=== PATIENT | female | born 1950 | race Caucasian/White ===

== ENCOUNTER → 2016-06-21 | Outpatient (CLI) | payer MEDICARE, MEDICAID ==
[2016-06-21 09:20] LABS: ANION GAP 11 (5-19); BLOOD UREA NITROGEN 12 mg/dL (7-20); CALCIUM 9.9 mg/dL (8.4-10.2); CARBON DIOXIDE 34 mmol/L (22-30); CHLORIDE 100 mmol/L (98-107); CHOLESTEROL 233.04 mg/dL (0-200); CREATININE RESULT 0.77 mg/dL (0.52-1.25); Direct HDL 78 mg/dL (>40); GLUCOSE 128 mg/dL (75-110); POTASSIUM 4.3 mmol/L (3.6-5.0); SODIUM 144.5 mmol/L (137-145); TRIGLYCERIDES 130 mg/dL (<150)
[2016-06-21 09:31] LABS: DIRECT LDL 125 mg/dL (<100)
== END ==
LOC: LAB 08:47
PROVIDERS: ATTEND Internal Medicine Cardiovascular Disease
DX: I48.91 Unspecified atrial fibrillation (principal); R73.09 Other abnormal glucose; I10 Essential (primary) hypertension; E74.9 Disorder of carbohydrate metabolism, unspecified
CPT/HCPCS: 36415; 80048; 80061; 83036

== ENCOUNTER 2016-07-18 13:09 | Inpatient (IN) | payer MEDICARE, MEDICAID ==
[2016-07-18 14:04] LABS: ABSOLUTE BASOPHILS # (AUTO) 0.1 10^3/uL (0.0-0.2); ABSOLUTE EOSINOPHILS # (AUTO) 0.1 10^3/uL (0.0-0.6); ABSOLUTE LYMPHOCYTES (AUTO) 0.7 10^3/uL (0.5-4.7); ABSOLUTE MONOCYTES (AUTO) 0.6 10^3/uL (0.1-1.4); ABSOLUTE NEUT (AUTO) 3.9 10^3/uL (1.7-8.2); BASOPHILS % (AUTO) 1.2 % (0-2); EOSINOPHILS % (AUTO) 1.2 % (0-6); HEMATOCRIT 35.7 % (36.0-47.0); HGB HCT DIFFERENCE 0.3; LYMPHOCYTES % (AUTO) 13.8 % (13-45); MEAN CORPUSCULAR HEMOGLOBIN 30.2 pg (27.0-33.4); MEAN CORPUSCULAR HGB CONC 33.5 g/dL (32.0-36.0); MEAN CORPUSCULAR VOLUME 90 fl (80-97); MONOCYTES % (AUTO) 11.6 % (3-13); RED BLOOD COUNT 3.96 10^6/uL (3.72-5.28); RED CELL DISTRIBUTION WIDTH 14.1 % (11.5-14.0); SEGMENTED NEUTROPHILS % (AUTO) 72.2 % (42-78); WHITE BLOOD COUNT 5.4 10^3/uL (4.0-10.5)
[2016-07-18] MEDS ORDERED: IPRATROPIUM/ALBUTEROL 0.5-2.5 MG/3 ML AMPUL NEB ONE (14:19)
[2016-07-18] MEDS ORDERED: ACETAMINOPHEN 325 MG TABLET PO ONE (14:20)
[2016-07-18 14:24] LABS: ALANINE AMINOTRANSFERASE 37 U/L (9-52); ALKALINE PHOSPHATASE 59 U/L (38-126); ANION GAP 11 (5-19); ASPARTATE AMINO TRANSFERASE 31 U/L (14-36); BILIRUBIN,TOTAL 0.5 mg/dL (0.2-1.3); BLOOD UREA NITROGEN 13 mg/dL (7-20); CALCIUM 9.3 mg/dL (8.4-10.2); CARBON DIOXIDE 30 mmol/L (22-30); CHLORIDE 101 mmol/L (98-107); CREATINE KINASE 63 U/L (30-135); GLUCOSE 111 mg/dL (75-110); POTASSIUM 3.9 mmol/L (3.6-5.0); SODIUM 141.6 mmol/L (137-145); TOTAL PROTEIN 7.8 g/dL (6.3-8.2)
--- NOTE | 2016-07-18 14:27 | ER Document Report ---
ED Respiratory Problem - General Mode of Arrival: Medic Information source: Patient TRAVEL OUTSIDE OF THE [place] IN LAST 30 DAYS: No - HPI Patient complains to provider of: Cough, Short of breath Onset: Other - past 2 days Context: Hx COPD, Smoker - former. denies: Hx CHF Sputum color: Clear Sputum consistency: Frothy At home treatment: Oxygen - 2L Associated symptoms: Other - see above <ALISHA JIMENEZ - Last Filed: 07/18/16 17:48> <SU OSWALD - Last Filed: 07/18/16 21:06> <PERNELL LE - Last Filed: 07/19/16 00:16> - General Chief Complaint: Shortness Of Breath Stated Complaint: DIFFICULTY BREATHING Notes: 66 year old female with history of hypertension, atrial fibrillation, diabetes, and COPD (oxygen dependent at 2L) presents to the ED complaining of a productive cough that has been present for the past 2 days. Patient states that she is coughing up white frothy sputum. Patient is also short of breath with exertion, and states that her oxygen saturation drops to "82%" when walking. Patient called EMS today when she was having difficulty breathing even with her oxygen on. She received a breathing treatment via EMS and states that it helped a little. Patient is also complaining of a headache, nosebleed, and fever. Patient had a fever of 102F last night and took Motrin and Nyquil to reduce it to 99F. This morning the patient woke up with another fever and states she took more Motrin and Nyquil at 0630. Patient's primary care provider is Dr. Herron, but states that she sees her senior shipping clerk, Dr. Nicolas, more often. (ALISHA JIMENEZ ) This 66-year-old female patient with a long history of COPD on 2 L oxygen at home comes emergency room today complaining of a clear frothy sputum productive cough, and shortness of breath. She states at rest she does well, but with the least bit of exertion her oxygen saturations drop into the low 80s and she gets quite dyspneic. Her previous admission here she was diagnosed with congestive heart failure, however her BNP was 179, and a chest x-ray read as pulmonary vascular congestion was a poor chest x-ray on a rather large person. Today her BNP is 1890. Chest x-ray was read as cardiomegaly, COPD, no acute process. She was given 20 mg of Lasix and had good urine output but no improvement in her symptoms. Getting up to use the bedside commode caused her oxygen saturations drop well below 90 while she is on nasal cannula oxygen. When she sits back down to rest it quickly goes back up to 94-96%. The patient is on Xarelto for her chronic A. fib which she has had for the past 2 years. She reports that she has some pain in her chest when she breathes, she thinks it may be due to all the coughing. She also has pain in her mid thoracic back which again is related to breathing. (SU OSWALD) - Related Data Allergies/Adverse Reactions: Sulfa (Sulfonamide Antibiotics) Allergy (Verified 04/01/16 10:40) Past Medical History - General Information source: Patient - Social History Smoking Status: Former Smoker Family History: Reviewed & Not Pertinent - Past Medical History Cardiac Medical History: Reports: Hx Atrial Fibrillation, Hx Hypertension Denies: Hx Congestive Heart Failure, Hx Hypercholesterolemia Pulmonary Medical History: Reports: Hx COPD Endocrine Medical History: Reports: Hx Diabetes Mellitus Type 2 Past Surgical History: Reports: Hx Appendectomy, Hx Cholecystectomy, Hx Hysterectomy, Hx Tubal Ligation - Immunizations Hx Diphtheria, Pertussis, Tetanus Vaccination: No <ALISHA JIMENEZ - Last Filed: 07/18/16 17:48> Review of Systems - Review of Systems Constitutional: See HPI, Fever EENT: See HPI, Nose discharge - bloody nose Cardiovascular: No symptoms reported Respiratory: See HPI, Cough, Short of breath, Sputum - white frothy sputum Gastrointestinal: No symptoms reported Genitourinary: No symptoms reported Female Genitourinary: No symptoms reported Musculoskeletal: No symptoms reported Skin: No symptoms reported Hematologic/Lymphatic: No symptoms reported Neurological/Psychological: See HPI, Headaches -: Yes All other systems reviewed and negative <ALISHA JIMENEZ - Last Filed: 07/18/16 17:48> Physical Exam - General General appearance: Alert In distress: None - HEENT Head: Normocephalic, Atraumatic Eyes: Normal Extraocular movements intact: Yes Pupils: PERRL - Respiratory Respiratory status: No respiratory distress Breath sounds: Rales - mild, Wheezing - bilateral - Cardiovascular Rhythm: Regular Heart sounds: Normal auscultation - Abdominal Inspection: Normal - Back Back: Normal - Extremities General upper extremity: Normal inspection, Normal ROM General lower extremity: Normal inspection, Normal ROM - Neurological Neuro grossly intact: Yes - Psychological Associated symptoms: Normal affect, Normal mood - Skin Skin Temperature: Warm Skin Moisture: Dry Skin Color: Normal <ALISHA JIMENEZ - Last Filed: 07/18/16 17:48> Course - Laboratory Result Diagrams: 07/18/16 13:50 07/18/16 13:50 <BARBARAALISHA - Last Filed: 07/18/16 17:48> - Laboratory Result Diagrams: 07/18/16 13:50 07/18/16 13:50 - Diagnostic Test Radiology reviewed: Image reviewed, Reports reviewed - Chest x-ray is read as cardiomegaly with COPD and no infiltrates. - EKG Interpretation by [facility] EKG shows normal: abnormal: ST-T Waves - Borderline anterior T abnormalities Rate: Normal - 81 Rhythm: A.Fib Voltage: Decreased voltage, Throughout - Transfer of Care Care transferred to following provider: Dr. Le <SU OSWALD - Last Filed: 07/18/16 21:06> - Laboratory Result Diagrams: 07/18/16 13:50 07/18/16 13:50 <PERNELL LE - Last Filed: 07/19/16 00:16> - Re-evaluation Re-evalutation: 07/18/16 16:35 The patient's BNP is 1890, almost 2 years ago she had a BNP of 171 Chest x-ray in the past has been read as prominent vascular congestion, but these were portal x-rays and she is a large person. Given her recent worsening of dyspnea on exertion despite being on oxygen, and the elevated BNP, will give her some Lasix at this time to diurese and see if that improves her exercise tolerance. (SU OSWALD) 07/18/16 23:58 I received the patient in signout from Dr. Feldman. Patient was ablated on pulse oximeter and did immediately desaturated down to 86% after ambulate just 20-25 feet. She was visibly symptomatic with this. The CT chest that was obtained without contrast did show a right perihilar infiltrate consistent with a possible pneumonia which should also help explain patient's symptoms. She is overall in no acute distress at this time. The VQ scan is pending. I have discussed this case with the hospitalist Dr. Minaya who will admit (PERNELL LE) - Vital Signs Vital signs: Temp Pulse Resp BP Pulse Ox 100.2 F 17 137/80 H 98 07/18/16 14:01 07/18/16 23:11 07/18/16 23:11 07/18/16 23:11 (ALISHA JIMENEZ) (SU OSWALD) (PERNELL LE) - Laboratory Laboratory results interpreted by me: 07/18/16 07/18/16 07/18/16 13:50 13:50 13:50 Hct 35.7 L RDW 14.1 H Glucose 111 H NT-Pro-B Natriuret Pep 1890 H (ALISHA JIMENEZ) (SU OSWALD) (PERNELL LE) - Transfer of Care Notes: 07/18/16 21:10 The patient is pending CTA chest to try to clarify what may actually be going on in her lungs causing her exertional hypoxemia. (SU OSWALD) Discharge <ALISHA JIMENEZ - Last Filed: 07/18/16 17:48> <SU OSWALD - Last Filed: 07/18/16 21:06> - Discharge Admitting Provider: Hospitalist - [facility] Admitted: Telemetry <PERNELL LE - Last Filed: 07/19/16 00:16> - Discharge Clinical Impression: Hypoxemia requiring supplemental oxygen, Exercise hypoxemia, Dyspnea on exertion Pneumonia involving right lung Qualifiers: Pneumonia type: due to unspecified organism Lung location: middle lobe of lung Qualified Code(s): J18.1 - Lobar pneumonia, unspecified organism Condition: Fair Disposition: ADMITTED INPATIENT Scribe Documentation - Scribe Written by Scribe:: Brooke Rodriguez, 07/18/2016 1433 acting as scribe for :: Garo <ALISHA JIMENEZ - Last Filed: 07/18/16 17:48>
[2016-07-18 14:35] LABS: TROPONIN I < 0.012 ng/mL
[2016-07-18 14:52] LABS: APPEARANCE,URINE CLEAR; BILIRUBIN,URINE NEGATIVE (NEGATIVE); GLUCOSE, URINE NEGATIVE (NEGATIVE); KETONES,URINE NEGATIVE (NEGATIVE); LEUKOCYTE ESTERASE,URINE NEGATIVE (NEGATIVE); NITRITE,URINE NEGATIVE (NEGATIVE); PROTEIN,URINE NEGATIVE (NEGATIVE); URINE SPECIFIC GRAVITY 1.013; UROBILINOGEN,URINE NEGATIVE mg/dL (<2.0)
[2016-07-18] MEDS ORDERED: ONDANSETRON HCL INJ/PF 4 MG/2 ML SDV IV ONE ×2 (15:45→21:11)
[2016-07-18] MEDS ORDERED: KETOROLAC TROMETHAMINE INJ/PF 30 MG/1 ML SDV IV ONE (15:45)
[2016-07-18] MEDS ORDERED: FUROSEMIDE INJ/PF 20 MG/2 ML SDV IV ONE (16:35)
[2016-07-18] MEDS ORDERED: MORPHINE SULFATE 10 MG/ML INJ IV ONE (21:11)
--- NOTE | 2016-07-18 21:42 | EKG REPORT ---
SEVERITY:- ABNORMAL ECG - ATRIAL FIBRILLATION, V-RATE 60-98 LOW VOLTAGE THROUGHOUT BORDERLINE T ABNORMALITIES, ANTERIOR LEADS : Confirmed by: Nelly Snyder 18-Jul-2016 21:40:51
[2016-07-18] MEDS ORDERED: LEVOFLOXACIN 750 MG/D5W RTU 150 ML IV SCH (23:45)
[2016-07-18] MEDS ORDERED: FLUTICASONE NASAL SPRAY 50 MCG/SPRY 120 SPRAY/16 GM NASL SCH (23:45)
[2016-07-18] MEDS ORDERED: CEFTRIAXONE 1 GM/D5W RTU 50 ML IV ONE (23:46)
[2016-07-18] MEDS ORDERED: LEVOFLOXACIN 750 MG/D5W RTU 150 ML IV ONE (23:50)
[2016-07-18] MEDS ORDERED: FUROSEMIDE 20 MG TABLET PO PRN (23:58)
[2016-07-18] MEDS ORDERED: GUAIFENESIN SYRP 200 MG/10 ML UDC PO PRN (23:59)
[2016-07-19] MEDS ORDERED: METOPROLOL TARTRATE 50 MG TABLET PO ONE (01:15)
[2016-07-19] MEDS ORDERED: IPRATROPIUM/ALBUTEROL 0.5-2.5 MG/3 ML AMPUL NEB SCH (02:00)
[2016-07-19] MEDS: IPRATROPIUM BROMIDE 0.02% NEB 0.5 MG/2.5 ML AMPUL NEB SCH ×3 (03:05→14:12)
[2016-07-19] MEDS: LEVALBUTEROL HCL NEB 1.25 MG/3 ML AMPUL NEB SCH ×3 (03:06→14:12)
[2016-07-19] MEDS: PREDNISONE 10 MG TABLET PO SCH (04:47)
[2016-07-19] MEDS ORDERED: CEFTRIAXONE 1 GM/D5W RTU 1 GM/50 ML RTUPB IV ONE (05:00)
--- NOTE | 2016-07-19 05:05 | PDOC H&P ---
History of Present Illness Admission Date/PCP: 07/18/16 23:59 JOSE MARIA GALLEGOS MD Patient complains of: Fever and shortness of breath History of Present Illness: VESTA JIMENEZ is a 66 year old female with a past medical history of COPD, atrial fibrillation, hypertension and morbid obesity who is in her usual state of health until approximately 5 days ago noting a nonproductive cough over the last 48 hours developing a fever of 102 and shortness of breath with both frothy sputum and yellow sputum prompting her to seek evaluation emergency room where she's found to have right Hilar infiltrate. She started on empiric antibiotics and referred to the hospitalist for admission. She denies chest pain nausea vomiting or recent influenza vaccine. Past Medical History Cardiac Medical History: Reports: Atrial Fibrillation, Hypertension Denies: Congestive Heart Failure, Hyperlipidema Pulmonary Medical History: Reports: Chronic Obstructive Pulmonary Disease (COPD) Endocrine Medical History: Reports: Diabetes Mellitus Type 2 Past Surgical History Past Surgical History: Reports: Appendectomy, Cholecystectomy, Hysterectomy, Tubal Ligation Social History Information Source: Patient Smoking Status: Former Smoker Frequency of Alcohol Use: None Hx Recreational Drug Use: No Drugs: None Hx Prescription Drug Abuse: No - Advance Directive Resuscitation Status: Full Code Family History Family History: COPD Parental Family History Reviewed: Yes Children Family History Reviewed: Yes Sibling(s) Family History Reviewed.: Yes Medication/Allergy Home Medications: Albuterol Sulfate [Ventolin Hfa] 1 - 2 puff IH Q4HP PRN #1 [email or web address] 09/04/14 Diazepam [Valium 5 mg Tablet] 5 mg PO BID PRN 07/19/16 Fluticasone/Salmeterol [Advair 250-50 Diskus 28 dose] 2 puff IH DAILY 07/19/16 Metformin HCl [Metformin HCl ER] 1,000 mg PO DAILY 07/19/16 Metoprolol Succinate [Metoprolol Succinate] 200 mg PO DAILY 07/19/16 Promethazine HCl 25 mg PO ASDIR PRN 07/19/16 Rivaroxaban [Xarelto] 20 mg PO QHS 07/19/16 Allergies/Adverse Reactions: levofloxacin [From Levaquin] Allergy (Intermediate, Verified 07/19/16 04:41) Unknown reaction Sulfa (Sulfonamide Antibiotics) Allergy (Verified 04/01/16 10:40) Review of Systems Constitutional: PRESENT: chills, fatigue, fever(s), weakness. ABSENT: headache( s), weight gain, weight loss Eyes: ABSENT: visual disturbances Ears: ABSENT: hearing changes Cardiovascular: ABSENT: chest pain, dyspnea on exertion, edema, orthropnea, palpitations Respiratory: PRESENT: cough, dyspnea, sputum. ABSENT: hemoptysis Gastrointestinal: ABSENT: abdominal pain, constipation, diarrhea, hematemesis, hematochezia, nausea, vomiting Genitourinary: ABSENT: dysuria, hematuria Musculoskeletal: ABSENT: joint swelling Integumentary: ABSENT: rash, wounds Neurological: ABSENT: abnormal gait, abnormal speech, confusion, dizziness, focal weakness, syncope Psychiatric: ABSENT: anxiety, depression, homidical ideation, suicidal ideation Endocrine: ABSENT: cold intolerance, heat intolerance, polydipsia, polyuria Hematologic/Lymphatic: ABSENT: easy bleeding, easy bruising Physical Exam Vital Signs: Temp Pulse Resp BP Pulse Ox 100.2 F 77 18 118/59 L 87 L 07/18/16 14:01 07/19/16 03:05 07/19/16 04:31 07/19/16 04:31 07/19/16 04:31 General appearance: PRESENT: no acute distress, cooperative, mild distress, morbidly obese. ABSENT: disheveled Head exam: PRESENT: atraumatic, normocephalic Eye exam: PRESENT: conjunctiva pink, EOMI, PERRLA. ABSENT: scleral icterus Ear exam: PRESENT: normal external ear exam Mouth exam: PRESENT: moist, tongue midline Neck exam: ABSENT: carotid bruit, JVD, lymphadenopathy, thyromegaly Respiratory exam: PRESENT: accessory muscle use, crackles, prolonged expiratory phas, rales, symmetrical, tachypnea. ABSENT: wheezes Cardiovascular exam: PRESENT: irregular rhythm. ABSENT: diastolic murmur, rubs , systolic murmur Pulses: PRESENT: normal dorsalis pedis pul Vascular exam: PRESENT: normal capillary refill GI/Abdominal exam: PRESENT: normal bowel sounds, soft. ABSENT: distended, guarding, mass, organolmegaly, rebound, tenderness Rectal exam: PRESENT: deferred Extremities exam: PRESENT: full ROM. ABSENT: calf tenderness, clubbing, pedal edema Neurological exam: PRESENT: alert, awake, oriented to person, oriented to place , oriented to time, oriented to situation, CN II-XII grossly intact. ABSENT: motor sensory deficit Psychiatric exam: PRESENT: appropriate affect, normal mood. ABSENT: homicidal ideation, suicidal ideation Skin exam: PRESENT: dry, intact, warm. ABSENT: cyanosis, rash Results Impressions: Chest X-Ray 07/18/16 13:13 IMPRESSION: Cardiomegaly. Obstructive lung disease. Chest CT 07/18/16 18:44 IMPRESSION: Mild bronchial wall thickening centrally. Small area of right parahilar patchy airspace disease. Lung Scan-VQ NM 07/18/16 22:31 IMPRESSION: Intermediate probability for pulmonary emboli. Correlation with CT angiogram chest recommended. Assessment & Plan - Diagnosis (1) Pneumonia involving right lung Qualifiers: Pneumonia type: due to unspecified organism Lung location: middle lobe of lung Qualified Code(s): J18.1 - Lobar pneumonia, unspecified organism Is this a current diagnosis for this admission?: YesPlan: Empiric antibiotics, Xopenex with Atrovent symptomatic management incentive spirometry consideration of BiPAP following blood and sputum culture and a.m. labs (2) A-fib Is this a current diagnosis for this admission?: YesPlan: Anticipate worsening given COPD exacerbation patient is unclear of her regular Lopressor dose she will receive 25 times one now with close monitoring of her heart rate. She is already fully anticoagulated on Eliquis (3) CHF (congestive heart failure) Is this a current diagnosis for this admission?: YesPlan: Somewhat suggested by her complain of frothy sputum and elevated BNP I will avoid volume overload control heart rate and consider additional diuresis (4) Morbid obesity with BMI of 45.0-49.9, adult Is this a current diagnosis for this admission?: YesPlan: Morbid obesity will evaluate for metabolic cause with evaluation of thyroid function and dietitian consultation - Time Time Spent: 30 to 50 Minutes
[2016-07-19] MEDS: HEPARIN SOD (PORCINE) 5,000 UNIT/ML 1 ML SYRINGE SUBCUT SCH ×3 (06:05→21:35)
[2016-07-19] MEDS: ACETAMINOPHEN 325 MG TABLET PO PRN (06:38)
[2016-07-19 06:41] LABS: ABSOLUTE LYMPHOCYTES (AUTO) 0.5 10^3/uL (0.5-4.7); ABSOLUTE MONOCYTES (AUTO) 0.6 10^3/uL (0.1-1.4); ABSOLUTE NEUT (AUTO) 4.6 10^3/uL (1.7-8.2); BASOPHILS % (AUTO) 0.4 % (0-2); HEMATOCRIT 36.5 % (36.0-47.0); HEMOGLOBIN 12.2 g/dL (12.0-15.5); HGB HCT DIFFERENCE 0.1; MEAN CORPUSCULAR HEMOGLOBIN 29.9 pg (27.0-33.4); MEAN CORPUSCULAR HGB CONC 33.5 g/dL (32.0-36.0); MEAN CORPUSCULAR VOLUME 89 fl (80-97); MONOCYTES % (AUTO) 11.1 % (3-13); RED BLOOD COUNT 4.09 10^6/uL (3.72-5.28); RED CELL DISTRIBUTION WIDTH 13.9 % (11.5-14.0); SEGMENTED NEUTROPHILS % (AUTO) 79.5 % (42-78); WHITE BLOOD COUNT 5.8 10^3/uL (4.0-10.5)
[2016-07-19 06:54] LABS: ANION GAP 13 (5-19); BLOOD UREA NITROGEN 15 mg/dL (7-20); CALCIUM 9.2 mg/dL (8.4-10.2); CARBON DIOXIDE 28 mmol/L (22-30); CHLORIDE 99 mmol/L (98-107); CREATININE RESULT 0.74 mg/dL (0.52-1.25); GLUCOSE 117 mg/dL (75-110); POTASSIUM 4.3 mmol/L (3.6-5.0); SODIUM 139.5 mmol/L (137-145)
[2016-07-19] MEDS ORDERED: TIOTROPIUM BROMIDE DPI 5 CAP/KIT (18 MCG/CAP) IH SCH (08:00)
[2016-07-19] MEDS: TIOTROPIUM BROMIDE DPI 5 CAP/KIT (18 MCG/CAP) IH SCH (09:21)
[2016-07-19] MEDS: DOCUSATE SODIUM 100 MG CAPSULE PO SCH ×2 (09:22→17:43)
[2016-07-19] MEDS: ASPIRIN 81 MG TABLET, ENT COATED PO SCH (09:23)
[2016-07-19] MEDS: FAMOTIDINE 20 MG TABLET PO SCH ×2 (09:26→15:36)
[2016-07-19] MEDS ORDERED: (PENDING PHARMACY ID) (Lisinopril [Zestril] 20 MG) PO SCH (10:00)
[2016-07-19] MEDS ORDERED: LISINOPRIL 10 MG TABLET PO SCH (10:00)
--- NOTE | 2016-07-19 11:17 | EKG REPORT ---
SEVERITY:- ABNORMAL ECG - ATRIAL FIBRILLATION, V-RATE 61-93 LOW VOLTAGE THROUGHOUT BORDERLINE T ABNORMALITIES, DIFFUSE LEADS : Confirmed by: Nelly Snyder 19-Jul-2016 11:17:30
[2016-07-19] MEDS ORDERED: GUAIFENESIN 600 MG TABLET.SA PO ONE (11:30)
[2016-07-19] MEDS: IBUPROFEN 800 MG TABLET PO PRN ×2 (13:28→21:32)
--- NOTE | 2016-07-19 14:52 | PDOC PROGRESS REPORT ---
Subjective Progress Note for:: 07/19/16 Subjective:: The patient was seen earlier today on rounds. The patient denies dyspnea at rest however she still has dyspnea with exertion. The patient denies any nausea , vomiting, diarrhea, dizziness, chest pain, heart palpitations, fevers, or chills. The patient has remained afebrile. Blood pressures have been in a good range. When prompted the patient voices no other concerns at this time. Review of systems: The rest of the review of systems is negative. Physical Exam Vital Signs: Temp Pulse Resp BP Pulse Ox 97.7 F 79 18 125/75 98 07/19/16 12:00 07/19/16 12:00 07/19/16 12:00 07/19/16 12:00 07/19/16 12:00 Intake & Output 07/17/16 07/18/16 07/19/16 23:59 23:59 23:59 Intake Total 50 Balance 50 Weight 127.1 kg General appearance: PRESENT: no acute distress, cooperative, well-developed, well-nourished Head exam: PRESENT: atraumatic, normocephalic Eye exam: PRESENT: conjunctiva pink, EOMI, PERRLA. ABSENT: scleral icterus Ear exam: PRESENT: normal external ear exam Mouth exam: PRESENT: moist, tongue midline Neck exam: ABSENT: carotid bruit, JVD, lymphadenopathy, thyromegaly Respiratory exam: PRESENT: decreased breath sounds, symmetrical, unlabored, wheezes. ABSENT: rales, rhonchi, tachypnea Cardiovascular exam: PRESENT: RRR. ABSENT: diastolic murmur, rubs, systolic murmur Pulses: PRESENT: normal dorsalis pedis pul Vascular exam: PRESENT: normal capillary refill GI/Abdominal exam: PRESENT: normal bowel sounds, soft. ABSENT: distended, guarding, mass, organolmegaly, rebound, tenderness Rectal exam: PRESENT: deferred Extremities exam: PRESENT: full ROM. ABSENT: calf tenderness, clubbing, pedal edema Neurological exam: PRESENT: alert, awake, oriented to person, oriented to place , oriented to time, oriented to situation, CN II-XII grossly intact. ABSENT: motor sensory deficit Psychiatric exam: PRESENT: appropriate affect, normal mood. ABSENT: homicidal ideation, suicidal ideation Skin exam: PRESENT: dry, intact, warm. ABSENT: cyanosis, rash Results Laboratory Results: 07/19/16 06:20 07/19/16 06:20 07/19/16 07/19/16 06:20 06:20 WBC 5.8 RBC 4.09 Hgb 12.2 Hct 36.5 MCV 89 MCH 29.9 MCHC 33.5 RDW 13.9 Plt Count 222 Seg Neutrophils % 79.5 H Lymphocytes % 9.0 L Monocytes % 11.1 Eosinophils % 0.0 Basophils % 0.4 Absolute Neutrophils 4.6 Absolute Lymphocytes 0.5 Absolute Monocytes 0.6 Absolute Eosinophils 0.0 Absolute Basophils 0.0 Sodium 139.5 Potassium 4.3 Chloride 99 Carbon Dioxide 28 Anion Gap 13 BUN 15 Creatinine 0.74 Est GFR ( Amer) > 60 Est GFR (Non-Af Amer) > 60 Glucose 117 H Calcium 9.2 Impressions: Chest X-Ray 07/18/16 13:13 IMPRESSION: Cardiomegaly. Obstructive lung disease. Chest CT 07/18/16 18:44 IMPRESSION: Mild bronchial wall thickening centrally. Small area of right parahilar patchy airspace disease. Lung Scan-VQ NM 07/18/16 22:31 IMPRESSION: Intermediate probability for pulmonary emboli. Correlation with CT angiogram chest recommended. Assessment & Plan - Diagnosis (1) Pneumonia involving right lung Qualifiers: Pneumonia type: due to unspecified organism Lung location: middle lobe of lung Qualified Code(s): J18.1 - Lobar pneumonia, unspecified organism Is this a current diagnosis for this admission?: YesPlan: Will continue current antib biotic coverage (2) A-fib Qualifiers: Atrial fibrillation type: chronic Qualified Code(s): I48.2 - Chronic atrial fibrillation Is this a current diagnosis for this admission?: YesPlan: Rate controlled will continue current medications. (3) CHF (congestive heart failure) Qualifiers: Congestive heart failure type: diastolic Congestive heart failure chronicity: chronic Qualified Code(s): I50.32 - Chronic diastolic ( congestive) heart failure Is this a current diagnosis for this admission?: YesPlan: The patient appears optivolemic will continue current medications. (4) COPD exacerbation Is this a current diagnosis for this admission?: YesPlan: Will continue home medications. (5) Tobacco abuse, episodic Is this a current diagnosis for this admission?: Yes (6) Morbid obesity with BMI of 45.0-49.9, adult Is this a current diagnosis for this admission?: Yes (7) Hypertension Qualifiers: Hypertension type: essential hypertension Qualified Code(s): I10 - Essential (primary) hypertension Is this a current diagnosis for this admission?: YesPlan: Will continue home medications. - Time Time Spent with patient: 35 or more minutes Medications reviewed and adjusted accordingly: Yes Within: within 48 hours
[2016-07-19] MEDS ORDERED: (PENDING PHARMACY ID) (Metoprolol Succinate [Toprol Xl 200 Mg Tablet] 200 MG) PO SCH (15:00)
[2016-07-19] MEDS: METOPROLOL SUCCINATE 50 MG TAB.SR.24H PO SCH (17:43)
[2016-07-19] MEDS: METFORMIN HCL 500 MG TABLET PO SCH (17:44)
[2016-07-19] MEDS: FLUTICASONE NASAL SPRAY 50 MCG/SPRY 120 SPRAY/16 GM NASL SCH (21:32)
[2016-07-19] MEDS: GUAIFENESIN 600 MG TABLET.SA PO SCH (21:32)
[2016-07-19] MEDS: DIAZEPAM 5 MG TABLET PO PRN (21:32)
[2016-07-19] MEDS: RIVAROXABAN 10 MG TABLET PO SCH (21:33)
[2016-07-19] MEDS: FLUTICASONE/SALMETEROL DISKUS 250-50 MCG/DOSE IH SCH (21:33)
[2016-07-19] MEDS: SIMVASTATIN 40 MG TABLET PO SCH (21:33)
[2016-07-20 04:58] LABS: ABSOLUTE LYMPHOCYTES (AUTO) 0.6 10^3/uL (0.5-4.7); ABSOLUTE MONOCYTES (AUTO) 0.5 10^3/uL (0.1-1.4); ABSOLUTE NEUT (AUTO) 3.8 10^3/uL (1.7-8.2); BASOPHILS % (AUTO) 0.7 % (0-2); EOSINOPHILS % (AUTO) 0.4 % (0-6); HEMATOCRIT 39.9 % (36.0-47.0); HEMOGLOBIN 13.1 g/dL (12.0-15.5); HGB HCT DIFFERENCE -0.6; LYMPHOCYTES % (AUTO) 12.4 % (13-45); MEAN CORPUSCULAR HEMOGLOBIN 29.9 pg (27.0-33.4); MEAN CORPUSCULAR HGB CONC 32.8 g/dL (32.0-36.0); MEAN CORPUSCULAR VOLUME 91 fl (80-97); MONOCYTES % (AUTO) 10.7 % (3-13); RED BLOOD COUNT 4.39 10^6/uL (3.72-5.28); RED CELL DISTRIBUTION WIDTH 14.4 % (11.5-14.0); SEGMENTED NEUTROPHILS % (AUTO) 75.8 % (42-78)
[2016-07-20 05:17] LABS: ANION GAP 13 (5-19); BLOOD UREA NITROGEN 22 mg/dL (7-20); CALCIUM 9.3 mg/dL (8.4-10.2); CARBON DIOXIDE 31 mmol/L (22-30); CHLORIDE 98 mmol/L (98-107); CREATININE RESULT 0.88 mg/dL (0.52-1.25); GLUCOSE 93 mg/dL (75-110); POTASSIUM 4.2 mmol/L (3.6-5.0); SODIUM 141.5 mmol/L (137-145)
[2016-07-20] MEDS: ACETAMINOPHEN 325 MG TABLET PO PRN ×3 (05:26→14:13)
[2016-07-20] MEDS: HEPARIN SOD (PORCINE) 5,000 UNIT/ML 1 ML SYRINGE SUBCUT SCH ×3 (05:28→21:38)
[2016-07-20] MEDS: DIAZEPAM 5 MG TABLET PO PRN ×2 (08:26→21:40)
[2016-07-20] MEDS: FAMOTIDINE 20 MG TABLET PO SCH ×2 (08:26→16:53)
[2016-07-20] MEDS: METFORMIN HCL 500 MG TABLET PO SCH ×2 (08:26→16:53)
[2016-07-20] MEDS: GUAIFENESIN 600 MG TABLET.SA PO SCH ×2 (09:12→21:38)
[2016-07-20] MEDS: PREDNISONE 10 MG TABLET PO SCH (09:13)
[2016-07-20] MEDS: FLUTICASONE NASAL SPRAY 50 MCG/SPRY 120 SPRAY/16 GM NASL SCH ×2 (09:13→21:38)
[2016-07-20] MEDS: FLUTICASONE/SALMETEROL DISKUS 250-50 MCG/DOSE IH SCH ×2 (09:13→21:38)
[2016-07-20] MEDS: ASPIRIN 81 MG TABLET, ENT COATED PO SCH (09:13)
[2016-07-20] MEDS: DOCUSATE SODIUM 100 MG CAPSULE PO SCH ×2 (09:13→18:11)
[2016-07-20] MEDS: TIOTROPIUM BROMIDE DPI 5 CAP/KIT (18 MCG/CAP) IH SCH (09:13)
[2016-07-20] MEDS: AZITHROMYCIN 500 MG in DEXTROSE 5%-WATER 250 ML IV SCH (10:03)
[2016-07-20] MEDS: LEVALBUTEROL HCL NEB 0.63 MG/3 ML AMPUL NEB PRN ×2 (14:28→20:40)
--- NOTE | 2016-07-20 15:40 | PDOC PROGRESS REPORT ---
Subjective Progress Note for:: 07/20/16 Subjective:: Patient seen on morning rounds. She is sitting up bed and bedside chair. She states her breathing has improved since admission, however, she still becomes easily dyspneic with any exertion. She continues to have productive cough, raising thick yellow sputum. She's had a low-grade fever overnight as well. She denies any chest pain, headache or dizziness. She denies any nausea, vomiting, diarrhea, or abdominal pain. She denies any significant arthralgias or myalgias. She states she did have chills and low-grade fever overnight. Physical Exam Vital Signs: Temp Pulse Resp BP Pulse Ox 98.8 F 86 16 118/64 92 07/20/16 11:13 07/20/16 14:28 07/20/16 14:28 07/20/16 11:13 07/20/16 14:28 General appearance: PRESENT: no acute distress, morbidly obese, well-developed, well-nourished Head exam: PRESENT: atraumatic, normocephalic Eye exam: PRESENT: conjunctiva pink, EOMI, PERRLA. ABSENT: scleral icterus Ear exam: PRESENT: normal external ear exam Mouth exam: PRESENT: moist, tongue midline Neck exam: ABSENT: carotid bruit, JVD, lymphadenopathy, thyromegaly Respiratory exam: PRESENT: rhonchi, symmetrical, tachypnea, wheezes Cardiovascular exam: PRESENT: RRR. ABSENT: diastolic murmur, rubs, systolic murmur Pulses: PRESENT: normal dorsalis pedis pul Vascular exam: PRESENT: normal capillary refill GI/Abdominal exam: PRESENT: normal bowel sounds, soft. ABSENT: distended, guarding, mass, organolmegaly, rebound, tenderness Rectal exam: PRESENT: deferred Extremities exam: PRESENT: full ROM. ABSENT: calf tenderness, clubbing, pedal edema Neurological exam: PRESENT: alert, awake, oriented to person, oriented to place , oriented to time, oriented to situation, CN II-XII grossly intact. ABSENT: motor sensory deficit Psychiatric exam: PRESENT: appropriate affect, normal mood. ABSENT: homicidal ideation, suicidal ideation Skin exam: PRESENT: dry, intact, warm. ABSENT: cyanosis, rash Results Impressions: Chest X-Ray 07/18/16 13:13 IMPRESSION: Cardiomegaly. Obstructive lung disease. Chest CT 07/18/16 18:44 IMPRESSION: Mild bronchial wall thickening centrally. Small area of right parahilar patchy airspace disease. Lung Scan-VQ NM 07/18/16 22:31 IMPRESSION: Intermediate probability for pulmonary emboli. Correlation with CT angiogram chest recommended. Assessment & Plan - Diagnosis (1) Acute and chronic respiratory failure with hypoxia Is this a current diagnosis for this admission?: YesPlan: Most likely secondary to acute sinusitis, bronchitis. Patient with low grade fever, productive cough and dyspnea with minimal exertion. Patient will be treated with IV broad spectrum antibiotics (2) Hypertension Qualifiers: Hypertension type: essential hypertension Qualified Code(s): I10 - Essential (primary) hypertension Is this a current diagnosis for this admission?: YesPlan: Normotensive at the present time (3) COPD exacerbation Is this a current diagnosis for this admission?: YesPlan: Continue inhalers, nebulizers and antibiotics (4) A-fib Qualifiers: Atrial fibrillation type: chronic Qualified Code(s): I48.2 - Chronic atrial fibrillation Is this a current diagnosis for this admission?: YesPlan: Rate controlled on current medications (5) CHF (congestive heart failure) Qualifiers: Congestive heart failure type: diastolic Congestive heart failure chronicity: chronic Qualified Code(s): I50.32 - Chronic diastolic ( congestive) heart failure Is this a current diagnosis for this admission?: YesPlan: Patient appears euvolemic at the present time (6) Morbid obesity with BMI of 45.0-49.9, adult Is this a current diagnosis for this admission?: YesPlan: Counseled (7) Tobacco abuse, episodic Is this a current diagnosis for this admission?: YesPlan: Counseled on need to be tobacco free - Time Time Spent with patient: 25-34 minutes Critical Time spent with patient: 15-24 minutes Smoking Cessation Education: 3 to 10 minutes Medications reviewed and adjusted accordingly: Yes Anticipated discharge: Home
[2016-07-20] MEDS: METOPROLOL SUCCINATE 50 MG TAB.SR.24H PO SCH (18:11)
[2016-07-20] MEDS: RIVAROXABAN 10 MG TABLET PO SCH (21:39)
[2016-07-20] MEDS: PROMETHAZINE HCL 25 MG TABLET PO PRN (21:40)
[2016-07-20] MEDS: SIMVASTATIN 40 MG TABLET PO SCH (21:54)
[2016-07-21] MEDS: HEPARIN SOD (PORCINE) 5,000 UNIT/ML 1 ML SYRINGE SUBCUT SCH ×3 (06:33→21:25)
[2016-07-21] MEDS: METFORMIN HCL 500 MG TABLET PO SCH ×2 (08:00→17:14)
[2016-07-21] MEDS: FAMOTIDINE 20 MG TABLET PO SCH ×2 (08:00→15:36)
[2016-07-21] MEDS: FLUTICASONE/SALMETEROL DISKUS 250-50 MCG/DOSE IH SCH ×2 (09:25→21:25)
[2016-07-21] MEDS: TIOTROPIUM BROMIDE DPI 5 CAP/KIT (18 MCG/CAP) IH SCH (09:25)
[2016-07-21] MEDS: GUAIFENESIN 600 MG TABLET.SA PO SCH ×2 (09:26→21:25)
[2016-07-21] MEDS: ASPIRIN 81 MG TABLET, ENT COATED PO SCH (09:26)
[2016-07-21] MEDS: PREDNISONE 10 MG TABLET PO SCH (09:26)
[2016-07-21] MEDS: DOCUSATE SODIUM 100 MG CAPSULE PO SCH ×2 (09:26→17:16)
[2016-07-21] MEDS: FLUTICASONE NASAL SPRAY 50 MCG/SPRY 120 SPRAY/16 GM NASL SCH ×2 (09:26→21:25)
[2016-07-21] MEDS: AZITHROMYCIN 500 MG in DEXTROSE 5%-WATER 250 ML IV SCH (10:31)
[2016-07-21] MEDS: ONDANSETRON HCL INJ/PF 4 MG/2 ML SDV IV PRN ×2 (12:12→19:32)
[2016-07-21] MEDS: LEVALBUTEROL HCL NEB 0.63 MG/3 ML AMPUL NEB PRN ×2 (13:06→19:18)
--- NOTE | 2016-07-21 15:07 | PDOC PROGRESS REPORT ---
Subjective Progress Note for:: 07/21/16 Subjective:: Patient seen on morning rounds. She is sitting up bed and bedside chair. She states her breathing has improved since admission, however, she still becomes easily dyspneic with any exertion. She continues to have productive cough, raising thick yellow sputum. She denies any chest pain, headache or dizziness. She complains of mild nausea, and diarrhea that began this morning She denies any significant arthralgias or myalgias. She states she did have chills and low -grade fever overnight. Physical Exam Vital Signs: Temp Pulse Resp BP Pulse Ox 100.2 F 78 21 H 119/86 H 96 07/21/16 11:31 07/21/16 14:00 07/21/16 11:31 07/21/16 11:31 07/21/16 11:31 Intake & Output 07/20/16 07/21/16 07/22/16 06:59 06:59 06:59 Intake Total 1190 950 Output Total 800 Balance 390 950 Weight 132.3 kg General appearance: PRESENT: no acute distress, morbidly obese, well-developed, well-nourished Head exam: PRESENT: atraumatic Eye exam: PRESENT: conjunctiva pink, EOMI, PERRLA. ABSENT: scleral icterus Mouth exam: PRESENT: moist, tongue midline Neck exam: ABSENT: carotid bruit, JVD, lymphadenopathy, thyromegaly Respiratory exam: PRESENT: symmetrical, unlabored, wheezes Cardiovascular exam: PRESENT: RRR. ABSENT: diastolic murmur, rubs, systolic murmur Pulses: PRESENT: normal dorsalis pedis pul Vascular exam: PRESENT: normal capillary refill GI/Abdominal exam: PRESENT: normal bowel sounds, soft. ABSENT: distended, guarding, mass, organolmegaly, rebound, tenderness Rectal exam: PRESENT: deferred Extremities exam: PRESENT: full ROM. ABSENT: calf tenderness, clubbing, pedal edema Neurological exam: PRESENT: alert, awake, oriented to person, oriented to place , oriented to time, oriented to situation, CN II-XII grossly intact. ABSENT: motor sensory deficit Psychiatric exam: PRESENT: appropriate affect, normal mood. ABSENT: homicidal ideation, suicidal ideation Skin exam: PRESENT: dry, intact, warm. ABSENT: cyanosis, rash Results Impressions: Chest X-Ray 07/18/16 13:13 IMPRESSION: Cardiomegaly. Obstructive lung disease. Chest CT 07/18/16 18:44 IMPRESSION: Mild bronchial wall thickening centrally. Small area of right parahilar patchy airspace disease. Lung Scan-VQ NM 07/18/16 22:31 IMPRESSION: Intermediate probability for pulmonary emboli. Correlation with CT angiogram chest recommended. Assessment & Plan - Diagnosis (1) Acute and chronic respiratory failure with hypoxia Is this a current diagnosis for this admission?: YesPlan: Most likely secondary to acute sinusitis, bronchitis. Patient with low grade fever, productive cough and dyspnea with minimal exertion. Patient will be treated with IV broad spectrum antibiotics (2) Hypertension Qualifiers: Hypertension type: essential hypertension Qualified Code(s): I10 - Essential (primary) hypertension Is this a current diagnosis for this admission?: YesPlan: Normotensive at the present time (3) COPD exacerbation Is this a current diagnosis for this admission?: YesPlan: Continue inhalers, nebulizers and antibiotics (4) A-fib Qualifiers: Atrial fibrillation type: chronic Qualified Code(s): I48.2 - Chronic atrial fibrillation Is this a current diagnosis for this admission?: YesPlan: Rate controlled on current medications (5) CHF (congestive heart failure) Qualifiers: Congestive heart failure type: diastolic Congestive heart failure chronicity: chronic Qualified Code(s): I50.32 - Chronic diastolic ( congestive) heart failure Is this a current diagnosis for this admission?: YesPlan: Patient appears euvolemic at the present time (6) Morbid obesity with BMI of 45.0-49.9, adult Is this a current diagnosis for this admission?: YesPlan: Counseled (7) Tobacco abuse, episodic Is this a current diagnosis for this admission?: YesPlan: Counseled on need to be tobacco free (8) Nausea Is this a current diagnosis for this admission?: YesPlan: Horace prn - Time Time Spent with patient: 25-34 minutes Critical Time spent with patient: 15-24 minutes Smoking Cessation Education: 3 to 10 minutes Medications reviewed and adjusted accordingly: Yes Anticipated discharge: Home
[2016-07-21] MEDS: METOPROLOL SUCCINATE 50 MG TAB.SR.24H PO SCH (17:14)
[2016-07-21] MEDS: LACTOBACILLUS ACIDOPHILUS 250 MG TAB PO SCH (17:15)
[2016-07-21] MEDS: RIVAROXABAN 10 MG TABLET PO SCH (21:25)
[2016-07-21] MEDS: SIMVASTATIN 40 MG TABLET PO SCH (21:26)
[2016-07-21] MEDS: DIAZEPAM 5 MG TABLET PO PRN (21:26)
[2016-07-22 04:53] LABS: ABSOLUTE LYMPHOCYTES (AUTO) 1.5 10^3/uL (0.5-4.7); ABSOLUTE MONOCYTES (AUTO) 0.5 10^3/uL (0.1-1.4); ABSOLUTE NEUT (AUTO) 2.5 10^3/uL (1.7-8.2); BASOPHILS % (AUTO) 0.8 % (0-2); EOSINOPHILS % (AUTO) 0.2 % (0-6); HEMATOCRIT 35.6 % (36.0-47.0); HEMOGLOBIN 12.1 g/dL (12.0-15.5); HGB HCT DIFFERENCE 0.7; LYMPHOCYTES % (AUTO) 33.4 % (13-45); MEAN CORPUSCULAR HEMOGLOBIN 30.1 pg (27.0-33.4); MEAN CORPUSCULAR VOLUME 89 fl (80-97); MONOCYTES % (AUTO) 11.5 % (3-13); RED BLOOD COUNT 4.02 10^6/uL (3.72-5.28); RED CELL DISTRIBUTION WIDTH 13.9 % (11.5-14.0); SEGMENTED NEUTROPHILS % (AUTO) 54.1 % (42-78); WHITE BLOOD COUNT 4.6 10^3/uL (4.0-10.5)
[2016-07-22 06:05] LABS: ANION GAP 11 (5-19); BLOOD UREA NITROGEN 12 mg/dL (7-20); CALCIUM 8.9 mg/dL (8.4-10.2); CARBON DIOXIDE 31 mmol/L (22-30); CHLORIDE 99 mmol/L (98-107); CREATININE RESULT 0.65 mg/dL (0.52-1.25); GLUCOSE 102 mg/dL (75-110); POTASSIUM 3.8 mmol/L (3.6-5.0); SODIUM 141.1 mmol/L (137-145)
[2016-07-22] MEDS: HEPARIN SOD (PORCINE) 5,000 UNIT/ML 1 ML SYRINGE SUBCUT SCH ×3 (06:52→22:29)
[2016-07-22] MEDS: ONDANSETRON HCL INJ/PF 4 MG/2 ML SDV IV PRN ×2 (06:59→13:31)
[2016-07-22] MEDS: FAMOTIDINE 20 MG TABLET PO SCH ×2 (08:27→19:02)
[2016-07-22] MEDS: METFORMIN HCL 500 MG TABLET PO SCH ×2 (08:27→17:57)
[2016-07-22] MEDS: DIAZEPAM 5 MG TABLET PO PRN ×2 (08:34→17:05)
[2016-07-22] MEDS: FLUTICASONE/SALMETEROL DISKUS 250-50 MCG/DOSE IH SCH ×2 (11:00→22:29)
[2016-07-22] MEDS: FLUTICASONE NASAL SPRAY 50 MCG/SPRY 120 SPRAY/16 GM NASL SCH ×2 (11:01→22:29)
[2016-07-22] MEDS: TIOTROPIUM BROMIDE DPI 5 CAP/KIT (18 MCG/CAP) IH SCH (11:01)
[2016-07-22] MEDS: GUAIFENESIN 600 MG TABLET.SA PO SCH ×2 (11:01→22:29)
[2016-07-22] MEDS: ASPIRIN 81 MG TABLET, ENT COATED PO SCH (11:01)
[2016-07-22] MEDS: PREDNISONE 10 MG TABLET PO SCH (11:02)
[2016-07-22] MEDS: AZITHROMYCIN 250 MG TABLET PO SCH (11:02)
[2016-07-22] MEDS: LEVALBUTEROL HCL NEB 0.63 MG/3 ML AMPUL NEB PRN (11:12)
[2016-07-22] MEDS: DOCUSATE SODIUM 100 MG CAPSULE PO SCH (11:17)
[2016-07-22] MEDS ORDERED: LOPERAMIDE HCL 2 MG CAPSULE PO PRN (11:39)
--- NOTE | 2016-07-22 13:51 | PDOC PROGRESS REPORT ---
Subjective Progress Note for:: 07/22/16 Subjective:: Patient seen on morning rounds. She is sitting up in chair. She states her breathing has improved since admission, however, she still becomes easily dyspneic with any exertion. She continues to have productive cough, raising thick yellow sputum. She denies any chest pain, headache or dizziness. She complains of mild nausea, and diarrhea that began this morning She denies any significant arthralgias or myalgias. Physical Exam Vital Signs: Temp Pulse Resp BP Pulse Ox 98.4 F 82 18 126/69 H 96 07/22/16 07:33 07/22/16 11:12 07/22/16 11:12 07/22/16 07:33 07/22/16 11:12 Intake & Output 07/21/16 07/22/16 07/23/16 06:59 06:59 06:59 Intake Total 1190 1200 Output Total 800 Balance 390 1200 Weight 132.3 kg 132.3 kg General appearance: PRESENT: no acute distress, morbidly obese, well-developed, well-nourished Head exam: PRESENT: atraumatic, normocephalic Eye exam: PRESENT: conjunctiva pink, EOMI, PERRLA. ABSENT: scleral icterus Ear exam: PRESENT: normal external ear exam Mouth exam: PRESENT: moist, tongue midline Neck exam: ABSENT: carotid bruit, JVD, lymphadenopathy, thyromegaly Respiratory exam: PRESENT: rhonchi, symmetrical, unlabored Cardiovascular exam: PRESENT: RRR. ABSENT: diastolic murmur, rubs, systolic murmur Pulses: PRESENT: normal dorsalis pedis pul Vascular exam: PRESENT: normal capillary refill GI/Abdominal exam: PRESENT: normal bowel sounds, soft. ABSENT: distended, guarding, mass, organolmegaly, rebound, tenderness Rectal exam: PRESENT: deferred Extremities exam: PRESENT: full ROM. ABSENT: calf tenderness, clubbing, pedal edema Neurological exam: PRESENT: alert, awake, oriented to person, oriented to place , oriented to time, oriented to situation, CN II-XII grossly intact. ABSENT: motor sensory deficit Psychiatric exam: PRESENT: appropriate affect, normal mood. ABSENT: homicidal ideation, suicidal ideation Skin exam: PRESENT: dry, intact, warm. ABSENT: cyanosis, rash Results Laboratory Results: 07/22/16 04:43 07/22/16 04:43 07/22/16 07/22/16 04:43 04:43 WBC 4.6 RBC 4.02 Hgb 12.1 Hct 35.6 L MCV 89 MCH 30.1 MCHC 34.0 RDW 13.9 Plt Count 153 Seg Neutrophils % 54.1 Lymphocytes % 33.4 Monocytes % 11.5 Eosinophils % 0.2 Basophils % 0.8 Absolute Neutrophils 2.5 Absolute Lymphocytes 1.5 Absolute Monocytes 0.5 Absolute Eosinophils 0.0 Absolute Basophils 0.0 Sodium 141.1 Potassium 3.8 Chloride 99 Carbon Dioxide 31 H Anion Gap 11 BUN 12 Creatinine 0.65 Est GFR ( Amer) > 60 Est GFR (Non-Af Amer) > 60 Glucose 102 Calcium 8.9 Impressions: Chest X-Ray 07/18/16 13:13 IMPRESSION: Cardiomegaly. Obstructive lung disease. Chest CT 07/18/16 18:44 IMPRESSION: Mild bronchial wall thickening centrally. Small area of right parahilar patchy airspace disease. Lung Scan-VQ NM 07/18/16 22:31 IMPRESSION: Intermediate probability for pulmonary emboli. Correlation with CT angiogram chest recommended. Assessment & Plan - Diagnosis (1) Acute and chronic respiratory failure with hypoxia Is this a current diagnosis for this admission?: YesPlan: Most likely secondary to acute sinusitis, bronchitis. Patient with low grade fever, productive cough and dyspnea with minimal exertion. Transitioned to oral antibiotics. Likely discharge in the next 24-48 hrs (2) Hypertension Qualifiers: Hypertension type: essential hypertension Qualified Code(s): I10 - Essential (primary) hypertension Is this a current diagnosis for this admission?: YesPlan: Normotensive at the present time (3) COPD exacerbation Is this a current diagnosis for this admission?: YesPlan: Continue inhalers, nebulizers and antibiotics (4) A-fib Qualifiers: Atrial fibrillation type: chronic Qualified Code(s): I48.2 - Chronic atrial fibrillation Is this a current diagnosis for this admission?: YesPlan: Rate controlled on current medications (5) CHF (congestive heart failure) Qualifiers: Congestive heart failure type: diastolic Congestive heart failure chronicity: chronic Qualified Code(s): I50.32 - Chronic diastolic ( congestive) heart failure Is this a current diagnosis for this admission?: YesPlan: Patient appears euvolemic at the present time (6) Morbid obesity with BMI of 45.0-49.9, adult Is this a current diagnosis for this admission?: YesPlan: Counseled (7) Tobacco abuse, episodic Is this a current diagnosis for this admission?: Yes (8) Nausea Is this a current diagnosis for this admission?: YesPlan: Horace copelandn - Time Time Spent with patient: 25-34 minutes Critical Time spent with patient: 15-24 minutes Smoking Cessation Education: 3 to 10 minutes Medications reviewed and adjusted accordingly: Yes Anticipated discharge: Home Within: within 24 hours
[2016-07-22] MEDS: METOPROLOL SUCCINATE 50 MG TAB.SR.24H PO SCH (17:57)
[2016-07-22] MEDS: LACTOBACILLUS ACIDOPHILUS 250 MG TAB PO SCH (19:02)
[2016-07-22] MEDS: RIVAROXABAN 10 MG TABLET PO SCH (22:29)
[2016-07-22] MEDS: TRAZODONE HCL 50 MG TABLET PO SCH (22:29)
[2016-07-22] MEDS: SIMVASTATIN 40 MG TABLET PO SCH (22:45)
[2016-07-23] MEDS: HEPARIN SOD (PORCINE) 5,000 UNIT/ML 1 ML SYRINGE SUBCUT SCH (06:24)
[2016-07-23] MEDS: TIOTROPIUM BROMIDE DPI 5 CAP/KIT (18 MCG/CAP) IH SCH (09:28)
[2016-07-23] MEDS: FAMOTIDINE 20 MG TABLET PO SCH ×2 (09:28→17:13)
[2016-07-23] MEDS: ASPIRIN 81 MG TABLET, ENT COATED PO SCH (09:28)
[2016-07-23] MEDS: LACTOBACILLUS ACIDOPHILUS 250 MG TAB PO SCH ×2 (09:28→17:13)
[2016-07-23] MEDS: GUAIFENESIN 600 MG TABLET.SA PO SCH ×2 (09:28→22:02)
[2016-07-23] MEDS: ONDANSETRON HCL INJ/PF 4 MG/2 ML SDV IV PRN (09:29)
[2016-07-23] MEDS: AZITHROMYCIN 250 MG TABLET PO SCH (09:29)
[2016-07-23] MEDS: METFORMIN HCL 500 MG TABLET PO SCH ×2 (09:29→17:13)
[2016-07-23] MEDS: PREDNISONE 10 MG TABLET PO SCH (09:29)
[2016-07-23] MEDS: FLUTICASONE NASAL SPRAY 50 MCG/SPRY 120 SPRAY/16 GM NASL SCH ×2 (09:30→22:02)
[2016-07-23] MEDS: FLUTICASONE/SALMETEROL DISKUS 250-50 MCG/DOSE IH SCH ×2 (09:30→22:02)
[2016-07-23] MEDS: LEVALBUTEROL HCL NEB 0.63 MG/3 ML AMPUL NEB PRN ×2 (11:54→20:03)
[2016-07-23] MEDS ORDERED: FUROSEMIDE INJ/PF 20 MG/2 ML SDV IV ONE (12:14)
[2016-07-23] MEDS ORDERED: POTASSIUM CHLORIDE 10 MEQ TABLET.SA PO ONE (12:14)
--- NOTE | 2016-07-23 12:37 | PDOC PROGRESS REPORT ---
Subjective Progress Note for:: 07/23/16 Subjective:: Patient seen on morning rounds. She is sitting up in chair. She states her breathing has improved since admission, however, she still becomes easily dyspneic with any exertion. She continues to have productive cough, raising thick yellow sputum. She denies any chest pain, headache or dizziness. She complains of mild nausea, and diarrhea that began this morning She denies any significant arthralgias or myalgias. Physical Exam Vital Signs: Temp Pulse Resp BP Pulse Ox 98.4 F 82 16 120/58 L 91 L 07/23/16 08:50 07/23/16 11:54 07/23/16 11:54 07/23/16 08:50 07/23/16 11:54 Intake & Output 07/22/16 07/23/16 07/24/16 06:59 06:59 06:59 Intake Total 1200 1250 Balance 1200 1250 Weight 132.3 kg 132.3 kg General appearance: PRESENT: no acute distress, well-developed, well-nourished Head exam: PRESENT: atraumatic, normocephalic Eye exam: PRESENT: conjunctiva pink, EOMI, PERRLA. ABSENT: scleral icterus Ear exam: PRESENT: normal external ear exam Mouth exam: PRESENT: moist, tongue midline Neck exam: ABSENT: carotid bruit, JVD, lymphadenopathy, thyromegaly Respiratory exam: PRESENT: clear to auscultation kisha. ABSENT: rales, rhonchi, wheezes Cardiovascular exam: PRESENT: RRR. ABSENT: diastolic murmur, rubs, systolic murmur Pulses: PRESENT: normal dorsalis pedis pul Vascular exam: PRESENT: normal capillary refill GI/Abdominal exam: PRESENT: normal bowel sounds, soft. ABSENT: distended, guarding, mass, organolmegaly, rebound, tenderness Rectal exam: PRESENT: deferred Extremities exam: PRESENT: full ROM. ABSENT: calf tenderness, clubbing, pedal edema Neurological exam: PRESENT: alert, awake, oriented to person, oriented to place , oriented to time, oriented to situation, CN II-XII grossly intact. ABSENT: motor sensory deficit Psychiatric exam: PRESENT: appropriate affect, normal mood. ABSENT: homicidal ideation, suicidal ideation Skin exam: PRESENT: dry, intact, warm. ABSENT: cyanosis, rash Results Laboratory Results: 07/22/16 04:43 07/22/16 04:43 Impressions: Chest CT 07/18/16 18:44 IMPRESSION: Mild bronchial wall thickening centrally. Small area of right parahilar patchy airspace disease. Lung Scan-VQ NM 07/18/16 22:31 IMPRESSION: Intermediate probability for pulmonary emboli. Correlation with CT angiogram chest recommended. Chest X-Ray 07/23/16 10:30 IMPRESSION: Cardiomegaly with pulmonary vascular congestion. No acute consolidations or pleural effusions are identified. Other findings as noted above Assessment & Plan - Diagnosis (1) Acute and chronic respiratory failure with hypoxia Is this a current diagnosis for this admission?: YesPlan: Most likely secondary to acute sinusitis, bronchitis. Patient with low grade fever, productive cough and dyspnea with minimal exertion. Transitioned to oral antibiotics. Likely discharge in the next 24-48 hrs (2) Hypertension Qualifiers: Hypertension type: essential hypertension Qualified Code(s): I10 - Essential (primary) hypertension Is this a current diagnosis for this admission?: YesPlan: Normotensive at the present time (3) COPD exacerbation Is this a current diagnosis for this admission?: YesPlan: Continue inhalers, nebulizers and antibiotics. (4) A-fib Qualifiers: Atrial fibrillation type: chronic Qualified Code(s): I48.2 - Chronic atrial fibrillation Is this a current diagnosis for this admission?: YesPlan: Rate controlled on current medications (5) CHF (congestive heart failure) Qualifiers: Congestive heart failure type: diastolic Congestive heart failure chronicity: chronic Qualified Code(s): I50.32 - Chronic diastolic ( congestive) heart failure Is this a current diagnosis for this admission?: YesPlan: Patient's chest xray today shows increase in pulmonary vasculature. Will diurese today (6) Morbid obesity with BMI of 45.0-49.9, adult Is this a current diagnosis for this admission?: YesPlan: Counseled (7) Tobacco abuse, episodic Is this a current diagnosis for this admission?: YesPlan: Counseled on need to be tobacco free (8) Nausea Is this a current diagnosis for this admission?: YesPlan: Zofran prn - Time Time Spent with patient: 25-34 minutes Critical Time spent with patient: 15-24 minutes Smoking Cessation Education: 3 to 10 minutes Medications reviewed and adjusted accordingly: Yes Anticipated discharge: Home
[2016-07-23] MEDS: METOPROLOL SUCCINATE 50 MG TAB.SR.24H PO SCH (17:14)
[2016-07-23] MEDS: RIVAROXABAN 10 MG TABLET PO SCH (22:02)
[2016-07-23] MEDS: TRAZODONE HCL 50 MG TABLET PO SCH (22:03)
[2016-07-23] MEDS: DIAZEPAM 5 MG TABLET PO PRN (22:03)
[2016-07-23] MEDS: SIMVASTATIN 40 MG TABLET PO SCH (22:03)
[2016-07-24] MEDS: FAMOTIDINE 20 MG TABLET PO SCH ×2 (07:49→16:07)
[2016-07-24] MEDS: METFORMIN HCL 500 MG TABLET PO SCH ×2 (07:49→16:08)
[2016-07-24] MEDS: LACTOBACILLUS ACIDOPHILUS 250 MG TAB PO SCH ×2 (09:30→17:25)
[2016-07-24] MEDS: ASPIRIN 81 MG TABLET, ENT COATED PO SCH (09:30)
[2016-07-24] MEDS: GUAIFENESIN 600 MG TABLET.SA PO SCH ×2 (09:30→22:14)
[2016-07-24] MEDS: AZITHROMYCIN 250 MG TABLET PO SCH (09:30)
[2016-07-24] MEDS: FLUTICASONE/SALMETEROL DISKUS 250-50 MCG/DOSE IH SCH ×2 (09:31→22:14)
[2016-07-24] MEDS: PREDNISONE 10 MG TABLET PO SCH (09:31)
[2016-07-24] MEDS: FLUTICASONE NASAL SPRAY 50 MCG/SPRY 120 SPRAY/16 GM NASL SCH ×2 (09:31→22:14)
[2016-07-24] MEDS: TIOTROPIUM BROMIDE DPI 5 CAP/KIT (18 MCG/CAP) IH SCH (09:31)
[2016-07-24] MEDS ORDERED: POTASSIUM CHLORIDE 10 MEQ TABLET.SA PO ONE (10:36)
[2016-07-24] MEDS: LEVALBUTEROL HCL NEB 0.63 MG/3 ML AMPUL NEB PRN (11:24)
--- NOTE | 2016-07-24 16:24 | PDOC PROGRESS REPORT ---
Subjective Progress Note for:: 07/24/16 Subjective:: The patient was seen earlier today on rounds. The patient denies dyspnea at rest however she still has dyspnea with exertion. The patient denies any nausea , vomiting, diarrhea, dizziness, chest pain, heart palpitations, fevers, or chills. The patient has remained afebrile. Blood pressures have been in a good range. When prompted the patient voices no other concerns at this time. Review of systems: The rest of the review of systems is negative. Physical Exam Vital Signs: Temp Pulse Resp BP Pulse Ox 97.7 F 74 16 119/60 98 07/24/16 11:38 07/24/16 14:00 07/24/16 11:38 07/24/16 11:38 07/24/16 11:38 Intake & Output 07/22/16 07/23/16 07/24/16 23:59 23:59 23:59 Intake Total 1250 1070 5 Balance 1250 1070 5 Weight 132.3 kg 132.3 kg 132.3 kg General appearance: PRESENT: no acute distress, cooperative, well-developed, well-nourished Head exam: PRESENT: atraumatic, normocephalic Eye exam: PRESENT: conjunctiva pink, EOMI, PERRLA. ABSENT: scleral icterus Ear exam: PRESENT: normal external ear exam Mouth exam: PRESENT: moist, tongue midline Neck exam: ABSENT: carotid bruit, JVD, lymphadenopathy, thyromegaly Respiratory exam: PRESENT: decreased breath sounds, symmetrical, unlabored, wheezes. ABSENT: rales, rhonchi, tachypnea Cardiovascular exam: PRESENT: RRR. ABSENT: diastolic murmur, rubs, systolic murmur Pulses: PRESENT: normal dorsalis pedis pul Vascular exam: PRESENT: normal capillary refill GI/Abdominal exam: PRESENT: normal bowel sounds, soft. ABSENT: distended, guarding, mass, organolmegaly, rebound, tenderness Rectal exam: PRESENT: deferred Extremities exam: PRESENT: full ROM. ABSENT: calf tenderness, clubbing, pedal edema Neurological exam: PRESENT: alert, awake, oriented to person, oriented to place , oriented to time, oriented to situation, CN II-XII grossly intact. ABSENT: motor sensory deficit Psychiatric exam: PRESENT: appropriate affect, normal mood. ABSENT: homicidal ideation, suicidal ideation Skin exam: PRESENT: dry, intact, warm. ABSENT: cyanosis, rash Results Laboratory Results: 07/22/16 04:43 07/22/16 04:43 Impressions: Chest CT 07/18/16 18:44 IMPRESSION: Mild bronchial wall thickening centrally. Small area of right parahilar patchy airspace disease. Lung Scan-VQ NM 07/18/16 22:31 IMPRESSION: Intermediate probability for pulmonary emboli. Correlation with CT angiogram chest recommended. Chest X-Ray 07/23/16 10:30 IMPRESSION: Cardiomegaly with pulmonary vascular congestion. No acute consolidations or pleural effusions are identified. Other findings as noted above Assessment & Plan - Diagnosis (1) Acute and chronic respiratory failure with hypoxia Is this a current diagnosis for this admission?: YesPlan: Most likely secondary to acute sinusitis, bronchitis. Patient with low grade fever, productive cough and dyspnea with minimal exertion. Transitioned to oral antibiotics. Likely discharge in the next 24-48 hrs (2) COPD exacerbation Is this a current diagnosis for this admission?: YesPlan: Continue inhalers, nebulizers and antibiotics. (3) A-fib Qualifiers: Atrial fibrillation type: chronic Qualified Code(s): I48.2 - Chronic atrial fibrillation Is this a current diagnosis for this admission?: YesPlan: Rate controlled on current medications (4) Chronic diastolic (congestive) heart failure Is this a current diagnosis for this admission?: YesPlan: Will once again diurese the patient is today as yesterday she did have significant improvement with this. (5) Hypertension Qualifiers: Hypertension type: essential hypertension Qualified Code(s): I10 - Essential (primary) hypertension Is this a current diagnosis for this admission?: YesPlan: Normotensive at the present time (6) Tobacco abuse, episodic Is this a current diagnosis for this admission?: YesPlan: Counseled on need to be tobacco free (7) Morbid obesity with BMI of 45.0-49.9, adult Is this a current diagnosis for this admission?: Yes - Time Time Spent with patient: 25-34 minutes Medications reviewed and adjusted accordingly: Yes Anticipated discharge: Home Within: within 24 hours
[2016-07-24] MEDS: METOPROLOL SUCCINATE 50 MG TAB.SR.24H PO SCH (17:25)
[2016-07-24] MEDS: SIMVASTATIN 40 MG TABLET PO SCH (22:14)
[2016-07-24] MEDS: DIAZEPAM 5 MG TABLET PO PRN (22:14)
[2016-07-24] MEDS: RIVAROXABAN 10 MG TABLET PO SCH (22:15)
[2016-07-24] MEDS: TRAZODONE HCL 50 MG TABLET PO SCH (22:15)
[2016-07-25 05:19] LABS: ANION GAP 10 (5-19); BLOOD UREA NITROGEN 18 mg/dL (7-20); CALCIUM 9.7 mg/dL (8.4-10.2); CARBON DIOXIDE 33 mmol/L (22-30); CHLORIDE 100 mmol/L (98-107); CREATININE RESULT 0.69 mg/dL (0.52-1.25); GLUCOSE 94 mg/dL (75-110); MAGNESIUM 1.8 mg/dL (1.6-2.3); POTASSIUM 3.9 mmol/L (3.6-5.0); SODIUM 142.6 mmol/L (137-145)
[2016-07-25] MEDS: LEVALBUTEROL HCL NEB 0.63 MG/3 ML AMPUL NEB PRN (08:55)
[2016-07-25] MEDS ORDERED: FUROSEMIDE INJ/PF 40 MG/4 ML SDV IV ONE (09:30)
[2016-07-25] MEDS ORDERED: POTASSIUM CHLORIDE 10 MEQ TABLET.SA PO ONE (09:30)
[2016-07-25] MEDS: FLUTICASONE NASAL SPRAY 50 MCG/SPRY 120 SPRAY/16 GM NASL SCH ×2 (09:39→21:52)
[2016-07-25] MEDS: FLUTICASONE/SALMETEROL DISKUS 250-50 MCG/DOSE IH SCH ×2 (09:39→21:52)
[2016-07-25] MEDS: AZITHROMYCIN 250 MG TABLET PO SCH (09:41)
[2016-07-25] MEDS: FAMOTIDINE 20 MG TABLET PO SCH ×2 (09:41→15:34)
[2016-07-25] MEDS: LACTOBACILLUS ACIDOPHILUS 250 MG TAB PO SCH ×2 (09:41→17:30)
[2016-07-25] MEDS: PREDNISONE 10 MG TABLET PO SCH (09:41)
[2016-07-25] MEDS: ASPIRIN 81 MG TABLET, ENT COATED PO SCH (09:42)
[2016-07-25] MEDS: GUAIFENESIN 600 MG TABLET.SA PO SCH ×2 (09:42→21:52)
[2016-07-25] MEDS: METFORMIN HCL 500 MG TABLET PO SCH ×2 (09:42→15:34)
[2016-07-25] MEDS: TIOTROPIUM BROMIDE DPI 5 CAP/KIT (18 MCG/CAP) IH SCH (10:12)
--- NOTE | 2016-07-25 16:26 | PDOC PROGRESS REPORT ---
Subjective Progress Note for:: 07/25/16 Subjective:: The patient was seen earlier today on rounds. The patient denies dyspnea at rest however she still has dyspnea with exertion. The patient denies any nausea , vomiting, diarrhea, dizziness, chest pain, heart palpitations, fevers, or chills. The patient has remained afebrile. Blood pressures have been in a good range. When prompted the patient voices no other concerns at this time. Review of systems: The rest of the review of systems is negative. Physical Exam Vital Signs: Temp Pulse Resp BP Pulse Ox 97.2 F 89 16 114/72 97 07/25/16 11:43 07/25/16 14:00 07/25/16 11:43 07/25/16 11:43 07/25/16 11:43 Intake & Output 07/23/16 07/24/16 07/25/16 23:59 23:59 23:59 Intake Total 1070 1565 5 Balance 1070 1565 5 Weight 132.3 kg 132.3 kg 132.3 kg General appearance: PRESENT: no acute distress, cooperative, well-developed, well-nourished Head exam: PRESENT: atraumatic, normocephalic Eye exam: PRESENT: conjunctiva pink, EOMI, PERRLA. ABSENT: scleral icterus Ear exam: PRESENT: normal external ear exam Mouth exam: PRESENT: moist, tongue midline Neck exam: ABSENT: carotid bruit, JVD, lymphadenopathy, thyromegaly Respiratory exam: PRESENT: decreased breath sounds, symmetrical, unlabored, wheezes. ABSENT: rales, rhonchi, tachypnea Cardiovascular exam: PRESENT: RRR. ABSENT: diastolic murmur, rubs, systolic murmur Pulses: PRESENT: normal dorsalis pedis pul Vascular exam: PRESENT: normal capillary refill GI/Abdominal exam: PRESENT: normal bowel sounds, soft. ABSENT: distended, guarding, mass, organolmegaly, rebound, tenderness Rectal exam: PRESENT: deferred Extremities exam: PRESENT: full ROM. ABSENT: calf tenderness, clubbing, pedal edema Neurological exam: PRESENT: alert, awake, oriented to person, oriented to place , oriented to time, oriented to situation, CN II-XII grossly intact. ABSENT: motor sensory deficit Psychiatric exam: PRESENT: appropriate affect, normal mood. ABSENT: homicidal ideation, suicidal ideation Skin exam: PRESENT: dry, intact, warm. ABSENT: cyanosis, rash Results Laboratory Results: 07/22/16 04:43 07/25/16 04:43 07/25/16 04:43 Sodium 142.6 Potassium 3.9 Chloride 100 Carbon Dioxide 33 H Anion Gap 10 BUN 18 Creatinine 0.69 Est GFR ( Amer) > 60 Est GFR (Non-Af Amer) > 60 Glucose 94 Calcium 9.7 Magnesium 1.8 07/22/16 08:05 Sputum Gram Stain - Final Impressions: Chest CT 07/18/16 18:44 IMPRESSION: Mild bronchial wall thickening centrally. Small area of right parahilar patchy airspace disease. Lung Scan-VQ NM 07/18/16 22:31 IMPRESSION: Intermediate probability for pulmonary emboli. Correlation with CT angiogram chest recommended. Chest X-Ray 07/23/16 10:30 IMPRESSION: Cardiomegaly with pulmonary vascular congestion. No acute consolidations or pleural effusions are identified. Other findings as noted above Assessment & Plan - Diagnosis (1) Acute and chronic respiratory failure with hypoxia Is this a current diagnosis for this admission?: YesPlan: Most likely secondary to acute sinusitis, bronchitis. Patient with low grade fever, productive cough and dyspnea with minimal exertion. Transitioned to oral antibiotics. Likely discharge in the next 24-48 hrs (2) COPD exacerbation Is this a current diagnosis for this admission?: YesPlan: Continue inhalers, nebulizers and antibiotics. (3) A-fib Qualifiers: Atrial fibrillation type: chronic Qualified Code(s): I48.2 - Chronic atrial fibrillation Is this a current diagnosis for this admission?: YesPlan: Rate controlled on current medications (4) Chronic diastolic (congestive) heart failure Is this a current diagnosis for this admission?: YesPlan: Will once again diurese the patient is today as yesterday she did have significant improvement with this. (5) Hypertension Qualifiers: Hypertension type: essential hypertension Qualified Code(s): I10 - Essential (primary) hypertension Is this a current diagnosis for this admission?: YesPlan: Normotensive at the present time (6) Tobacco abuse, episodic Is this a current diagnosis for this admission?: YesPlan: Counseled on need to be tobacco free (7) Morbid obesity with BMI of 45.0-49.9, adult Is this a current diagnosis for this admission?: Yes - Time Time Spent with patient: 25-34 minutes Medications reviewed and adjusted accordingly: Yes Anticipated discharge: Home Within: within 24 hours
[2016-07-25] MEDS: METOPROLOL SUCCINATE 50 MG TAB.SR.24H PO SCH (17:30)
[2016-07-25] MEDS: RIVAROXABAN 10 MG TABLET PO SCH (21:52)
[2016-07-25] MEDS: SIMVASTATIN 40 MG TABLET PO SCH (21:52)
[2016-07-25] MEDS: TRAZODONE HCL 50 MG TABLET PO SCH (21:53)
[2016-07-25] MEDS: DIAZEPAM 5 MG TABLET PO PRN (21:53)
[2016-07-26 07:24] LABS: ANION GAP 15 (5-19); BLOOD UREA NITROGEN 24 mg/dL (7-20); CARBON DIOXIDE 30 mmol/L (22-30); CHLORIDE 95 mmol/L (98-107); CREATININE RESULT 0.76 mg/dL (0.52-1.25); GLUCOSE 101 mg/dL (75-110); POTASSIUM 4.2 mmol/L (3.6-5.0); SODIUM 139.5 mmol/L (137-145)
[2016-07-26] MEDS: LACTOBACILLUS ACIDOPHILUS 250 MG TAB PO SCH ×2 (11:03→17:14)
[2016-07-26] MEDS: FAMOTIDINE 20 MG TABLET PO SCH ×2 (11:04→17:14)
[2016-07-26] MEDS: PREDNISONE 10 MG TABLET PO SCH (11:04)
[2016-07-26] MEDS: METFORMIN HCL 500 MG TABLET PO SCH ×2 (11:04→17:14)
[2016-07-26] MEDS: GUAIFENESIN 600 MG TABLET.SA PO SCH ×2 (11:04→22:33)
[2016-07-26] MEDS: AZITHROMYCIN 250 MG TABLET PO SCH (11:04)
[2016-07-26] MEDS: ASPIRIN 81 MG TABLET, ENT COATED PO SCH (11:04)
[2016-07-26] MEDS: TIOTROPIUM BROMIDE DPI 5 CAP/KIT (18 MCG/CAP) IH SCH (11:05)
[2016-07-26] MEDS: FLUTICASONE/SALMETEROL DISKUS 250-50 MCG/DOSE IH SCH ×2 (11:05→22:34)
[2016-07-26] MEDS: FLUTICASONE NASAL SPRAY 50 MCG/SPRY 120 SPRAY/16 GM NASL SCH ×2 (11:06→22:34)
[2016-07-26] MEDS: LEVALBUTEROL HCL NEB 0.63 MG/3 ML AMPUL NEB PRN (11:15)
[2016-07-26] MEDS: PROMETHAZINE HCL 25 MG TABLET PO PRN (11:32)
--- NOTE | 2016-07-26 15:18 | PDOC PROGRESS REPORT ---
Subjective Progress Note for:: 07/26/16 Subjective:: The patient was seen earlier today on rounds. The patient denies dyspnea at rest however she still has dyspnea with exertion. The patient complains of a pleuritic style chest pain. The patient had an episode of nausea and vomiting with breakfast. The patient denies any diarrhea, dizziness, chest pain, heart palpitations, fevers, or chills. The patient has remained afebrile. Blood pressures have been in a good range. When prompted the patient voices no other concerns at this time. Review of systems: The rest of the review of systems is negative. Physical Exam Vital Signs: Temp Pulse Resp BP Pulse Ox 98.3 F 75 16 119/54 L 96 07/26/16 11:08 07/26/16 11:15 07/26/16 11:15 07/26/16 11:08 07/26/16 11:15 Intake & Output 07/24/16 07/25/16 07/26/16 23:59 23:59 23:59 Intake Total 1565 1198 205 Balance 1565 1198 205 Weight 132.3 kg 132.3 kg 132.3 kg General appearance: PRESENT: no acute distress, cooperative, well-developed, well-nourished Head exam: PRESENT: atraumatic, normocephalic Eye exam: PRESENT: conjunctiva pink, EOMI, PERRLA. ABSENT: scleral icterus Ear exam: PRESENT: normal external ear exam Mouth exam: PRESENT: moist, tongue midline Neck exam: ABSENT: carotid bruit, JVD, lymphadenopathy, thyromegaly Respiratory exam: PRESENT: decreased breath sounds, symmetrical, unlabored, wheezes. ABSENT: rales, rhonchi, tachypnea Cardiovascular exam: PRESENT: RRR. ABSENT: diastolic murmur, rubs, systolic murmur Pulses: PRESENT: normal dorsalis pedis pul Vascular exam: PRESENT: normal capillary refill GI/Abdominal exam: PRESENT: normal bowel sounds, soft. ABSENT: distended, guarding, mass, organolmegaly, rebound, tenderness Rectal exam: PRESENT: deferred Extremities exam: PRESENT: full ROM. ABSENT: calf tenderness, clubbing, pedal edema Neurological exam: PRESENT: alert, awake, oriented to person, oriented to place , oriented to time, oriented to situation, CN II-XII grossly intact. ABSENT: motor sensory deficit Psychiatric exam: PRESENT: appropriate affect, normal mood. ABSENT: homicidal ideation, suicidal ideation Skin exam: PRESENT: dry, intact, warm. ABSENT: cyanosis, rash Results Laboratory Results: 07/22/16 04:43 07/26/16 06:49 07/26/16 07/26/16 06:49 06:49 Sodium 139.5 Potassium 4.2 Chloride 95 L Carbon Dioxide 30 Anion Gap 15 BUN 24 H Creatinine 0.76 Est GFR ( Amer) > 60 Est GFR (Non-Af Amer) > 60 Glucose 101 Calcium 10.0 Lipase 77.5 Impressions: Chest CT 07/18/16 18:44 IMPRESSION: Mild bronchial wall thickening centrally. Small area of right parahilar patchy airspace disease. Lung Scan-VQ NM 07/18/16 22:31 IMPRESSION: Intermediate probability for pulmonary emboli. Correlation with CT angiogram chest recommended. Chest X-Ray 07/26/16 09:22 IMPRESSION: Moderate cardiomegaly. No acute infiltrates Assessment & Plan - Diagnosis (1) Acute and chronic respiratory failure with hypoxia Is this a current diagnosis for this admission?: YesPlan: Most likely secondary to acute sinusitis, bronchitis. Patient with low grade fever, productive cough and dyspnea with minimal exertion. Transitioned to oral antibiotics. Likely discharge in the next 24-48 hrs (2) COPD exacerbation Is this a current diagnosis for this admission?: YesPlan: Continue inhalers, nebulizers and antibiotics. (3) A-fib Qualifiers: Atrial fibrillation type: chronic Qualified Code(s): I48.2 - Chronic atrial fibrillation Is this a current diagnosis for this admission?: YesPlan: Rate controlled on current medications (4) Chronic diastolic (congestive) heart failure Is this a current diagnosis for this admission?: YesPlan: The patient appears optivolemic. (5) Hypertension Qualifiers: Hypertension type: essential hypertension Qualified Code(s): I10 - Essential (primary) hypertension Is this a current diagnosis for this admission?: YesPlan: Normotensive at the present time (6) Tobacco abuse, episodic Is this a current diagnosis for this admission?: YesPlan: Counseled on need to be tobacco free (7) Morbid obesity with BMI of 45.0-49.9, adult Is this a current diagnosis for this admission?: Yes - Time Time Spent with patient: 25-34 minutes Medications reviewed and adjusted accordingly: Yes Anticipated discharge: Home Within: within 24 hours
[2016-07-26] MEDS: METOPROLOL SUCCINATE 50 MG TAB.SR.24H PO SCH (17:14)
[2016-07-26] MEDS: SIMVASTATIN 40 MG TABLET PO SCH (22:33)
[2016-07-26] MEDS: RIVAROXABAN 10 MG TABLET PO SCH (22:33)
[2016-07-26] MEDS: TRAZODONE HCL 50 MG TABLET PO SCH (22:33)
[2016-07-27] MEDS: FAMOTIDINE 20 MG TABLET PO SCH (09:14)
[2016-07-27] MEDS: ONDANSETRON HCL INJ/PF 4 MG/2 ML SDV IV PRN (09:14)
[2016-07-27] MEDS: AZITHROMYCIN 250 MG TABLET PO SCH (09:14)
[2016-07-27] MEDS: GUAIFENESIN 600 MG TABLET.SA PO SCH (09:15)
[2016-07-27] MEDS: METFORMIN HCL 500 MG TABLET PO SCH (09:15)
[2016-07-27] MEDS: ASPIRIN 81 MG TABLET, ENT COATED PO SCH (09:15)
[2016-07-27] MEDS: FLUTICASONE/SALMETEROL DISKUS 250-50 MCG/DOSE IH SCH (09:16)
[2016-07-27] MEDS: LACTOBACILLUS ACIDOPHILUS 250 MG TAB PO SCH (09:16)
[2016-07-27] MEDS: TIOTROPIUM BROMIDE DPI 5 CAP/KIT (18 MCG/CAP) IH SCH (09:17)
[2016-07-27] MEDS: FLUTICASONE NASAL SPRAY 50 MCG/SPRY 120 SPRAY/16 GM NASL SCH (09:17)
[2016-07-27 09:18] VITALS: BP 116/65
[2016-07-27] MEDS: LEVALBUTEROL HCL NEB 0.63 MG/3 ML AMPUL NEB PRN (09:25)
[2016-07-27] MEDS ORDERED: PREDNISONE 20 MG TABLET PO SCH (10:00)
--- NOTE | 2016-07-27 17:07 | PDOC DISCHARGE SUMMARY ---
General - Admit/Disc Date/PCP Admission Date/Primary Care Provider: 07/20/16 13:44 JOSE MARIA GALLEGOS MD Discharge Date: 07/27/16 - Discharge Diagnosis (1) Acute and chronic respiratory failure with hypoxia Is this a current diagnosis for this admission?: Yes (2) COPD exacerbation Is this a current diagnosis for this admission?: Yes (3) A-fib Is this a current diagnosis for this admission?: Yes (4) Chronic diastolic (congestive) heart failure Is this a current diagnosis for this admission?: Yes (5) Hypertension Is this a current diagnosis for this admission?: Yes (6) Tobacco abuse, episodic Is this a current diagnosis for this admission?: Yes (7) Morbid obesity with BMI of 45.0-49.9, adult Is this a current diagnosis for this admission?: Yes - Additional Information Resuscitation Status: Full Code Discharge Diet: As Tolerated Discharge Activity: Activity As Tolerated Home Medications: Albuterol Sulfate [Proair HFA] 2 puff IH Q4HP PRN 07/19/16 Diazepam [Valium 5 mg Tablet] 5 mg PO BIDP PRN 07/19/16 Fluticasone Propionate [Flonase Nasal [place] 50 Mcg/[place] 16 gm] 2 sprays NASL DAILY 07/19/16 Fluticasone/Salmeterol [Advair 250-50 Diskus 28 dose] 2 inh IH DAILY 07/19/16 Metformin HCl [Metformin HCl ER] 1,000 mg PO BID 07/19/16 Metoprolol Succinate [Toprol XL 200 mg Tablet] 200 mg PO DAILY 07/19/16 Promethazine HCl [Phenergan 25 mg Tablet] 25 mg PO BIDP PRN 07/19/16 Rivaroxaban [Xarelto 10 mg Tablet] 20 mg PO QHS 07/19/16 Furosemide [Lasix] 20 mg PO DAILY #30 tablet 07/27/16 History of Present Illness Patient complains of: Fever and shortness of breath History of Present Illness: VESTA JIMENEZ is a 66 year old female with a past medical history of COPD, atrial fibrillation, hypertension and morbid obesity who is in her usual state of health until approximately 5 days ago noting a nonproductive cough over the last 48 hours prior presenting developing a fever of 102 and shortness of breath with both frothy sputum and yellow sputum prompting her to seek evaluation emergency room where she's found to have right Hilar infiltrate. She started on empiric antibiotics and referred to the hospitalist for admission. She denies chest pain nausea vomiting or recent influenza vaccine. Hospital Course Hospital Course: The patient was admitted to continuous telemetry. The patient was placed on scheduled nebs as well as PRN nebs, steroids, and supplemental oxygen. The patient's oxygen, steroids, and nebs were titrated and weaned. The patient is back to baseline and able to complete sentences. The patient was diuresed with IV diuretic and continued on home medications including aspirin, beta santi. The patient had significant improvement in symptoms. Prior Echocardiogram revealed an preserved EF. The patient received education and was instructed on dietary habits as well as daily weights. The patient will follow-up with cardiology in outpatient basis. Physical Exam Vital Signs: Temp Pulse Resp BP Pulse Ox 97.9 F 76 16 116/65 96 07/27/16 11:06 07/27/16 11:06 07/27/16 11:06 07/27/16 11:06 07/27/16 11:06 Intake & Output 07/25/16 07/26/16 07/27/16 23:59 23:59 23:59 Intake Total 1198 645 105 Balance 1198 645 105 Weight 132.3 kg 132.3 kg 132.3 kg General appearance: PRESENT: no acute distress, cooperative, well-developed, well-nourished Head exam: PRESENT: atraumatic, normocephalic Eye exam: PRESENT: conjunctiva pink, EOMI, PERRLA. ABSENT: scleral icterus Ear exam: PRESENT: normal external ear exam Mouth exam: PRESENT: moist, tongue midline Neck exam: ABSENT: carotid bruit, JVD, lymphadenopathy, thyromegaly Respiratory exam: PRESENT: decreased breath sounds, symmetrical, unlabored, wheezes. ABSENT: rales, rhonchi, tachypnea Cardiovascular exam: PRESENT: RRR. ABSENT: diastolic murmur, rubs, systolic murmur Pulses: PRESENT: normal dorsalis pedis pul Vascular exam: PRESENT: normal capillary refill GI/Abdominal exam: PRESENT: normal bowel sounds, soft. ABSENT: distended, guarding, mass, organolmegaly, rebound, tenderness Rectal exam: PRESENT: deferred Extremities exam: PRESENT: full ROM. ABSENT: calf tenderness, clubbing, pedal edema Neurological exam: PRESENT: alert, awake, oriented to person, oriented to place , oriented to time, oriented to situation, CN II-XII grossly intact. ABSENT: motor sensory deficit Psychiatric exam: PRESENT: appropriate affect, normal mood. ABSENT: homicidal ideation, suicidal ideation Skin exam: PRESENT: dry, intact, warm. ABSENT: cyanosis, rash Results Laboratory Results: Labs- Last Values WBC 4.6 10^3/uL (4.0-10.5) 07/22/16 04:43 RBC 4.02 10^6/uL (3.72-5.28) 07/22/16 04:43 Hgb 12.1 g/dL (12.0-15.5) 07/22/16 04:43 Hct 35.6 % (36.0-47.0) L 07/22/16 04:43 MCV 89 fl (80-97) 07/22/16 04:43 MCH 30.1 pg (27.0-33.4) 07/22/16 04:43 MCHC 34.0 g/dL (32.0-36.0) 07/22/16 04:43 RDW 13.9 % (11.5-14.0) 07/22/16 04:43 Plt Count 153 10^3/uL (150-450) 07/22/16 04:43 Seg Neutrophils % 54.1 % (42-78) 07/22/16 04:43 Lymphocytes % 33.4 % (13-45) 07/22/16 04:43 Monocytes % 11.5 % (3-13) 07/22/16 04:43 Eosinophils % 0.2 % (0-6) 07/22/16 04:43 Basophils % 0.8 % (0-2) 07/22/16 04:43 Absolute Neutrophils 2.5 10^3/uL (1.7-8.2) 07/22/16 04:43 Absolute Lymphocytes 1.5 10^3/uL (0.5-4.7) 07/22/16 04:43 Absolute Monocytes 0.5 10^3/uL (0.1-1.4) 07/22/16 04:43 Absolute Eosinophils 0.0 10^3/uL (0.0-0.6) 07/22/16 04:43 Absolute Basophils 0.0 10^3/uL (0.0-0.2) 07/22/16 04:43 Sodium 139.5 mmol/L (137-145) 07/26/16 06:49 Potassium 4.2 mmol/L (3.6-5.0) 07/26/16 06:49 Chloride 95 mmol/L (98-107) L 07/26/16 06:49 Carbon Dioxide 30 mmol/L (22-30) 07/26/16 06:49 Anion Gap 15 (5-19) 07/26/16 06:49 BUN 24 mg/dL (7-20) H 07/26/16 06:49 Creatinine 0.76 mg/dL (0.52-1.25) 07/26/16 06:49 Est GFR ( Amer) > 60 (>60) 07/26/16 06:49 Est GFR (Non-Af Amer) > 60 (>60) 07/26/16 06:49 Glucose 101 mg/dL (75-110) 07/26/16 06:49 Calcium 10.0 mg/dL (8.4-10.2) 07/26/16 06:49 Magnesium 1.8 mg/dL (1.6-2.3) 07/25/16 04:43 Total Bilirubin 0.5 mg/dL (0.2-1.3) 07/18/16 13:50 Direct Bilirubin 0.0 mg/dL (0.0-0.3) 07/18/16 13:50 AST 31 U/L (14-36) 07/18/16 13:50 ALT 37 U/L (9-52) 07/18/16 13:50 Alkaline Phosphatase 59 U/L (38-126) 07/18/16 13:50 Creatine Kinase 63 U/L (30-135) 07/18/16 13:50 CK-MB (CK-2) 0.50 ng/mL (<4.55) 07/18/16 13:50 Troponin I < 0.012 ng/mL 07/18/16 13:50 NT-Pro-B Natriuret Pep 1890 pg/mL (5-900) H 07/18/16 13:50 Total Protein 7.8 g/dL (6.3-8.2) 07/18/16 13:50 Albumin 4.0 g/dL (3.5-5.0) 07/18/16 13:50 Lipase 77.5 U/L (23-300) 07/26/16 06:49 Urine Color YELLOW 07/18/16 14:37 Urine Appearance CLEAR 07/18/16 14:37 Urine pH 5.0 (5.0-9.0) 07/18/16 14:37 Ur Specific [place] 1.013 07/18/16 14:37 Urine Protein NEGATIVE mg/dL (NEGATIVE) 07/18/16 14:37 Urine Glucose (UA) NEGATIVE mg/dL (NEGATIVE) 07/18/16 14:37 Urine Ketones NEGATIVE mg/dL (NEGATIVE) 07/18/16 14:37 Urine Blood NEGATIVE (NEGATIVE) 07/18/16 14:37 Urine Nitrite NEGATIVE (NEGATIVE) 07/18/16 14:37 Urine Bilirubin NEGATIVE (NEGATIVE) 07/18/16 14:37 Urine Urobilinogen NEGATIVE mg/dL (<2.0) 07/18/16 14:37 Ur Leukocyte Esterase NEGATIVE (NEGATIVE) 07/18/16 14:37 Urine WBC (Auto) 1 /HPF 07/18/16 14:37 Urine Bacteria (Auto) TRACE /HPF 07/18/16 14:37 Squamous Epi Cells Auto 1 /HPF 07/18/16 14:37 Urine Ascorbic Acid NEGATIVE (NEGATIVE) 07/18/16 14:37 C. difficile Tox (PCR) NEGATIVE (NEGATIVE) 07/22/16 15:29 Impressions: Chest CT 07/18/16 18:44 IMPRESSION: Mild bronchial wall thickening centrally. Small area of right parahilar patchy airspace disease. Lung Scan-VQ NM 07/18/16 22:31 IMPRESSION: Intermediate probability for pulmonary emboli. Correlation with CT angiogram chest recommended. Chest X-Ray 07/26/16 09:22 IMPRESSION: Moderate cardiomegaly. No acute infiltrates Qualifiers PATEINT BEING DISCHARGED WITH ANY OF THE FOLLOWING DIAGNOSIS?: No Plan Discharge Plan: The patient is a follow with primary care provider within one week hospital follow-up. Time Spent: Less than 30 Minutes
--- NOTE | 2016-07-29 14:38 | Progress Note ---
Provider Note Provider Note: The patient will require a Rollator walker given the patient has a mobility limitation which significantly impairs the ability to participate in mobility activities of daily living in the home. The patient's mobility limitation prevents the patient from accomplishing mobility related activities of daily living within a reasonable time frame. The patient is able to safely use the walker and functional mobility deficit can be sufficiently resolved with this walker.
== END 2016-07-27 13:18 | disposition home or self-care (01) | DRG 193 ==
LOC: ER 13:09 → EH 23:59 → UNDOADMOB 23:59 → 5 07-19 05:52 → OBSVTOIN 07-20 13:44
PROVIDERS: ADMIT Internal Medicine; ATTEND Internal Medicine
DX: J18.1 Lobar pneumonia, unspecified organism (principal); J96.21 Acute and chronic respiratory failure with hypoxia; I50.32 Chronic diastolic (congestive) heart failure; J44.1 Chronic obstructive pulmonary disease with (acute) exacerbation; Z68.42 Body mass index [BMI] 45.0-49.9, adult; I48.2 Chronic atrial fibrillation; E11.9 Type 2 diabetes mellitus without complications; E66.01 Morbid (severe) obesity due to excess calories; F17.210 Nicotine dependence, cigarettes, uncomplicated; Z71.6 Tobacco abuse counseling; Z99.81 Dependence on supplemental oxygen; Z79.01 Long term (current) use of anticoagulants; Z79.84 Long term (current) use of oral hypoglycemic drugs; Z79.51 Long term (current) use of inhaled steroids; Z79.899 Other long term (current) drug therapy; Z88.1 Allergy status to other antibiotic agents; Z88.2 Allergy status to sulfonamides
CPT/HCPCS: 36415; 71010; 71020; 71250; 78582; 80048; 80053; 81001; 82550; 82553; 83690; 83735; 83880; 84484; 85025; 87040; 87045; 87070; 87077; 87186; 87205; 87493; 93005; 93010; 94640; 94667; 94668; 94799; 96374; 96375; 96376; 99285; A9540; A9567; G0378; G8978-GP; G8979-GP; G8980-GP; J0456; J0696; J1644; J1885; J1940; J1956; J2270; J2405; J3490; J7060; J7512; J7614; J7620; Q9969

== ENCOUNTER 2016-09-03 12:15 | Emergency (ER) | payer MEDICARE, MEDICAID ==
--- NOTE | 2016-09-03 13:47 | ER Document Report ---
ED Medical Screen (RME) - General Chief Complaint: Dizziness Stated Complaint: DIZZY,NAUSEA Mode of Arrival: Wheelchair Information source: Patient TRAVEL OUTSIDE OF THE [place] IN LAST 30 DAYS: No - HPI Onset: Last week - 2 WEEKS, MUCH WORSE LAST 2 DAYS Onset/Duration: Gradual Quality of pain: Achy - HEAD Severity: Moderate Associated Symptoms: Nausea. denies: Chills, Fever, Hurts to breath, Leg swelling, Shortness of breath Exacerbated by: Standing Relieved by: Supine Similar symptoms previously: No Recently seen / treated by doctor: No - Related Data Smoking: Non-smoker Frequency of alcohol use: None Drug Abuse: None Allergies/Adverse Reactions: levofloxacin [From Levaquin] Allergy (Intermediate, Verified 09/03/16 12:47) Unknown reaction Sulfa (Sulfonamide Antibiotics) Allergy (Verified 09/03/16 12:47) Past Medical History - General Information source: Patient - Social History Cigarette use (# per day): No Chew tobacco use (# tins/day): No Frequency of alcohol use: None Drug Abuse: None Lives with: Alone Family history: Reviewed & Not Pertinent - Past Medical History Cardiac Medical History: Reports: Hx Atrial Fibrillation, Hx Hypertension Denies: Hx Congestive Heart Failure, Hx Hypercholesterolemia Pulmonary Medical History: Reports: Hx COPD Endocrine Medical History: Reports: Other - PRE-DIABETIC Renal/ Medical History: Denies: Hx Peritoneal Dialysis Past Surgical History: Reports: Hx Appendectomy, Hx Cholecystectomy, Hx Hysterectomy, Hx Tubal Ligation - Immunizations Hx Diphtheria, Pertussis, Tetanus Vaccination: No Review of Systems - Review of Systems Constitutional: See HPI EENT: See HPI Cardiovascular: See HPI Respiratory: No symptoms reported Gastrointestinal: No symptoms reported Musculoskeletal: No symptoms reported Skin: No symptoms reported Neurological/Psychological: See HPI Physical Exam - Vital signs Vitals: Temp Pulse Resp BP Pulse Ox 98.0 F 86 20 104/72 94 09/03/16 12:52 09/03/16 12:52 09/03/16 12:52 09/03/16 12:52 09/03/16 12:52 Interpretation: Normal - General General appearance: Appears well, Alert In distress: None Course - Vital Signs Vital signs: Temp Pulse Resp BP Pulse Ox 98.0 F 86 20 104/72 94 09/03/16 12:52 09/03/16 12:52 09/03/16 12:52 09/03/16 12:52 09/03/16 12:52
[2016-09-03 14:35] LABS: ABSOLUTE BASOPHILS # (AUTO) 0.1 10^3/uL (0.0-0.2); ABSOLUTE EOSINOPHILS # (AUTO) 0.1 10^3/uL (0.0-0.6); ABSOLUTE LYMPHOCYTES (AUTO) 1.7 10^3/uL (0.5-4.7); ABSOLUTE MONOCYTES (AUTO) 0.6 10^3/uL (0.1-1.4); ABSOLUTE NEUT (AUTO) 6.4 10^3/uL (1.7-8.2); BASOPHILS % (AUTO) 1.1 % (0-2); EOSINOPHILS % (AUTO) 0.8 % (0-6); HEMATOCRIT 37.4 % (36.0-47.0); HGB HCT DIFFERENCE 1.6; LYMPHOCYTES % (AUTO) 19.2 % (13-45); MEAN CORPUSCULAR HEMOGLOBIN 30.3 pg (27.0-33.4); MEAN CORPUSCULAR HGB CONC 34.6 g/dL (32.0-36.0); MEAN CORPUSCULAR VOLUME 87 fl (80-97); MONOCYTES % (AUTO) 7.1 % (3-13); RED BLOOD COUNT 4.29 10^6/uL (3.72-5.28); RED CELL DISTRIBUTION WIDTH 13.5 % (11.5-14.0); SEGMENTED NEUTROPHILS % (AUTO) 71.8 % (42-78); WHITE BLOOD COUNT 8.9 10^3/uL (4.0-10.5)
[2016-09-03 14:39] LABS: APPEARANCE,URINE CLEAR; BILIRUBIN,URINE NEGATIVE (NEGATIVE); GLUCOSE, URINE NEGATIVE (NEGATIVE); KETONES,URINE TRACE mg/dL (NEGATIVE); LEUKOCYTE ESTERASE,URINE NEGATIVE (NEGATIVE); NITRITE,URINE NEGATIVE (NEGATIVE); PROTEIN,URINE NEGATIVE (NEGATIVE); URINE SPECIFIC GRAVITY 1.006; UROBILINOGEN,URINE NEGATIVE mg/dL (<2.0)
[2016-09-03 14:56] LABS: ALANINE AMINOTRANSFERASE 35 U/L (9-52); ALBUMIN 4.8 g/dL (3.5-5.0); ALKALINE PHOSPHATASE 72 U/L (38-126); ANION GAP 12 (5-19); ASPARTATE AMINO TRANSFERASE 29 U/L (14-36); BILIRUBIN,DIRECT 0.3 mg/dL (0.0-0.4); BLOOD UREA NITROGEN 8 mg/dL (7-20); CARBON DIOXIDE 31 mmol/L (22-30); CHLORIDE 101 mmol/L (98-107); CREATINE KINASE 52 U/L (30-135); CREATININE RESULT 0.61 mg/dL (0.52-1.25); GLUCOSE 102 mg/dL (75-110); SODIUM 144.3 mmol/L (137-145); TOTAL PROTEIN 8.3 g/dL (6.3-8.2)
[2016-09-03 15:06] LABS: CREATINE KINASE MB 0.52 ng/mL (<4.55)
[2016-09-03 15:07] LABS: TROPONIN I < 0.012 ng/mL
--- NOTE | 2016-09-03 18:07 | ER Document Report ---
Addendum entered and electronically signed by IVAN DILL NP 09/04/16 02:40 : Discharge - Discharge Clinical Impression: Ataxia, Elevated blood pressure reading Condition: Stable Disposition: HOME, SELF-CARE Additional Instructions: *You have been evaluated for ataxia, difficulty walking *Always use your walker when ambulating *Follow up with Dr Rich Gallegos tomorrow *Return to ED for worsening condition, changes, needs, concerns Forms: Elevated Blood Pressure Referrals: JOSE MARIA GALLEGOS MD [ACTIVE STAFF] - Follow up in 3-5 days Addendum entered and electronically signed by IVAN DILL NP 09/04/16 02:06 : Course - Re-evaluation Re-evalutation: 09/04/16 02:04 Dr Minaya declined admission. Patient ambulated around the ED holding onto a wheelchair. She uses a walker at home.Staff report she did fine, no problems. Pt reports she feels safe to go home. She was instructed on importance of using the walker and fu with Dr Rich Gallegos for recheck tomorrow. She was instructed to return to ED for any concerns. - Vital Signs Vital signs: Temp Pulse Resp BP Pulse Ox 98.8 F 82 19 141/93 H 96 09/03/16 17:15 09/03/16 17:15 09/04/16 01:01 09/04/16 01:01 09/04/16 01:01 - Laboratory Result Diagrams: 09/03/16 14:00 09/03/16 14:00 Laboratory results interpreted by me: 09/03/16 09/03/16 14:00 14:00 Carbon Dioxide 31 H Total Protein 8.3 H Urine Ketones TRACE H Discharge - Discharge Clinical Impression: Ataxia Disposition: HOME, SELF-CARE Addendum entered and electronically signed by IVAN DILL NP 09/03/16 23:56 : Course - Re-evaluation Re-evalutation: 09/03/16 23:51 I received a call from Dr. Mike reporting that this was not his patient and he did not accept the admission. Apparently patient had been admitted to him for the past several hours. I instructed Dr. Mike that this was a patient of Dr. Gallegos's in atypically admits for Dr. Rich Gallegos. He reports he only admits the patient when he gets a call from Dr Gallegos not thru the ER. After reviewing the notes I attempted to have patient ambulate. She reports she is unable to due to her legs being unsteady. She reports she has fallen several times during the last few days. She reports when she took a cab to the store, she fell out of the cab. She reports she had Physical therapy and the PT told her to go to the ED. MRI that dr correa had requested is negative. Dr Loza consulted. Dr Rei menezes. - Vital Signs Vital signs: Temp Pulse Resp BP Pulse Ox 98.8 F 82 18 117/74 100 09/03/16 17:15 09/03/16 17:15 09/03/16 23:01 09/03/16 23:01 09/03/16 23:01 - Laboratory Result Diagrams: 09/03/16 14:00 09/03/16 14:00 Laboratory results interpreted by me: 09/03/16 09/03/16 14:00 14:00 Carbon Dioxide 31 H Total Protein 8.3 H Urine Ketones TRACE H Original Note: ED Dizziness/Weakness - General Mode of Arrival: Wheelchair Information source: Patient TRAVEL OUTSIDE OF THE [place] IN LAST 30 DAYS: No - HPI Patient complains to provider of: Dizziness Onset/Duration: Constant Quality of pain: Achy Severity: Moderate Associated symptoms: Dizzy, Headache, Recent fall. denies: Chest pain, Confused , Diarrhea, Ear pain, Almost fainted, Fainted, Hearing loss, Less responsive, Lightheaded, Loss of motor function, Loss of strength, Loss of sensation, Nausea , Palpitations, Paralysis, Recent trauma, Ringing/roaring in ear, Short of breath, Sleeping more, Sweating, Vertigo, Vomiting, Weak all over <PREETHI MCCORD - Last Filed: 09/03/16 18:02> <IVAN DILL - Last Filed: 09/04/16 02:38> <STANISLAW HUNTER - Last Filed: 09/04/16 14:27> - General Chief Complaint: Dizziness Stated Complaint: DIZZY,NAUSEA - HPI Notes: Patient arrives with complaints of dizziness. She states that for the last 2 weeks she is constantly had difficulty walking due to being extremely dizzy. She states that when she walks through the holes of her house, she bangs into the hernandes. She is actually had approximately 3 falls over the last 3 days. She denies any injuries with any of these falls. She is currently on several toe due to A. fib. She complains of a mild headache. She denies any blurred or loss vision. She denies any unilateral numbness tingling or weakness. She denies any fevers. She has no chest pain or shortness of breath. No abdominal pain. No nausea vomiting diarrhea. This point the patient has no further complaints. (PREETHI MCCORD) - Related Data Allergies/Adverse Reactions: levofloxacin [From Levaquin] Allergy (Intermediate, Verified 09/03/16 12:47) Unknown reaction Sulfa (Sulfonamide Antibiotics) Allergy (Verified 09/03/16 12:47) Past Medical History - General Information source: Patient - Social History Smoking Status: Never Smoker Cigarette use (# per day): No Chew tobacco use (# tins/day): No Frequency of alcohol use: None Drug Abuse: None Lives with: Alone Family History: COPD Patient has suicidal ideation: No Patient has homicidal ideation: No - Past Medical History Cardiac Medical History: Reports: Hx Atrial Fibrillation, Hx Hypertension Denies: Hx Congestive Heart Failure, Hx Hypercholesterolemia Pulmonary Medical History: Reports: Hx COPD Endocrine Medical History: Reports: Hx Diabetes Mellitus Type 2, Other - PRE- DIABETIC Renal/ Medical History: Denies: Hx Peritoneal Dialysis Past Surgical History: Reports: Hx Appendectomy, Hx Cholecystectomy, Hx Hysterectomy, Hx Tubal Ligation - Immunizations Hx Diphtheria, Pertussis, Tetanus Vaccination: No <PREETHI MCCORD - Last Filed: 09/03/16 18:02> Review of Systems - Review of Systems -: Yes All other systems reviewed and negative <PREETHI MCCORD - Last Filed: 09/03/16 18:02> Physical Exam - General General appearance: Appears well In distress: None - HEENT Head: Normocephalic Eyes: Normal Conjunctiva: Normal Cornea: Normal Extraocular movements intact: Yes Pupils: PERRL Ears: Normal External canal: Normal Tympanic membrane: Normal, Serous effusion Pharynx: Normal Neck: Normal - Respiratory Respiratory status: No respiratory distress Breath sounds: Normal - Cardiovascular Rhythm: Regular Heart sounds: Normal auscultation Murmur: No - Abdominal Inspection: Normal Distension: No distension Bowel sounds: Normal Tenderness: Nontender Organomegaly: No organomegaly - Back Back: Normal, Nontender - Extremities General upper extremity: Normal inspection, Nontender, Normal color, Normal ROM , Normal temperature General lower extremity: Normal inspection, Nontender, Normal color, Normal ROM , Normal temperature, Normal weight bearing. No: Diana's sign - Neurological Neuro grossly intact: Yes Cognition: Normal Orientation: AAOx4 Aisha Coma Scale Eye Opening: Spontaneous Aisha Coma Scale Verbal: Oriented [place] Coma Scale Motor: Obeys Commands Aisha Coma Scale Total: 15 Speech: Normal Cranial nerves: Normal Cerebellar coordination: Gait ataxia. No: Finger-nose rhombey Motor strength normal: LUE, RUE, LLE, RLE Additional motor exam normals: Equal electrotyper helper Sensory: Normal - Psychological Associated symptoms: Normal affect, Normal mood - Skin Skin Temperature: Warm Skin Moisture: Dry Skin Color: Normal <PREETHI MCCORD - Last Filed: 09/03/16 18:02> Course - Laboratory Result Diagrams: 09/03/16 14:00 09/03/16 14:00 - Diagnostic Test Radiology reviewed: Image reviewed, Reports reviewed - CT negative - EKG Interpretation by Me Rate: Normal Rhythm: A.Fib <PREETHI MCCORD - Last Filed: 09/03/16 18:02> <IVAN DILL - Last Filed: 09/04/16 02:38> - Laboratory Result Diagrams: 09/03/16 14:00 09/03/16 14:00 <STANISLAW HUNTER - Last Filed: 09/04/16 14:27> - Re-evaluation Re-evalutation: 09/03/16 18:05 Patient is nontoxic appearing with stable vitals. The patient's been experiencing ataxia for the last few weeks. She is currently on several toe for A. fib. She's had 3 falls over the last 2 days. She is noted to have ataxia but the remainder of her neurological exam is unremarkable. Head CT is negative. EKG shows A. fib which is chronic. Otherwise the patient has a benign exam. I discussed the case with her primary care physician Dr. Mike , he would like me to order an MRI of the patient will she's here in the emergency department, and he will admit the patient for further evaluation and management. (PREETHI MCCORD) - Vital Signs Vital signs: Temp Pulse Resp BP Pulse Ox 98.8 F 82 19 141/89 H 95 09/03/16 17:15 09/03/16 17:15 09/04/16 03:08 09/04/16 03:08 09/04/16 03:08 - Laboratory Laboratory results interpreted by me: 09/03/16 09/03/16 14:00 14:00 Carbon Dioxide 31 H Total Protein 8.3 H Urine Ketones TRACE H - EKG Interpretation by Me Additional EKG results interpreted by me: 09/03/16 18:06 No obvious ischemic changes noted (PREETHI MCCORD) Discharge - Discharge Admitting Provider: Rashid Unit Admitted: Telemetry <PREETHI MCCORD - Last Filed: 09/03/16 18:02> <IVAN DILL - Last Filed: 09/04/16 02:38> <STANISLAW HUNTER - Last Filed: 09/04/16 14:27> - Discharge Clinical Impression: Ataxia, Elevated blood pressure reading Condition: Stable Disposition: HOME, SELF-CARE Additional Instructions: *You have been evaluated for ataxia, difficulty walking *Always use your walker when ambulating *Follow up with Dr Rich Gallegos tomorrow *Return to ED for worsening condition, changes, needs, concerns Forms: Elevated Blood Pressure Referrals: JOSE MARIA GALLEGOS MD [ACTIVE STAFF] - Follow up in 3-5 days Cosign for MLP Consult
--- NOTE | 2016-09-03 19:07 | EKG REPORT ---
SEVERITY:- ABNORMAL ECG - ATRIAL FIBRILLATION, V-RATE 60-90 LOW VOLTAGE IN FRONTAL LEADS : Confirmed by: Tena Galicia MD 03-Sep-2016 19:06:39
[2016-09-04 03:26] VITALS: BP 141/89
== END 2016-09-04 03:26 | disposition home or self-care (01) ==
LOC: ER 12:15 → UNDOADMIN 18:52 → EH 18:52 → ER 09-04 03:26
DX: R42 Dizziness and giddiness (principal); I10 Essential (primary) hypertension; R29.6 Repeated falls; R51 Headache; I48.2 Chronic atrial fibrillation; E11.9 Type 2 diabetes mellitus without complications; J44.9 Chronic obstructive pulmonary disease, unspecified; Z88.2 Allergy status to sulfonamides; Z88.1 Allergy status to other antibiotic agents
CPT/HCPCS: 36415; 70450; 70551; 80053; 81001; 82550; 82553; 84484; 85025; 93005; 93010; 99285

== ENCOUNTER → 2016-11-02 | Outpatient (CLI) | payer MEDICARE, MEDICAID ==
[2016-11-02 08:39] LABS: ANION GAP 11 (5-19); BLOOD UREA NITROGEN 12 mg/dL (7-20); CALCIUM 9.9 mg/dL (8.4-10.2); CARBON DIOXIDE 33 mmol/L (22-30); CHLORIDE 101 mmol/L (98-107); CHOLESTEROL 207.96 mg/dL (0-200); CREATININE RESULT 0.66 mg/dL (0.52-1.25); Direct HDL 59 mg/dL (>40); GLUCOSE 132 mg/dL (75-110); POTASSIUM 4.5 mmol/L (3.6-5.0); SODIUM 145.4 mmol/L (137-145); TRIGLYCERIDES 172 mg/dL (<150)
[2016-11-02 08:51] LABS: DIRECT LDL 105 mg/dL (<100)
[2016-11-02 08:55] LABS: VLDL CHOLESTEROL 34.4 mg/dL (10-31)
== END ==
LOC: LAB 07:56
PROVIDERS: ATTEND Internal Medicine Cardiovascular Disease
DX: I48.91 Unspecified atrial fibrillation (principal); I10 Essential (primary) hypertension; R73.09 Other abnormal glucose; E74.9 Disorder of carbohydrate metabolism, unspecified
CPT/HCPCS: 36415; 80048; 80061; 83036

== ENCOUNTER 2017-04-23 13:14 | Observation (INO) | payer MEDICARE, MEDICAID ==
[2017-04-23 14:21] LABS: ABSOLUTE BASOPHILS # (AUTO) 0.1 10^3/uL (0.0-0.2); ABSOLUTE EOSINOPHILS # (AUTO) 0.1 10^3/uL (0.0-0.6); ABSOLUTE LYMPHOCYTES (AUTO) 1.1 10^3/uL (0.5-4.7); ABSOLUTE MONOCYTES (AUTO) 0.6 10^3/uL (0.1-1.4); ABSOLUTE NEUT (AUTO) 7.4 10^3/uL (1.7-8.2); BASOPHILS % (AUTO) 0.7 % (0-2); EOSINOPHILS % (AUTO) 0.7 % (0-6); HEMATOCRIT 33.2 % (36.0-47.0); HEMOGLOBIN 11.4 g/dL (12.0-15.5); LYMPHOCYTES % (AUTO) 11.6 % (13-45); MEAN CORPUSCULAR HEMOGLOBIN 29.4 pg (27.0-33.4); MEAN CORPUSCULAR HGB CONC 34.4 g/dL (32.0-36.0); MEAN CORPUSCULAR VOLUME 85 fl (80-97); MONOCYTES % (AUTO) 6.5 % (3-13); RED BLOOD COUNT 3.89 10^6/uL (3.72-5.28); RED CELL DISTRIBUTION WIDTH 14.1 % (11.5-14.0); SEGMENTED NEUTROPHILS % (AUTO) 80.5 % (42-78); WHITE BLOOD COUNT 9.2 10^3/uL (4.0-10.5)
[2017-04-23 14:43] LABS: ALANINE AMINOTRANSFERASE 27 U/L (9-52); ALBUMIN 4.3 g/dL (3.5-5.0); ALKALINE PHOSPHATASE 89 U/L (38-126); ANION GAP 12 (5-19); ASPARTATE AMINO TRANSFERASE 20 U/L (14-36); BILIRUBIN,DIRECT 0.4 mg/dL (0.0-0.4); BILIRUBIN,TOTAL 0.7 mg/dL (0.2-1.3); BLOOD UREA NITROGEN 15 mg/dL (7-20); CALCIUM 9.4 mg/dL (8.4-10.2); CARBON DIOXIDE 33 mmol/L (22-30); CHLORIDE 99 mmol/L (98-107); CREATINE KINASE 43 U/L (30-135); CREATININE RESULT 0.68 mg/dL (0.52-1.25); GLUCOSE 115 mg/dL (75-110); POTASSIUM 3.9 mmol/L (3.6-5.0); SODIUM 143.8 mmol/L (137-145); TOTAL PROTEIN 7.7 g/dL (6.3-8.2)
[2017-04-23 14:52] LABS: CREATINE KINASE MB 0.69 ng/mL (<4.55)
--- NOTE | 2017-04-23 14:54 | RADIOLOGY REPORT (SQ) ---
EXAM DESCRIPTION: CHEST SINGLE VIEW COMPLETED DATE/TIME: 04/23/2017 2:40 pm REASON FOR STUDY: sob COMPARISON: 07/26/2016 EXAM PARAMETERS: NUMBER OF VIEWS: One view. TECHNIQUE: Single frontal radiographic view of the chest acquired. RADIATION DOSE: NA LIMITATIONS: None. FINDINGS: LUNGS AND PLEURA: No definite infiltrates. Lower lung zones poorly visualized because of position and body habitus. Followup PA and lateral may be helpful MEDIASTINUM AND HILAR STRUCTURES: No masses. Contour normal. HEART AND VASCULAR STRUCTURES: Mild cardiomegaly BONES: No acute findings. HARDWARE: None in the chest. OTHER: No other significant finding. IMPRESSION: No acute findings although lower lung zones suboptimally visualized because of body habi tus and positioning. Followup PA and lateral may be helpful. TECHNICAL DOCUMENTATION: JOB ID: [id number] [employer]- All Rights Reserved
[2017-04-23 15:50] LABS: APPEARANCE,URINE CLEAR; BILIRUBIN,URINE NEGATIVE (NEGATIVE); GLUCOSE, URINE NEGATIVE (NEGATIVE); KETONES,URINE NEGATIVE (NEGATIVE); LEUKOCYTE ESTERASE,URINE TRACE (NEGATIVE); NITRITE,URINE NEGATIVE (NEGATIVE); PROTEIN,URINE NEGATIVE (NEGATIVE); URINE SPECIFIC GRAVITY 1.009; UROBILINOGEN,URINE NEGATIVE mg/dL (<2.0)
[2017-04-23] MEDS ORDERED: FUROSEMIDE INJ/PF 40 MG/4 ML SDV IV ONE (16:18)
--- NOTE | 2017-04-23 16:18 | RADIOLOGY REPORT (SQ) ---
EXAM DESCRIPTION: CHEST PA/LAT COMPLETED DATE/TIME: 04/23/2017 4:09 pm REASON FOR STUDY: sob COMPARISON: July 2016 EXAM PARAMETERS: NUMBER OF VIEWS: two views TECHNIQUE: Digital Frontal and Lateral radiographic views of the chest acquired. RADIATION DOSE: NA LIMITATIONS: none FINDINGS: LUNGS AND PLEURA: No acute consolidations are identified. There is some blunting of the c ostophrenic angles consistent with small pleural effusions. MEDIASTINUM AND HILAR STRUCTURES: No masses or contour abnormalities. HEART AND VASCULAR STRUCTURES: Cardiac silhouette is enlarged. There is pulmonary vascular congestio n. BONES: Degenerative changes are identified in the thoracic spine. HARDWARE: None in the chest. OTHER: No other significant finding. IMPRESSION: Cardiomegaly with pulmonary vascular congestion. There is blunting of the costophrenic angles consistent with small bilateral pleural effusions. Other findings as noted above TECHNICAL DOCUMENTATION: JOB ID: [id number] [employer]- All Rights Reserved
[2017-04-23] MEDS ORDERED: RIVAROXABAN 10 MG TABLET PO ONE (16:19)
[2017-04-23 16:20] LABS: VENOUS BLOOD BASE EXCESS 9.8 mmol/L; VENOUS BLOOD HCO3 36.2 mmol/L (20-32); VENOUS BLOOD PCO2 56.6 mmHg (35-63); VENOUS BLOOD PH 7.42 (7.30-7.42)
--- NOTE | 2017-04-23 16:20 | ER Document Report ---
ED Respiratory Problem - General Chief Complaint: Shortness Of Breath Stated Complaint: SHORTNESS OF BREATH Time Seen by Provider: 04/23/17 13:28 Mode of Arrival: Ambulatory Information source: Patient Notes: Patient is a 66-year-old female with CHF, COPD who presents to the ER today for shortness of breath, worsening over the past couple of days. Patient states that she is having to sleep on multiple pillows or sitting up in a chair to be able to breathe and that she has had increased swelling to her lower extremities bilaterally. She is not on Lasix. She denies any fever, chills. She also has A. fib and is out of her Xarelto. She is usually on 2 L of oxygen at home. Patient also complains of some right upper quadrant abdominal pain that has been sharp in nature and comes and goes over the past couple of days. Patient does not have a gallbladder. She denies any nausea, vomiting, diarrhea or history of pain in this area. TRAVEL OUTSIDE OF THE [place] IN LAST 30 DAYS: No - Related Data Allergies/Adverse Reactions: levofloxacin [From Levaquin] Allergy (Intermediate, Verified 09/03/16 12:47) Unknown reaction Sulfa (Sulfonamide Antibiotics) Allergy (Verified 09/03/16 12:47) Home Medications: Current Home Medications Albuterol Sulfate [Ventolin Hfa] 2 puff IH Q4HP PRN 04/23/17 [History] Fluticasone Propionate [Flonase Nasal Palmetto 50 Mcg/Palmetto 16 gm] 2 sprays NASL Q12 04/23/17 [History] Fluticasone/Vilanterol [Breo Ellipta 100-25 Mcg INH] 1 each IH DAILY 04/23/17 [ History] Metformin HCl 1,000 mg PO BID 04/23/17 [History] Metoprolol Succinate [Toprol Xl] 200 mg PO DAILY 04/23/17 [History] Rivaroxaban [Xarelto] 20 mg PO QHS 04/23/17 [History] Past Medical History - General Information source: Patient - Social History Smoking Status: Former Smoker Chew tobacco use (# tins/day): No Drug Abuse: None Family History: COPD Patient has suicidal ideation: No Patient has homicidal ideation: No - Past Medical History Cardiac Medical History: Reports: Hx Atrial Fibrillation, Hx Hypertension Denies: Hx Congestive Heart Failure, Hx Hypercholesterolemia Pulmonary Medical History: Reports: Hx COPD Endocrine Medical History: Reports: Hx Diabetes Mellitus Type 2 Renal/ Medical History: Denies: Hx Peritoneal Dialysis Past Surgical History: Reports: Hx Appendectomy, Hx Cholecystectomy, Hx Hysterectomy, Hx Tubal Ligation - Immunizations Hx Diphtheria, Pertussis, Tetanus Vaccination: No Review of Systems - Review of Systems Constitutional: No symptoms reported EENT: No symptoms reported Cardiovascular: See HPI Respiratory: See HPI Gastrointestinal: See HPI Genitourinary: No symptoms reported Female Genitourinary: No symptoms reported Musculoskeletal: No symptoms reported Skin: No symptoms reported Hematologic/Lymphatic: No symptoms reported Neurological/Psychological: No symptoms reported Physical Exam - Vital signs Vitals: Temp 97.4 F 04/23/17 13:33 - Notes Notes: PHYSICAL EXAMINATION: GENERAL: Tired appearing, in no acute distress. HEAD: Atraumatic, normocephalic. EYES: Pupils equal round and reactive to light, extraocular movements intact, sclera anicteric, conjunctiva are normal. ENT: ear canals without erythema or foreign body, TMs pearly eason with good bony landmarks, nares patent, oropharynx clear without exudates. Moist mucous membranes. airway patent NECK: Normal range of motion, supple without lymphadenopathy LUNGS: Decreased airflow bilateral lower lobes, No wheezes rales or rhonchi. HEART: Regular rate and rhythm without murmurs ABDOMEN: Soft, RUQ tenderness. No guarding, no rebound BACK: no vertebral tenderness, normal ROM GI/: no CVA tenderness EXTREMITIES: Normal range of motion, no pitting edema. No cyanosis. NEUROLOGICAL: Cranial nerves grossly intact. Normal sensory/motor exams. PSYCH: Normal mood, normal affect. SKIN: Warm, Dry, normal turgor, no rashes or lesions noted Course - Re-evaluation Re-evalutation: 04/23/17 16:45 Dr. Meneses accepts patient for admission at this time. bipap started for pt's comfort. 04/23/17 17:52 Chest x-ray reports Cardiomegaly with pulmonary vascular congestion and pleural effusions bilaterally, CT of the abdomen and pelvis reports a small right pleural effusion. Patient is usually on 2 L of oxygen at home, came in on 4 L of oxygen here. On occasion I would walk into the room and patient oxygen saturation would be 88% to 93%. We did try BiPAP but patient was too claustrophobic for it. 04/23/17 17:53 - Vital Signs Vital signs: Temp Pulse Resp BP Pulse Ox 97.4 F 24 H 149/85 H 98 04/23/17 13:33 04/23/17 16:18 04/23/17 15:49 04/23/17 17:25 - Laboratory Result Diagrams: 04/23/17 14:07 04/23/17 14:07 Laboratory results interpreted by me: 04/23/17 04/23/17 04/23/17 14:00 14:07 14:07 Hgb 11.4 L Hct 33.2 L RDW 14.1 H Seg Neutrophils % 80.5 H Lymphocytes % 11.6 L VBG HCO3 36.2 H Carbon Dioxide 33 H Glucose 115 H NT-Pro-B Natriuret Pep Urine Blood Ur Leukocyte Esterase 04/23/17 04/23/17 14:07 15:20 Hgb Hct RDW Seg Neutrophils % Lymphocytes % VBG HCO3 Carbon Dioxide Glucose NT-Pro-B Natriuret Pep 2010 H Urine Blood SMALL H Ur Leukocyte Esterase TRACE H Discharge - Discharge Clinical Impression: Chronic diastolic (congestive) heart failure, Acute and chronic respiratory failure with hypoxia A-fib Qualifiers: Atrial fibrillation type: unspecified Qualified Code(s): I48.91 - Unspecified atrial fibrillation Condition: Stable Disposition: ADMITTED INPATIENT Admitting Provider: Hospitalist Unit Admitted: Telemetry
[2017-04-23] MEDS ORDERED: IPRATROPIUM/ALBUTEROL 0.5-2.5 MG/3 ML AMPUL NEB PRN (17:22)
[2017-04-23] MEDS ORDERED: ONDANSETRON HCL INJ/PF 4 MG/2 ML SDV IV PRN (17:22)
[2017-04-23] MEDS ORDERED: ALBUTEROL SULFATE 0.083% NEB 2.5 MG/3 ML AMPUL NEB PRN (17:22)
[2017-04-23] MEDS ORDERED: ONDANSETRON 4 MG TAB.RAPDIS PO PRN (17:22)
[2017-04-23] MEDS ORDERED: INSULIN LISPRO 100 UNIT/ML 3 ML VIAL SUBCUT PRN (17:27)
[2017-04-23] MEDS ORDERED: GLUCAGON,HUMAN RECOMB 1 MG INJ IM PRN (17:27)
[2017-04-23] MEDS ORDERED: DEXTROSE 50%-WATER 25 GM/50 ML DISP.SYRIN IV PRN ×2 (17:27)
[2017-04-23] MEDS ORDERED: DEXTROSE 40% GEL 15 GM TUBE PO PRN ×2 (17:27)
--- NOTE | 2017-04-23 17:36 | PDOC H&P ---
History of Present Illness Admission Date/PCP: 04/23/17 17:16 Patient complains of: Shortness of breath History of Present Illness: VESTA JIMENEZ is a 66 year old female who presents with a 1 week history of worsening shortness of breath. She reports that she over the last week has had shortness of breath is worsened along with orthopnea and PND. Patient also reports having approximately 20 feet dyspnea on exertion. Patient also reports having weight gain. When asked about her diet she reports that her physician had told her to eat more salt and she has been doing that. She has not been taking Lasix since her last hospitalization in July of this year. Patient denies having any chest pain associated with this. She denies any cough. Denies any fevers or chills. Denies any palpitations or tachycardia and does have a history of atrial fibrillation. She does have COPD and normally uses 2 L per nasal cannula. The patient reports that she has had to increase her oxygen level in spite of that has checked her oxygen saturations they have dropped down as low as 75%. The patient reports the emergency room that she is also had some right upper quadrant pain although she denies that to me and has unremarkable exam of the time of my exam. Past Medical History Cardiac Medical History: Reports: Atrial Fibrillation, Congestive Heart Failure , Hypertension Denies: Hyperlipidema Pulmonary Medical History: Reports: Chronic Obstructive Pulmonary Disease (COPD) Neurological Medical History: Reports: None Endocrine Medical History: Reports: Diabetes Mellitus Type 2 Renal/ Medical History: Reports: None Malignancy Medical History: Reports: Ovarian Cancer GI Medical History: Reports: None Musculoskeltal Medical History: Reports: None Skin Medical History: Reports: None Psychiatric Medical History: Reports: None Traumatic Medical History: Reports: None Hematology: Reports: None Infectious Medical History: Reports: None Past Surgical History Past Surgical History: Reports: Appendectomy, Cholecystectomy, Hysterectomy, Tubal Ligation Social History Information Source: Patient Lives with: Alone Smoking Status: Former Smoker Frequency of Alcohol Use: None Hx Recreational Drug Use: No Drugs: None Hx Prescription Drug Abuse: No - Advance Directive Resuscitation Status: Do Not Resuscitate Family History Family History: COPD Family History: Mother at age 62 with a cerebral aneurysm. She also had hypertension. Father at a young age in a motor vehicle accident. Parental Family History Reviewed: Yes Children Family History Reviewed: No Sibling(s) Family History Reviewed.: No Medication/Allergy Allergies/Adverse Reactions: levofloxacin [From Levaquin] Allergy (Intermediate, Verified 09/03/16 12:47) Unknown reaction Sulfa (Sulfonamide Antibiotics) Allergy (Verified 09/03/16 12:47) Review of Systems Constitutional: PRESENT: weight gain. ABSENT: chills, fever(s), headache(s), night sweats Eyes: ABSENT: visual disturbances Ears: ABSENT: hearing changes Cardiovascular: PRESENT: dyspnea on exertion, edema, orthropnea. ABSENT: chest pain, palpitations Respiratory: PRESENT: dyspnea. ABSENT: cough, hemoptysis, sputum Gastrointestinal: ABSENT: abdominal pain, constipation, diarrhea, hematemesis, hematochezia, nausea, vomiting Genitourinary: ABSENT: dysuria, hematuria Musculoskeletal: ABSENT: joint swelling Integumentary: ABSENT: rash, wounds Neurological: ABSENT: abnormal gait, abnormal speech, confusion, dizziness, focal weakness, syncope Psychiatric: ABSENT: anxiety, depression Endocrine: ABSENT: cold intolerance, heat intolerance, polydipsia, polyuria Hematologic/Lymphatic: ABSENT: easy bleeding, easy bruising Physical Exam Vital Signs: Temp Pulse Resp BP Pulse Ox 97.4 F 24 H 149/85 H 98 04/23/17 13:33 04/23/17 16:18 04/23/17 15:49 04/23/17 17:25 General appearance: PRESENT: mild distress, morbidly obese Head exam: PRESENT: atraumatic, normocephalic Eye exam: PRESENT: conjunctiva pink, EOMI, PERRLA. ABSENT: scleral icterus Ear exam: PRESENT: normal external ear exam Mouth exam: PRESENT: moist, tongue midline Neck exam: ABSENT: carotid bruit, JVD, lymphadenopathy, thyromegaly Respiratory exam: PRESENT: rales - Few basilar rales. ABSENT: rhonchi, wheezes Cardiovascular exam: PRESENT: irregular rhythm. ABSENT: diastolic murmur, rubs , systolic murmur Pulses: PRESENT: normal dorsalis pedis pul Vascular exam: PRESENT: normal capillary refill GI/Abdominal exam: PRESENT: normal bowel sounds, soft. ABSENT: distended, guarding, mass, organolmegaly, rebound, tenderness Rectal exam: PRESENT: deferred Extremities exam: PRESENT: pedal edema, +1 edema. ABSENT: calf tenderness, clubbing Neurological exam: PRESENT: alert, awake, oriented to person, oriented to place , oriented to time, oriented to situation, CN II-XII grossly intact. ABSENT: motor sensory deficit Psychiatric exam: PRESENT: appropriate affect Skin exam: PRESENT: dry, intact, warm. ABSENT: cyanosis, rash Results Impressions: Chest X-Ray 04/23/17 15:42 IMPRESSION: Cardiomegaly with pulmonary vascular congestion. There is blunting of the costophrenic angles consistent with small bilateral pleural effusions. Other findings as noted above Assessment & Plan - Diagnosis (1) Acute and chronic respiratory failure with hypoxia Is this a current diagnosis for this admission?: Yes Plan: The patient has a history of congestive heart failure and COPD. This episode appears to be mostly congestive heart failure she has no wheezing. She also has had weight gain, orthopnea and PND. (2) Congestive heart failure Is this a current diagnosis for this admission?: Yes Plan: Patient has acute on chronic diastolic congestive heart failure. She has not been following a diet in fact stated her physician told her to eat more salt. She has not taken Lasix since her last discharge. We will give IV Lasix. The patient has already started to diurese the time of my exam. I anticipate that after overnight diuresis she should be able to go home tomorrow. There is no evidence for any type of acute cardiac event. (3) COPD (chronic obstructive pulmonary disease) Is this a current diagnosis for this admission?: Yes Plan: We will continue with nebulizers and oxygen. (4) Diabetes mellitus Is this a current diagnosis for this admission?: Yes Plan: Patient has taken metformin for diabetes. We will hold that and cover with sliding scale insulin. (5) A-fib Qualifiers: Atrial fibrillation type: unspecified Qualified Code(s): I48.91 - Unspecified atrial fibrillation Is this a current diagnosis for this admission?: Yes Plan: Patient is rate control. She takes Xarelto for her anticoagulation and Toprol for rate control. (6) Hypertension Qualifiers: Is this a current diagnosis for this admission?: Yes Plan: Continue with the Toprol. (7) Morbid obesity with BMI of 45.0-49.9, adult Is this a current diagnosis for this admission?: Yes - Time Time Spent: 50 to 70 Minutes - Plan Summary Plan Summary: We will admit as an observation as I anticipate this require less than a 2 midnight hospital stay.
--- NOTE | 2017-04-23 17:48 | RADIOLOGY REPORT (SQ) ---
EXAM DESCRIPTION: CT ABD/PELVIS WITH IV ONLY COMPLETED DATE/TIME: 04/23/2017 5:34 pm REASON FOR STUDY: ruq pain, mass? no gallbladder COMPARISON: None. TECHNIQUE: CT scan of the abdomen and pelvis performed using helical scanning technique with dynamic intravenous contrast injection. No oral contrast. Images reviewed with lung, soft tissue, and bone windows. Reconstructed coronal and sagittal MPR images reviewed. Delayed images for evaluation of the urinary system also acquired. All images stored on PACS. All CT scanners at this facility use dose modulation, iterative reconstruction, and/or weight based d osing when appropriate to reduce radiation dose to as low as reasonably achievable (ALARA). [facility]: Dose Right [facility]: CareDose [facility]: Dose Right [facility]: Teradose 4D [facility]: [employer] CONTRAST TYPE AND DOSE: contrast/concentration: Isovue 370.00 mg/ml; Total Contrast Delivered: 95.0 ml; Total Saline Delivered: 61.7 ml RENAL FUNCTION: Creatinine 0.7 BUN 15 RADIATION DOSE: CT Rad equipment meets quality standard of care and radiation dose reduction techniq ues were employed. CTDIvol: 26.6 - 31.2 mGy. DLP: 2843 mGy-cm.. LIMITATIONS: None. FINDINGS: LOWER CHEST: There is a small right pleural effusion with mild subsegmental atelectasis in the right lower lobe. LIVER: Normal size. No masses. No dilated ducts. SPLEEN: Normal size. No focal lesions. PANCREAS: No masses. No significant calcifications. No adjacent inflammation or peripancreatic fluid collections. Pancreatic duct not dilated. GALLBLADDER: Surgically absent. ADRENAL GLANDS: No significant masses or asymmetry. RIGHT KIDNEY AND URETER: No solid masses. No significant calcifications. No hydronephrosis or hyd roureter. LEFT KIDNEY AND URETER: No solid masses. No significant calcifications. No hydronephrosis or hydr oureter. AORTA AND VESSELS: No aneurysm. No dissection. Renal arteries, SMA, celiac without stenosis. RETROPERITONEUM: No retroperitoneal adenopathy, hemorrhage or masses. BOWEL AND PERITONEAL CAVITY: There are scattered sigmoid diverticula. No masses are seen. APPENDIX: Surgically absent. PELVIS: No mass. No free fluid. Normal bladder. ABDOMINAL WALL: No masses. No hernias. BONES: Compression changes are present at L1 that do not appear to be acute. Degenerative disc paz es are present. OTHER: No other significant finding. IMPRESSION: 1. Small right pleural effusion. 2. Mild diverticulosis coli. 3. Osseous findings as described. 4. There are no findings that explain the patient's pain. TECHNICAL DOCUMENTATION: JOB ID: [id number] Quality ID # [id number]: Final reports with documentation of one or more dose reduction techniques (e.g., Au tomated exposure control, adjustment of the mA and/or kV according to patient size, use of iterative reconstruction technique) 2010 [employer]- All Rights Reserved
[2017-04-23] MEDS ORDERED: ALBUTEROL SULFATE HFA (90 MCG/PUFF) 8 GM MDI (1 MDI/ER DISP) IH PRN (18:31)
[2017-04-23] MEDS ORDERED: ALBUTEROL SULFATE HFA (90 MCG/PUFF) 200 PUFF/8.5 GM MDI IH PRN (18:59)
--- NOTE | 2017-04-23 21:09 | EKG REPORT ---
SEVERITY:- ABNORMAL ECG - ATRIAL FIBRILLATION, V-RATE 62-90 LOW VOLTAGE THROUGHOUT BORDERLINE T ABNORMALITIES, ANTERIOR LEADS : Confirmed by: Tena Galicia MD 23-Apr-2017 21:08:57
[2017-04-23] MEDS: ACETAMINOPHEN 325 MG TABLET PO PRN (22:13)
[2017-04-23] MEDS: FLUTICASONE NASAL SPRAY 50 MCG/SPRY 120 SPRAY/16 GM NASL SCH (22:16)
[2017-04-23] MEDS: RIVAROXABAN 10 MG TABLET PO SCH (22:16)
[2017-04-23] MEDS: FAMOTIDINE 20 MG TABLET PO SCH (22:16)
[2017-04-23] MEDS: FUROSEMIDE INJ/PF 40 MG/4 ML SDV IV SCH (22:16)
[2017-04-24 06:49] LABS: HEMATOCRIT 34.4 % (36.0-47.0); HEMOGLOBIN 11.7 g/dL (12.0-15.5); HGB HCT DIFFERENCE 0.7; MEAN CORPUSCULAR HEMOGLOBIN 28.9 pg (27.0-33.4); MEAN CORPUSCULAR VOLUME 85 fl (80-97); RED BLOOD COUNT 4.04 10^6/uL (3.72-5.28); RED CELL DISTRIBUTION WIDTH 14.6 % (11.5-14.0)
[2017-04-24 07:05] LABS: BLOOD UREA NITROGEN 16 mg/dL (7-20); CALCIUM 9.4 mg/dL (8.4-10.2); CHLORIDE 92 mmol/L (98-107); CREATININE RESULT 0.74 mg/dL (0.52-1.25); GLUCOSE 126 mg/dL (75-110); POTASSIUM 3.2 mmol/L (3.6-5.0); SODIUM 145.2 mmol/L (137-145)
[2017-04-24 07:31] LABS: ANION GAP 15 (5-19); CARBON DIOXIDE 38 mmol/L (22-30)
[2017-04-24] MEDS: ACETAMINOPHEN 325 MG TABLET PO PRN ×2 (09:02→19:58)
[2017-04-24] MEDS: FUROSEMIDE INJ/PF 40 MG/4 ML SDV IV SCH (09:03)
[2017-04-24] MEDS: FLUTICASONE NASAL SPRAY 50 MCG/SPRY 120 SPRAY/16 GM NASL SCH ×2 (09:03→21:28)
[2017-04-24] MEDS: METOPROLOL SUCCINATE 50 MG TAB.SR.24H PO SCH (09:03)
[2017-04-24] MEDS: POTASSIUM CHLORIDE 10 MEQ TABLET.SA PO SCH ×2 (09:03→21:29)
[2017-04-24] MEDS: FAMOTIDINE 20 MG TABLET PO SCH ×2 (09:03→21:29)
[2017-04-24] MEDS ORDERED: (PENDING PHARMACY ID) (Fluticasone/Vilanterol [Breo Ellipta 100-25 Mcg Inh] 1 EACH) IH SCH (10:00)
[2017-04-24] MEDS ORDERED: (PENDING PHARMACY ID) (Metoprolol Succinate [Toprol Xl] 200 MG) PO SCH (10:00)
--- NOTE | 2017-04-24 14:19 | PDOC PROGRESS REPORT ---
Subjective Progress Note for:: 04/24/17 Subjective:: The patient was initially going to be discharged home. Her discharge orders were done and then the patient reported that she did not feel safe to go home and requested to spend 1 more night here at the hospital so she could be observed. Physical Exam Vital Signs: Temp Pulse Resp BP Pulse Ox 98.2 F 75 16 128/54 H 96 04/24/17 07:17 04/24/17 08:00 04/24/17 08:00 04/24/17 07:17 04/24/17 08:00 Intake & Output 04/23/17 04/24/17 04/25/17 06:59 06:59 06:59 Intake Total 650 Balance 650 Weight 127 kg 127 kg General appearance: PRESENT: no acute distress Eye exam: PRESENT: conjunctiva pink. ABSENT: scleral icterus Mouth exam: PRESENT: moist, tongue midline Neck exam: ABSENT: JVD Respiratory exam: PRESENT: clear to auscultation kisha. ABSENT: rales, rhonchi, wheezes Cardiovascular exam: PRESENT: RRR. ABSENT: diastolic murmur, rubs, systolic murmur GI/Abdominal exam: PRESENT: normal bowel sounds, soft. ABSENT: distended, guarding, mass, organolmegaly, rebound, tenderness Extremities exam: PRESENT: pedal edema - Trace pedal edema. ABSENT: calf tenderness, clubbing Neurological exam: PRESENT: alert, awake, oriented to person, oriented to place , oriented to time, oriented to situation, CN II-XII grossly intact. ABSENT: motor sensory deficit Psychiatric exam: PRESENT: anxious Skin exam: PRESENT: dry, intact, warm. ABSENT: cyanosis, rash Results Laboratory Results: 04/24/17 06:18 04/24/17 06:18 04/24/17 04/24/17 06:18 06:18 WBC 8.0 RBC 4.04 Hgb 11.7 L Hct 34.4 L MCV 85 MCH 28.9 MCHC 34.0 RDW 14.6 H Plt Count 250 Sodium 145.2 H Potassium 3.2 L Chloride 92 L Carbon Dioxide 38 H Anion Gap 15 BUN 16 Creatinine 0.74 Est GFR ( Amer) > 60 Est GFR (Non-Af Amer) > 60 Glucose 126 H Calcium 9.4 Impressions: Chest X-Ray 04/23/17 15:42 IMPRESSION: Cardiomegaly with pulmonary vascular congestion. There is blunting of the costophrenic angles consistent with small bilateral pleural effusions. Other findings as noted above Abdomen/Pelvis CT 04/23/17 16:43 IMPRESSION: 1. Small right pleural effusion. 2. Mild diverticulosis coli. 3. Osseous findings as described. 4. There are no findings that explain the patient's pain. Assessment & Plan - Diagnosis (1) Acute and chronic respiratory failure with hypoxia Is this a current diagnosis for this admission?: Yes Plan: The patient has a history of congestive heart failure and COPD. This episode appears to be mostly congestive heart failure she has no wheezing. She also has had weight gain, orthopnea and PND. (2) Congestive heart failure Is this a current diagnosis for this admission?: Yes Plan: Patient has acute on chronic diastolic congestive heart failure. She has not been following a diet in fact stated her physician told her to eat more salt. She has not taken Lasix since her last discharge. The patient has responded to IV Lasix. She was initially going to be discharged home this morning although she is very anxious about this and requested to be observed 1 more night. (3) COPD (chronic obstructive pulmonary disease) Is this a current diagnosis for this admission?: Yes Plan: We will continue with nebulizers and oxygen. (4) Diabetes mellitus Is this a current diagnosis for this admission?: Yes Plan: Patient has taken metformin for diabetes. We will hold that and cover with sliding scale insulin. (5) A-fib Qualifiers: Atrial fibrillation type: unspecified Qualified Code(s): I48.91 - Unspecified atrial fibrillation Is this a current diagnosis for this admission?: Yes Plan: Patient is rate control. She takes Xarelto for her anticoagulation and Toprol for rate control. (6) Hypertension Qualifiers: Is this a current diagnosis for this admission?: Yes Plan: Continue with the Toprol. (7) Morbid obesity with BMI of 45.0-49.9, adult Is this a current diagnosis for this admission?: Yes - Time Time Spent with patient: 25-34 minutes - Plan Summary Plan Summary: We will discharge home in the morning if she does well overnight.
[2017-04-24] MEDS: RIVAROXABAN 10 MG TABLET PO SCH (21:31)
[2017-04-25 05:49] LABS: ANION GAP 14 (5-19); BLOOD UREA NITROGEN 18 mg/dL (7-20); CALCIUM 9.6 mg/dL (8.4-10.2); CARBON DIOXIDE 36 mmol/L (22-30); CHLORIDE 93 mmol/L (98-107); CREATININE RESULT 0.72 mg/dL (0.52-1.25); GLUCOSE 122 mg/dL (75-110); SODIUM 143.3 mmol/L (137-145)
[2017-04-25 08:26] VITALS: BP 123/74
[2017-04-25] MEDS: POTASSIUM CHLORIDE 10 MEQ TABLET.SA PO SCH (09:30)
[2017-04-25] MEDS: FLUTICASONE NASAL SPRAY 50 MCG/SPRY 120 SPRAY/16 GM NASL SCH (09:30)
[2017-04-25] MEDS: FAMOTIDINE 20 MG TABLET PO SCH (09:30)
[2017-04-25] MEDS: METOPROLOL SUCCINATE 50 MG TAB.SR.24H PO SCH (09:30)
[2017-04-25] MEDS ORDERED: FUROSEMIDE 20 MG TABLET PO ONE (11:30)
--- NOTE | 2017-04-25 13:04 | PDOC DISCHARGE SUMMARY ---
General - Admit/Disc Date/PCP Admission Date/Primary Care Provider: 04/23/17 17:16 Discharge Date: 04/25/17 - Discharge Diagnosis (1) Acute and chronic respiratory failure with hypoxia Is this a current diagnosis for this admission?: Yes Summary: Secondary to congestive heart failure. (2) Congestive heart failure Is this a current diagnosis for this admission?: Yes Summary: Acute on chronic diastolic congestive heart failure. (3) COPD (chronic obstructive pulmonary disease) Is this a current diagnosis for this admission?: Yes (4) Diabetes mellitus Is this a current diagnosis for this admission?: Yes (5) A-fib Is this a current diagnosis for this admission?: Yes (6) Hypertension Is this a current diagnosis for this admission?: Yes (7) Morbid obesity with BMI of 45.0-49.9, adult Is this a current diagnosis for this admission?: Yes - Additional Information Resuscitation Status: Do Not Resuscitate Discharge Diet: Cardiac, Diabetic Discharge Activity: Activity As Tolerated, Balance Activity w/Rest, Energy Conservation, Weigh Daily Home Medications: Albuterol Sulfate [Ventolin Hfa] 2 puff IH Q4HP PRN 04/23/17 Fluticasone Propionate [Flonase Nasal [place] 50 Mcg/[place] 16 gm] 2 sprays NASL Q12 04/23/17 Fluticasone/Vilanterol [Breo Ellipta 100-25 Mcg INH] 1 each IH DAILY 04/23/17 Metoprolol Succinate [Toprol Xl] 200 mg PO DAILY 04/23/17 Rivaroxaban [Xarelto] 20 mg PO QHS 04/23/17 Furosemide [Lasix 40 mg Tablet] 40 mg PO BID #60 tablet 04/24/17 Metformin HCl 1,000 mg PO BID #0 04/24/17 Potassium Chloride [Klor-Con 10 Meq Tablet.sa] 20 meq PO Q12 #60 tablet.sa 04/24 History of Present Illness History of Present Illness: VESTA JIMENEZ is a 66 year old female who presents with a 1 week history of worsening shortness of breath. She reports that she over the last week has had shortness of breath is worsened along with orthopnea and PND. Patient also reports having approximately 20 feet dyspnea on exertion. Patient also reports having weight gain. When asked about her diet she reports that her physician had told her to eat more salt and she has been doing that. She has not been taking Lasix since her last hospitalization in July of this year. Patient denies having any chest pain associated with this. She denies any cough. Denies any fevers or chills. Denies any palpitations or tachycardia and does have a history of atrial fibrillation. She does have COPD and normally uses 2 L per nasal cannula. The patient reports that she has had to increase her oxygen level in spite of that has checked her oxygen saturations they have dropped down as low as 75%. The patient reports the emergency room that she is also had some right upper quadrant pain although she denies that to me and has unremarkable exam of the time of my exam. Hospital Course Hospital Course: 66-year-old female with history of COPD requiring oxygen chronically who presented with shortness of breath. Patient also has a history of congestive heart failure but has not been following diet. She is insistent that her doctor told her to eat salt because of her diabetes and she has not had been on any diuretics. Patient was given IV Lasix and had quick improvement in her respiratory status. On the day of discharge she was back to her baseline respiratory status. Patient is instructed to take Lasix 40 mg p.o. twice daily. She also was instructed to weigh daily and if her weight decrease more than 3 pounds from where it is now she is to decrease it to daily. If her weight increases by 3 pounds she is to contact her physician. The rest of her medical problems were unchanged during this hospitalization. Patient back to her baseline status and was felt that she is stable for discharge to home. Physical Exam Vital Signs: Temp Pulse Resp BP Pulse Ox 98.6 F 69 20 123/74 99 04/25/17 09:30 04/25/17 09:30 04/25/17 09:30 04/25/17 09:30 04/25/17 09:30 Intake & Output 04/24/17 04/25/17 04/26/17 06:59 06:59 06:59 Intake Total 650 1996 Output Total 300 Balance 650 0816 Weight 127 kg 127 kg General appearance: PRESENT: no acute distress Eye exam: PRESENT: conjunctiva pink. ABSENT: scleral icterus Mouth exam: PRESENT: moist, tongue midline Neck exam: ABSENT: JVD Respiratory exam: PRESENT: clear to auscultation kisha. ABSENT: rales, rhonchi, wheezes Cardiovascular exam: PRESENT: RRR. ABSENT: diastolic murmur, rubs, systolic murmur GI/Abdominal exam: PRESENT: normal bowel sounds, soft. ABSENT: distended, guarding, mass, organolmegaly, rebound, tenderness Extremities exam: ABSENT: calf tenderness, clubbing, pedal edema Neurological exam: PRESENT: alert, awake, oriented to person, oriented to place , oriented to time, oriented to situation, CN II-XII grossly intact. ABSENT: motor sensory deficit Psychiatric exam: PRESENT: appropriate affect Skin exam: PRESENT: dry, intact, warm. ABSENT: cyanosis, rash Results Laboratory Results: 04/24/17 06:18 04/25/17 04:26 04/25/17 04:26 Sodium 143.3 Potassium 4.0 Chloride 93 L Carbon Dioxide 36 H Anion Gap 14 BUN 18 Creatinine 0.72 Est GFR ( Amer) > 60 Est GFR (Non-Af Amer) > 60 Glucose 122 H Calcium 9.6 Impressions: Chest X-Ray 04/23/17 15:42 IMPRESSION: Cardiomegaly with pulmonary vascular congestion. There is blunting of the costophrenic angles consistent with small bilateral pleural effusions. Other findings as noted above Abdomen/Pelvis CT 04/23/17 16:43 IMPRESSION: 1. Small right pleural effusion. 2. Mild diverticulosis coli. 3. Osseous findings as described. 4. There are no findings that explain the patient's pain. Qualifiers PATEINT BEING DISCHARGED WITH ANY OF THE FOLLOWING DIAGNOSIS?: Heart Failure HF Pt with Afib discharged with Warfarin?: No Reason(s) for not prescribing Warfarin:: Not indicated HF Pt discharged on evidence-based Beta Charu:: Yes Plan Discharge Plan: Patient is to weigh daily. She is discharged home. Follow with primary care in 1-2 weeks. Time Spent: Less than 30 Minutes
== END 2017-04-25 10:20 | disposition home or self-care (01) ==
LOC: ER 13:14 → INTOOBSV 17:16 → EH 17:16 → 5 19:31
PROVIDERS: ADMIT Internal Medicine; ATTEND Internal Medicine
PROC: 5A09357 Assistance with Respiratory Ventilation, Less than 24 Consecutive Hours, Continuous Positive Airway Pressure (ICD-10-PCS; principal; 2017-04-23)
DX: J96.21 Acute and chronic respiratory failure with hypoxia (principal); I11.0 Hypertensive heart disease with heart failure; I50.33 Acute on chronic diastolic (congestive) heart failure; J44.9 Chronic obstructive pulmonary disease, unspecified; I48.91 Unspecified atrial fibrillation; E66.01 Morbid (severe) obesity due to excess calories; E11.9 Type 2 diabetes mellitus without complications; Z68.42 Body mass index [BMI] 45.0-49.9, adult; R10.11 Right upper quadrant pain; F40.240 Claustrophobia; Z66 Do not resuscitate; Z99.81 Dependence on supplemental oxygen; Z91.14 Patient's other noncompliance with medication regimen; Z85.43 Personal history of malignant neoplasm of ovary; Z90.49 Acquired absence of other specified parts of digestive tract; Z98.51 Tubal ligation status; Z90.710 Acquired absence of both cervix and uterus; Z87.891 Personal history of nicotine dependence; Z82.5 Family history of asthma and other chronic lower respiratory diseases; Z82.49 Family history of ischemic heart disease and other diseases of the circulatory system; Z91.11 Patient's noncompliance with dietary regimen; Z79.84 Long term (current) use of oral hypoglycemic drugs; Z79.899 Other long term (current) drug therapy; Z79.02 Long term (current) use of antithrombotics/antiplatelets
CPT/HCPCS: 93005; 99285; 96374; 36415 ×3; 87040; 82553; 82962 ×3; 82550; 85025; 85027; 80048 ×2; 80053; 81001; 82803; 83605; 83880; 71020; 71010; 74177; 93010; 94660; G0378 ×4; A9270 ×13; J1940 ×2; J3490 ×3; J2405; S0119

== ENCOUNTER → 2017-05-29 | Outpatient (CLI) | payer MEDICARE, MEDICAID ==
[2017-05-29 10:29] LABS: ANION GAP 12 (5-19); BLOOD UREA NITROGEN 13 mg/dL (7-20); CALCIUM 9.9 mg/dL (8.4-10.2); CARBON DIOXIDE 39 mmol/L (22-30); CHLORIDE 93 mmol/L (98-107); GLUCOSE 145 mg/dL (75-110); POTASSIUM 3.8 mmol/L (3.6-5.0); SODIUM 144.1 mmol/L (137-145)
== END ==
LOC: OD 09:44
PROVIDERS: ATTEND Internal Medicine
DX: I50.32 Chronic diastolic (congestive) heart failure (principal); R06.02 Shortness of breath; J44.9 Chronic obstructive pulmonary disease, unspecified; R00.2 Palpitations; I48.2 Chronic atrial fibrillation; E78.5 Hyperlipidemia, unspecified; Z79.899 Other long term (current) drug therapy
CPT/HCPCS: 36415; 80048; 83880

== ENCOUNTER → 2017-06-18 | Outpatient (CLI) | payer MEDICARE, MEDICAID ==
--- NOTE | 2017-06-18 10:30 | RADIOLOGY REPORT (SQ) ---
EXAM DESCRIPTION: CT CHEST WITHOUT COMPLETED DATE/TIME: 06/18/2017 8:39 am REASON FOR STUDY: R91.1 SOLITARY PULMONARY NODULE R91.1 SOLITARY PULMONARY NODULE COMPARISON: CT chest 08/31/2014, 11/16/2015, 07/18/2016 TECHNIQUE: CT scan performed of the chest without intravenous contrast. Images reviewed with lung, soft tissue and bone windows. Reconstructed coronal and sagittal MPR images reviewed. All images st ored on PACS. All CT scanners at this facility use dose modulation, iterative reconstruction, and/or weight based d osing when appropriate to reduce radiation dose to as low as reasonably achievable (ALARA). [facility]: Dose Right [facility]: CareDose [facility]: Dose Right [facility]: Teradose 4D [facility]: [employer] RADIATION DOSE: CT Rad equipment meets quality standard of care and radiation dose reduction techniq ues were employed. CTDIvol: 19.5 mGy. DLP: 759 mGy-cm. mGy. LIMITATIONS: No technical limitations. FINDINGS: LUNGS AND PLEURA: Stable 6 mm nodule in the posterior right lower lobe axial image 81, unc hanged from CT chest in 2014. This is a benign finding and requires no further specific followup. There are changes of centrilobular emphysema in the upper lobes bilaterally. No focal infiltrates. No pleural effusion. No pneumothorax. HILAR AND MEDIASTINAL STRUCTURES: No identified masses or abnormal nodes. No obvious aneurysm. HEART AND VASCULAR STRUCTURES: No aneurysm. No pericardial effusion. UPPER ABDOMEN: No significant findings. Limited exam. THYROID AND OTHER SOFT TISSUES: No masses. No adenopathy. BONES: No significant finding. HARDWARE: None in the chest. OTHER: No other significant findings. IMPRESSION: NO SIGNIFICANT FINDING ON NON-CONTRASTED CHEST CT. Stable noncalcified 6 mm granuloma in the posterior right lower lobe unchanged from 08/31/2014. TECHNICAL DOCUMENTATION: JOB ID: [id number] Quality ID # [id number]: Final reports with documentation of one or more dose reduction techniques (e.g., Au tomated exposure control, adjustment of the mA and/or kV according to patient size, use of iterative reconstruction technique) 2010 [employer]- All Rights Reserved
== END ==
LOC: RAD 08:29
PROVIDERS: ATTEND Internal Medicine Pulmonary Disease
DX: R91.1 Solitary pulmonary nodule (principal)
CPT/HCPCS: 71250

== ENCOUNTER 2017-09-28 09:15 | Inpatient (IN) | payer MEDICARE, MEDICAID ==
[2017-09-28] MEDS ORDERED: METHYLPREDNISOLONE INJ 125 MG/2 ML SDV IV ONE (09:43)
[2017-09-28] MEDS ORDERED: IPRATROPIUM/ALBUTEROL 0.5-2.5 MG/3 ML AMPUL NEB ONE (09:43)
--- NOTE | 2017-09-28 09:50 | ER Document Report ---
ED Respiratory Problem - General Chief Complaint: Shortness Of Breath Stated Complaint: BREATHING PROBLEMS Time Seen by Provider: 09/28/17 09:26 Mode of Arrival: Wheelchair Information source: Patient Notes: History of present illness-67 years old female with a history of COPD presents today with last 2 days of cold symptoms described as runny nose postnasal drip cough coughing up yellow white sputum, increasing shortness of breath. Shortness of breath is increased with minimal exertion. No chest pain. No other symptoms. Obese REVIEW OF SYSTEMS: CONSTITUTIONAL : Denies fever, chills, or sweats. Denies recent illness. EENT: Denies eye, ear, throat, or mouth pain or symptoms. Denies nasal or sinus congestion or discharge. Denies throat, tongue, or mouth swelling or difficulty swallowing. CARDIOVASCULAR: Denies chest pain. Denies palpitations or racing or irregular heart beat. Denies ankle edema. RESPIRATORY: Denies cough, cold, or chest congestion. Denies shortness of breath, difficulty breathing, or wheezing. GASTROINTESTINAL: Denies abdominal pain or distention. Denies nausea, vomiting , or diarrhea. Denies blood in vomitus, stools, or per rectum. Denies black, tarry stools. Denies constipation. GENITOURINARY: Denies difficulty urinating, painful urination, burning, frequency, blood in urine, or discharge. FEMALE GENITOURINARY: Denies vaginal bleeding, heavy or abnormal periods, irregular periods. Denies vaginal discharge or odor. MUSCULOSKELETAL: Denies back or neck pain or stiffness. Denies joint pain or swelling. SKIN: Denies rash, lesions or sores. HEMATOLOGIC : Denies easy bruising or bleeding. LYMPHATIC: Denies swollen, enlarged glands. NEUROLOGICAL: Denies confusion or altered mental status. Denies passing out or loss of consciousness. Denies dizziness or lightheadedness. Denies headache. Denies weakness or paralysis or loss of use of either side. Denies problems with gait or speech. Denies sensory loss, numbness, or tingling. Denies seizures. PSYCHIATRIC: Denies anxiety or stress. Denies depression, suicidal ideation, or homicidal ideation. ALL OTHER SYSTEMS REVIEWED AND NEGATIVE. PHYSICAL EXAMINATION: GENERAL: Well-appearing, well-nourished and mild to moderate acute distress. Obese HEAD: Atraumatic, normocephalic. EYES: Pupils equal round and reactive to light, extraocular movements intact, conjunctiva are normal. ENT: Nares patent, oropharynx clear without exudates. Moist mucous membranes. NECK: Normal range of motion, supple without lymphadenopathy LUNGS: Breath sounds decreased breath sounds no obvious rales or wheezes heard. HEART: Regular rate and rhythm without murmurs ABDOMEN: Soft, nontender, nondistended abdomen. No guarding, no rebound. No masses appreciated. Female : deferred Musculoskeletal: Normal range of motion, no pitting or edema. No cyanosis. NEUROLOGICAL: Cranial nerves grossly intact. Normal speech, normal gait. Normal sensory, motor exams PSYCH: Normal mood, normal affect. SKIN: Warm, Dry, normal turgor, no rashes or lesions noted. Dictation was performed using [employer] voice recognition software TRAVEL OUTSIDE OF THE [place] IN LAST 30 DAYS: No - HPI Patient complains to provider of: Short of breath Onset: Last week Duration: Continuous Initiating Event: Exertion. No: Allergy, Aspiration/Choking, Exposure to chemicals, Exposure to dust, Exposure to fumes, Exposure to mold, Exposure to smoke, Out of meds, Sports/exercise, URI, Other Quality of pain: denies: No pain, Achy, Burning, Cramping, Dull, Fullness, Pressure, Sharp, Stabbing, Throbbing, Other Severity: Moderate Pain Level: Denies Context: Hx COPD. denies: DVT, Factor V Leiden, Hx asthma, Hx CHF, Malignancy, , Recent cardiac event, Recent foreign travel, Recent long distance trvl , Recent immobilization, Recent surgery, Smoker, Other Short of Breath: Moderate Chest pain/discomfort: denies: Center, Constant, Heaviness, Intermittent, Left, Pain, Radiates to arm, Radiates to back, Radiates to jaw, Right, Tightness, Worse with deep breaths Cough: denies: Nonproductive, Productive, Stridor, Suspect aspiration Sputum amount: denies: None, Scant, Small, Moderate, Large, Copious - Related Data Allergies/Adverse Reactions: levofloxacin [From Levaquin] Allergy (Intermediate, Verified 09/28/17 09:16) Unknown reaction Sulfa (Sulfonamide Antibiotics) Allergy (Verified 09/28/17 09:16) Past Medical History - Social History Smoking Status: Former Smoker Chew tobacco use (# tins/day): No Frequency of alcohol use: None Drug Abuse: None Family History: COPD Patient has suicidal ideation: No Patient has homicidal ideation: No - Past Medical History Cardiac Medical History: Reports: Hx Atrial Fibrillation, Hx Congestive Heart Failure, Hx Hypertension Denies: Hx Hypercholesterolemia Pulmonary Medical History: Reports: Hx COPD, Hx Pneumonia - 2016 Endocrine Medical History: Reports: Hx Diabetes Mellitus Type 2 Renal/ Medical History: Denies: Hx Peritoneal Dialysis Malignancy Medical History: Reports: Hx Ovarian Cancer Past Surgical History: Reports: Hx Appendectomy, Hx Cholecystectomy, Hx Hysterectomy, Hx Tubal Ligation - Immunizations Hx Diphtheria, Pertussis, Tetanus Vaccination: No Review of Systems - Review of Systems Constitutional: denies: No symptoms reported, See HPI, Chills, Diaphoresis, Fever, Malaise, Weakness, Other, Weight gain, Weight loss, Recent illness EENT: denies: No symptoms reported, See HPI, Eye pain, Eye discharge, Blurred vision, Tearing, Double vision, Ear pain, Ear discharge, Nose pain, Nose congestion, Nose discharge, Sinus pressure, Sinus discharge, Throat pain, Difficulty swallowing, Throat swelling, Mouth pain, Mouth swelling, Dental problem, Vertigo, Other Cardiovascular: denies: No symptoms reported, See HPI, Chest pain, Palpitations , Heart racing, Orthopnea, Dyspnea, Syncope, Dizziness, Lightheaded, Edema, Other, Paroxysmal Nocturnal Dysp Respiratory: See HPI Gastrointestinal: denies: No symptoms reported, See HPI, Abdomen distended, Abdominal pain, Diarrhea, Nausea, Vomiting, Constipation, Blood streaked bowels , Poor appetite, Poor fluid intake, Blood in vomit, Black stools, Rectal bleeding, Last bowel movement, Fecal incontinence, Other Genitourinary: denies: No symptoms reported, See HPI, Burning, Dysuria, Discharge, Frequency, Flank pain, Hematuria, Incontinence, Pain, Urgency, Retention, Other Musculoskeletal: denies: No symptoms reported, See HPI, Back pain, Gout, Joint pain, Joint swelling, Muscle pain, Muscle stiffness, Neck pain, Deformity, Leg swelling, Ankle swelling, Other Hematologic/Lymphatic: denies: No symptoms reported, See HPI, Anemia, Blood clots, Easy bleeding, Easy bruising, Enlarged lymph nodes, Swollen glands, Other Physical Exam - Vital signs Vitals: Pulse Ox 98 09/28/17 09:46 - Notes Notes: As per history of complain Course - Re-evaluation Re-evalutation: 09/28/17 11:01 Patient was reevaluated still having difficulty in breathing. Therefore decided to keep her in the hospital. Case was discussed with the hospitalist and currently being admitted. - Vital Signs Vital signs: Temp Pulse Resp BP Pulse Ox 19 140/83 H 96 09/28/17 11:00 09/28/17 11:01 09/28/17 11:01 - Laboratory Result Diagrams: 09/28/17 09:40 09/28/17 09:40 Laboratory results interpreted by me: 09/28/17 09/28/17 09/28/17 09:40 09:40 09:40 Seg Neutrophils % 79.5 H Lymphocytes % 12.0 L Sodium 147.5 H Carbon Dioxide 36 H Creatinine 0.51 L Glucose 175 H NT-Pro-B Natriuret Pep 1150 H Urine Protein Urine Blood Ur Leukocyte Esterase 09/28/17 09:40 Seg Neutrophils % Lymphocytes % Sodium Carbon Dioxide Creatinine Glucose NT-Pro-B Natriuret Pep Urine Protein 30 H Urine Blood SMALL H Ur Leukocyte Esterase SMALL H Discharge - Discharge Clinical Impression: COPD exacerbation CHF (congestive heart failure) Qualifiers: Heart failure chronicity: acute on chronic Condition: Fair Disposition: ADMITTED INPATIENT Admitting Provider: Hospitalist Unit Admitted: Telemetry
[2017-09-28 10:05] LABS: ABSOLUTE BASOPHILS # (AUTO) 0.1 10^3/uL (0.0-0.2); ABSOLUTE EOSINOPHILS # (AUTO) 0.1 10^3/uL (0.0-0.6); ABSOLUTE LYMPHOCYTES (AUTO) 0.9 10^3/uL (0.5-4.7); ABSOLUTE MONOCYTES (AUTO) 0.5 10^3/uL (0.1-1.4); ABSOLUTE NEUT (AUTO) 5.8 10^3/uL (1.7-8.2); BASOPHILS % (AUTO) 0.9 % (0-2); HEMATOCRIT 36.6 % (36.0-47.0); HEMOGLOBIN 12.3 g/dL (12.0-15.5); MEAN CORPUSCULAR HEMOGLOBIN 29.9 pg (27.0-33.4); MEAN CORPUSCULAR HGB CONC 33.7 g/dL (32.0-36.0); MEAN CORPUSCULAR VOLUME 89 fl (80-97); MONOCYTES % (AUTO) 6.6 % (3-13); PLATELET COUNT 278 10^3/uL (150-450); RED BLOOD COUNT 4.11 10^6/uL (3.72-5.28); RED CELL DISTRIBUTION WIDTH 13.9 % (11.5-14.0); SEGMENTED NEUTROPHILS % (AUTO) 79.5 % (42-78); TOTAL CELLS COUNTED % (AUTO) 100 %; WHITE BLOOD COUNT 7.3 10^3/uL (4.0-10.5)
[2017-09-28 10:20] LABS: APPEARANCE,URINE CLEAR; BILIRUBIN,URINE NEGATIVE (NEGATIVE); COLOR,URINE STRAW; GLUCOSE, URINE NEGATIVE (NEGATIVE); KETONES,URINE NEGATIVE (NEGATIVE); LEUKOCYTE ESTERASE,URINE SMALL (NEGATIVE); NITRITE,URINE NEGATIVE (NEGATIVE); PROTEIN,URINE 30 mg/dL (NEGATIVE); URINE SPECIFIC GRAVITY 1.008; UROBILINOGEN,URINE NEGATIVE mg/dL (<2.0)
[2017-09-28 10:26] LABS: ALANINE AMINOTRANSFERASE 24 U/L (9-52); ALBUMIN 4.3 g/dL (3.5-5.0); ALKALINE PHOSPHATASE 85 U/L (38-126); ANION GAP 13 (5-19); ASPARTATE AMINO TRANSFERASE 25 U/L (14-36); BILIRUBIN,DIRECT 0.3 mg/dL (0.0-0.4); BILIRUBIN,TOTAL 0.4 mg/dL (0.2-1.3); BLOOD UREA NITROGEN 8 mg/dL (7-20); CALCIUM 9.4 mg/dL (8.4-10.2); CARBON DIOXIDE 36 mmol/L (22-30); CHLORIDE 99 mmol/L (98-107); CREATINE KINASE 48 U/L (30-135); GLUCOSE 175 mg/dL (75-110); POTASSIUM 4.1 mmol/L (3.6-5.0); SODIUM 147.5 mmol/L (137-145); TOTAL PROTEIN 8.2 g/dL (6.3-8.2)
[2017-09-28 10:38] LABS: CREATINE KINASE MB 0.57 ng/mL (<4.55); NT PRO BNP 1150 pg/mL (5-900)
[2017-09-28 10:39] LABS: TROPONIN I < 0.012 ng/mL
--- NOTE | 2017-09-28 10:44 | RADIOLOGY REPORT (SQ) ---
EXAM DESCRIPTION: CHEST SINGLE VIEW COMPLETED DATE/TIME: 09/28/2017 10:24 am REASON FOR STUDY: sob COMPARISON: Chest films 07/26/2016, 04/23/2017, CT chest 06/18/2017 EXAM PARAMETERS: NUMBER OF VIEWS: One view. TECHNIQUE: Single frontal radiographic view of the chest acquired. RADIATION DOSE: NA LIMITATIONS: Costophrenic sulci are cropped from the frontal film. Large patient. FINDINGS: LUNGS AND PLEURA: Upper lobes are hyperlucent from obstructive disease. Mild pulmonary va scular congestion. No gross acute infiltrates pleural effusions or pneumothorax. MEDIASTINUM AND HILAR STRUCTURES: No masses. Contour normal. HEART AND VASCULAR STRUCTURES: Stable marked cardiomegaly BONES: No acute findings. HARDWARE: None in the chest. OTHER: No other significant finding. IMPRESSION: Mild pulmonary vascular congestion, stable marked cardiomegaly. TECHNICAL DOCUMENTATION: JOB ID: [id number] [email or web address] All Rights Reserved Reading location - IP/workstation name: [email or web address]
[2017-09-28] MEDS ORDERED: FUROSEMIDE INJ/PF 20 MG/2 ML SDV IV ONE (10:56)
[2017-09-28] MEDS ORDERED: DEXTROSE 50%-WATER 25 GM/50 ML DISP.SYRIN IV PRN ×2 (11:56)
[2017-09-28] MEDS ORDERED: DEXTROSE 40% GEL 15 GM TUBE PO PRN ×2 (11:56)
[2017-09-28] MEDS ORDERED: 1/2 NORMAL SALINE 1,000 ML IV PRN (11:56)
[2017-09-28] MEDS ORDERED: ACETAMINOPHEN 325 MG TABLET PO PRN (11:56)
[2017-09-28] MEDS ORDERED: OXYCODONE-ACETAMINOPHEN 5-325 MG TABLET PO PRN (11:56)
[2017-09-28] MEDS ORDERED: ALBUTEROL SULFATE 0.083% NEB 2.5 MG/3 ML AMPUL NEB PRN (11:56)
[2017-09-28] MEDS ORDERED: ONDANSETRON HCL INJ/PF 4 MG/2 ML SDV IV PRN (11:56)
[2017-09-28] MEDS ORDERED: GLUCAGON,HUMAN RECOMB 1 MG INJ IM PRN (11:56)
[2017-09-28] MEDS ORDERED: MAG HYDROX/AL HYDROX/SIMETH SUSP 30 ML UDCUP PO PRN (11:56)
[2017-09-28] MEDS ORDERED: GUAIFENESIN/CODEINE PHOS 100-10 MG/ 5 ML UDC PO PRN (12:26)
[2017-09-28] MEDS ORDERED: LORAZEPAM 0.5 MG TABLET PO PRN (12:26)
--- NOTE | 2017-09-28 12:26 | PDOC H&P ---
History of Present Illness Admission Date/PCP: 09/28/17 11:47 Patient complains of: complaints of difficulty breathing and shortness of breath which has increased over the last few days or so. She said he got to the point that she quit using her Lasix so she won't have to get up and use the bathroom due to the dyspnea History of Present Illness: VESTA JIMENEZ is a 67 year old female who presents to the emergency room with complaints of difficulty breathing and shortness of breath which has increased over the last few days or so. She said he got to the point that she quit using her Lasix so she will have to get up and use the bathroom due to the dyspnea. She denies any chest pain nausea vomiting although reports cold-like symptoms with runny nose, postnasal drip and cough with yellowish sputum. There is no fever abdominal pain diarrhea. She did report swelling in her knees. She denies any prior history of CHF. Past Medical History Cardiac Medical History: Reports: Atrial Fibrillation, Congestive Heart Failure , Hypertension Denies: Hyperlipidema Pulmonary Medical History: Reports: Chronic Obstructive Pulmonary Disease (COPD) , Pneumonia - 2016 Endocrine Medical History: Reports: Diabetes Mellitus Type 2 Malignancy Medical History: Reports: Ovarian Cancer Past Surgical History Past Surgical History: Reports: Appendectomy, Cholecystectomy, Hysterectomy, Tubal Ligation Social History Information Source: Patient Lives with: Alone Smoking Status: Former Smoker Frequency of Alcohol Use: None Hx Recreational Drug Use: No Drugs: None Hx Prescription Drug Abuse: No Family History Family History: COPD Parental Family History Reviewed: Yes Children Family History Reviewed: Yes Sibling(s) Family History Reviewed.: Yes Medication/Allergy Home Medications: Albuterol Sulfate [Ventolin Hfa] 2 puff IH Q4HP PRN 04/23/17 Fluticasone Propionate [Flonase Nasal [place] 50 Mcg/[place] 16 gm] 2 sprays NASL Q12 04/23/17 Fluticasone/Vilanterol [Breo Ellipta 100-25 Mcg INH] 1 each IH DAILY 04/23/17 Metoprolol Succinate [Toprol Xl] 200 mg PO DAILY 04/23/17 Rivaroxaban [Xarelto] 20 mg PO QHS 04/23/17 Furosemide [Lasix 40 mg Tablet] 40 mg PO BID #60 tablet 04/24/17 Metformin HCl 1,000 mg PO BID #0 04/24/17 Allergies/Adverse Reactions: levofloxacin [From Levaquin] Allergy (Intermediate, Verified 09/28/17 09:16) Unknown reaction Sulfa (Sulfonamide Antibiotics) Allergy (Verified 09/28/17 09:16) Review of Systems Constitutional: ABSENT: chills, fever(s) Eyes: ABSENT: visual disturbances Nose, Mouth, and Throat: ABSENT: headache(s), sore throat Cardiovascular: PRESENT: dyspnea on exertion, edema. ABSENT: palpitations Respiratory: PRESENT: cough, dyspnea, sputum. ABSENT: hemoptysis Gastrointestinal: ABSENT: abdominal pain, constipation, diarrhea, hematemesis, hematochezia, nausea, vomiting Genitourinary: ABSENT: dysuria, hematuria Musculoskeletal: ABSENT: joint swelling Neurological: ABSENT: abnormal gait, abnormal speech, confusion, dizziness, focal weakness, syncope Psychiatric: ABSENT: anxiety, depression, homidical ideation, suicidal ideation Endocrine: ABSENT: cold intolerance, heat intolerance, polydipsia, polyuria Physical Exam Vital Signs: Temp Pulse Resp BP Pulse Ox 19 159/111 H 97 09/28/17 11:00 09/28/17 11:42 09/28/17 11:42 General appearance: PRESENT: no acute distress, well-developed, well-nourished Head exam: PRESENT: atraumatic Eye exam: PRESENT: conjunctiva pink, EOMI, PERRLA. ABSENT: scleral icterus Mouth exam: PRESENT: moist, tongue midline Neck exam: ABSENT: carotid bruit, JVD, lymphadenopathy, thyromegaly Respiratory exam: PRESENT: clear to auscultation kisha, crackles, rhonchi, wheezes - scattered. ABSENT: rales Cardiovascular exam: PRESENT: RRR. ABSENT: diastolic murmur, rubs, systolic murmur Pulses: PRESENT: normal dorsalis pedis pul GI/Abdominal exam: PRESENT: normal bowel sounds, soft. ABSENT: distended, guarding, mass, organolmegaly, rebound, tenderness Rectal exam: PRESENT: deferred Extremities exam: PRESENT: full ROM. ABSENT: calf tenderness, clubbing, pedal edema Musculoskeletal exam: PRESENT: ambulatory Neurological exam: PRESENT: alert, awake, oriented to person, oriented to place , oriented to time, oriented to situation, CN II-XII grossly intact Psychiatric exam: PRESENT: appropriate affect Results Laboratory Results: Laboratory 09/28/17 09/28/17 09/28/17 09:40 09:40 09:40 WBC 7.3 RBC 4.11 Hgb 12.3 Hct 36.6 MCV 89 MCH 29.9 MCHC 33.7 RDW 13.9 Plt Count 278 Seg Neutrophils % 79.5 H Lymphocytes % 12.0 L Monocytes % 6.6 Eosinophils % 1.0 Basophils % 0.9 Absolute Neutrophils 5.8 Absolute Lymphocytes 0.9 Absolute Monocytes 0.5 Absolute Eosinophils 0.1 Absolute Basophils 0.1 Sodium 147.5 H Potassium 4.1 Chloride 99 Carbon Dioxide 36 H Anion Gap 13 BUN 8 Creatinine 0.51 L Est GFR ( Amer) > 60 Est GFR (Non-Af Amer) > 60 Glucose 175 H Calcium 9.4 Total Bilirubin 0.4 Direct Bilirubin 0.3 Neonat Total Bilirubin Not Reportable Neonat Direct Bilirubin Not Reportable Neonat Indirect Bili Not Reportable AST 25 ALT 24 Alkaline Phosphatase 85 Creatine Kinase 48 CK-MB (CK-2) 0.57 Troponin I < 0.012 NT-Pro-B Natriuret Pep 1150 H Total Protein 8.2 Albumin 4.3 Urine Color Urine Appearance Urine pH Ur Specific [place] Urine Protein Urine Glucose (UA) Urine Ketones Urine Blood Urine Nitrite Urine Bilirubin Urine Urobilinogen Ur Leukocyte Esterase Urine WBC (Auto) Urine RBC (Auto) Squamous Epi Cells Auto Urine Ascorbic Acid 09/28/17 09:40 WBC RBC Hgb Hct MCV MCH MCHC RDW Plt Count Seg Neutrophils % Lymphocytes % Monocytes % Eosinophils % Basophils % Absolute Neutrophils Absolute Lymphocytes Absolute Monocytes Absolute Eosinophils Absolute Basophils Sodium Potassium Chloride Carbon Dioxide Anion Gap BUN Creatinine Est GFR ( Amer) Est GFR (Non-Af Amer) Glucose Calcium Total Bilirubin Direct Bilirubin Neonat Total Bilirubin Neonat Direct Bilirubin Neonat Indirect Bili AST ALT Alkaline Phosphatase Creatine Kinase CK-MB (CK-2) Troponin I NT-Pro-B Natriuret Pep Total Protein Albumin Urine Color STRAW Urine Appearance CLEAR Urine pH 7.0 Ur Specific [place] 1.008 Urine Protein 30 H Urine Glucose (UA) NEGATIVE Urine Ketones NEGATIVE Urine Blood SMALL H Urine Nitrite NEGATIVE Urine Bilirubin NEGATIVE Urine Urobilinogen NEGATIVE Ur Leukocyte Esterase SMALL H Urine WBC (Auto) 16 Urine RBC (Auto) 3 Squamous Epi Cells Auto 1 Urine Ascorbic Acid NEGATIVE Impressions: Chest X-Ray 09/28/17 09:25 IMPRESSION: Mild pulmonary vascular congestion, stable marked cardiomegaly. Assessment & Plan - Diagnosis (1) COPD exacerbation Is this a current diagnosis for this admission?: Yes Plan: We will place on Solu-Medrol as well as bronchodilators and empiric antibiotics (2) Congestive heart failure Qualifiers: Heart failure chronicity: acute on chronic Is this a current diagnosis for this admission?: Yes Plan: This is likely diastolic heart failure. Her last echocardiogram on file was seen 2014 such I will order a repeat echo. It appears LV function was grossly intact in 2015. We will continue with Lasix in the interim (3) A-fib Qualifiers: Is this a current diagnosis for this admission?: Yes Plan: Patient is currently in sinus rhythm. Will continue anticoagulant (4) Acute and chronic respiratory failure with hypoxia Is this a current diagnosis for this admission?: Yes Plan: Secondary to COPD and possibly CHF (5) Diabetes mellitus Qualifiers: Diabetes mellitus type: type 2 Is this a current diagnosis for this admission?: Yes Plan: We will continue sliding scale insulin as well as basal hypoglycemic agents (6) Hypertension Qualifiers: Is this a current diagnosis for this admission?: Yes Plan: Adjust medications for blood pressure control (7) Hypernatremia Is this a current diagnosis for this admission?: Yes Plan: Mild possibly from dehydration. We will give cautious IV fluid given the possibility of heart failure - Time Time Spent: 30 to 50 Minutes Medications reviewed and adjusted accordingly: Yes Anticipated discharge: Home Within: within 72 hours - Inpatient Certification Based on my medical assessment, after consideration of the patient's comorbidities, presenting symptoms, or acuity I expect that the services needed warrant INPATIENT care.: Yes Medical Necessity: Significant Comorbidiites Make Outpatient Treatment Too Risky
[2017-09-28] MEDS ORDERED: AZITHROMYCIN 250 MG TABLET PO ONE (13:00)
[2017-09-28] MEDS ORDERED: METHYLPREDNISOLONE INJ 40 MG/1 ML SDV IV ONE (13:00)
[2017-09-28] MEDS: IPRATROPIUM/ALBUTEROL 0.5-2.5 MG/3 ML AMPUL NEB SCH ×2 (13:39→19:37)
--- NOTE | 2017-09-28 14:13 | EKG REPORT ---
SEVERITY:- ABNORMAL ECG - ATRIAL FIBRILLATION, V-RATE 69-94 LOW VOLTAGE THROUGHOUT : Confirmed by: Samuel Benjamin MD 28-Sep-2017 14:13:36
[2017-09-28] MEDS: INSULIN REG, HUMAN 100 UNIT/ML 3 ML VIAL (PYX) SUBCUT PRN ×2 (16:45→21:16)
[2017-09-28] MEDS: METFORMIN HCL 500 MG TABLET PO SCH (17:16)
[2017-09-28] MEDS: FLUTICASONE NASAL SPRAY 50 MCG/SPRY 120 SPRAY/16 GM NASL SCH (21:15)
[2017-09-28] MEDS: RIVAROXABAN 10 MG TABLET PO SCH (21:16)
[2017-09-28] MEDS: METHYLPREDNISOLONE INJ 40 MG/1 ML SDV IV SCH (21:16)
[2017-09-29] MEDS: IPRATROPIUM/ALBUTEROL 0.5-2.5 MG/3 ML AMPUL NEB SCH ×4 (02:01→20:17)
[2017-09-29] MEDS: METHYLPREDNISOLONE INJ 40 MG/1 ML SDV IV SCH ×3 (05:01→17:14)
[2017-09-29] MEDS: INSULIN REG, HUMAN 100 UNIT/ML 3 ML VIAL (PYX) SUBCUT PRN ×2 (07:32→11:26)
[2017-09-29] MEDS: AZITHROMYCIN 250 MG TABLET PO SCH (09:11)
[2017-09-29] MEDS: FLUTICASONE NASAL SPRAY 50 MCG/SPRY 120 SPRAY/16 GM NASL SCH ×2 (09:11→21:22)
[2017-09-29] MEDS: FUROSEMIDE INJ/PF 40 MG/4 ML SDV IV SCH (09:12)
[2017-09-29] MEDS: METOPROLOL SUCCINATE 50 MG TAB.SR.24H PO SCH (09:12)
[2017-09-29] MEDS: METFORMIN HCL 500 MG TABLET PO SCH ×2 (09:12→17:14)
[2017-09-29] MEDS: DOCUSATE SODIUM 100 MG CAPSULE PO SCH (09:14)
[2017-09-29] MEDS ORDERED: (PENDING PHARMACY ID) (Metoprolol Succinate [Toprol Xl] 200 MG) PO SCH (10:00)
[2017-09-29] MEDS ORDERED: ENOXAPARIN SODIUM INJ 40 MG/0.4 ML DISP.SYRIN SUBCUT SCH (10:00)
[2017-09-29] MEDS: HYDROCODONE BIT/HOMATROPINE 5-1.5 MG TABLET PO PRN ×2 (11:25→19:53)
[2017-09-29] MEDS ORDERED: GUAIFENESIN/CODEINE PHOS 100-10 MG/ 5 ML UDC PO PRN (15:18)
--- NOTE | 2017-09-29 15:22 | PDOC PROGRESS REPORT ---
Subjective Progress Note for:: 09/29/17 Subjective:: Admitted with difficulty breathing and shortness of breath Reason For Visit: COPD WITH ACUTE EXACERBATION, DIABETES MELLITUS Physical Exam Vital Signs: Temp Pulse Resp BP Pulse Ox 98.7 F 79 16 135/36 H 95 09/29/17 11:22 09/29/17 14:00 09/29/17 13:38 09/29/17 11:22 09/29/17 13:38 Intake & Output 09/28/17 09/29/17 09/30/17 06:59 06:59 06:59 Intake Total 708 840 Output Total 400 2050 Balance 308 -1210 Weight 128.8 kg General appearance: PRESENT: no acute distress, obese, well-developed, well- nourished Head exam: PRESENT: atraumatic, normocephalic Eye exam: PRESENT: conjunctiva pink, EOMI, PERRLA. ABSENT: scleral icterus Ear exam: PRESENT: normal external ear exam Mouth exam: PRESENT: moist, tongue midline Neck exam: ABSENT: carotid bruit, JVD, lymphadenopathy, thyromegaly Respiratory exam: PRESENT: decreased breath sounds, rhonchi, wheezes - Bilateral scattered Cardiovascular exam: PRESENT: RRR. ABSENT: diastolic murmur, rubs, systolic murmur Pulses: PRESENT: normal dorsalis pedis pul GI/Abdominal exam: PRESENT: normal bowel sounds, soft. ABSENT: distended, guarding, mass, organolmegaly, rebound, tenderness Rectal exam: PRESENT: deferred Extremities exam: PRESENT: full ROM. ABSENT: calf tenderness, clubbing, pedal edema Neurological exam: PRESENT: alert, awake, oriented to person, oriented to place , oriented to time, oriented to situation, CN II-XII grossly intact. ABSENT: motor sensory deficit Psychiatric exam: PRESENT: appropriate affect. ABSENT: homicidal ideation, suicidal ideation Skin exam: PRESENT: dry, intact, warm. ABSENT: cyanosis, rash Results Impressions: Chest X-Ray 09/28/17 09:25 IMPRESSION: Mild pulmonary vascular congestion, stable marked cardiomegaly. Assessment & Plan - Diagnosis (1) COPD exacerbation Is this a current diagnosis for this admission?: Yes Plan: Continue bronchodilators and increased dose of steroids (2) Congestive heart failure Qualifiers: Heart failure chronicity: acute on chronic Is this a current diagnosis for this admission?: Yes Plan: This is likely diastolic heart failure. Echocardiogram pending. (3) A-fib Qualifiers: Is this a current diagnosis for this admission?: Yes Plan: Patient is currently in sinus rhythm. Will continue anticoagulant (4) Acute and chronic respiratory failure with hypoxia Is this a current diagnosis for this admission?: Yes Plan: Secondary to COPD and possibly CHF. Continue oxygen support (5) Diabetes mellitus Qualifiers: Diabetes mellitus type: type 2 Is this a current diagnosis for this admission?: Yes Plan: We will continue sliding scale insulin as well as basal hypoglycemic agents (6) Hypertension Qualifiers: Is this a current diagnosis for this admission?: Yes Plan: Adjust medications as needed (7) Hypernatremia Is this a current diagnosis for this admission?: Yes Plan: Mild possibly from dehydration. Will continue cautious IV fluid - Time Time Spent with patient: 15-24 minutes Medications reviewed and adjusted accordingly: Yes Anticipated discharge: Home Within: within 72 hours - Inpatient Certification Based on my medical assessment, after consideration of the patient's comorbidities, presenting symptoms, or acuity I expect that the services needed warrant INPATIENT care.: Yes Medical Necessity: Need for Nebulizer Therapy and Monitoring of Response, Need for IV Antibiotics
[2017-09-29] MEDS: RIVAROXABAN 10 MG TABLET PO SCH (21:22)
[2017-09-30] MEDS: METHYLPREDNISOLONE INJ 40 MG/1 ML SDV IV SCH ×5 (00:26→23:42)
[2017-09-30] MEDS: IPRATROPIUM/ALBUTEROL 0.5-2.5 MG/3 ML AMPUL NEB SCH ×4 (01:47→20:20)
[2017-09-30] MEDS: HYDROCODONE BIT/HOMATROPINE 5-1.5 MG TABLET PO PRN ×4 (01:56→20:21)
[2017-09-30 06:53] LABS: ABSOLUTE MONOCYTES (AUTO) 0.4 10^3/uL (0.1-1.4); ABSOLUTE NEUT (AUTO) 14.6 10^3/uL (1.7-8.2); BASOPHILS % (AUTO) 0.2 % (0-2); HEMATOCRIT 37.5 % (36.0-47.0); HEMOGLOBIN 12.3 g/dL (12.0-15.5); LYMPHOCYTES % (AUTO) 6.1 % (13-45); MEAN CORPUSCULAR HEMOGLOBIN 29.5 pg (27.0-33.4); MEAN CORPUSCULAR HGB CONC 32.9 g/dL (32.0-36.0); MEAN CORPUSCULAR VOLUME 90 fl (80-97); MONOCYTES % (AUTO) 2.5 % (3-13); PLATELET COUNT 331 10^3/uL (150-450); RED BLOOD COUNT 4.18 10^6/uL (3.72-5.28); SEGMENTED NEUTROPHILS % (AUTO) 91.2 % (42-78); TOTAL CELLS COUNTED % (AUTO) 100 %
[2017-09-30 07:03] LABS: ANION GAP 14 (5-19); BLOOD UREA NITROGEN 27 mg/dL (7-20); CARBON DIOXIDE 33 mmol/L (22-30); CHLORIDE 95 mmol/L (98-107); GLUCOSE 166 mg/dL (75-110); POTASSIUM 4.1 mmol/L (3.6-5.0); SODIUM 141.5 mmol/L (137-145)
[2017-09-30] MEDS: INSULIN REG, HUMAN 100 UNIT/ML 3 ML VIAL (PYX) SUBCUT PRN ×2 (08:21→23:42)
[2017-09-30] MEDS: FLUTICASONE NASAL SPRAY 50 MCG/SPRY 120 SPRAY/16 GM NASL SCH ×2 (09:12→21:38)
[2017-09-30] MEDS: METFORMIN HCL 500 MG TABLET PO SCH ×2 (09:12→17:23)
[2017-09-30] MEDS: METOPROLOL SUCCINATE 50 MG TAB.SR.24H PO SCH (09:12)
[2017-09-30] MEDS: AZITHROMYCIN 250 MG TABLET PO SCH (09:12)
[2017-09-30] MEDS: FUROSEMIDE INJ/PF 40 MG/4 ML SDV IV SCH (09:12)
[2017-09-30] MEDS: DOCUSATE SODIUM 100 MG CAPSULE PO SCH (09:13)
--- NOTE | 2017-09-30 15:43 | PDOC PROGRESS REPORT ---
Subjective Progress Note for:: 09/30/17 Subjective:: Admitted with difficulty breathing and shortness of breath c/o feeling just a tad better, breathing slightly improved Reason For Visit: COPD WITH ACUTE EXACERBATION, DIABETES MELLITUS Physical Exam Vital Signs: Temp Pulse Resp BP Pulse Ox 98.0 F 81 16 159/74 H 96 09/30/17 08:08 09/30/17 14:00 09/30/17 13:24 09/30/17 08:08 09/30/17 13:24 Intake & Output 09/29/17 09/30/17 10/01/17 06:59 06:59 06:59 Intake Total 708 1580 Output Total 400 3100 Balance 308 -1520 Weight 128.8 kg 127.5 kg General appearance: PRESENT: no acute distress, cooperative, morbidly obese Head exam: PRESENT: atraumatic Neck exam: ABSENT: carotid bruit, JVD, lymphadenopathy, thyromegaly Respiratory exam: PRESENT: crackles, decreased breath sounds, rhonchi, unlabored. ABSENT: rales, wheezes Cardiovascular exam: PRESENT: RRR. ABSENT: diastolic murmur, rubs, systolic murmur Pulses: PRESENT: normal dorsalis pedis pul GI/Abdominal exam: PRESENT: normal bowel sounds, soft. ABSENT: distended, guarding, mass, organolmegaly, rebound, tenderness Neurological exam: PRESENT: alert, awake, oriented to person, oriented to place , oriented to time, oriented to situation Psychiatric exam: PRESENT: appropriate affect Results Laboratory Results: 09/30/17 05:41 09/30/17 05:41 09/30/17 09/30/17 05:41 05:41 WBC 16.0 H D RBC 4.18 Hgb 12.3 Hct 37.5 MCV 90 MCH 29.5 MCHC 32.9 RDW 14.0 Plt Count 331 Seg Neutrophils % 91.2 H Lymphocytes % 6.1 L Monocytes % 2.5 L Eosinophils % 0.0 Basophils % 0.2 Absolute Neutrophils 14.6 H Absolute Lymphocytes 1.0 Absolute Monocytes 0.4 Absolute Eosinophils 0.0 Absolute Basophils 0.0 Sodium 141.5 Potassium 4.1 Chloride 95 L Carbon Dioxide 33 H Anion Gap 14 BUN 27 H Creatinine 0.58 Est GFR ( Amer) > 60 Est GFR (Non-Af Amer) > 60 Glucose 166 H Calcium 10.0 Impressions: Chest X-Ray 09/28/17 09:25 IMPRESSION: Mild pulmonary vascular congestion, stable marked cardiomegaly. Assessment & Plan - Diagnosis (1) COPD exacerbation Is this a current diagnosis for this admission?: Yes Plan: Continue bronchodilators and steroids and taper as per response (2) Congestive heart failure Qualifiers: Heart failure chronicity: acute on chronic Is this a current diagnosis for this admission?: Yes Plan: This is likely diastolic heart failure. Echocardiogram pending. (3) A-fib Qualifiers: Is this a current diagnosis for this admission?: Yes Plan: Patient is currently in sinus rhythm. Will continue anticoagulant (4) Acute and chronic respiratory failure with hypoxia Is this a current diagnosis for this admission?: Yes Plan: Secondary to COPD and possibly CHF. Continue oxygen support and taper as needed (5) Diabetes mellitus Qualifiers: Diabetes mellitus type: type 2 Is this a current diagnosis for this admission?: Yes Plan: We will continue sliding scale insulin as well as basal hypoglycemic agents (6) Hypertension Qualifiers: Is this a current diagnosis for this admission?: Yes Plan: Adjust medications as needed (7) Hypernatremia Is this a current diagnosis for this admission?: Yes Plan: Resolved - Time Time Spent with patient: 15-24 minutes Medications reviewed and adjusted accordingly: Yes Anticipated discharge: Home Within: within 72 hours - Inpatient Certification Based on my medical assessment, after consideration of the patient's comorbidities, presenting symptoms, or acuity I expect that the services needed warrant INPATIENT care.: Yes Medical Necessity: Need for Pain Control
[2017-09-30] MEDS: RIVAROXABAN 10 MG TABLET PO SCH (21:38)
[2017-10-01] MEDS: IPRATROPIUM/ALBUTEROL 0.5-2.5 MG/3 ML AMPUL NEB SCH ×4 (01:56→20:50)
[2017-10-01] MEDS: HYDROCODONE BIT/HOMATROPINE 5-1.5 MG TABLET PO PRN ×4 (02:25→20:20)
[2017-10-01] MEDS: METHYLPREDNISOLONE INJ 40 MG/1 ML SDV IV SCH ×3 (05:17→22:02)
[2017-10-01] MEDS: INSULIN REG, HUMAN 100 UNIT/ML 3 ML VIAL (PYX) SUBCUT PRN (08:04)
[2017-10-01] MEDS ORDERED: BENZONATATE 100 MG CAPSULE PO PRN (08:56)
[2017-10-01] MEDS ORDERED: DEXTROSE 40% GEL 15 GM TUBE PO PRN ×2 (08:59)
[2017-10-01] MEDS ORDERED: GLUCAGON,HUMAN RECOMB 1 MG INJ IM PRN (08:59)
[2017-10-01] MEDS ORDERED: DEXTROSE 50%-WATER 25 GM/50 ML DISP.SYRIN IV PRN ×2 (08:59)
[2017-10-01] MEDS: DOCUSATE SODIUM 100 MG CAPSULE PO SCH (09:21)
[2017-10-01] MEDS: AZITHROMYCIN 250 MG TABLET PO SCH (09:28)
[2017-10-01] MEDS: METOPROLOL SUCCINATE 50 MG TAB.SR.24H PO SCH (09:28)
[2017-10-01] MEDS: FUROSEMIDE INJ/PF 40 MG/4 ML SDV IV SCH (09:28)
[2017-10-01] MEDS: FLUTICASONE NASAL SPRAY 50 MCG/SPRY 120 SPRAY/16 GM NASL SCH ×2 (09:28→22:02)
--- NOTE | 2017-10-01 09:34 | XCELERA REPORT ---
[address] [address] Transthoracic Echocardiogram Report Name: VESTA JIMENEZ Age: 67 yrs Gender: Female : 1950 Patient Status: Inpatient Patient Location: [address] [place] [address] Study Date: 09/30/2017 10:57 AM Height: 66 in Weight: 280 lb BSA: 2.3 m2 Procedure: A complete two-dimensional transthoracic echocardiogram was performed (2D, M-mode, spectral and color flow Doppler). The study was technically difficult with many images being suboptimal in quality. Reason For Study: Peripheral edema, SOB Ordering Physician: GONZALO SOLIS Performed By: Venus Clarke Interpretation Summary The study was technically difficult with many images being suboptimal in quality. The left ventricular ejection fraction is preserved. Consider additional methods to assess LVEF such as MUGA scan, CTA heart, cardiac MRI, FABIÁN, etc. if clinically indicated. Regional wall motion abnormalities cannot be excluded due to limited visualization. LV diastolic function could not be adequately assessed due to atrial fibrilation. The right ventricle is mildly dilated. The right ventricular systolic function is normal. The right atrium is mild to moderately dilated. The left atrium is mildly dilated. There is no mitral valve stenosis. There is a trace amount of mitral regurgitation There is no aortic valve stenosis No aortic regurgitation is present. There is a trace or physiologic amount of tricuspid regurgitation Tricuspid regurgitation jet envelope not well defined to measure RV systolic pressure accurately. The aortic root is not well visualized. The inferior vena cava appeared normal and decreased > 50% with respiration (RAP 5-10 mmHg) Minimal pericardial effusion. MMode/2D Measurements & Calculations RVDd: 3.2 cm LVIDd: 5.8 cm FS: 17.5 % Ao root diam: 2.7 cm IVSd: 0.99 cm LVIDs: 4.8 cm EDV(Teich): 166.8 ml LVPWd: 1.0 cm ESV(Teich): 106.8 ml Ao root area: 5.8 cm2 EF(Teich): 36.0 % LA dimension: 4.0 cm Doppler Measurements & Calculations MV E max enzo: MV P1/2t max enzo: Ao V2 max: LV V1 max P.6 cm/sec 110.1 cm/sec 136.0 cm/sec 3.3 mmHg MV P1/2t: 58.0 msec Ao max PG: LV V1 max: 7.4 mmHg 90.8 cm/sec MVA(P1/2t): 3.8 cm2 MV dec slope: 555.7 cm/sec2 MV dec time: 0.19 sec PA V2 max: TR max enzo: 70.1 cm/sec 202.2 cm/sec PA max P.0 mmHgTR max P.4 mmHg Left Ventricle The left ventricle is grossly normal size. The left ventricular ejection fraction is preserved. Consider additional methods to assess LVEF such as MUGA scan, CTA heart, cardiac MRI, FABIÁN, etc. if clinically indicated. LV diastolic function could not be adequately assessed. LV diastolic function could not be adequately assessed due to atrial fibrilation. Regional wall motion abnormalities cannot be excluded due to limited visualization. Right Ventricle The right ventricle is mildly dilated. The right ventricular systolic function is normal. Atria The right atrium is mild to moderately dilated. The left atrium is mildly dilated. Interarterial septum not well visualized and not well dopplered. Cannot comment on ASD/PFO presence. Mitral Valve The mitral valve is grossly normal. There is no mitral valve stenosis. There is a trace amount of mitral regurgitation. Aortic Valve The aortic valve is not well visualized secondary to technical limitations. There is no aortic valve stenosis. No aortic regurgitation is present. Tricuspid Valve The tricuspid valve is not well visualized secondary to technical limitations. There is no tricuspid stenosis. There is a trace or physiologic amount of tricuspid regurgitation. Tricuspid regurgitation jet envelope not well defined to measure RV systolic pressure accurately. Pulmonic Valve The pulmonic valve is not well visualized. Great Vessels The aortic root is not well visualized. The inferior vena cava appeared normal and decreased > 50% with respiration (RAP 5-10 mmHg). Effusions Minimal pericardial effusion. : GONZALO SOLIS > Nelly Snyder
[2017-10-01] MEDS ORDERED: METHYLPREDNISOLONE INJ 40 MG/1 ML SDV IV ONE (10:00)
[2017-10-01] MEDS: CETIRIZINE 10 MG TABLET PO SCH (10:45)
[2017-10-01] MEDS: GUAIFENESIN 600 MG TABLET.SA PO SCH ×2 (10:46→22:02)
[2017-10-01] MEDS: INSULIN LISPRO 100 UNIT/ML 3 ML VIAL SUBCUT PRN ×2 (12:18→17:12)
--- NOTE | 2017-10-01 17:15 | PDOC PROGRESS REPORT ---
Subjective Progress Note for:: 10/01/17 Subjective:: Patient relates shortness of breath is better when compared to when she came in however needs something so she can call follow-up such as Mucinex. Review of systems All organ systems evaluated and negative except as in subjective All laboratories and significant diagnostics have been reviewed Reason For Visit: COPD WITH ACUTE EXACERBATION, DIABETES MELLITUS Physical Exam Vital Signs: Temp Pulse Resp BP Pulse Ox 98.4 F 85 18 135/70 H 93 09/30/17 23:22 10/01/17 07:00 10/01/17 01:55 09/30/17 23:22 10/01/17 01:55 Intake & Output 09/30/17 10/01/17 10/02/17 06:59 06:59 06:59 Intake Total 1580 1830 Output Total 3100 3100 Balance -1520 -1270 Weight 127.5 kg 125.4 kg General appearance: PRESENT: cooperative, morbidly obese Head exam: PRESENT: atraumatic, normocephalic Eye exam: PRESENT: conjunctiva pink, EOMI, PERRLA Ear exam: PRESENT: normal external ear exam Mouth exam: PRESENT: moist Neck exam: PRESENT: full ROM. ABSENT: JVD, lymphadenopathy, tenderness Respiratory exam: PRESENT: unlabored. ABSENT: clear to auscultation kisha, tachypnea Cardiovascular exam: PRESENT: irregular rhythm. ABSENT: diastolic murmur, systolic murmur Vascular exam: PRESENT: normal capillary refill GI/Abdominal exam: PRESENT: normal bowel sounds, soft. ABSENT: tenderness Extremities exam: PRESENT: full ROM, joint swelling Musculoskeletal exam: PRESENT: ambulatory Neurological exam: PRESENT: alert, awake, oriented to person, oriented to place , oriented to time, oriented to situation, CN II-XII grossly intact Psychiatric exam: PRESENT: appropriate affect, normal mood Skin exam: PRESENT: intact, normal color Results Laboratory Results: 09/30/17 05:41 09/30/17 05:41 Impressions: Chest X-Ray 09/28/17 09:25 IMPRESSION: Mild pulmonary vascular congestion, stable marked cardiomegaly. Assessment & Plan - Diagnosis (1) COPD exacerbation Is this a current diagnosis for this admission?: Yes Plan: To place patient on DuoNeb's, Mucinex, IV steroids and continue Zithromax. In addition will add Singulair. (2) A-fib Qualifiers: Atrial fibrillation type: persistent Qualified Code(s): I48.1 - Persistent atrial fibrillation Is this a current diagnosis for this admission?: Yes Plan: Stable (3) Acute and chronic respiratory failure with hypoxia Is this a current diagnosis for this admission?: Yes Plan: Continue oxygen supplementation and wean off as tolerated (4) Diabetes mellitus Qualifiers: Diabetes mellitus type: type 2 Is this a current diagnosis for this admission?: Yes Plan: To place patient on Humalog sliding scale with bedside glucose before meals and at bedtime (5) Congestive heart failure Qualifiers: Heart failure chronicity: acute on chronic Is this a current diagnosis for this admission?: Yes Plan: Continue present management (6) Rhinitis Qualifiers: Rhinitis type: acute Qualified Code(s): J00 - Acute nasopharyngitis [ common cold] Is this a current diagnosis for this admission?: Yes Plan: To place patient on Zyrtec, Singulair and continue Flonase - Time Time Spent with patient: 15-24 minutes Medications reviewed and adjusted accordingly: Yes Anticipated discharge: Home Within: within 48 hours - Inpatient Certification Based on my medical assessment, after consideration of the patient's comorbidities, presenting symptoms, or acuity I expect that the services needed warrant INPATIENT care.: Yes I certify that my determination is in accordance with my understanding of Medicare's requirements for reasonable and necessary INPATIENT services [42 CFR 412.3e].: Yes Medical Necessity: Need Close Monitoring Due to Risk of Patient Decompensation, Need for Nebulizer Therapy and Monitoring of Response
[2017-10-01] MEDS: RIVAROXABAN 10 MG TABLET PO SCH (22:02)
[2017-10-01] MEDS: INSULIN DETEMIR 100 UNIT/ML 3 ML PEN SUBCUT SCH (22:02)
[2017-10-01] MEDS: MONTELUKAST SODIUM 10 MG TABLET PO SCH (22:02)
[2017-10-02] MEDS: HYDROCODONE BIT/HOMATROPINE 5-1.5 MG TABLET PO PRN ×4 (02:21→19:47)
[2017-10-02] MEDS: ALBUTEROL SULFATE 0.083% NEB 2.5 MG/3 ML AMPUL NEB PRN (02:59)
[2017-10-02] MEDS: METHYLPREDNISOLONE INJ 40 MG/1 ML SDV IV SCH ×3 (05:52→22:15)
[2017-10-02] MEDS: INSULIN LISPRO 100 UNIT/ML 3 ML VIAL SUBCUT PRN ×3 (07:44→22:43)
[2017-10-02] MEDS: IPRATROPIUM/ALBUTEROL 0.5-2.5 MG/3 ML AMPUL NEB SCH ×3 (08:09→19:41)
[2017-10-02] MEDS: BENZONATATE 100 MG CAPSULE PO PRN (10:53)
[2017-10-02] MEDS: AZITHROMYCIN 250 MG TABLET PO SCH (10:53)
[2017-10-02] MEDS: CETIRIZINE 10 MG TABLET PO SCH (10:53)
[2017-10-02] MEDS: METOPROLOL SUCCINATE 50 MG TAB.SR.24H PO SCH (10:54)
[2017-10-02] MEDS: GUAIFENESIN 600 MG TABLET.SA PO SCH ×2 (10:54→22:15)
[2017-10-02] MEDS: FLUTICASONE NASAL SPRAY 50 MCG/SPRY 120 SPRAY/16 GM NASL SCH ×2 (10:55→22:15)
[2017-10-02] MEDS: FUROSEMIDE INJ/PF 40 MG/4 ML SDV IV SCH (10:55)
[2017-10-02] MEDS: DOCUSATE SODIUM 100 MG CAPSULE PO SCH (10:55)
--- NOTE | 2017-10-02 14:53 | PDOC PROGRESS REPORT ---
Subjective Progress Note for:: 10/02/17 Subjective:: Patient relates that shortness of breath is getting better however she still wheezy and getting short of breath when going to the bathroom. Review of systems All organ systems evaluated and negative except as in subjective All laboratories and significant diagnostics have been reviewed Reason For Visit: COPD WITH ACUTE EXACERBATION, DIABETES MELLITUS Physical Exam Vital Signs: Temp Pulse Resp BP Pulse Ox 98.4 F 70 16 132/69 H 95 10/02/17 03:17 10/02/17 03:17 10/02/17 03:17 10/02/17 03:17 10/02/17 03:17 Intake & Output 10/01/17 10/02/17 10/03/17 06:59 06:59 06:59 Intake Total 1830 2193 Output Total 3100 3750 Balance -1270 -1557 Weight 125.4 kg 125.4 kg General appearance: PRESENT: no acute distress, cooperative, morbidly obese Head exam: PRESENT: atraumatic, normocephalic Eye exam: PRESENT: conjunctiva pink, EOMI, PERRLA Ear exam: PRESENT: normal external ear exam Mouth exam: PRESENT: moist Neck exam: PRESENT: full ROM. ABSENT: JVD, lymphadenopathy, tenderness Respiratory exam: PRESENT: other - Adequate movement of air with scattered wheezes primarily left lung Cardiovascular exam: PRESENT: irregular rhythm. ABSENT: diastolic murmur, systolic murmur Vascular exam: PRESENT: normal capillary refill GI/Abdominal exam: PRESENT: normal bowel sounds, soft. ABSENT: tenderness Extremities exam: PRESENT: full ROM. ABSENT: pedal edema Musculoskeletal exam: PRESENT: ambulatory Neurological exam: PRESENT: alert, awake, oriented to person, oriented to place , oriented to time, oriented to situation, CN II-XII grossly intact Psychiatric exam: PRESENT: appropriate affect, normal mood Skin exam: PRESENT: intact, normal color Results Laboratory Results: 09/30/17 05:41 09/30/17 05:41 Impressions: Chest X-Ray 09/28/17 09:25 IMPRESSION: Mild pulmonary vascular congestion, stable marked cardiomegaly. Assessment & Plan - Diagnosis (1) COPD exacerbation Is this a current diagnosis for this admission?: Yes Plan: Continue DuoNeb's, Mucinex, IV steroids, Zithromax and Singulair. (2) A-fib Qualifiers: Atrial fibrillation type: persistent Qualified Code(s): I48.1 - Persistent atrial fibrillation Is this a current diagnosis for this admission?: Yes Plan: Stable (3) Acute and chronic respiratory failure with hypoxia Is this a current diagnosis for this admission?: Yes Plan: Continue oxygen supplementation and wean off as tolerated (4) Diabetes mellitus Qualifiers: Diabetes mellitus type: type 2 Diabetes mellitus oil heaterman insulin use: without oil heaterman use Diabetes mellitus complication status: without complication Qualified Code(s): E11.9 - Type 2 diabetes mellitus without complications Is this a current diagnosis for this admission?: Yes Plan: Continue Humalog sliding scale with bedside glucose before meals and at bedtime (5) Congestive heart failure Qualifiers: Heart failure chronicity: acute on chronic Is this a current diagnosis for this admission?: Yes Plan: Discontinue Lasix IV and changed to Demadex 20 mg twice a day. To add Norvasc and lisinopril for blood pressure control (6) Rhinitis Qualifiers: Rhinitis type: acute Qualified Code(s): J00 - Acute nasopharyngitis [ common cold] Is this a current diagnosis for this admission?: Yes Plan: Continue Zyrtec, Singulair and continue Flonase (7) HTN (hypertension) Qualifiers: Hypertension type: essential hypertension Qualified Code(s): I10 - Essential (primary) hypertension Is this a current diagnosis for this admission?: Yes Plan: Add Norvasc and lisinopril for blood pressure control - Time Time Spent with patient: 15-24 minutes Medications reviewed and adjusted accordingly: Yes Anticipated discharge: Home with Homehealth Within: within 72 hours - Inpatient Certification Based on my medical assessment, after consideration of the patient's comorbidities, presenting symptoms, or acuity I expect that the services needed warrant INPATIENT care.: Yes I certify that my determination is in accordance with my understanding of Medicare's requirements for reasonable and necessary INPATIENT services [42 CFR 412.3e].: Yes Medical Necessity: Significant Comorbidiites Make Outpatient Treatment Too Risky , Need Close Monitoring Due to Risk of Patient Decompensation, Need for Nebulizer Therapy and Monitoring of Response
[2017-10-02] MEDS: TORSEMIDE 20 MG TABLET PO SCH (17:54)
[2017-10-02] MEDS ORDERED: AMLODIPINE BESYLATE 5 MG TABLET PO SCH (22:00)
[2017-10-02] MEDS: MONTELUKAST SODIUM 10 MG TABLET PO SCH (22:15)
[2017-10-02] MEDS: RIVAROXABAN 10 MG TABLET PO SCH (22:15)
[2017-10-02] MEDS: INSULIN DETEMIR 100 UNIT/ML 3 ML PEN SUBCUT SCH (22:43)
[2017-10-03] MEDS: HYDROCODONE BIT/HOMATROPINE 5-1.5 MG TABLET PO PRN ×3 (02:06→20:14)
[2017-10-03] MEDS: ALBUTEROL SULFATE 0.083% NEB 2.5 MG/3 ML AMPUL NEB PRN (03:52)
[2017-10-03 05:41] LABS: HEMATOCRIT 41.6 % (36.0-47.0); HEMOGLOBIN 13.9 g/dL (12.0-15.5); MEAN CORPUSCULAR HEMOGLOBIN 29.7 pg (27.0-33.4); MEAN CORPUSCULAR HGB CONC 33.5 g/dL (32.0-36.0); MEAN CORPUSCULAR VOLUME 89 fl (80-97); PLATELET COUNT 375 10^3/uL (150-450); RED BLOOD COUNT 4.69 10^6/uL (3.72-5.28); RED CELL DISTRIBUTION WIDTH 13.8 % (11.5-14.0); WHITE BLOOD COUNT 16.6 10^3/uL (4.0-10.5)
[2017-10-03 06:00] LABS: ANION GAP 16 (5-19); BLOOD UREA NITROGEN 49 mg/dL (7-20); CALCIUM 9.7 mg/dL (8.4-10.2); CARBON DIOXIDE 36 mmol/L (22-30); CHLORIDE 89 mmol/L (98-107); GLUCOSE 168 mg/dL (75-110); POTASSIUM 4.4 mmol/L (3.6-5.0); SODIUM 141.1 mmol/L (137-145)
[2017-10-03 06:09] LABS: ABSOLUTE MONOCYTES # (MANUAL) 0.5 10^3/uL (0.1-1.4); ABSOLUTE NEUTROPHILS# (MANUAL) 15.1 10^3/uL (1.7-8.2); BASOPHILS % (MANUAL) 0 % (0-2); EOSINOPHILS % (MANUAL) 0 % (0-6); LYMPHOCYTES % (MANUAL) 6 % (13-45); MONOCYTES % (MANUAL) 3 % (3-13); NUCLEATED RED BLOOD CELLS 1 /100 WBC (0); SEGMENTED NEUTROPHILS % (MAN) 91 % (42-78); TOTAL CELLS COUNTED 100
[2017-10-03] MEDS: BENZONATATE 100 MG CAPSULE PO PRN (06:09)
[2017-10-03] MEDS: METHYLPREDNISOLONE INJ 40 MG/1 ML SDV IV SCH ×2 (06:09→18:13)
[2017-10-03 06:10] LABS: TOXIC GRANULATION SLIGHT
[2017-10-03 06:11] LABS: PLATELET COMMENT ADEQUATE; RBC MORPHOLOGY COMMENT NORMO-CYTIC/CHROMIC
[2017-10-03] MEDS: IPRATROPIUM/ALBUTEROL 0.5-2.5 MG/3 ML AMPUL NEB SCH ×3 (07:57→19:57)
[2017-10-03] MEDS: INSULIN LISPRO 100 UNIT/ML 3 ML VIAL SUBCUT PRN ×4 (07:58→21:09)
[2017-10-03] MEDS ORDERED: AMLODIPINE BESYLATE 5 MG TABLET PO SCH (09:09)
[2017-10-03] MEDS ORDERED: CEFTRIAXONE 1 GM/D5W RTU 1 GM/50 ML RTUPB IV SCH (10:00)
[2017-10-03] MEDS: CEFTRIAXONE SODIUM 1,000 MG in DEXTROSE 5%-WATER 50 ML IV SCH (11:13)
[2017-10-03] MEDS: METOPROLOL SUCCINATE 50 MG TAB.SR.24H PO SCH (11:14)
[2017-10-03] MEDS: DOCUSATE SODIUM 100 MG CAPSULE PO SCH (11:15)
[2017-10-03] MEDS: CETIRIZINE 10 MG TABLET PO SCH (11:16)
[2017-10-03] MEDS: LISINOPRIL 10 MG TABLET PO SCH (11:16)
[2017-10-03] MEDS: GUAIFENESIN 600 MG TABLET.SA PO SCH ×2 (11:16→21:09)
[2017-10-03] MEDS: TORSEMIDE 20 MG TABLET PO SCH ×2 (11:17→18:13)
[2017-10-03] MEDS: FLUTICASONE NASAL SPRAY 50 MCG/SPRY 120 SPRAY/16 GM NASL SCH ×2 (11:17→21:09)
--- NOTE | 2017-10-03 19:01 | PDOC PROGRESS REPORT ---
Subjective Progress Note for:: 10/03/17 Subjective:: Patient relates that shortness of breath continues getting better. Concerned about having sore thoat. Review of systems All organ systems evaluated and negative except as in subjective All laboratories and significant diagnostics have been reviewed Reason For Visit: COPD WITH ACUTE EXACERBATION, DIABETES MELLITUS Physical Exam Vital Signs: Temp Pulse Resp BP Pulse Ox 98.5 F 71 17 115/61 92 10/03/17 03:52 10/03/17 07:57 10/03/17 07:57 10/03/17 03:52 10/03/17 07:57 Intake & Output 10/02/17 10/03/17 10/04/17 06:59 06:59 06:59 Intake Total 2193 1798 Output Total 3756 1385 Balance -1008 -1597 Weight 125.4 kg 120.8 kg General appearance: PRESENT: cooperative, morbidly obese Head exam: PRESENT: atraumatic, normocephalic Eye exam: PRESENT: conjunctiva pink, EOMI, PERRLA Mouth exam: PRESENT: moist Neck exam: PRESENT: full ROM. ABSENT: JVD, lymphadenopathy, tenderness Respiratory exam: PRESENT: other - Improvement of movement of air. Scatttered left sided wheezes Cardiovascular exam: PRESENT: irregular rhythm. ABSENT: diastolic murmur, systolic murmur Vascular exam: PRESENT: normal capillary refill GI/Abdominal exam: PRESENT: normal bowel sounds, soft, tenderness Extremities exam: PRESENT: full ROM. ABSENT: pedal edema Musculoskeletal exam: PRESENT: ambulatory Neurological exam: PRESENT: alert, awake, oriented to person, oriented to place , oriented to time, oriented to situation, CN II-XII grossly intact Psychiatric exam: PRESENT: appropriate affect, normal mood Skin exam: PRESENT: intact, normal color Results Laboratory Results: 10/03/17 04:42 10/03/17 04:42 10/03/17 10/03/17 04:42 04:42 WBC 16.6 H RBC 4.69 Hgb 13.9 Hct 41.6 MCV 89 MCH 29.7 MCHC 33.5 RDW 13.8 Plt Count 375 Seg Neutrophils % Not Reportable Lymphocytes % Not Reportable Monocytes % Not Reportable Eosinophils % Not Reportable Basophils % Not Reportable Absolute Neutrophils Not Reportable Absolute Lymphocytes Not Reportable Absolute Monocytes Not Reportable Absolute Eosinophils Not Reportable Absolute Basophils Not Reportable Sodium 141.1 Potassium 4.4 Chloride 89 L Carbon Dioxide 36 H Anion Gap 16 BUN 49 H Creatinine 0.91 Est GFR ( Amer) > 60 Est GFR (Non-Af Amer) > 60 Glucose 168 H Calcium 9.7 Magnesium 2.5 H 09/29/17 10:15 Sputum Gram Stain - Final Impressions: Chest X-Ray 09/28/17 09:25 IMPRESSION: Mild pulmonary vascular congestion, stable marked cardiomegaly. Assessment & Plan - Diagnosis (1) COPD exacerbation Is this a current diagnosis for this admission?: Yes Plan: Continue DuoNeb's, Mucinex, decrease IV steroids and Singulair. Will discontinue Zithromax since sputum culture grew strep pneumo. To place on Rocephin IV (2) A-fib Qualifiers: Atrial fibrillation type: persistent Qualified Code(s): I48.1 - Persistent atrial fibrillation Is this a current diagnosis for this admission?: Yes Plan: Stable (3) Acute and chronic respiratory failure with hypoxia Is this a current diagnosis for this admission?: Yes Plan: Continue oxygen supplementation and wean off as tolerated (4) Diabetes mellitus Qualifiers: Diabetes mellitus type: type 2 Diabetes mellitus imaging specialist insulin use: without senior care use Diabetes mellitus complication status: without complication Qualified Code(s): E11.9 - Type 2 diabetes mellitus without complications Is this a current diagnosis for this admission?: Yes Plan: Continue Humalog sliding scale with bedside glucose before meals and at bedtime (5) Congestive heart failure Qualifiers: Heart failure chronicity: acute on chronic Is this a current diagnosis for this admission?: Yes Plan: Continue Demadex 20 mg twice a day. Continue Norvasc and lisinopril for blood pressure control (6) Rhinitis Qualifiers: Rhinitis type: acute Qualified Code(s): J00 - Acute nasopharyngitis [ common cold] Is this a current diagnosis for this admission?: Yes Plan: Continue Zyrtec, Singulair and continue Flonase (7) HTN (hypertension) Qualifiers: Hypertension type: essential hypertension Qualified Code(s): I10 - Essential (primary) hypertension Is this a current diagnosis for this admission?: Yes Plan: Continue Norvasc and lisinopril for blood pressure control - Time Time Spent with patient: 15-24 minutes Medications reviewed and adjusted accordingly: Yes Anticipated discharge: Home Within: within 48 hours - Inpatient Certification Based on my medical assessment, after consideration of the patient's comorbidities, presenting symptoms, or acuity I expect that the services needed warrant INPATIENT care.: Yes I certify that my determination is in accordance with my understanding of Medicare's requirements for reasonable and necessary INPATIENT services [42 CFR 412.3e].: Yes Medical Necessity: Need Close Monitoring Due to Risk of Patient Decompensation, Need for Nebulizer Therapy and Monitoring of Response
[2017-10-03] MEDS: RIVAROXABAN 10 MG TABLET PO SCH (21:09)
[2017-10-03] MEDS: MONTELUKAST SODIUM 10 MG TABLET PO SCH (21:09)
[2017-10-03] MEDS: INSULIN DETEMIR 100 UNIT/ML 3 ML PEN SUBCUT SCH (21:09)
[2017-10-03] MEDS: AMLODIPINE BESYLATE 10 MG TABLET PO SCH (21:09)
[2017-10-04] MEDS: HYDROCODONE BIT/HOMATROPINE 5-1.5 MG TABLET PO PRN ×4 (02:30→21:50)
[2017-10-04] MEDS: ALBUTEROL SULFATE 0.083% NEB 2.5 MG/3 ML AMPUL NEB PRN (02:47)
[2017-10-04 05:11] LABS: ABSOLUTE LYMPHOCYTES (AUTO) 1.5 10^3/uL (0.5-4.7); ABSOLUTE MONOCYTES (AUTO) 1.1 10^3/uL (0.1-1.4); ABSOLUTE NEUT (AUTO) 14.7 10^3/uL (1.7-8.2); BASOPHILS % (AUTO) 0.3 % (0-2); HEMATOCRIT 43.6 % (36.0-47.0); HEMOGLOBIN 14.5 g/dL (12.0-15.5); LYMPHOCYTES % (AUTO) 8.6 % (13-45); MEAN CORPUSCULAR HEMOGLOBIN 29.5 pg (27.0-33.4); MEAN CORPUSCULAR HGB CONC 33.4 g/dL (32.0-36.0); MEAN CORPUSCULAR VOLUME 88 fl (80-97); MONOCYTES % (AUTO) 6.1 % (3-13); PLATELET COUNT 399 10^3/uL (150-450); RED BLOOD COUNT 4.94 10^6/uL (3.72-5.28); RED CELL DISTRIBUTION WIDTH 14.1 % (11.5-14.0); TOTAL CELLS COUNTED % (AUTO) 100 %; WHITE BLOOD COUNT 17.3 10^3/uL (4.0-10.5)
[2017-10-04 05:19] LABS: ANION GAP 15 (5-19); BLOOD UREA NITROGEN 66 mg/dL (7-20); CALCIUM 9.5 mg/dL (8.4-10.2); CARBON DIOXIDE 37 mmol/L (22-30); CHLORIDE 87 mmol/L (98-107); GLUCOSE 153 mg/dL (75-110); POTASSIUM 4.5 mmol/L (3.6-5.0); SODIUM 139.1 mmol/L (137-145)
[2017-10-04] MEDS: METHYLPREDNISOLONE INJ 40 MG/1 ML SDV IV SCH (05:53)
[2017-10-04] MEDS: INSULIN LISPRO 100 UNIT/ML 3 ML VIAL SUBCUT PRN ×2 (07:45→12:15)
[2017-10-04] MEDS: IPRATROPIUM/ALBUTEROL 0.5-2.5 MG/3 ML AMPUL NEB SCH (08:29)
[2017-10-04] MEDS: CETIRIZINE 10 MG TABLET PO SCH (08:59)
[2017-10-04] MEDS: FLUTICASONE NASAL SPRAY 50 MCG/SPRY 120 SPRAY/16 GM NASL SCH ×2 (09:00→21:48)
[2017-10-04] MEDS: LISINOPRIL 10 MG TABLET PO SCH (09:01)
[2017-10-04] MEDS: GUAIFENESIN 600 MG TABLET.SA PO SCH ×2 (09:01→21:49)
[2017-10-04] MEDS: METOPROLOL SUCCINATE 50 MG TAB.SR.24H PO SCH (09:03)
[2017-10-04] MEDS: CEFTRIAXONE SODIUM 1,000 MG in DEXTROSE 5%-WATER 50 ML IV SCH (09:04)
[2017-10-04] MEDS: TORSEMIDE 20 MG TABLET PO SCH (09:05)
[2017-10-04] MEDS ORDERED: IPRATROPIUM/ALBUTEROL 0.5-2.5 MG/3 ML AMPUL NEB PRN (10:06)
[2017-10-04] MEDS ORDERED: NORMAL SALINE 500 ML IV ONE (10:30)
[2017-10-04] MEDS: DOCUSATE SODIUM 100 MG CAPSULE PO SCH (10:32)
[2017-10-04] MEDS: BENZONATATE 100 MG CAPSULE PO PRN (10:44)
[2017-10-04] MEDS ORDERED: FLUTICASONE/SALMETEROL DISKUS 500-50 MCG/DOSE IH ONE (11:00)
--- NOTE | 2017-10-04 14:56 | PDOC PROGRESS REPORT ---
Subjective Progress Note for:: 10/04/17 Subjective:: Patient states have been able to go to the bathroom without getting short of breath. She still having some bouts of cough off and on. Wheezing has improved Review of systems All organ systems evaluated and negative except as in subjective All laboratories and significant diagnostics have been reviewed Reason For Visit: COPD WITH ACUTE EXACERBATION, DIABETES MELLITUS Physical Exam Vital Signs: Temp Pulse Resp BP Pulse Ox 97.5 F 79 18 117/63 93 10/04/17 08:00 10/04/17 09:28 10/04/17 08:29 10/04/17 08:00 10/04/17 08:29 Intake & Output 10/03/17 10/04/17 10/05/17 06:59 06:59 06:59 Intake Total 1798 485 Output Total 6133 1965 Balance -4352 -1450 Weight 120.8 kg 124.8 kg General appearance: PRESENT: no acute distress, cooperative, morbidly obese Head exam: PRESENT: atraumatic, normocephalic Eye exam: PRESENT: conjunctiva pink, EOMI, PERRLA Ear exam: PRESENT: normal external ear exam Mouth exam: PRESENT: moist Neck exam: PRESENT: full ROM. ABSENT: JVD, lymphadenopathy, tenderness Respiratory exam: PRESENT: other - Essentially clear to auscultation with scattered wheezes Cardiovascular exam: PRESENT: irregular rhythm. ABSENT: diastolic murmur, systolic murmur Vascular exam: PRESENT: normal capillary refill GI/Abdominal exam: PRESENT: normal bowel sounds, soft. ABSENT: tenderness Extremities exam: PRESENT: full ROM. ABSENT: pedal edema Musculoskeletal exam: PRESENT: ambulatory Neurological exam: PRESENT: alert, awake, oriented to person, oriented to place , oriented to time, oriented to situation, CN II-XII grossly intact Psychiatric exam: PRESENT: appropriate affect, normal mood Skin exam: PRESENT: normal color Results Laboratory Results: 10/04/17 04:30 10/04/17 04:30 10/04/17 10/04/17 04:30 04:30 WBC 17.3 H RBC 4.94 Hgb 14.5 Hct 43.6 MCV 88 MCH 29.5 MCHC 33.4 RDW 14.1 H Plt Count 399 Seg Neutrophils % 85.0 H Lymphocytes % 8.6 L Monocytes % 6.1 Eosinophils % 0.0 Basophils % 0.3 Absolute Neutrophils 14.7 H Absolute Lymphocytes 1.5 Absolute Monocytes 1.1 Absolute Eosinophils 0.0 Absolute Basophils 0.0 Sodium 139.1 Potassium 4.5 Chloride 87 L Carbon Dioxide 37 H Anion Gap 15 BUN 66 H Creatinine 1.12 Est GFR ( Amer) 59 L Est GFR (Non-Af Amer) 48 L Glucose 153 H Calcium 9.5 09/29/17 10:15 Sputum Gram Stain - Final 09/29/17 10:15 Sputum Sputum Culture - Final Streptococcus Pneumoniae C.albicans/C.dubliniensis Normal Addis Impressions: Chest X-Ray 09/28/17 09:25 IMPRESSION: Mild pulmonary vascular congestion, stable marked cardiomegaly. Assessment & Plan - Diagnosis (1) COPD exacerbation Is this a current diagnosis for this admission?: Yes Plan: To change duo nebs to as needed. To start Advair. Will discontinue IV steroids. To transition patient to Ceftin and discontinue Rocephin (2) A-fib Qualifiers: Atrial fibrillation type: persistent Qualified Code(s): I48.1 - Persistent atrial fibrillation Is this a current diagnosis for this admission?: Yes Plan: Stable (3) Acute and chronic respiratory failure with hypoxia Is this a current diagnosis for this admission?: Yes Plan: Continue oxygen supplementation. Patient back to baseline (4) Diabetes mellitus Qualifiers: Diabetes mellitus type: type 2 Diabetes mellitus fpc insulin use: without fpc use Diabetes mellitus complication status: without complication Qualified Code(s): E11.9 - Type 2 diabetes mellitus without complications Is this a current diagnosis for this admission?: Yes Plan: Continue Humalog sliding scale with bedside glucose before meals and at bedtime (5) Congestive heart failure Qualifiers: Heart failure chronicity: acute on chronic Is this a current diagnosis for this admission?: Yes Plan: Change Demadex 20 mg to once a da. Continue Norvasc and lisinopril for blood pressure control. Since a bit on the dry side will order 500 mls normal saline bolus. (6) Rhinitis Qualifiers: Rhinitis type: acute Qualified Code(s): J00 - Acute nasopharyngitis [ common cold] Is this a current diagnosis for this admission?: Yes Plan: Continue Zyrtec, Singulair and Flonase (7) HTN (hypertension) Qualifiers: Hypertension type: essential hypertension Qualified Code(s): I10 - Essential (primary) hypertension Is this a current diagnosis for this admission?: Yes Plan: Continue Norvasc and lisinopril for blood pressure control (8) LACY (acute kidney injury) Is this a current diagnosis for this admission?: Yes Plan: Due to overdiuresis patient. Will administer 500 mils IV bolus and will gently hydrate. Trend renal (9) Leukocytosis Qualifiers: Leukocytosis type: unspecified Qualified Code(s): D72.829 - Elevated white blood cell count, unspecified Is this a current diagnosis for this admission?: Yes Plan: Likely due to demargination of white blood cell by steroids - Time Time Spent with patient: 15-24 minutes Medications reviewed and adjusted accordingly: Yes Anticipated discharge: Home with Homehealth Within: within 48 hours - Inpatient Certification Based on my medical assessment, after consideration of the patient's comorbidities, presenting symptoms, or acuity I expect that the services needed warrant INPATIENT care.: Yes I certify that my determination is in accordance with my understanding of Medicare's requirements for reasonable and necessary INPATIENT services [42 CFR 412.3e].: Yes Medical Necessity: Need Close Monitoring Due to Risk of Patient Decompensation, Need For IV Fluids
[2017-10-04] MEDS: NORMAL SALINE 1000 ML 1,000 ML IV PRN ×2 (15:37→15:39)
[2017-10-04] MEDS: CEFUROXIME 500 MG TABLET PO SCH (18:13)
[2017-10-04] MEDS: INSULIN DETEMIR 100 UNIT/ML 3 ML PEN SUBCUT SCH (21:48)
[2017-10-04] MEDS: AMLODIPINE BESYLATE 10 MG TABLET PO SCH (21:48)
[2017-10-04] MEDS: FLUTICASONE/SALMETEROL DISKUS 500-50 MCG/DOSE IH SCH (21:48)
[2017-10-04] MEDS: MONTELUKAST SODIUM 10 MG TABLET PO SCH (21:48)
[2017-10-04] MEDS: RIVAROXABAN 10 MG TABLET PO SCH (21:49)
[2017-10-05] MEDS: HYDROCODONE BIT/HOMATROPINE 5-1.5 MG TABLET PO PRN ×3 (03:30→18:49)
[2017-10-05 06:02] LABS: HEMATOCRIT 44.2 % (36.0-47.0); HEMOGLOBIN 14.8 g/dL (12.0-15.5); MEAN CORPUSCULAR HEMOGLOBIN 29.8 pg (27.0-33.4); MEAN CORPUSCULAR HGB CONC 33.5 g/dL (32.0-36.0); MEAN CORPUSCULAR VOLUME 89 fl (80-97); PLATELET COUNT 363 10^3/uL (150-450); RED BLOOD COUNT 4.99 10^6/uL (3.72-5.28); RED CELL DISTRIBUTION WIDTH 14.2 % (11.5-14.0); WHITE BLOOD COUNT 18.9 10^3/uL (4.0-10.5)
[2017-10-05 06:10] LABS: ANION GAP 14 (5-19); BLOOD UREA NITROGEN 62 mg/dL (7-20); CALCIUM 9.3 mg/dL (8.4-10.2); CARBON DIOXIDE 36 mmol/L (22-30); CHLORIDE 90 mmol/L (98-107); GLUCOSE 89 mg/dL (75-110); POTASSIUM 4.3 mmol/L (3.6-5.0); SODIUM 140.2 mmol/L (137-145)
[2017-10-05 06:27] LABS: ABSOLUTE MONOCYTES # (MANUAL) 1.1 10^3/uL (0.1-1.4); ABSOLUTE NEUTROPHILS# (MANUAL) 13.8 10^3/uL (1.7-8.2); BASOPHILS % (MANUAL) 0 % (0-2); EOSINOPHILS % (MANUAL) 0 % (0-6); LYMPHOCYTES % (MANUAL) 20 % (13-45); MONOCYTES % (MANUAL) 6 % (3-13); SEGMENTED NEUTROPHILS % (MAN) 73 % (42-78); TOTAL CELLS COUNTED 100
[2017-10-05 06:30] LABS: ANISOCYTOSIS SLIGHT; PLATELET COMMENT ADEQUATE; POIKILOCYTOSIS SLIGHT; TEAR DROP CELLS SLIGHT
[2017-10-05] MEDS: GUAIFENESIN 600 MG TABLET.SA PO SCH ×2 (09:14→21:36)
[2017-10-05] MEDS: METOPROLOL SUCCINATE 50 MG TAB.SR.24H PO SCH (09:14)
[2017-10-05] MEDS: CETIRIZINE 10 MG TABLET PO SCH (09:14)
[2017-10-05] MEDS: TORSEMIDE 20 MG TABLET PO SCH (09:15)
[2017-10-05] MEDS: LISINOPRIL 10 MG TABLET PO SCH (09:15)
[2017-10-05] MEDS: FLUTICASONE NASAL SPRAY 50 MCG/SPRY 120 SPRAY/16 GM NASL SCH ×2 (09:15→21:36)
[2017-10-05] MEDS: DOCUSATE SODIUM 100 MG CAPSULE PO SCH (09:15)
[2017-10-05] MEDS: CEFUROXIME 500 MG TABLET PO SCH ×2 (09:15→18:13)
[2017-10-05] MEDS: FLUTICASONE/SALMETEROL DISKUS 500-50 MCG/DOSE IH SCH ×2 (09:15→21:36)
[2017-10-05] MEDS ORDERED: TORSEMIDE 20 MG TABLET PO SCH (10:00)
[2017-10-05] MEDS: TIOTROPIUM BROMIDE DPI 5 CAP/KIT (18 MCG/CAP) IH SCH (10:36)
[2017-10-05] MEDS: VALACYCLOVIR HCL 500 MG TABLET PO SCH ×2 (10:36→21:36)
--- NOTE | 2017-10-05 15:12 | PDOC PROGRESS REPORT ---
Subjective Progress Note for:: 10/05/17 Subjective:: Patient complains of fever blister. Patient also states that he would like for the Colace to be discontinued since gets bloating. Breathing is better but she still feels that is not ready to go home Review of systems All organ systems evaluated and negative except as in subjective All laboratories and significant diagnostics have been reviewed Reason For Visit: COPD WITH ACUTE EXACERBATION, DIABETES MELLITUS Physical Exam Vital Signs: Temp Pulse Resp BP Pulse Ox 97.9 F 78 20 117/65 97 10/05/17 08:10 10/05/17 08:10 10/05/17 08:10 10/05/17 08:10 10/05/17 08:10 Intake & Output 10/04/17 10/05/17 10/06/17 06:59 06:59 06:59 Intake Total 485 3283 Output Total 1935 2700 Balance -1450 583 Weight 124.8 kg 122.4 kg General appearance: PRESENT: no acute distress, cooperative, morbidly obese Head exam: PRESENT: atraumatic, normocephalic Eye exam: PRESENT: conjunctiva pink, EOMI, PERRLA Ear exam: PRESENT: normal external ear exam Mouth exam: PRESENT: moist, other - Blister noted right-sided lateral aspect of the Neck exam: PRESENT: full ROM. ABSENT: JVD, lymphadenopathy, tenderness Respiratory exam: PRESENT: clear to auscultation kisha Cardiovascular exam: PRESENT: RRR. ABSENT: diastolic murmur, systolic murmur Vascular exam: PRESENT: normal capillary refill GI/Abdominal exam: PRESENT: normal bowel sounds, soft. ABSENT: tenderness Extremities exam: PRESENT: full ROM. ABSENT: pedal edema Musculoskeletal exam: PRESENT: ambulatory Neurological exam: PRESENT: alert, awake, oriented to person, oriented to place , oriented to time, oriented to situation, CN II-XII grossly intact Psychiatric exam: PRESENT: appropriate affect, normal mood Skin exam: PRESENT: intact, normal color Results Laboratory Results: 10/05/17 04:43 10/05/17 04:43 10/05/17 10/05/17 04:43 04:43 WBC 18.9 H RBC 4.99 Hgb 14.8 Hct 44.2 MCV 89 MCH 29.8 MCHC 33.5 RDW 14.2 H Plt Count 363 Seg Neutrophils % Not Reportable Lymphocytes % Not Reportable Monocytes % Not Reportable Eosinophils % Not Reportable Basophils % Not Reportable Absolute Neutrophils Not Reportable Absolute Lymphocytes Not Reportable Absolute Monocytes Not Reportable Absolute Eosinophils Not Reportable Absolute Basophils Not Reportable Sodium 140.2 Potassium 4.3 Chloride 90 L Carbon Dioxide 36 H Anion Gap 14 BUN 62 H Creatinine 0.98 Est GFR ( Amer) > 60 Est GFR (Non-Af Amer) 56 L Glucose 89 Calcium 9.3 Magnesium 2.7 H Impressions: Chest X-Ray 09/28/17 09:25 IMPRESSION: Mild pulmonary vascular congestion, stable marked cardiomegaly. Assessment & Plan - Diagnosis (1) COPD exacerbation Is this a current diagnosis for this admission?: Yes Plan: Continue current management and Ceftin to cover strep pneumo (2) A-fib Qualifiers: Atrial fibrillation type: persistent Qualified Code(s): I48.1 - Persistent atrial fibrillation Is this a current diagnosis for this admission?: Yes Plan: Stable (3) Acute and chronic respiratory failure with hypoxia Is this a current diagnosis for this admission?: Yes Plan: Continue oxygen supplementation. Patient back to baseline (4) Diabetes mellitus Qualifiers: Diabetes mellitus type: type 2 Diabetes mellitus vermin exterminator insulin use: without vermin exterminator use Diabetes mellitus complication status: without complication Qualified Code(s): E11.9 - Type 2 diabetes mellitus without complications Is this a current diagnosis for this admission?: Yes Plan: Continue Humalog sliding scale with bedside glucose before meals and at bedtime (5) Congestive heart failure Qualifiers: Heart failure chronicity: acute on chronic Is this a current diagnosis for this admission?: Yes Plan: Change Demadex 20 mg to once a day. Continue Norvasc and lisinopril for blood pressure control. (6) Rhinitis Qualifiers: Rhinitis type: acute Qualified Code(s): J00 - Acute nasopharyngitis [ common cold] Is this a current diagnosis for this admission?: Yes Plan: Continue Zyrtec, Singulair and Flonase (7) HTN (hypertension) Qualifiers: Hypertension type: essential hypertension Qualified Code(s): I10 - Essential (primary) hypertension Is this a current diagnosis for this admission?: Yes Plan: Continue Norvasc and lisinopril for blood pressure control (8) LACY (acute kidney injury) Is this a current diagnosis for this admission?: Yes Plan: Due to overdiuresis patient. Improved creatinine with BUN elevated. To order stool for occult blood. Trend (9) Leukocytosis Qualifiers: Leukocytosis type: unspecified Qualified Code(s): D72.829 - Elevated white blood cell count, unspecified Is this a current diagnosis for this admission?: Yes Plan: Likely due to demargination of white blood cell by steroids. 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
[2017-10-05] MEDS: AMLODIPINE BESYLATE 10 MG TABLET PO SCH (21:36)
[2017-10-05] MEDS: INSULIN DETEMIR 100 UNIT/ML 3 ML PEN SUBCUT SCH (21:36)
[2017-10-05] MEDS: RIVAROXABAN 10 MG TABLET PO SCH (21:36)
[2017-10-05] MEDS: MONTELUKAST SODIUM 10 MG TABLET PO SCH (21:36)
[2017-10-06] MEDS: HYDROCODONE BIT/HOMATROPINE 5-1.5 MG TABLET PO PRN ×4 (01:01→19:03)
[2017-10-06] MEDS: NORMAL SALINE 1000 ML 1,000 ML IV PRN (03:12)
[2017-10-06 06:13] LABS: ABSOLUTE BASOPHILS # (AUTO) 0.1 10^3/uL (0.0-0.2); ABSOLUTE EOSINOPHILS # (AUTO) 0.2 10^3/uL (0.0-0.6); ABSOLUTE LYMPHOCYTES (AUTO) 3.5 10^3/uL (0.5-4.7); ABSOLUTE MONOCYTES (AUTO) 1.5 10^3/uL (0.1-1.4); ABSOLUTE NEUT (AUTO) 9.5 10^3/uL (1.7-8.2); BASOPHILS % (AUTO) 0.9 % (0-2); HEMATOCRIT 40.8 % (36.0-47.0); HEMOGLOBIN 13.5 g/dL (12.0-15.5); LYMPHOCYTES % (AUTO) 23.4 % (13-45); MEAN CORPUSCULAR HEMOGLOBIN 29.3 pg (27.0-33.4); MEAN CORPUSCULAR VOLUME 89 fl (80-97); MONOCYTES % (AUTO) 10.1 % (3-13); PLATELET COUNT 295 10^3/uL (150-450); RED CELL DISTRIBUTION WIDTH 14.4 % (11.5-14.0); SEGMENTED NEUTROPHILS % (AUTO) 64.6 % (42-78); TOTAL CELLS COUNTED % (AUTO) 100 %; WHITE BLOOD COUNT 14.8 10^3/uL (4.0-10.5)
[2017-10-06 06:39] LABS: BLOOD UREA NITROGEN 52 mg/dL (7-20); CALCIUM 9.1 mg/dL (8.4-10.2); CARBON DIOXIDE 35 mmol/L (22-30); CHLORIDE 95 mmol/L (98-107); GLUCOSE 88 mg/dL (75-110); POTASSIUM 4.7 mmol/L (3.6-5.0); SODIUM 140.2 mmol/L (137-145)
[2017-10-06 06:40] LABS: ANION GAP 10 (5-19)
[2017-10-06] MEDS: FLUTICASONE NASAL SPRAY 50 MCG/SPRY 120 SPRAY/16 GM NASL SCH ×2 (09:19→22:06)
[2017-10-06] MEDS: FLUTICASONE/SALMETEROL DISKUS 500-50 MCG/DOSE IH SCH ×2 (09:19→22:06)
[2017-10-06] MEDS: TIOTROPIUM BROMIDE DPI 5 CAP/KIT (18 MCG/CAP) IH SCH (09:19)
[2017-10-06] MEDS: VALACYCLOVIR HCL 500 MG TABLET PO SCH ×2 (09:20→22:06)
[2017-10-06] MEDS: LISINOPRIL 10 MG TABLET PO SCH (09:20)
[2017-10-06] MEDS: CEFUROXIME 500 MG TABLET PO SCH ×2 (09:20→17:42)
[2017-10-06] MEDS: METOPROLOL SUCCINATE 50 MG TAB.SR.24H PO SCH (09:20)
[2017-10-06] MEDS: GUAIFENESIN 600 MG TABLET.SA PO SCH ×2 (09:21→22:06)
[2017-10-06] MEDS: TORSEMIDE 20 MG TABLET PO SCH (09:21)
[2017-10-06] MEDS: CETIRIZINE 10 MG TABLET PO SCH (09:21)
--- NOTE | 2017-10-06 16:46 | PDOC PROGRESS REPORT ---
Subjective Progress Note for:: 10/06/17 Subjective:: Patient complains of fever blister being sored. Patient declined being discharged with home health since she lives in a very tiny apartment. She is trying to recruit the help of a neighbor to get her situated. Her breathing is better however still feels very congested in her head Review of systems All organ systems evaluated and negative except as in subjective All laboratories and significant diagnostics have been reviewed Reason For Visit: COPD WITH ACUTE EXACERBATION, DIABETES MELLITUS Physical Exam Vital Signs: Temp Pulse Resp BP Pulse Ox 98.4 F 75 18 98/62 L 94 10/06/17 11:59 10/06/17 14:00 10/06/17 12:27 10/06/17 11:59 10/06/17 12:27 Intake & Output 10/05/17 10/06/17 10/07/17 06:59 06:59 06:59 Intake Total 3283 3299 Output Total 2700 1750 Balance 583 1549 Weight 122.4 kg 124.5 kg General appearance: PRESENT: no acute distress, cooperative, morbidly obese Head exam: PRESENT: atraumatic, normocephalic Eye exam: PRESENT: conjunctiva pink, EOMI, PERRLA Ear exam: PRESENT: normal external ear exam Mouth exam: PRESENT: moist Neck exam: PRESENT: full ROM. ABSENT: JVD, lymphadenopathy, tenderness Respiratory exam: PRESENT: clear to auscultation kisha, unlabored. ABSENT: tachypnea Cardiovascular exam: PRESENT: irregular rhythm. ABSENT: diastolic murmur, systolic murmur Vascular exam: PRESENT: normal capillary refill GI/Abdominal exam: PRESENT: normal bowel sounds, soft. ABSENT: tenderness Extremities exam: PRESENT: full ROM, joint swelling Musculoskeletal exam: PRESENT: ambulatory Neurological exam: PRESENT: alert, awake, oriented to person, oriented to place , oriented to time, oriented to situation, CN II-XII grossly intact Psychiatric exam: PRESENT: appropriate affect, normal mood Skin exam: PRESENT: intact, normal color Results Laboratory Results: 10/06/17 04:53 10/06/17 04:53 10/06/17 10/06/17 10/06/17 04:53 04:53 10:50 WBC 14.8 H RBC 4.60 Hgb 13.5 Hct 40.8 MCV 89 MCH 29.3 MCHC 33.0 RDW 14.4 H Plt Count 295 Seg Neutrophils % 64.6 Lymphocytes % 23.4 Monocytes % 10.1 Eosinophils % 1.0 Basophils % 0.9 Absolute Neutrophils 9.5 H Absolute Lymphocytes 3.5 Absolute Monocytes 1.5 H Absolute Eosinophils 0.2 Absolute Basophils 0.1 Sodium 140.2 Potassium 4.7 Chloride 95 L Carbon Dioxide 35 H Anion Gap 10 BUN 52 H Creatinine 0.91 Est GFR ( Amer) > 60 Est GFR (Non-Af Amer) > 60 Glucose 88 Calcium 9.1 Stool Occult Blood NEGATIVE Impressions: Chest X-Ray 09/28/17 09:25 IMPRESSION: Mild pulmonary vascular congestion, stable marked cardiomegaly. Assessment & Plan - Diagnosis (1) COPD exacerbation Is this a current diagnosis for this admission?: Yes Plan: Continue current management and Ceftin to cover strep pneumo (2) A-fib Qualifiers: Atrial fibrillation type: persistent Qualified Code(s): I48.1 - Persistent atrial fibrillation Is this a current diagnosis for this admission?: Yes Plan: Stable (3) Acute and chronic respiratory failure with hypoxia Is this a current diagnosis for this admission?: Yes Plan: Continue oxygen supplementation. Patient back to baseline (4) Diabetes mellitus Qualifiers: Diabetes mellitus type: type 2 Diabetes mellitus termite treater helper insulin use: without termite treater helper use Diabetes mellitus complication status: without complication Qualified Code(s): E11.9 - Type 2 diabetes mellitus without complications Is this a current diagnosis for this admission?: Yes Plan: Continue Humalog sliding scale with bedside glucose before meals and at bedtime (5) Congestive heart failure Qualifiers: Heart failure chronicity: acute on chronic Is this a current diagnosis for this admission?: Yes Plan: Change Demadex 10 mg to once a day. Patient will pressure in the upper 90s. She appears to have a strong right-sided component. To decrease Norvasc and continue lisinopril (6) Rhinitis Qualifiers: Rhinitis type: acute Qualified Code(s): J00 - Acute nasopharyngitis [ common cold] Is this a current diagnosis for this admission?: Yes Plan: Continue Zyrtec, Singulair and Flonase (7) HTN (hypertension) Qualifiers: Hypertension type: essential hypertension Qualified Code(s): I10 - Essential (primary) hypertension Is this a current diagnosis for this admission?: Yes Plan: Decrease Norvasc dose to 5 mg p.o. daily and continue lisinopril (8) LACY (acute kidney injury) Is this a current diagnosis for this admission?: Yes Plan: Due to overdiuresis patient. Improved (9) Leukocytosis Qualifiers: Leukocytosis type: unspecified Qualified Code(s): D72.829 - Elevated white blood cell count, unspecified Is this a current diagnosis for this admission?: Yes Plan: Likely due to demargination of white blood cell by steroids. Also due to an element of hemoconcentration since hemoglobin is down today (10) Herpes simplex labialis Is this a current diagnosis for this admission?: Yes Plan: Continue Valtrex - Time Time Spent with patient: 15-24 minutes Medications reviewed and adjusted accordingly: Yes Anticipated discharge: Home Within: within 24 hours - Inpatient Certification Based on my medical assessment, after consideration of the patient's comorbidities, presenting symptoms, or acuity I expect that the services needed warrant INPATIENT care.: Yes I certify that my determination is in accordance with my understanding of Medicare's requirements for reasonable and necessary INPATIENT services [42 CFR 412.3e].: Yes Medical Necessity: Significant Comorbidiites Make Outpatient Treatment Too Risky , Need Close Monitoring Due to Risk of Patient Decompensation
[2017-10-06] MEDS ORDERED: AMLODIPINE BESYLATE 10 MG TABLET PO ONE (17:00)
[2017-10-06] MEDS ORDERED: AMLODIPINE BESYLATE 10 MG TABLET PO SCH (22:00)
[2017-10-06] MEDS: RIVAROXABAN 10 MG TABLET PO SCH (22:06)
[2017-10-06] MEDS: INSULIN DETEMIR 100 UNIT/ML 3 ML PEN SUBCUT SCH (22:06)
[2017-10-06] MEDS: MONTELUKAST SODIUM 10 MG TABLET PO SCH (22:06)
[2017-10-07] MEDS: HYDROCODONE BIT/HOMATROPINE 5-1.5 MG TABLET PO PRN ×3 (01:09→13:06)
[2017-10-07] MEDS: CEFUROXIME 500 MG TABLET PO SCH (09:27)
[2017-10-07] MEDS: FLUTICASONE NASAL SPRAY 50 MCG/SPRY 120 SPRAY/16 GM NASL SCH (09:28)
[2017-10-07] MEDS: CETIRIZINE 10 MG TABLET PO SCH (09:28)
[2017-10-07] MEDS: FLUTICASONE/SALMETEROL DISKUS 500-50 MCG/DOSE IH SCH (09:29)
[2017-10-07] MEDS: GUAIFENESIN 600 MG TABLET.SA PO SCH (09:29)
[2017-10-07] MEDS: METOPROLOL SUCCINATE 50 MG TAB.SR.24H PO SCH (09:30)
[2017-10-07] MEDS: LISINOPRIL 10 MG TABLET PO SCH (09:32)
[2017-10-07] MEDS: TIOTROPIUM BROMIDE DPI 5 CAP/KIT (18 MCG/CAP) IH SCH (09:33)
[2017-10-07] MEDS: TORSEMIDE 20 MG TABLET PO SCH (09:33)
[2017-10-07] MEDS: VALACYCLOVIR HCL 500 MG TABLET PO SCH (09:34)
[2017-10-07 12:03] VITALS: BP 106/81
--- NOTE | 2017-10-07 16:52 | PDOC DISCHARGE SUMMARY ---
General - Admit/Disc Date/PCP Admission Date/Primary Care Provider: 09/28/17 11:47 Discharge Date: 10/07/17 - Discharge Diagnosis (1) Acute and chronic respiratory failure with hypoxia Is this a current diagnosis for this admission?: Yes (2) Congestive heart failure Is this a current diagnosis for this admission?: Yes (3) COPD exacerbation Is this a current diagnosis for this admission?: Yes (4) Acute bronchitis Is this a current diagnosis for this admission?: Yes (5) A-fib Is this a current diagnosis for this admission?: Yes (6) Diabetes mellitus Is this a current diagnosis for this admission?: Yes (7) Rhinitis Is this a current diagnosis for this admission?: Yes (8) HTN (hypertension) Is this a current diagnosis for this admission?: Yes (9) LACY (acute kidney injury) Is this a current diagnosis for this admission?: Yes (10) Leukocytosis Is this a current diagnosis for this admission?: Yes (11) Herpes simplex labialis Is this a current diagnosis for this admission?: Yes - Additional Information Resuscitation Status: Full Code Discharge Diet: Cardiac, Diabetic Discharge Activity: Activity As Tolerated, Balance Activity w/Rest, Weigh Daily Prescriptions: Amlodipine Besylate [Norvasc 10 mg Tablet] 5 mg PO QHS #30 tablet Benzonatate [Tessalon Perles 100 mg Capsule] 200 mg PO Q8HP PRN #30 capsule PRN Reason: Fluticasone/Salmeterol [Advair 500-50 Diskus 14 Dose/Diskus] 1 inh IH Q12 #60 inhaler Guaifenesin [Mucinex Sr 600 mg Tablet.sa] 600 mg PO Q12 #30 tablet.sa Lisinopril [Prinivil 10 mg Tablet] 10 mg PO DAILY #30 tablet Montelukast Sodium [Singulair 10 mg Tablet] 10 mg PO QHS #30 tablet Tiotropium York [Spiriva Handihaler 5 Cap/Kit (18 Mcg/Cap)] 1 cap IH DAILY # 30 kit Torsemide [Demadex 20 mg Tablet] 20 mg PO DAILY #30 tablet Valacyclovir HCl [Valtrex 500 mg Tablet] 500 mg PO Q12 #6 tablet Home Medications: Albuterol Sulfate [Ventolin Hfa] 2 puff IH Q4HP PRN 04/23/17 Fluticasone Propionate [Flonase Nasal Adelphi 50 Mcg/Adelphi 16 gm] 2 sprays NASL Q12 04/23/17 Metoprolol Succinate [Toprol Xl] 200 mg PO DAILY 04/23/17 Rivaroxaban [Xarelto] 20 mg PO QHS 04/23/17 Metformin HCl 1,000 mg PO BID #0 04/24/17 Amlodipine Besylate [Norvasc 10 mg Tablet] 5 mg PO QHS #30 tablet 10/07/17 Benzonatate [Tessalon Perles 100 mg Capsule] 200 mg PO Q8HP PRN #30 capsule 12/18 Fluticasone/Salmeterol [Advair 500-50 Diskus 14 Dose/Diskus] 1 inh IH Q12 #60 inhaler 10/07/17 Guaifenesin [Mucinex Sr 600 mg Tablet.sa] 600 mg PO Q12 #30 tablet.sa 10/07/17 Lisinopril [Prinivil 10 mg Tablet] 10 mg PO DAILY #30 tablet 10/07/17 Montelukast Sodium [Singulair 10 mg Tablet] 10 mg PO QHS #30 tablet 10/07/17 Tiotropium York [Spiriva Handihaler 5 Cap/Kit (18 Mcg/Cap)] 1 cap IH DAILY # 30 kit 10/07/17 Torsemide [Demadex 20 mg Tablet] 20 mg PO DAILY #30 tablet 10/07/17 Valacyclovir HCl [Valtrex 500 mg Tablet] 500 mg PO Q12 #6 tablet 10/07/17 History of Present Illness History of Present Illness: VESTA JIMENEZ is a 67 year old female who presented to the emergency room with complaints of difficulty breathing and shortness of breath which has increased over a few days prior to presentation. She said that she got to the point that she quit using her Lasix to avoid going to the bathroom due to the dyspnea. She denied any chest pain, nausea, vomiting but reported cold-like symptoms with runny nose, postnasal drip and cough with yellowish sputum. There was no fever, abdominal pain or diarrhea reported. She did report swelling in her knees. She denies any prior history of CHF. Hospital Course Hospital Course: Patient was admitted to the hospitalist program for the treatment of acute on chronic hypoxic respiratory failure due to acute on chronic diastolic congestive heart failure and exacerbation of COPD. Patient was placed on IV steroids, duo nebs, Mucinex and antibiotic. It is noteworthy to mention that there was also a component of acute bronchitis since sputum culture grew Streptococcus pneumonia. There is a possibility that this patient may be somewhat having a nasal colonization as well as she did describe prior history of Streptococcus pneumonia. the author does not think that she had pneumonia since was not supported by chest x-ray. Patient was able to be weaned off to 2 L by nasal cannula. Echocardiogram was requested. It was limited due to patient' s body habitus. It did show preserved left ventricular function. This is patient does have a very strong right-sided component which likely relates to her being morbidly obese and hypoventilation. Patient was placed on IV diuresis and blood pressure was controlled with improvement of shortness of breath. Patient reported that she was able to ambulate to the bathroom without no difficulties. She also reported improvement of swelling of her knees. Patient has been educated about fluid restriction and prior to discharge the educator came to her room to provide further education. Patient is very fluid sensitive and toward the end of her hospitalization we had to reduce diuretic dose and gently hydrate her to improve her renal function. She had a breakout of herpes labialis and was treated with Valtrex. Leukocytosis was attributed to use of steroids. Diabetes been stable despite use of IV steroids. Atrial fibrillation remained stable. Another concern is her lack of family support. On discharge she has an appointment to follow-up with Dr. Mike. Patient progressed as expected however anticipate for her to return back under similar circumstances. At the time of discharge patient was stable. Physical Exam Vital Signs: Temp Pulse Resp BP Pulse Ox 98.5 F 76 20 111/61 98 10/07/17 08:00 10/07/17 08:32 10/07/17 08:32 10/07/17 08:00 10/07/17 08:32 Intake & Output 10/06/17 10/07/17 10/08/17 06:59 06:59 06:59 Intake Total 3299 1858 Output Total 1750 2100 Balance 1549 -242 Weight 124.5 kg 127.4 kg General appearance: PRESENT: no acute distress, cooperative, morbidly obese Head exam: PRESENT: atraumatic, normocephalic Eye exam: PRESENT: conjunctiva pink, EOMI, PERRLA Ear exam: PRESENT: normal external ear exam Neck exam: PRESENT: full ROM. ABSENT: JVD, lymphadenopathy, tenderness Respiratory exam: PRESENT: unlabored, other - Essentially clear to auscultation. ABSENT: tachypnea, wheezes Cardiovascular exam: PRESENT: irregular rhythm. ABSENT: diastolic murmur, systolic murmur GI/Abdominal exam: PRESENT: normal bowel sounds, soft. ABSENT: tenderness Results Laboratory Results: 10/06/17 04:53 10/06/17 04:53 10/06/17 10:50 Stool Occult Blood NEGATIVE Impressions: Chest X-Ray 09/28/17 09:25 IMPRESSION: Mild pulmonary vascular congestion, stable marked cardiomegaly. Qualifiers - * PATIENT BEING DISCHARGED WITH ANY OF THE FOLLOWING DIAGNOSIS: No
== END 2017-10-07 14:30 | disposition home or self-care (01) | DRG 190 ==
LOC: ER 09:15 → EH 11:47 → 4N 13:25
PROVIDERS: ADMIT Internal Medicine; ATTEND Internal Medicine
PROC: 3E0F73Z Introduction of Anti-inflammatory into Respiratory Tract, Via Natural or Artificial Opening (ICD-10-PCS; principal; 2017-09-28)
DX: J44.1 Chronic obstructive pulmonary disease with (acute) exacerbation (principal); J96.21 Acute and chronic respiratory failure with hypoxia; I50.33 Acute on chronic diastolic (congestive) heart failure; N17.9 Acute kidney failure, unspecified; Z68.41 Body mass index [BMI] 40.0-44.9, adult; E66.2 Morbid (severe) obesity with alveolar hypoventilation; E87.0 Hyperosmolality and hypernatremia; I48.1 Persistent atrial fibrillation; J44.0 Chronic obstructive pulmonary disease with (acute) lower respiratory infection; J20.9 Acute bronchitis, unspecified; E11.9 Type 2 diabetes mellitus without complications; I11.0 Hypertensive heart disease with heart failure; B00.1 Herpesviral vesicular dermatitis; B95.3 Streptococcus pneumoniae as the cause of diseases classified elsewhere; Z79.899 Other long term (current) drug therapy; Z85.43 Personal history of malignant neoplasm of ovary; Z90.49 Acquired absence of other specified parts of digestive tract; Z90.710 Acquired absence of both cervix and uterus; Z60.2 Problems related to living alone; Z87.891 Personal history of nicotine dependence; Z88.3 Allergy status to other anti-infective agents; Z88.2 Allergy status to sulfonamides; Z83.6 Family history of other diseases of the respiratory system
CPT/HCPCS: 36415; 71045; 80048; 80053; 81001; 82272; 82550; 82553; 82962; 83735; 83880; 84484; 85025; 87070; 87077; 87186; 87205; 93005; 93010; 93306; 94640; 96374; 96375; 99285; J0696; J1815; J1940; J2920; J2930; J3490; J7030; J7040; J7620

== ENCOUNTER 2017-10-16 08:47 | Inpatient (IN) | payer MEDICARE, MEDICAID ==
[2017-10-16] MEDS ORDERED: ASPIRIN 81 MG TABLET, CHEWABLE PO ONE (09:15)
--- NOTE | 2017-10-16 09:21 | ER Document Report ---
ED Medical Screen (RME) - General Chief Complaint: General Weakness Stated Complaint: NAUSEA Time Seen by Provider: 10/16/17 09:09 Notes: 67-year-old female with history of CHF who was recently released from [facility] on October 07 presents the emergency department complaining of a 7 day history of nausea without vomiting and diarrhea as well as cramping in her fingers and her back, generalized weakness. Denies any focal weakness, denies any chest pain. Admits left arm tingling yesterday that has since resolved. Denies fevers or chills. Denies blood in her stool or melena. TRAVEL OUTSIDE OF THE [place] IN LAST 30 DAYS: No - Related Data Allergies/Adverse Reactions: levofloxacin [From Levaquin] Allergy (Intermediate, Verified 09/28/17 09:16) Unknown reaction Sulfa (Sulfonamide Antibiotics) Allergy (Verified 09/28/17 09:16) Past Medical History - General Information source: Patient - Social History Cigarette use (# per day): No - former Chew tobacco use (# tins/day): No Frequency of alcohol use: None Drug Abuse: None Family history: Reviewed & Not Pertinent - Past Medical History Cardiac Medical History: Reports: Hx Atrial Fibrillation, Hx Congestive Heart Failure, Hx Hypertension Denies: Hx Hypercholesterolemia Pulmonary Medical History: Reports: Hx COPD, Hx Pneumonia - 2016 Endocrine Medical History: Reports: Hx Diabetes Mellitus Type 2 Renal/ Medical History: Denies: Hx Peritoneal Dialysis Malignancy Medical History: Reports: Hx Ovarian Cancer Psychiatric Medical History: Denies: Hx Depression Past Surgical History: Reports: Hx Appendectomy, Hx Cholecystectomy, Hx Hysterectomy, Hx Tubal Ligation - Immunizations Hx Diphtheria, Pertussis, Tetanus Vaccination: No History of Influenza Vaccine for 03/2017 - 08/2017 Season: Yes Influenza Administration Date for 03/2017 - 08/2017 Season: 03/03/17 Review of Systems - Review of Systems Constitutional: See HPI, Malaise, Weakness EENT: No symptoms reported Cardiovascular: No symptoms reported. denies: Chest pain Respiratory: No symptoms reported. denies: Hurts to breathe, Short of breath, Wheezing Gastrointestinal: Diarrhea, Nausea. denies: Abdominal pain Musculoskeletal: See HPI Physical Exam - Vital signs Vitals: Temp Pulse Resp BP Pulse Ox 97.5 F 96 20 105/62 95 10/16/17 08:59 10/16/17 08:59 10/16/17 08:59 10/16/17 08:59 10/16/17 08:59 Interpretation: Normal - General General appearance: Anxious In distress: Mild - HEENT Head: Normocephalic, Atraumatic Mucous membranes: Normal - Respiratory Respiratory status: No respiratory distress Chest status: Nontender Breath sounds: Normal, Other - wearing 2L NC, this is baseline amount. No: Rales, Rhonchi - Cardiovascular Rhythm: Regular Heart sounds: Normal auscultation - Abdominal Inspection: Normal Distension: No distension Bowel sounds: Normal Tenderness: Nontender Organomegaly: No organomegaly Course - Vital Signs Vital signs: Temp Pulse Resp BP Pulse Ox 97.5 F 96 20 105/62 95 10/16/17 08:59 10/16/17 08:59 10/16/17 08:59 10/16/17 08:59 10/16/17 08:59
[2017-10-16 10:18] LABS: ABSOLUTE BASOPHILS # (AUTO) 0.1 10^3/uL (0.0-0.2); ABSOLUTE EOSINOPHILS # (AUTO) 0.1 10^3/uL (0.0-0.6); ABSOLUTE LYMPHOCYTES (AUTO) 1.4 10^3/uL (0.5-4.7); ABSOLUTE MONOCYTES (AUTO) 0.6 10^3/uL (0.1-1.4); ABSOLUTE NEUT (AUTO) 7.1 10^3/uL (1.7-8.2); BASOPHILS % (AUTO) 1.2 % (0-2); EOSINOPHILS % (AUTO) 0.8 % (0-6); HEMATOCRIT 41.2 % (36.0-47.0); LYMPHOCYTES % (AUTO) 14.8 % (13-45); MEAN CORPUSCULAR HEMOGLOBIN 29.9 pg (27.0-33.4); MEAN CORPUSCULAR HGB CONC 33.9 g/dL (32.0-36.0); MEAN CORPUSCULAR VOLUME 88 fl (80-97); MONOCYTES % (AUTO) 6.9 % (3-13); PLATELET COUNT 327 10^3/uL (150-450); RED BLOOD COUNT 4.67 10^6/uL (3.72-5.28); RED CELL DISTRIBUTION WIDTH 13.8 % (11.5-14.0); SEGMENTED NEUTROPHILS % (AUTO) 76.3 % (42-78); TOTAL CELLS COUNTED % (AUTO) 100 %; WHITE BLOOD COUNT 9.3 10^3/uL (4.0-10.5)
--- NOTE | 2017-10-16 10:24 | RADIOLOGY REPORT (SQ) ---
EXAM DESCRIPTION: CHEST SINGLE VIEW COMPLETED DATE/TIME: 10/16/2017 10:08 am REASON FOR STUDY: weakness, left arm tingling COMPARISON: AP chest 09/28/2017 Two-view chest 04/23/2017, 07/26/2016 CT chest 06/18/2017 EXAM PARAMETERS: NUMBER OF VIEWS: One view. TECHNIQUE: Single frontal radiographic view of the chest acquired. RADIATION DOSE: NA LIMITATIONS: Portable technique, obese patient FINDINGS: LUNGS AND PLEURA: No opacities, masses or pneumothorax. No pleural effusion. MEDIASTINUM AND HILAR STRUCTURES: No masses. Contour normal. HEART AND VASCULAR STRUCTURES: Stable moderate cardiomegaly BONES: No acute findings. HARDWARE: None in the chest. OTHER: No other significant finding. IMPRESSION: Stable moderate cardiomegaly TECHNICAL DOCUMENTATION: JOB ID: [id number] [employer]- All Rights Reserved Reading location - IP/workstation name: [email or web address]
[2017-10-16 10:50] LABS: ALANINE AMINOTRANSFERASE 45 U/L (9-52); ALBUMIN 4.8 g/dL (3.5-5.0); ALKALINE PHOSPHATASE 76 U/L (38-126); ANION GAP 19 (5-19); ASPARTATE AMINO TRANSFERASE 35 U/L (14-36); BILIRUBIN,DIRECT 0.4 mg/dL (0.0-0.4); BILIRUBIN,TOTAL 0.5 mg/dL (0.2-1.3); BLOOD UREA NITROGEN 81 mg/dL (7-20); CALCIUM 9.9 mg/dL (8.4-10.2); CARBON DIOXIDE 30 mmol/L (22-30); CHLORIDE 89 mmol/L (98-107); CREATINE KINASE 31 U/L (30-135); GLUCOSE 171 mg/dL (75-110); SODIUM 137.7 mmol/L (137-145); TOTAL PROTEIN 8.6 g/dL (6.3-8.2)
[2017-10-16 11:00] LABS: CREATINE KINASE MB 0.55 ng/mL (<4.55); NT PRO BNP 190 pg/mL (5-900)
[2017-10-16 11:06] LABS: TROPONIN I < 0.012 ng/mL
--- NOTE | 2017-10-16 11:16 | ER Document Report ---
ED General - General Chief Complaint: General Weakness Stated Complaint: NAUSEA Time Seen by Provider: 10/16/17 09:09 Mode of Arrival: Ambulatory Information source: Patient Notes: Patient is a 67-year-old female that presents today with the onset 2 days ago with some diffuse bodily cramps as well as feeling a little lightheaded with some nausea. Patient was recently discharged she states around October 07 after 9 day stay for congestive heart failure. Patient has a history of congestive heart failure as well as atrial fibrillation and COPD on baseline oxygen. Patient states she is also had diarrhea around 2 times per day for the last 5 days. She denies any diarrhea today. She denies any chest pain, abdominal pain , fevers, cough, calf pain or leg swelling. Patient states they put her on a new water pill at discharge. TRAVEL OUTSIDE OF THE [place] IN LAST 30 DAYS: No - HPI Onset: Other - See above Onset/Duration: Gradual Quality of pain: Other - See above Severity: Mild Associated symptoms: Other - See above Exacerbated by: Denies Relieved by: Denies Similar symptoms previously: No Recently seen / treated by doctor: No - Related Data Allergies/Adverse Reactions: levofloxacin [From Levaquin] Allergy (Intermediate, Verified 09/28/17 09:16) Unknown reaction Sulfa (Sulfonamide Antibiotics) Allergy (Verified 09/28/17 09:16) Past Medical History - General Information source: Patient - Social History Smoking Status: Former Smoker Cigarette use (# per day): No - former Chew tobacco use (# tins/day): No Smoking Education Provided: No Frequency of alcohol use: None Drug Abuse: None Family History: COPD Patient has suicidal ideation: No Patient has homicidal ideation: No - Past Medical History Cardiac Medical History: Reports: Hx Atrial Fibrillation, Hx Congestive Heart Failure, Hx Hypertension Denies: Hx Hypercholesterolemia Pulmonary Medical History: Reports: Hx COPD, Hx Pneumonia - 2016 Endocrine Medical History: Reports: Hx Diabetes Mellitus Type 2 Renal/ Medical History: Denies: Hx Peritoneal Dialysis Malignancy Medical History: Reports: Hx Ovarian Cancer Psychiatric Medical History: Denies: Hx Depression Past Surgical History: Reports: Hx Appendectomy, Hx Cholecystectomy, Hx Hysterectomy, Hx Tubal Ligation - Immunizations Hx Diphtheria, Pertussis, Tetanus Vaccination: No Review of Systems - Review of Systems Constitutional: denies: Fever EENT: denies: Eye discharge, Nose discharge Cardiovascular: denies: Chest pain, Palpitations Respiratory: denies: Short of breath Gastrointestinal: denies: Vomiting Genitourinary: denies: Dysuria Musculoskeletal: denies: Leg swelling Skin: Other - no hives. denies: Rash Neurological/Psychological: Other - no slurred speech -: Yes All other systems reviewed and negative Physical Exam - Vital signs Vitals: Temp Pulse Resp BP Pulse Ox 97.5 F 96 20 105/62 95 10/16/17 08:59 10/16/17 08:59 10/16/17 08:59 10/16/17 08:59 10/16/17 08:59 Notes: Reviewed vital signs and nursing note as charted by RN. CONSTITUTIONAL: Alert and oriented and responds appropriately to questions. Well -appearing; well-nourished HEAD: Normocephalic; atraumatic EYES: PERRL; full extraocular range of motion ENT: Normal nose; no rhinorrhea; moist mucous membranes; pharynx without lesions noted NECK: Supple without meningismus; non-tender; no cervical lymphadenopathy, no masses CARD: Irregularly regular; no murmurs, no clicks, no rubs, no gallops; symmetric distal pulses RESP: Normal chest excursion without splinting or tachypnea; breath sounds clear and equal bilaterally; no wheezes, no rhonchi, no rales ABD/GI: Normal bowel sounds; non-distended; soft, non-tender BACK: The back appears normal and is non-tender to palpation EXT: Normal ROM in all joints; non-tender to palpation, no edema SKIN: Normal color for age and race; no acute lesions noted NEURO: CN II through XII are intact; moves all extremities equally; Motor and sensory function intact PSYCH: The patient's mood and manner are appropriate. Grooming and personal hygiene are appropriate. Course - Re-evaluation Re-evalutation: 10/16/17 11:15 Given the above history and physical examination stating some lightheadedness, nausea, and body cramping, after the start of what appears to be torsemide on previous admission, I will obtain basic labs including a magnesium and potassium level, troponin, and place the patient on the monitor. Patient denies any chest pain or abdominal pain at this time. EKG shows a heart of 80, atrial fibrillation, normal axis, no obvious ST elevation or depression. 10/16/17 11:53 Patient's labs as recorded. BUN and creatinine are greatly increased from previous discharge numbers. I believe that this is causing the patient's body aches and lightheadedness. I will provide gentle hydration and I believe that the patient requires observation for possible medication adjustment. - Vital Signs Vital signs: Temp Pulse Resp BP Pulse Ox 97.5 F 96 20 105/62 100 10/16/17 08:59 10/16/17 08:59 10/16/17 08:59 10/16/17 08:59 10/16/17 09:15 - Laboratory Result Diagrams: 10/16/17 09:42 10/16/17 09:42 Laboratory results interpreted by me: 10/16/17 09:42 Chloride 89 L BUN 81 H Creatinine 1.63 H Est GFR ( Amer) 38 L Est GFR (Non-Af Amer) 31 L Glucose 171 H Total Protein 8.6 H Discharge - Discharge Clinical Impression: Dehydration, Acute renal failure Condition: Fair Disposition: ADMITTED OBSERVATION Unit Admitted: Telemetry
[2017-10-16] MEDS ORDERED: NORMAL SALINE 1000 ML 500 ML IV ONE ×2 (11:46→13:06)
[2017-10-16 12:24] LABS: APPEARANCE,URINE CLEAR; BILIRUBIN,URINE NEGATIVE (NEGATIVE); COLOR,URINE STRAW; GLUCOSE, URINE NEGATIVE (NEGATIVE); KETONES,URINE NEGATIVE (NEGATIVE); LEUKOCYTE ESTERASE,URINE NEGATIVE (NEGATIVE); NITRITE,URINE NEGATIVE (NEGATIVE); PROTEIN,URINE NEGATIVE (NEGATIVE); UROBILINOGEN,URINE NEGATIVE mg/dL (<2.0)
[2017-10-16] MEDS ORDERED: ACETAMINOPHEN 325 MG TABLET PO PRN (12:56)
[2017-10-16] MEDS: HEPARIN SOD (PORCINE) 5,000 UNIT/ML 1 ML SYRINGE SUBCUT SCH ×2 (13:55→21:52)
[2017-10-16] MEDS: NORMAL SALINE 1000 ML 1,000 ML IV PRN (14:00)
[2017-10-16] MEDS: ONDANSETRON HCL INJ/PF 4 MG/2 ML SDV IV PRN (19:55)
[2017-10-16] MEDS ORDERED: ALBUTEROL SULFATE HFA (90 MCG/PUFF) 200 PUFF/8.5 GM MDI IH PRN (20:30)
--- NOTE | 2017-10-16 21:09 | PDOC H&P ---
History of Present Illness Admission Date/PCP: 10/16/17 13:32 Patient complains of: WEAKNESS, NAUSEA, DIZZINESS, NEAR SYNCOPE, SEVERE MUSCLE CRAMPING History of Present Illness: VESTA JIMENEZ is a 67 year old female who presented to the emergency department for dizziness, near syncope, nausea, and significant muscle cramps. The patient was recently hospitalized at [facility], discharged on 10/07/2017 with a new diuretic, torsemide. The patient states that she has been experiencing symptoms since 2 days following her previous hospital discharge. Her primary complaints are significant muscle cramping in her arms, hands, legs, and feet that is exacerbated with walking. Additionally the patient reports that she is so dizzy upon ambulation she experienced a near syncopal episode today. She states she is also having difficulty concentrating given her significant dizziness. Patient states that her symptoms are primarily occurring during the daytime, that they do not keep her up at night. She also states that when she is at rest, her symptoms are very mild. However, when she attempts to ambulate or perform ADLs, her symptoms are exacerbated. PMH includes COPD (home O2 @ 2L), AFIB, CHF, GI bleed, HYPOkalemia (unknown origin) Upon arrival to the emergency department, EKG demonstrated rate controlled atrial fibrillation. Vital signs were relatively normal. BP 105/62 P 96 T 97.5 SPO2 95% on RA. Chest x-ray benign. Her lab work was significant for LACY. Creatinine 1.6 (baseline 0.8) BUN 80 GFR 38. All other lab work is benign. Upon assessment, the patient is alert and oriented 3 and resting comfortably in bed on 2 L nasal cannula. She endorses mild dizziness but denies muscle cramping or nausea at this time. Her overall skin turgor is poor but her mucous membranes are moist and the patient does not complain of dry mouth. It is likely that the patient is being over diuresed, it is also possible that she is not eating/drinking enough, and her poor PO intake coupled with a diuretic is what resulted in her intravascular volume depletion. According to her previous discharge summary, the patient instructed to follow a 1.5L fluid restriction. The patient was given a 500mL IV bolus in the ED and continued maintenance IVF at 100mL/hr. Past Medical History Cardiac Medical History: Reports: Atrial Fibrillation, Congestive Heart Failure , Hypertension Denies: Hyperlipidema Pulmonary Medical History: Reports: Chronic Obstructive Pulmonary Disease (COPD) , Pneumonia - 2016 Endocrine Medical History: Reports: Diabetes Mellitus Type 2 Malignancy Medical History: Reports: Ovarian Cancer GI Medical History: Reports: Other - GI BLEED Psychiatric Medical History: Denies: Depression Past Surgical History Past Surgical History: Reports: Appendectomy, Cholecystectomy, Hysterectomy, Tubal Ligation Social History Information Source: Patient Lives with: Alone Smoking Status: Former Smoker Frequency of Alcohol Use: None Hx Recreational Drug Use: No Drugs: None Hx Prescription Drug Abuse: No - Advance Directive Resuscitation Status: Do Not Resuscitate Family History Family History: COPD, Hypertension, Other - BRAIN ANEURYSM Parental Family History Reviewed: Yes Children Family History Reviewed: Yes Sibling(s) Family History Reviewed.: Yes Medication/Allergy Home Medications: Amlodipine Besylate [Norvasc 10 mg Tablet] 5 mg PO QHS #30 tablet 10/07/17 Fluticasone/Salmeterol [Advair 500-50 Diskus 14 Dose/Diskus] 1 inh IH Q12 #60 inhaler 10/07/17 Lisinopril [Prinivil 10 mg Tablet] 10 mg PO DAILY #30 tablet 10/07/17 Montelukast Sodium [Singulair 10 mg Tablet] 10 mg PO QHS #30 tablet 10/07/17 Tiotropium [place] [Spiriva Handihaler 5 Cap/Kit (18 Mcg/Cap)] 1 cap IH DAILY # 30 kit 10/07/17 Torsemide [Demadex 20 mg Tablet] 20 mg PO DAILY #30 tablet 10/07/17 Albuterol Sulfate [Ventolin Hfa] 2 puff IH Q4H PRN 10/16/17 Fluticasone Propionate [Flonase Nasal [place] 50 Mcg/[place] 16 gm] 2 sprays IH Q12H 10/16/17 Guaifenesin [Mucinex Sr 600 mg Tablet.sa] 600 mg PO Q12 PRN 10/16/17 Metformin HCl 1,000 mg PO DAILY 10/16/17 Rivaroxaban [Xarelto] 20 mg PO QHS 10/16/17 Allergies/Adverse Reactions: levofloxacin [From Levaquin] Allergy (Intermediate, Verified 10/16/17 18:35) Unknown reaction Sulfa (Sulfonamide Antibiotics) Allergy (Verified 10/16/17 18:35) Review of Systems Cardiovascular: PRESENT: palpitations - CHRONIC. ABSENT: chest pain, dyspnea on exertion Respiratory: ABSENT: dyspnea Gastrointestinal: PRESENT: diarrhea, nausea. ABSENT: vomiting Genitourinary: ABSENT: difficulty urinating Musculoskeletal: PRESENT: muscle weakness Neurological: PRESENT: abnormal gait, confusion. ABSENT: frequent falls Hematologic/Lymphatic: PRESENT: easy bruising - SECONDARY TO ANTICOAGULATION Physical Exam Vital Signs: Temp Pulse Resp BP Pulse Ox 97.5 F 96 24 H 102/64 98 10/16/17 08:59 10/16/17 08:59 10/16/17 15:00 10/16/17 13:01 10/16/17 15:30 General appearance: PRESENT: no acute distress Head exam: PRESENT: atraumatic Eye exam: PRESENT: conjunctiva pink Mouth exam: PRESENT: moist, neck supple Neck exam: PRESENT: full ROM Respiratory exam: PRESENT: clear to auscultation kisha, symmetrical, unlabored Cardiovascular exam: PRESENT: irregular rhythm - AFIB Pulses: PRESENT: normal radial pulses, +1 pedal pulses bilateral Vascular exam: PRESENT: normal capillary refill GI/Abdominal exam: PRESENT: normal bowel sounds, soft. ABSENT: tenderness Rectal exam: PRESENT: deferred Extremities exam: PRESENT: full ROM Musculoskeletal exam: PRESENT: ambulatory, full ROM Neurological exam: PRESENT: alert, awake, oriented to person, oriented to place , oriented to time, oriented to situation Psychiatric exam: PRESENT: appropriate affect Skin exam: PRESENT: dry, intact, normal color, other - POOR SKIN TURGOR Results Laboratory Results: 10/16/17 14:54 Troponin I < 0.012 Impressions: Chest X-Ray 10/16/17 09:15 IMPRESSION: Stable moderate cardiomegaly Status: Imported from PACS Assessment & Plan - Diagnosis (1) LACY (acute kidney injury) Is this a current diagnosis for this admission?: Yes Plan: Secondary to dehydration stemming from poor PO intake and continued diuretic therapy, as evidence by creatinine elevated above baseline and significantly elevated BUN HOLD torsemide for now Maintenance IVF Encourage PO intake Once Creatinine and GFR return closer to baseline, will approach the topic of diuretic therapy Continue to trend daily chemistry (2) A-fib Qualifiers: Atrial fibrillation type: persistent Qualified Code(s): I48.1 - Persistent atrial fibrillation Is this a current diagnosis for this admission?: Yes Plan: Patient endorses a history of AFIB, she appears to be rate controlled but rhythm remains irregular. Continue home dose xarelto (3) COPD (chronic obstructive pulmonary disease) Qualifiers: COPD type: unspecified COPD Qualified Code(s): J44.9 - Chronic obstructive pulmonary disease, unspecified Is this a current diagnosis for this admission?: Yes Plan: Patient endorses history of COPD, requiring home o2 via nasal cannula denies respiratory complaints Continue home dose advair and spirinva (4) HTN (hypertension) Qualifiers: Hypertension type: essential hypertension Qualified Code(s): I10 - Essential (primary) hypertension Is this a current diagnosis for this admission?: Yes Plan: The patient reports a history of HTN HOLD lisinopril and Norvasc given the patient's relatively low blood pressure since admission - Time Critical Time spent with patient: 15-24 minutes Medications reviewed and adjusted accordingly: Yes Anticipated discharge: Home - Inpatient Certification Based on my medical assessment, after consideration of the patient's comorbidities, presenting symptoms, or acuity I expect that the services needed warrant INPATIENT care.: Yes I certify that my determination is in accordance with my understanding of Medicare's requirements for reasonable and necessary INPATIENT services [42 CFR 412.3e].: Yes Medical Necessity: Risk of Complication if Not Cared For in Hospital - Plan Summary Plan Summary: The plan is to admit to [facility] hospital telemetry, rehydrate, change diuretic therapy and discharge home
[2017-10-16] MEDS: FLUTICASONE NASAL SPRAY 50 MCG/SPRY 120 SPRAY/16 GM NAREB SCH (21:50)
[2017-10-16] MEDS: FLUTICASONE/SALMETEROL DISKUS 500-50 MCG/DOSE IH SCH (21:51)
[2017-10-16] MEDS: MONTELUKAST SODIUM 10 MG TABLET PO SCH (21:51)
[2017-10-16] MEDS ORDERED: RIVAROXABAN 10 MG TABLET PO SCH (22:00)
--- NOTE | 2017-10-16 22:49 | EKG REPORT ---
SEVERITY:- ABNORMAL ECG - ATRIAL FIBRILLATION, V-RATE 69-86 : Confirmed by: Nelly Snyder 16-Oct-2017 19:48:47
[2017-10-17] MEDS: NORMAL SALINE 1000 ML 1,000 ML IV PRN ×2 (01:27→13:19)
[2017-10-17] MEDS ORDERED: LORAZEPAM INJ 2 MG/1 ML VIAL IV ONE (01:45)
[2017-10-17 05:16] LABS: HEMATOCRIT 36.6 % (36.0-47.0); HEMOGLOBIN 12.2 g/dL (12.0-15.5); MEAN CORPUSCULAR HEMOGLOBIN 29.5 pg (27.0-33.4); MEAN CORPUSCULAR HGB CONC 33.4 g/dL (32.0-36.0); MEAN CORPUSCULAR VOLUME 89 fl (80-97); PLATELET COUNT 222 10^3/uL (150-450); RED BLOOD COUNT 4.13 10^6/uL (3.72-5.28); RED CELL DISTRIBUTION WIDTH 14.2 % (11.5-14.0); WHITE BLOOD COUNT 5.3 10^3/uL (4.0-10.5)
[2017-10-17] MEDS: HEPARIN SOD (PORCINE) 5,000 UNIT/ML 1 ML SYRINGE SUBCUT SCH ×3 (05:18→22:28)
[2017-10-17 05:42] LABS: ALANINE AMINOTRANSFERASE 35 U/L (9-52); ALBUMIN 3.8 g/dL (3.5-5.0); ALKALINE PHOSPHATASE 68 U/L (38-126); ANION GAP 15 (5-19); ASPARTATE AMINO TRANSFERASE 26 U/L (14-36); BILIRUBIN,DIRECT 0.3 mg/dL (0.0-0.4); BILIRUBIN,TOTAL 0.5 mg/dL (0.2-1.3); CALCIUM 9.3 mg/dL (8.4-10.2); CARBON DIOXIDE 27 mmol/L (22-30); CHLORIDE 100 mmol/L (98-107); GLUCOSE 130 mg/dL (75-110); POTASSIUM 4.4 mmol/L (3.6-5.0); SODIUM 141.5 mmol/L (137-145); TOTAL PROTEIN 6.8 g/dL (6.3-8.2)
[2017-10-17 05:53] LABS: FREE T3 3.83 pg/mL (2.77-5.27); FREE T4 (FREE THYROXINE) 1.19 ng/dL (0.78-2.19)
[2017-10-17 05:57] LABS: BLOOD UREA NITROGEN 54 mg/dL (7-20)
[2017-10-17] MEDS: ONDANSETRON HCL INJ/PF 4 MG/2 ML SDV IV PRN ×3 (07:44→22:28)
[2017-10-17] MEDS: FLUTICASONE NASAL SPRAY 50 MCG/SPRY 120 SPRAY/16 GM NAREB SCH ×2 (09:26→22:29)
[2017-10-17] MEDS: FLUTICASONE/SALMETEROL DISKUS 500-50 MCG/DOSE IH SCH ×2 (09:26→22:29)
[2017-10-17] MEDS: TIOTROPIUM BROMIDE DPI 5 CAP/KIT (18 MCG/CAP) IH SCH (09:27)
[2017-10-17] MEDS ORDERED: NYSTATIN TOPICAL POWDER 15 GM TP PRN (10:07)
[2017-10-17] MEDS ORDERED: DEXTROSE 50%-WATER 25 GM/50 ML DISP.SYRIN IV PRN ×2 (11:27)
[2017-10-17] MEDS ORDERED: GLUCAGON,HUMAN RECOMB 1 MG INJ IM PRN (11:27)
[2017-10-17] MEDS ORDERED: DEXTROSE 40% GEL 15 GM TUBE PO PRN ×2 (11:27)
[2017-10-17] MEDS ORDERED: INSULIN LISPRO 100 UNIT/ML 3 ML VIAL SUBCUT PRN (11:27)
[2017-10-17] MEDS: TRAMADOL HCL 50 MG TABLET PO PRN ×2 (13:19→22:29)
--- NOTE | 2017-10-17 14:39 | RADIOLOGY REPORT (SQ) ---
EXAM DESCRIPTION: CT HEAD WITHOUT COMPLETED DATE/TIME: 10/17/2017 2:24 pm REASON FOR STUDY: Dizziness COMPARISON: CT brain 09/03/2016 MRI brain 09/03/2016 TECHNIQUE: Axial images acquired through the brain without intravenous contrast. Images reviewed wi th bone, brain and subdural windows. Additional sagittal and coronal reconstructions were generated. Images stored on PACS. All CT scanners at this facility use dose modulation, iterative reconstruction, and/or weight based d osing when appropriate to reduce radiation dose to as low as reasonably achievable (ALARA). [facility]: Dose Right [facility]: CareDose [facility]: Dose Right [facility]: Teradose 4D [facility]: [employer] Mobile RADIATION DOSE: CT Rad equipment meets quality standard of care and radiation dose reduction techniq ues were employed. CTDIvol: 48.5 mGy. DLP: 854 mGy-cm. mGy. LIMITATIONS: None. FINDINGS: VENTRICLES: Normal size and contour. Cavum septum pellucidum, a benign anatomic variant CEREBRUM: No masses. No hemorrhage. No midline shift. No evidence for acute infarction. Few scatte red areas of low density in the white matter most likely chronic small vessel ischemic changes. CEREBELLUM: No masses. No hemorrhage. No alteration of density. No evidence for acute infarction. EXTRAAXIAL SPACES: No fluid collections. No masses. ORBITS AND GLOBE: No intra- or extraconal masses. Normal contour of globe without masses. CALVARIUM: No fracture. PARANASAL SINUSES: Minimal fluid in the left sphenoid sinus SOFT TISSUES: No mass or hematoma. OTHER: No other significant finding. IMPRESSION: No acute findings. Age-appropriate minimal white matter disease EVIDENCE OF ACUTE STROKE: NO. COMMENT: Quality ID # [id number]: Final reports with documentation of one or more dose reduction techniques (e.g., Automated exposure control, adjustment of the mA and/or kV according to patient size, use of iterative reconstruction technique) TECHNICAL DOCUMENTATION: JOB ID: [id number] [employer]- All Rights Reserved Reading location - IP/workstation name: [email or web address]
[2017-10-17] MEDS: CLONAZEPAM 1 MG TABLET PO PRN (14:57)
[2017-10-17] MEDS: MONTELUKAST SODIUM 10 MG TABLET PO SCH (22:29)
[2017-10-18] MEDS: CLONAZEPAM 1 MG TABLET PO PRN (03:23)
[2017-10-18] MEDS: HEPARIN SOD (PORCINE) 5,000 UNIT/ML 1 ML SYRINGE SUBCUT SCH ×3 (06:27→21:45)
[2017-10-18] MEDS: ONDANSETRON HCL INJ/PF 4 MG/2 ML SDV IV PRN ×2 (08:19→16:03)
[2017-10-18] MEDS: TRAMADOL HCL 50 MG TABLET PO PRN (08:22)
[2017-10-18] MEDS: TIOTROPIUM BROMIDE DPI 5 CAP/KIT (18 MCG/CAP) IH SCH (09:03)
[2017-10-18] MEDS: FLUTICASONE/SALMETEROL DISKUS 500-50 MCG/DOSE IH SCH ×2 (09:03→21:45)
[2017-10-18] MEDS: FLUTICASONE NASAL SPRAY 50 MCG/SPRY 120 SPRAY/16 GM NAREB SCH ×2 (09:03→21:45)
[2017-10-18 10:34] LABS: ANION GAP 10 (5-19); BLOOD UREA NITROGEN 19 mg/dL (7-20); CALCIUM 9.4 mg/dL (8.4-10.2); CARBON DIOXIDE 30 mmol/L (22-30); CHLORIDE 101 mmol/L (98-107); GLUCOSE 128 mg/dL (75-110); PHOSPHORUS 2.4 mg/dL (2.5-4.5); POTASSIUM 4.8 mmol/L (3.6-5.0); SODIUM 140.7 mmol/L (137-145)
--- NOTE | 2017-10-18 17:42 | PDOC PROGRESS REPORT ---
Subjective Progress Note for:: 10/18/17 Subjective:: VESTA JIMENEZ is a 67 year old female who presented to the emergency department for dizziness, near syncope, nausea, and muscle cramps. She has a PMH of COPD, AFIB, HTN, CHF, GIB, HYPOKALEMIA. The patient was seen this morning on rounds, she states that her muscle cramps have greatly improved, however she still endorses nausea and dizziness, which are exacerbated upon ambulation. Head CT done yesterday, results benign. The patient's lab work has significantly improved, her LACY has resolved. Her blood pressure is still low (SBP 98-110). Plan to keep for 24hrs and discharge tomorrow morning. Reason For Visit: ACUTE RENAL FAILURE,DEHYDRATION Physical Exam Vital Signs: Temp Pulse Resp BP Pulse Ox 98.0 F 68 18 116/55 L 100 10/18/17 16:00 10/18/17 16:00 10/18/17 16:00 10/18/17 16:00 10/18/17 16:00 Intake & Output 10/17/17 10/18/17 10/19/17 06:59 06:59 06:59 Intake Total 2131 2738 Output Total 1300 1300 Balance 831 1438 Weight 121.2 kg 121.2 kg General appearance: PRESENT: no acute distress, morbidly obese Eye exam: PRESENT: conjunctiva pink, PERRLA Mouth exam: PRESENT: moist Neck exam: PRESENT: full ROM Respiratory exam: PRESENT: clear to auscultation kisha, symmetrical, unlabored Cardiovascular exam: PRESENT: +S1, +S2 Pulses: PRESENT: normal radial pulses, normal dorsalis pedis pul Vascular exam: PRESENT: normal capillary refill GI/Abdominal exam: PRESENT: normal bowel sounds, soft. ABSENT: tenderness Rectal exam: PRESENT: deferred Extremities exam: PRESENT: full ROM. ABSENT: pedal edema Musculoskeletal exam: PRESENT: ambulatory, full ROM Neurological exam: PRESENT: alert, awake, oriented to person, oriented to place , oriented to time, oriented to situation, normal gait Psychiatric exam: PRESENT: appropriate affect Skin exam: PRESENT: dry, intact, warm Results Laboratory Results: 10/17/17 03:57 10/18/17 09:35 10/18/17 09:35 Sodium 140.7 Potassium 4.8 Chloride 101 Carbon Dioxide 30 Anion Gap 10 BUN 19 Creatinine 0.64 Est GFR ( Amer) > 60 Est GFR (Non-Af Amer) > 60 Glucose 128 H Calcium 9.4 Phosphorus 2.4 L Magnesium 1.8 10/16/17 14:54 Troponin I < 0.012 Impressions: Chest X-Ray 10/16/17 09:15 IMPRESSION: Stable moderate cardiomegaly Head CT 10/17/17 00:00 IMPRESSION: No acute findings. Age-appropriate minimal white matter disease EVIDENCE OF ACUTE STROKE: NO. Status: Imported from PACS Assessment & Plan - Diagnosis (1) LACY (acute kidney injury) Is this a current diagnosis for this admission?: Yes Plan: Resolved. Secondary to dehydration stemming from poor PO intake and continued diuretic therapy, as evidence by creatinine elevated above baseline and significantly elevated BUN HOLD torsemide for now Maintenance IVF Encourage PO intake Once Creatinine and GFR return closer to baseline, will approach the topic of diuretic therapy Continue to trend daily chemistry (2) A-fib Qualifiers: Atrial fibrillation type: persistent Qualified Code(s): I48.1 - Persistent atrial fibrillation Is this a current diagnosis for this admission?: Yes Plan: Patient endorses a history of AFIB, she appears to be rate controlled but rhythm remains irregular. Continue home dose xarelto (3) COPD (chronic obstructive pulmonary disease) Qualifiers: COPD type: unspecified COPD Qualified Code(s): J44.9 - Chronic obstructive pulmonary disease, unspecified Is this a current diagnosis for this admission?: Yes Plan: Patient endorses history of COPD, requiring home o2 via nasal cannula denies respiratory complaints Continue home dose advair and spirinva (4) HTN (hypertension) Qualifiers: Hypertension type: essential hypertension Qualified Code(s): I10 - Essential (primary) hypertension Is this a current diagnosis for this admission?: Yes Plan: The patient reports a history of HTN HOLD lisinopril and Norvasc given the patient's relatively low blood pressure since admission (5) Dizziness Is this a current diagnosis for this admission?: Yes Plan: The patient endorses symptoms of dizziness upon ambulation. Despite rehydration , her symptoms persist. Head CT negative. Initiate meclizine as needed. Her symptoms are believed to be related to her significant degree of dehydration. - Time Time Spent with patient: 15-24 minutes Medications reviewed and adjusted accordingly: Yes Anticipated discharge: Home - Inpatient Certification Based on my medical assessment, after consideration of the patient's comorbidities, presenting symptoms, or acuity I expect that the services needed warrant INPATIENT care.: Yes I certify that my determination is in accordance with my understanding of Medicare's requirements for reasonable and necessary INPATIENT services [42 CFR 412.3e].: Yes Medical Necessity: Risk of Complication if Not Cared For in Hospital - Plan Summary Plan Summary: address the need for diuretics tomorrow morning, then discharge the patient home
[2017-10-18] MEDS: MECLIZINE HCL 12.5 MG TABLET PO PRN (19:47)
[2017-10-18] MEDS: MONTELUKAST SODIUM 10 MG TABLET PO SCH (21:45)
[2017-10-19] MEDS: MECLIZINE HCL 12.5 MG TABLET PO PRN ×2 (03:50→11:53)
[2017-10-19] MEDS: HEPARIN SOD (PORCINE) 5,000 UNIT/ML 1 ML SYRINGE SUBCUT SCH ×2 (06:56→13:04)
[2017-10-19] MEDS: TIOTROPIUM BROMIDE DPI 5 CAP/KIT (18 MCG/CAP) IH SCH (09:36)
[2017-10-19] MEDS: FLUTICASONE NASAL SPRAY 50 MCG/SPRY 120 SPRAY/16 GM NAREB SCH (09:36)
[2017-10-19] MEDS: FLUTICASONE/SALMETEROL DISKUS 500-50 MCG/DOSE IH SCH (09:36)
[2017-10-19] MEDS: ONDANSETRON HCL INJ/PF 4 MG/2 ML SDV IV PRN (11:53)
[2017-10-19 15:05] VITALS: BP 116/55
--- NOTE | 2017-10-22 13:12 | PDOC DISCHARGE SUMMARY ---
General - Admit/Disc Date/PCP Admission Date/Primary Care Provider: 10/16/17 13:32 Discharge Date: 10/19/17 - Discharge Diagnosis (1) LACY (acute kidney injury) Is this a current diagnosis for this admission?: Yes (2) A-fib Is this a current diagnosis for this admission?: Yes (3) COPD (chronic obstructive pulmonary disease) Is this a current diagnosis for this admission?: Yes (4) HTN (hypertension) Is this a current diagnosis for this admission?: Yes (5) Dizziness Is this a current diagnosis for this admission?: Yes - Additional Information Resuscitation Status: Do Not Resuscitate Discharge Diet: Cardiac, Diabetic Discharge Activity: Activity As Tolerated Prescriptions: Meclizine HCl [Antivert 12.5 mg Tablet] 12.5 mg PO Q8HP PRN #32 tablet PRN Reason: Torsemide [Demadex 10 mg Tablet] 10 mg PO DAILY #30 tablet Home Medications: Amlodipine Besylate [Norvasc 10 mg Tablet] 5 mg PO QHS #30 tablet 10/07/17 Fluticasone/Salmeterol [Advair 500-50 Diskus 14 Dose/Diskus] 1 inh IH Q12 #60 inhaler 10/07/17 Lisinopril [Prinivil 10 mg Tablet] 10 mg PO DAILY #30 tablet 10/07/17 Montelukast Sodium [Singulair 10 mg Tablet] 10 mg PO QHS #30 tablet 10/07/17 Tiotropium [place] [Spiriva Handihaler 5 Cap/Kit (18 Mcg/Cap)] 1 cap IH DAILY # 30 kit 10/07/17 Albuterol Sulfate [Ventolin Hfa] 2 puff IH Q4H PRN 10/16/17 Fluticasone Propionate [Flonase Nasal [place] 50 Mcg/[place] 16 gm] 2 sprays IH Q12H 10/16/17 Guaifenesin [Mucinex Sr 600 mg Tablet.sa] 600 mg PO Q12 PRN 10/16/17 Metformin HCl 1,000 mg PO DAILY 10/16/17 Rivaroxaban [Xarelto] 20 mg PO QHS 10/16/17 Meclizine HCl [Antivert 12.5 mg Tablet] 12.5 mg PO Q8HP PRN #32 tablet 10/19/17 Torsemide [Demadex 10 mg Tablet] 10 mg PO DAILY #30 tablet 10/19/17 History of Present Illness History of Present Illness: VESTA JIMENEZ is a 67 year old female who presented to the emergency department for dizziness, near syncope, nausea, and significant muscle cramps. The patient was recently hospitalized at [facility], discharged on 10/07/2017 with a new diuretic, torsemide. The patient states that she has been experiencing symptoms since 2 days following her previous hospital discharge. Her primary complaints are significant muscle cramping in her arms, hands, legs, and feet that is exacerbated with walking. Additionally the patient reports that she is so dizzy upon ambulation she experienced a near syncopal episode today. She states she is also having difficulty concentrating given her significant dizziness. Patient states that her symptoms are primarily occurring during the daytime, that they do not keep her up at night. She also states that when she is at rest, her symptoms are very mild. However, when she attempts to ambulate or perform ADLs, her symptoms are exacerbated. PMH includes COPD (home O2 @ 2L), AFIB, CHF, GI bleed, HYPOkalemia (unknown origin) Upon arrival to the emergency department, EKG demonstrated rate controlled atrial fibrillation. Vital signs were relatively normal. BP 105/62 P 96 T 97.5 SPO2 95% on RA. Chest x-ray benign. Her lab work was significant for LACY. Creatinine 1.6 (baseline 0.8) BUN 80 GFR 38. All other lab work is benign. Upon assessment, the patient is alert and oriented 3 and resting comfortably in bed on 2 L nasal cannula. She endorses mild dizziness but denies muscle cramping or nausea at this time. Her overall skin turgor is poor but her mucous membranes are moist and the patient does not complain of dry mouth. It is likely that the patient is being over diuresed, it is also possible that she is not eating/drinking enough, and her poor PO intake coupled with a diuretic is what resulted in her intravascular volume depletion. According to her previous discharge summary, the patient instructed to follow a 1.5L fluid restriction. The patient was given a 500mL IV bolus in the ED and continued maintenance IVF at 100mL/hr. Hospital Course Hospital Course: 67-year-old female admitted to hospitalist service for acute renal failure secondary to dehydration. The patient reported that she was previously admitted to [facility] a few weeks ago shortness of breath. Admittedly, she was not very compliant with her twice daily Lasix specifically her nighttime dose because she did not like getting up to the bathroom. The patient was eventually discharged from [facility] with a prescription for once daily torsemide and instructions to follow a 1.5 L fluid restriction diet. The patient reports that within 2 days of discharge, she began experiencing dizziness, weakness, muscle cramps, and she returned to [facility] when she experienced a near syncopal episode at home. Upon arrival to the emergency department, her creatinine was 1.63 (baseline 0.9) and her BUN was 81. Given her history of CHF, the patient was conservatively resuscitated with IVF in the emergency department and continued on maintenance IVF while inpatient. Her EKG demonstrated rate controlled atrial fibrillation, no evidence of ischemia or infarction. Over the course of 3 days, her creatinine improved 1.63->0.64. The patient complained of persistent dizziness while she was hospitalized, head CT was performed and it was negative. When she was adequately hydrated, the patient denied symptoms of dizziness. She was ultimately sent home with a prescription for meclizine and a new lower dose prescription for torsemide, and she was advised not to follow the 1.5 L fluid restriction diet. The patient was instructed to follow-up closely with her child care specialist, given the fact that she has been hospitalized twice since her last visit to her doctor. Physical Exam Vital Signs: Temp Pulse Resp BP Pulse Ox 98.4 F 75 18 116/55 L 100 10/19/17 14:59 10/19/17 14:59 10/19/17 14:59 10/19/17 14:59 10/19/17 14:59 Results Laboratory Results: 10/17/17 03:57 10/18/17 09:35 10/16/17 14:54 Troponin I < 0.012 Impressions: Chest X-Ray 10/16/17 09:15 IMPRESSION: Stable moderate cardiomegaly Head CT 10/17/17 00:00 IMPRESSION: No acute findings. Age-appropriate minimal white matter disease EVIDENCE OF ACUTE STROKE: NO. Status: Imported from PACS Qualifiers - * PATIENT BEING DISCHARGED WITH ANY OF THE FOLLOWING DIAGNOSIS: No Plan Time Spent: Less than 30 Minutes
== END 2017-10-19 15:00 | disposition home or self-care (01) | DRG 683 ==
LOC: ER 08:47 → EH 13:32 → OBSVTOIN 13:32 → 5 15:52
PROVIDERS: ADMIT Internal Medicine; ATTEND Internal Medicine
DX: N17.9 Acute kidney failure, unspecified (principal); I48.1 Persistent atrial fibrillation; J44.9 Chronic obstructive pulmonary disease, unspecified; Z66 Do not resuscitate; E87.6 Hypokalemia; E86.0 Dehydration; I11.0 Hypertensive heart disease with heart failure; I50.9 Heart failure, unspecified; E11.9 Type 2 diabetes mellitus without complications; Z99.81 Dependence on supplemental oxygen; Z79.899 Other long term (current) drug therapy; Z85.43 Personal history of malignant neoplasm of ovary; Z90.49 Acquired absence of other specified parts of digestive tract; Z90.710 Acquired absence of both cervix and uterus; Z60.2 Problems related to living alone; Z87.891 Personal history of nicotine dependence; Z88.3 Allergy status to other anti-infective agents; Z88.2 Allergy status to sulfonamides; Z83.6 Family history of other diseases of the respiratory system; Z82.49 Family history of ischemic heart disease and other diseases of the circulatory system
CPT/HCPCS: 36415; 70450; 71045; 80048; 80053; 81001; 82550; 82553; 82962; 83735; 83880; 84100; 84439; 84481; 84484; 85025; 85027; 87493; 93005; 93010; 96360; 96361; 99285; J1644; J2060; J2405; J3490; J7030

== ENCOUNTER → 2018-06-26 | Outpatient (CLI) | payer MEDICARE, MEDICAID ==
[2018-06-26 11:07] LABS: ALANINE AMINOTRANSFERASE 29 U/L (9-52); ALBUMIN 4.5 g/dL (3.5-5.0); ALKALINE PHOSPHATASE 83 U/L (38-126); ASPARTATE AMINO TRANSFERASE 31 U/L (14-36); BILIRUBIN,DIRECT 0.2 mg/dL (0.0-0.4); BILIRUBIN,TOTAL 0.6 mg/dL (0.2-1.3); CHOLESTEROL 227.68 mg/dL (0-200); TOTAL PROTEIN 7.7 g/dL (6.3-8.2); TRIGLYCERIDES 150 mg/dL (<150)
--- NOTE | 2018-06-26 11:08 | RADIOLOGY REPORT (SQ) ---
EXAM DESCRIPTION: CT LUNG CANCER SCREENING COMPLETED DATE/TIME: 06/26/2018 9:48 am REASON FOR STUDY: PERSONAL HX OF NICOTINE DEPENDENCE Z87.891 PERSONAL HISTORY OF NICOTINE DEPENDENC E Has the patient had a Chest CT scan within the past year? Yes Was the patient offered tobacco cessation counseling? Yes Was the patient engaged in shared decision making for this test? Yes Does the patient have signs or symptoms of Lung Cancer? No Is the patient a smoker? No How many packs per year? 365 How many years since quitting smoking? 3 Patients age: 68 COMPARISON: 06/18/2017 TECHNIQUE: Low Dose CT scan performed of the chest without intravenous contrast for purposes of scre ening for lung cancer. Images reviewed with lung, soft tissue and bone windows. Reconstructed coron al and sagittal MPR images reviewed. All images stored on PACS. All CT scanners at this facility use dose modulation, iterative reconstruction, and/or weight based d osing when appropriate to reduce radiation dose to as low as reasonably achievable (ALARA). [facility]: Dose Right [facility]: CareDose [facility]: Dose Right [facility]: Teradose 4D [facility]: [employer] RADIATION DOSE: 2.8 mGy. . LIMITATIONS: None FINDINGS: LUNGS AND PLEURA: Benign calcified granulomas at both lung bases. No pleural effusions or calcifications. No pneumothorax. No scarring or interstitial changes. HILAR AND MEDIASTINAL STRUCTURES: No identified masses. No abnormal nodes. HEART AND VASCULAR STRUCTURES: No aortic aneurysm. No pericardial effusion. No cardiac devices. M arked cardiomegaly. CORONARY ARTERY CALCIFICATIONS: No significant calcifications. UPPER ABDOMEN, THYROID, BONES, OTHER SOFT TISSUES: No significant findings. IMPRESSION: NO SIGNIFICANT FINDING IN THE LUNGS ON NON-CONTRASTED CHEST CT. NO OTHER CLINICALLY SIGNIFICANT/POTENTIALLY CLINICALLY SIGNIFICANT FINDINGS LUNGRADS: LUNGRADS: 1 NEGATIVE. NO NODULES, OR DEFINITELY BENIGN NODULES MODIFIER: NONE RECOMMENDATION: Continue annual screening with LDCT in 12 months. COMMENT: CRITERIA: No lung nodules. Nodules with specific calcifications: Complete, central, popcorn, concentric rings and fat containin g nodules. TECHNICAL DOCUMENTATION: JOB ID: [id number] Quality ID # [id number]: Final reports with documentation of one or more dose reduction techniques (e.g., Au tomated exposure control, adjustment of the mA and/or kV according to patient size, use of iterative reconstruction technique) [address] [place] [address] Radiology Reading location - IP/workstation name: [email or web address]
[2018-06-26 11:18] LABS: DIRECT LDL 131 mg/dL (<100)
[2018-06-27 13:38] LABS: ANTICHROMATIN AB <0.2 AI (0.0-0.9); CENTROMERE B AB <0.2 AI (0.0-0.9); JO-1 ANTIBODY (ANACOMP) <0.2 AI (0.0-0.9); SJOGREN'S ANTI-SS-B AB <0.2 AI (0.0-0.9); SJOGREN'S SS-A ANTIBODY <0.2 AI (0.0-0.9)
[2018-06-27 15:47] LABS: DNA DOUBLE STRAND ANTIBODY ANA 1 IU/mL (0-9)
[2018-06-27 17:37] LABS: CYTOPLASMIC (C-ANCA) <1:20 titer (Neg:<1:20)
[2018-06-29 07:23] LABS: ATYPICAL PANCA <1:20 titer (Neg:<1:20); PERINUCLEAR (P-ANCA) <1:20 titer (Neg:<1:20)
== END ==
LOC: RAD 09:22
PROVIDERS: ATTEND Internal Medicine Pulmonary Disease
DX: I11.0 Hypertensive heart disease with heart failure (principal); I50.32 Chronic diastolic (congestive) heart failure; R94.2 Abnormal results of pulmonary function studies; Z87.891 Personal history of nicotine dependence; I48.2 Chronic atrial fibrillation; R00.2 Palpitations; R06.02 Shortness of breath; R73.03 Prediabetes; E78.5 Hyperlipidemia, unspecified; Z79.899 Other long term (current) drug therapy
CPT/HCPCS: 36415; 86021; 86430; 80076; 83036; 80061; 86225; 86235 ×8; G0297

== ENCOUNTER 2018-09-09 11:29 | Inpatient (IN) | payer MEDICARE, MEDICAID ==
[2018-09-09 12:07] LABS: ABSOLUTE BASOPHILS # (AUTO) 0.1 10^3/uL (0.0-0.2); ABSOLUTE EOSINOPHILS # (AUTO) 0.2 10^3/uL (0.0-0.6); ABSOLUTE LYMPHOCYTES (AUTO) 1.8 10^3/uL (0.5-4.7); ABSOLUTE MONOCYTES (AUTO) 0.7 10^3/uL (0.1-1.4); ABSOLUTE NEUT (AUTO) 6.6 10^3/uL (1.7-8.2); BASOPHILS % (AUTO) 1.2 % (0-2); EOSINOPHILS % (AUTO) 1.7 % (0-6); HEMATOCRIT 36.2 % (36.0-47.0); HEMOGLOBIN 12.1 g/dL (12.0-15.5); LYMPHOCYTES % (AUTO) 18.9 % (13-45); MEAN CORPUSCULAR HEMOGLOBIN 29.6 pg (27.0-33.4); MEAN CORPUSCULAR HGB CONC 33.5 g/dL (32.0-36.0); MEAN CORPUSCULAR VOLUME 88 fl (80-97); MONOCYTES % (AUTO) 7.6 % (3-13); PLATELET COUNT 286 10^3/uL (150-450); RED CELL DISTRIBUTION WIDTH 14.5 % (11.5-14.0); SEGMENTED NEUTROPHILS % (AUTO) 70.6 % (42-78); TOTAL CELLS COUNTED % (AUTO) 100 %; WHITE BLOOD COUNT 9.4 10^3/uL (4.0-10.5)
[2018-09-09 12:13] LABS: APPEARANCE,URINE CLEAR; BILIRUBIN,URINE NEGATIVE (NEGATIVE); GLUCOSE, URINE NEGATIVE (NEGATIVE); KETONES,URINE NEGATIVE (NEGATIVE); LEUKOCYTE ESTERASE,URINE TRACE (NEGATIVE); NITRITE,URINE NEGATIVE (NEGATIVE); PROTEIN,URINE NEGATIVE (NEGATIVE); URINE SPECIFIC GRAVITY 1.004; UROBILINOGEN,URINE NEGATIVE mg/dL (<2.0)
[2018-09-09 12:14] LABS: COLOR,URINE STRAW
[2018-09-09 12:27] LABS: ALANINE AMINOTRANSFERASE 26 U/L (9-52); ALBUMIN 4.7 g/dL (3.5-5.0); ALKALINE PHOSPHATASE 70 U/L (38-126); ANION GAP 9 (5-19); ASPARTATE AMINO TRANSFERASE 38 U/L (14-36); BILIRUBIN,DIRECT 0.4 mg/dL (0.0-0.4); BILIRUBIN,TOTAL 0.8 mg/dL (0.2-1.3); BLOOD UREA NITROGEN 12 mg/dL (7-20); CALCIUM 9.9 mg/dL (8.4-10.2); CARBON DIOXIDE 29 mmol/L (22-30); CHLORIDE 103 mmol/L (98-107); CREATINE KINASE 60 U/L (30-135); GLUCOSE 108 mg/dL (75-110); POTASSIUM 4.5 mmol/L (3.6-5.0); SODIUM 141.2 mmol/L (137-145); TOTAL PROTEIN 8.6 g/dL (6.3-8.2)
[2018-09-09 12:39] LABS: CREATINE KINASE MB 0.59 ng/mL (<4.55)
[2018-09-09 12:40] LABS: TROPONIN I < 0.012 ng/mL
--- NOTE | 2018-09-09 12:40 | RADIOLOGY REPORT (SQ) ---
EXAM DESCRIPTION: CHEST SINGLE VIEW COMPLETED DATE/TIME: 09/09/2018 12:16 pm REASON FOR STUDY: sob COMPARISON: CT chest 06/18/2017 Two-view chest 04/23/2017, 07/06/2016 EXAM PARAMETERS: NUMBER OF VIEWS: One view. TECHNIQUE: Single frontal radiographic view of the chest acquired. RADIATION DOSE: NA LIMITATIONS: Obese patient, portable technique FINDINGS: LUNGS AND PLEURA: Upper lobes are hyperlucent from obstructive disease. No focal infiltra francine. No pleural effusion or pneumothorax. MEDIASTINUM AND HILAR STRUCTURES: No masses. Contour normal. HEART AND VASCULAR STRUCTURES: Stable marked cardiomegaly. BONES: No acute findings. HARDWARE: None in the chest. OTHER: No other significant finding. IMPRESSION: Marked cardiomegaly. Obstructive lung disease TECHNICAL DOCUMENTATION: JOB ID: [id number] [employer]- All Rights Reserved Reading location - IP/workstation name: [email or web address]
[2018-09-09] MEDS ORDERED: FUROSEMIDE INJ/PF 40 MG/4 ML SDV IV ONE (12:43)
--- NOTE | 2018-09-09 13:00 | ER Document Report ---
ED General - General Chief Complaint: Shortness Of Breath Stated Complaint: SHORTNESS OF BREATH Time Seen by Provider: 09/09/18 12:05 Primary Care Provider: JAQUELINE MCCALL MD [Primary Care Provider] - Follow up as needed Notes: Patient is a 68-year-old female with history of atrial fibrillation and CHF that presents to the emergency department for chief complaint of shortness of breath, lower extremity edema and difficulty breathing. Patient states that she is been having more short of breath the last few days, but got particularly worse today when she was out at the [facility], she try to go the bathroom, and was only able to take a few steps and had to stop and catch her breath. She did put on a pulse ox that read 81% at that time. She states she has been compliant with her typical medications including Lasix, and she has not missed any doses of her Xarelto. Patient was having significant shortness of breath with just transfers onto the stretcher, per EMS. She denies having any chest pain at this time, nausea, vomiting or diaphoresis. She does report having lower extremity swelling, and a 9 pound weight gain over the past 2 days. Past Medical History: CHF, hypertension, atrial fibrillation Past Surgical History: Hysterectomy, cholecystectomy Social History: Denies current tobacco, alcohol or drug use. Radiologist is Dr. Valentin Family History: Reviewed and noncontributory for presenting illness Allergies: Reviewed, see documented allergy list. REVIEW OF SYSTEMS: Other than noted above, the 12 point review of systems was reviewed with the patient and were negative, all pertinent findings are included in the HPI. PHYSICAL EXAMINATION: Vital signs reviewed, nursing noted reviewed. GENERAL: Obese female, conversational dyspnea HEAD: Atraumatic, normocephalic. EYES: Eyes appear normal, extraocular movements intact, sclera anicteric, conjunctiva are normal. ENT: nares patent, oropharynx clear without exudates. Moist mucous membranes. NECK: Normal range of motion, supple without lymphadenopathy LUNGS: Lung sounds diminished in bilateral rales noted at the bases, upper apple are clear to auscultation., Conversational dyspnea HEART: Heart rate regular, irregular rhythm, atrial fibrillation on telemetry. ABDOMEN: Soft, nontender, normoactive bowel sounds. No rebound, guarding, or rigidity. No masses appreciated. EXTREMITIES: Nontender, good range of motion, bilateral lower extremity edema, pitting to the proximal tibias. NEUROLOGICAL: No focal neurological deficits. Moves all extremities spontaneously Motor and sensory grossly intact on exam. PSYCH: Normal mood, normal affect. SKIN: Warm, Dry, normal turgor, no rashes or lesions noted on exposed skin TRAVEL OUTSIDE OF THE [place] IN LAST 30 DAYS: No - Related Data Allergies/Adverse Reactions: levofloxacin [From Levaquin] Allergy (Intermediate, Verified 09/09/18 11:58) Unknown reaction Sulfa (Sulfonamide Antibiotics) Allergy (Verified 09/09/18 11:58) Past Medical History - Social History Smoking Status: Former Smoker Frequency of alcohol use: None Drug Abuse: None Family History: COPD, Hypertension, Other - BRAIN ANEURYSM Patient has suicidal ideation: No Patient has homicidal ideation: No - Past Medical History Cardiac Medical History: Reports: Hx Atrial Fibrillation, Hx Congestive Heart Failure, Hx Hypertension Denies: Hx Hypercholesterolemia Pulmonary Medical History: Reports: Hx COPD, Hx Pneumonia - 2015 Endocrine Medical History: Reports: Hx Diabetes Mellitus Type 2 Renal/ Medical History: Denies: Hx Peritoneal Dialysis Malignancy Medical History: Reports: Hx Ovarian Cancer Psychiatric Medical History: Denies: Hx Depression Past Surgical History: Reports: Hx Appendectomy, Hx Cholecystectomy, Hx Hysterectomy, Hx Tubal Ligation - Immunizations Hx Diphtheria, Pertussis, Tetanus Vaccination: No Hx Pneumococcal Vaccination: 03/03/17 Physical Exam - Vital signs Vitals: Temp Pulse Resp BP Pulse Ox 98.2 F 92 22 H 170/94 H 95 09/09/18 11:30 09/09/18 11:30 09/09/18 11:30 09/09/18 11:30 09/09/18 11:30 Course - Re-evaluation Re-evalutation: Patient seen and examined vital signs reviewed. Laboratory data and imaging were ordered as appropriate for the patient's presenting symptoms and complaint, with consideration of any critical or life threatening conditions that may be associated with their obtained history and exam as noted above. Patient was treated with IV Lasix 40 mg Results were reviewed when available and demonstrated cardiomegaly on chest x- ray, troponin negative, EKG unchanged from prior, no leukocytosis, no renal impairment The patient was re-evaluated and was improved, but still having significant conversational dyspnea, could barely transfer from the bedside commode to the bed, without significant dyspnea. Evaluation was most consistent with acute exacerbation of CHF, peripheral edema, volume overload Results were discussed with the patient at this point after careful consideration I feel that that patient should be admitted to the hospital. This was discussed with the patient that it is in the best interest for their care to be admitted for further evaluation and management. Patient agreed with this plan of care. A call was placed to the admitted physician, Dr. Murphy who graciously accepted the patient onto their service. *Note is created using voice recognition software and may contain spelling, syntax or grammatical errors. Laboratory 09/09/18 09/09/18 09/09/18 11:45 11:45 11:45 WBC 9.4 RBC 4.10 Hgb 12.1 Hct 36.2 MCV 88 MCH 29.6 MCHC 33.5 RDW 14.5 H Plt Count 286 Seg Neutrophils % 70.6 Lymphocytes % 18.9 Monocytes % 7.6 Eosinophils % 1.7 Basophils % 1.2 Absolute Neutrophils 6.6 Absolute Lymphocytes 1.8 Absolute Monocytes 0.7 Absolute Eosinophils 0.2 Absolute Basophils 0.1 Sodium 141.2 Potassium 4.5 Chloride 103 Carbon Dioxide 29 Anion Gap 9 BUN 12 Creatinine 0.69 Est GFR ( Amer) > 60 Est GFR (Non-Af Amer) > 60 Glucose 108 Calcium 9.9 Total Bilirubin 0.8 Direct Bilirubin 0.4 Neonat Total Bilirubin Not Reportable Neonat Direct Bilirubin Not Reportable Neonat Indirect Bili Not Reportable AST 38 H ALT 26 Alkaline Phosphatase 70 Creatine Kinase 60 CK-MB (CK-2) 0.59 Troponin I < 0.012 Total Protein 8.6 H Albumin 4.7 Urine Color Urine Appearance Urine pH Ur Specific [place] Urine Protein Urine Glucose (UA) Urine Ketones Urine Blood Urine Nitrite Urine Bilirubin Urine Urobilinogen Ur Leukocyte Esterase Urine WBC (Auto) U Hyaline Cast (Auto) Urine Bacteria (Auto) Squamous Epi Cells Auto Urine Mucus (Auto) Urine Ascorbic Acid 09/09/18 11:45 WBC RBC Hgb Hct MCV MCH MCHC RDW Plt Count Seg Neutrophils % Lymphocytes % Monocytes % Eosinophils % Basophils % Absolute Neutrophils Absolute Lymphocytes Absolute Monocytes Absolute Eosinophils Absolute Basophils Sodium Potassium Chloride Carbon Dioxide Anion Gap BUN Creatinine Est GFR ( Amer) Est GFR (Non-Af Amer) Glucose Calcium Total Bilirubin Direct Bilirubin Neonat Total Bilirubin Neonat Direct Bilirubin Neonat Indirect Bili AST ALT Alkaline Phosphatase Creatine Kinase CK-MB (CK-2) Troponin I Total Protein Albumin Urine Color STRAW Urine Appearance CLEAR Urine pH 6.0 Ur Specific [place] 1.004 Urine Protein NEGATIVE Urine Glucose (UA) NEGATIVE Urine Ketones NEGATIVE Urine Blood SMALL H Urine Nitrite NEGATIVE Urine Bilirubin NEGATIVE Urine Urobilinogen NEGATIVE Ur Leukocyte Esterase TRACE H Urine WBC (Auto) 2 U Hyaline Cast (Auto) 1 Urine Bacteria (Auto) TRACE Squamous Epi Cells Auto <1 Urine Mucus (Auto) RARE Urine Ascorbic Acid NEGATIVE Chest X-Ray 09/09/18 11:41 IMPRESSION: Marked cardiomegaly. Obstructive lung disease - Vital Signs Vital signs: Temp Pulse Resp BP Pulse Ox 98.2 F 92 22 H 164/97 H 97 09/09/18 11:30 09/09/18 11:30 09/09/18 13:01 09/09/18 13:01 09/09/18 13:01 - Laboratory Result Diagrams: 09/09/18 11:45 09/09/18 11:45 Laboratory results interpreted by me: 09/09/18 09/09/18 09/09/18 11:45 11:45 11:45 RDW 14.5 H AST 38 H NT-Pro-B Natriuret Pep Total Protein 8.6 H Urine Blood SMALL H Ur Leukocyte Esterase TRACE H 09/09/18 11:45 RDW AST NT-Pro-B Natriuret Pep 1240 H Total Protein Urine Blood Ur Leukocyte Esterase - EKG Interpretation by Me Additional EKG results interpreted by me: EKG demonstrates atrial fibrillation with controlled ventricular rate of 86 bpm, normal axis, QTC 469 ms, no evidence of acute ischemia in this EKG, this is compared to prior EKG from 10/16/2017, without significant change. Discharge - Discharge Clinical Impression: Acute exacerbation of CHF (congestive heart failure) Qualifiers: Heart failure type: unspecified Qualified Code(s): I50.9 - Heart failure, unspecified A-fib Qualifiers: Atrial fibrillation type: unspecified Qualified Code(s): I48.91 - Unspecified atrial fibrillation Volume overload Qualifiers: Hypervolemia type: unspecified Qualified Code(s): E87.70 - Fluid overload, unspecified Condition: Stable Disposition: ADMITTED INPATIENT Admitting Provider: Jeffrey (Hospitalist) Unit Admitted: Telemetry Referrals: JAQUELINE MCCALL MD [Primary Care Provider] - Follow up as needed
--- NOTE | 2018-09-09 14:00 | PDOC H&P ---
History of Present Illness Admission Date/PCP: JAQUELINE MCCALL MD History of Present Illness: VESTA JIMENEZ is a very pleasant 68 year old female patient with past medical history of chronic atrial fibrillation on Xarelto for anticoagulation, hypertension, COPD, CHF, morbid obesity, type 2 diabetes mellitus and history of ovarian cancer presents with chief complaint of shor tness of breath. Patient reported that she has been at her baseline state of health up until 1 week when she started to have shortness of breath precipitated by mild exertion. Yesterday her shortness of breath is increasingly worse extent she cannot walk few steps without sitting down to catch her breath. Patient cannot sleep flat so that her bed head should be elevated at about 75 degrees. Patient endorses paroxysmal nocturnal dyspnea. Patient reports unintentional 9 pound weight gain over 1 week. She denies any fevers, chills, palpitation, diaphoresis, chest pain, cough, nausea, vomiting or diarrhea. No urinary complaints. Her initial blood work unremarkable except she has BNP of 1 200. Her chest x-ray reported as market cardiomegaly. Patient denies any dizziness, blurring of vision, headache or any seizure activity. Past Medical History Cardiac Medical History: Reports: Atrial Fibrillation, Congestive Heart Failure, Hypertension Denies: Hyperlipidema Pulmonary Medical History: Reports: Chronic Obstructive Pulmonary Disease (COPD), Pneumonia - 2016 Endocrine Medical History: Reports: Diabetes Mellitus Type 2 Malignancy Medical History: Reports: Ovarian Cancer Psychiatric Medical History: Denies: Depression Past Surgical History Past Surgical History: Reports: Appendectomy, Cholecystectomy, Hysterectomy, Tubal Ligation Social History Smoking Status: Former Smoker Frequency of Alcohol Use: None Hx Recreational Drug Use: No Drugs: None Hx Prescription Drug Abuse: No - Advance Directive Resuscitation Status: Full Code Family History Family History: COPD, Hypertension, Other - BRAIN ANEURYSM Parental Family History Reviewed: Yes Children Family History Reviewed: Yes Sibling(s) Family History Reviewed.: Yes Medication/Allergy Home Medications: Amlodipine Besylate [Norvasc 10 mg Tablet] 5 mg PO QHS #30 tablet 10/07/17 Fluticasone/Salmeterol [Advair 500-50 Diskus 14 Dose/Diskus] 1 inh IH Q12 #60 inhaler 10/07/17 Lisinopril [Prinivil 10 mg Tablet] 10 mg PO DAILY #30 tablet 10/07/17 Montelukast Sodium [Singulair 10 mg Tablet] 10 mg PO QHS #30 tablet 10/07/17 Tiotropium [place] [Spiriva Handihaler 5 Cap/Kit (18 Mcg/Cap)] 1 cap IH DAILY # 30 kit 10/07/17 Albuterol Sulfate [Ventolin Hfa] 2 puff IH Q4H PRN 10/16/17 Fluticasone Propionate [Flonase Nasal [place] 50 Mcg/[place] 16 gm] 2 sprays IH Q12H 10/16/17 Guaifenesin [Mucinex Sr 600 mg Tablet.sa] 600 mg PO Q12 PRN 10/16/17 Metformin HCl 1,000 mg PO DAILY 10/16/17 Rivaroxaban [Xarelto] 20 mg PO QHS 10/16/17 Meclizine HCl [Antivert 12.5 mg Tablet] 12.5 mg PO Q8HP PRN #32 tablet 10/19/17 Torsemide [Demadex 10 mg Tablet] 10 mg PO DAILY #30 tablet 10/19/17 Allergies/Adverse Reactions: levofloxacin [From Levaquin] Allergy (Intermediate, Verified 09/09/18 11:58) Unknown reaction Sulfa (Sulfonamide Antibiotics) Allergy (Verified 09/09/18 11:58) Review of Systems Constitutional: ABSENT: chills, fever(s), headache(s), weight gain, weight loss Eyes: ABSENT: visual disturbances Ears: ABSENT: hearing changes Cardiovascular: PRESENT: dyspnea on exertion, edema, orthropnea Respiratory: PRESENT: dyspnea Gastrointestinal: ABSENT: abdominal pain, constipation, diarrhea, hematemesis, hematochezia, nausea, vomiting Genitourinary: ABSENT: dysuria, hematuria Musculoskeletal: ABSENT: joint swelling Integumentary: ABSENT: rash, wounds Neurological: ABSENT: abnormal gait, abnormal speech, confusion, dizziness, focal weakness, syncope Psychiatric: ABSENT: anxiety, depression, homidical ideation, suicidal ideation Endocrine: ABSENT: cold intolerance, heat intolerance, polydipsia, polyuria Hematologic/Lymphatic: ABSENT: easy bleeding, easy bruising Physical Exam Vital Signs: Temp Pulse Resp BP Pulse Ox 98.2 F 92 22 H 164/97 H 97 09/09/18 11:30 09/09/18 11:30 09/09/18 13:01 09/09/18 13:01 09/09/18 13:01 Intake & Output 09/08/18 09/09/18 09/10/18 06:59 06:59 06:59 Weight 131.542 kg General appearance: PRESENT: mild distress Head exam: PRESENT: atraumatic, normocephalic Eye exam: PRESENT: conjunctiva pink Mouth exam: PRESENT: moist Neck exam: ABSENT: carotid bruit, JVD, lymphadenopathy, thyromegaly Respiratory exam: PRESENT: crackles, decreased breath sounds Cardiovascular exam: PRESENT: irregular rhythm Neurological exam: PRESENT: alert, awake, oriented to person, oriented to place, oriented to time, oriented to situation Psychiatric exam: PRESENT: normal mood Results Laboratory Results: 09/09/18 11:45 09/09/18 11:45 09/09/18 09/09/18 09/09/18 11:45 11:45 11:45 WBC 9.4 RBC 4.10 Hgb 12.1 Hct 36.2 MCV 88 MCH 29.6 MCHC 33.5 RDW 14.5 H Plt Count 286 Seg Neutrophils % 70.6 Lymphocytes % 18.9 Monocytes % 7.6 Eosinophils % 1.7 Basophils % 1.2 Absolute Neutrophils 6.6 Absolute Lymphocytes 1.8 Absolute Monocytes 0.7 Absolute Eosinophils 0.2 Absolute Basophils 0.1 Sodium 141.2 Potassium 4.5 Chloride 103 Carbon Dioxide 29 Anion Gap 9 BUN 12 Creatinine 0.69 Est GFR ( Amer) > 60 Est GFR (Non-Af Amer) > 60 Glucose 108 Calcium 9.9 Total Bilirubin 0.8 AST 38 H ALT 26 Alkaline Phosphatase 70 Total Protein 8.6 H Albumin 4.7 Urine Color STRAW Urine Appearance CLEAR Urine pH 6.0 Ur Specific [place] 1.004 Urine Protein NEGATIVE Urine Glucose (UA) NEGATIVE Urine Ketones NEGATIVE Urine Blood SMALL H Urine Nitrite NEGATIVE Ur Leukocyte Esterase TRACE H Urine WBC (Auto) 2 09/09/18 09/09/18 09/09/18 11:45 11:45 11:45 Creatine Kinase 60 CK-MB (CK-2) 0.59 Troponin I < 0.012 NT-Pro-B Natriuret Pep 1240 H Impressions: Chest X-Ray 09/09/18 11:41 IMPRESSION: Marked cardiomegaly. Obstructive lung disease Assessment and Plan - Diagnosis (1) Acute and chronic respiratory failure with hypoxia Is this a current diagnosis for this admission?: Yes Plan: Since patient has underlying COPD and congestive heart failure the hypoxia is due to multifactorial causes. Patient is doing well with supplemental oxygen. (2) Acute on chronic diastolic CHF (congestive heart failure), NYHA class 3 Is this a current diagnosis for this admission?: Yes Plan: I will cautiously diurese her with Lasix and metolazone. Daily weight and strict input output monitoring. Patient denies noncompliance with her medication or with her diet. She has not used also [id number] nonsteroidal anti-inflammatory drugs. (3) COPD (chronic obstructive pulmonary disease) Is this a current diagnosis for this admission?: Yes Plan: We will put her on as needed bronchodilators. (4) Hypertension Qualifiers: Hypertension type: essential hypertension Qualified Code(s): I10 - Essential (primary) hypertension Is this a current diagnosis for this admission?: Yes Plan: Continue home medications. (5) Type 2 diabetes mellitus Is this a current diagnosis for this admission?: Yes Plan: We will continue her home medication and also will put her on sliding scale. (6) Hyperlipidemia Qualifiers: Hyperlipidemia type: unspecified Qualified Code(s): E78.5 - Hyperlipidemia, unspecified Is this a current diagnosis for this admission?: Yes Plan: Continue her home statin (7) Chronic a-fib Is this a current diagnosis for this admission?: Yes Plan: Her rate is controlled. I will continue her home medications including Xarelto. (8) Morbid obesity with BMI of 45.0-49.9, adult Is this a current diagnosis for this admission?: Yes Plan: Lifestyle modification advised (9) History of ovarian cancer Is this a current diagnosis for this admission?: Yes Plan: In remission. - Inpatient Certification Medical Necessity: Need Close Monitoring Due to Risk of Patient Decompensation Post Hospital Care: Other - CHF exacerbation which needs IV diuretics.
[2018-09-09] MEDS ORDERED: ACETAMINOPHEN 325 MG TABLET PO PRN (14:15)
[2018-09-09] MEDS ORDERED: IPRATROPIUM/ALBUTEROL 0.5-2.5 MG/3 ML AMPUL NEB PRN (14:21)
[2018-09-09] MEDS ORDERED: METOLAZONE 2.5 MG TABLET PO ONE (15:00)
[2018-09-09] MEDS: ACETAMINOPHEN 325 MG TABLET PO PRN ×2 (15:33→21:30)
[2018-09-09] MEDS ORDERED: FLUTICASONE NASAL SPRAY 50 MCG/SPRY 120 SPRAY/16 GM NASL PRN (21:06)
[2018-09-09] MEDS: RIVAROXABAN 15 MG TABLET PO SCH (21:21)
[2018-09-09] MEDS: ATORVASTATIN CALCIUM 20 MG TABLET PO SCH (21:21)
[2018-09-09] MEDS: DOCUSATE SODIUM 100 MG CAPSULE PO SCH (21:21)
[2018-09-09] MEDS: FAMOTIDINE 20 MG TABLET PO SCH (21:21)
[2018-09-09] MEDS: FUROSEMIDE INJ/PF 40 MG/4 ML SDV IV SCH (21:22)
[2018-09-09] MEDS: METOPROLOL SUCCINATE 50 MG TAB.SR.24H PO SCH (21:22)
--- NOTE | 2018-09-09 23:59 | EKG REPORT ---
SEVERITY:- ABNORMAL ECG - ATRIAL FIBRILLATION, V-RATE 75-102 LOW VOLTAGE THROUGHOUT : Confirmed by: Nelly Snyder 09-Sep-2018 23:58:22
[2018-09-10] MEDS: ONDANSETRON HCL INJ/PF 4 MG/2 ML SDV IV PRN ×2 (02:12→16:25)
[2018-09-10] MEDS ORDERED: FLUTICASONE NASAL SPRAY 50 MCG/SPRY 120 SPRAY/16 GM NASL ONE (02:45)
[2018-09-10 05:27] LABS: HEMATOCRIT 37.2 % (36.0-47.0); HEMOGLOBIN 12.7 g/dL (12.0-15.5); MEAN CORPUSCULAR HEMOGLOBIN 29.8 pg (27.0-33.4); MEAN CORPUSCULAR HGB CONC 34.2 g/dL (32.0-36.0); MEAN CORPUSCULAR VOLUME 87 fl (80-97); PLATELET COUNT 256 10^3/uL (150-450); RED BLOOD COUNT 4.27 10^6/uL (3.72-5.28); RED CELL DISTRIBUTION WIDTH 14.1 % (11.5-14.0); WHITE BLOOD COUNT 7.8 10^3/uL (4.0-10.5)
[2018-09-10] MEDS: FUROSEMIDE INJ/PF 40 MG/4 ML SDV IV SCH ×3 (05:36→21:39)
[2018-09-10 05:50] LABS: ANION GAP 11 (5-19); BLOOD UREA NITROGEN 13 mg/dL (7-20); CALCIUM 9.9 mg/dL (8.4-10.2); CARBON DIOXIDE 35 mmol/L (22-30); CHLORIDE 95 mmol/L (98-107); GLUCOSE 144 mg/dL (75-110); SODIUM 140.7 mmol/L (137-145)
[2018-09-10 05:59] LABS: POTASSIUM 3.4 mmol/L (3.6-5.0)
[2018-09-10] MEDS ORDERED: HYDRALAZINE HCL INJ/PF 20 MG/1 ML SDV IV PRN (08:45)
[2018-09-10] MEDS ORDERED: HYDRALAZINE HCL INJ/PF 20 MG/1 ML SDV ONE (09:42)
[2018-09-10] MEDS: METOPROLOL SUCCINATE 50 MG TAB.SR.24H PO SCH ×2 (09:46→21:38)
[2018-09-10] MEDS: FAMOTIDINE 20 MG TABLET PO SCH ×2 (09:46→21:38)
[2018-09-10] MEDS: DOCUSATE SODIUM 100 MG CAPSULE PO SCH ×2 (09:46→18:17)
[2018-09-10] MEDS: FLUTICASONE NASAL SPRAY 50 MCG/SPRY 120 SPRAY/16 GM NASL SCH ×2 (09:47→21:39)
[2018-09-10] MEDS: ACETAMINOPHEN 325 MG TABLET PO PRN ×2 (09:51→16:25)
[2018-09-10] MEDS ORDERED: LISINOPRIL 10 MG TABLET PO SCH (10:00)
[2018-09-10] MEDS ORDERED: METOLAZONE 2.5 MG TABLET PO SCH (10:00)
[2018-09-10] MEDS: LISINOPRIL 10 MG TABLET PO SCH (10:16)
[2018-09-10] MEDS ORDERED: HYDRALAZINE HCL INJ/PF 20 MG/1 ML SDV IV ONE (10:30)
[2018-09-10] MEDS ORDERED: POTASSIUM CHLORIDE 10 MEQ CAPSULE.ER PO ONE (10:30)
[2018-09-10] MEDS: AMOXICILLIN TRIHYDRATE 500 MG CAPSULE PO SCH ×2 (13:28→21:38)
--- NOTE | 2018-09-10 13:41 | PDOC PROGRESS REPORT ---
Subjective Progress Note for:: 09/10/18 Subjective:: VESTA JIMENEZ is a very pleasant 68 year old female patient with past medical history of chronic atrial fibrillation on Xarelto for anticoagulation, hypertension, COPD, CHF, morbid obesity, type 2 diabetes mellitus and history of ovarian cancer presents with chief complaint of shortness of breath. She is being managed for acute on chronic heart failure exacerbation with Lasix and cardioprotective medications. This morning patient reports she has mild improvement in her breathing and her bilateral leg swelling is decreasing. Currently patient complains of sinus pressure and she reports that she has chronic sinusitis with postnasal drip. I empirically started her on Augmentin 500 mg 3 times a day. Reason For Visit: ACUTE HYPOXEMIC RESPIRATORY FAILURE,ACUTE ON Physical Exam Vital Signs: Temp Pulse Resp BP Pulse Ox 98.4 F 89 24 H 126/68 H 97 09/10/18 11:45 09/10/18 11:45 09/10/18 11:45 09/10/18 11:45 09/10/18 11:45 Intake & Output 09/09/18 09/10/18 09/11/18 06:59 06:59 06:59 Intake Total 795 Output Total 4100 675 Balance -3305 -675 Weight 135.5 kg General appearance: PRESENT: mild distress Head exam: PRESENT: atraumatic Eye exam: PRESENT: conjunctiva pink Mouth exam: PRESENT: moist Neck exam: ABSENT: carotid bruit, JVD, lymphadenopathy, thyromegaly Respiratory exam: PRESENT: decreased breath sounds Cardiovascular exam: PRESENT: RRR. ABSENT: diastolic murmur, rubs, systolic murmur GI/Abdominal exam: PRESENT: normal bowel sounds, soft. ABSENT: distended, guarding, mass, organolmegaly, rebound, tenderness Neurological exam: PRESENT: alert, awake, oriented to time, oriented to situation Results Laboratory Results: 09/10/18 05:15 09/10/18 05:15 09/10/18 09/10/18 05:15 05:15 WBC 7.8 RBC 4.27 Hgb 12.7 Hct 37.2 MCV 87 MCH 29.8 MCHC 34.2 RDW 14.1 H Plt Count 256 Sodium 140.7 Potassium 3.4 L D Chloride 95 L Carbon Dioxide 35 H Anion Gap 11 BUN 13 Creatinine 0.79 Est GFR ( Amer) > 60 Est GFR (Non-Af Amer) > 60 Glucose 144 H Calcium 9.9 Magnesium 2.0 09/09/18 09/09/18 09/09/18 11:45 11:45 11:45 Creatine Kinase 60 CK-MB (CK-2) 0.59 Troponin I < 0.012 NT-Pro-B Natriuret Pep 1240 H Impressions: Chest X-Ray 09/09/18 11:41 IMPRESSION: Marked cardiomegaly. Obstructive lung disease Assessment and Plan - Diagnosis (1) Acute and chronic respiratory failure with hypoxia Is this a current diagnosis for this admission?: Yes Plan: Improving (2) Acute on chronic diastolic CHF (congestive heart failure), NYHA class 3 Is this a current diagnosis for this admission?: Yes Plan: I will cautiously diurese her with Lasix and metolazone. Daily weight and strict input output monitoring. Patient denies noncompliance with her medication or with her diet. She has not used also [id number] nonsteroidal anti-inflammatory drugs. (3) COPD (chronic obstructive pulmonary disease) Is this a current diagnosis for this admission?: Yes Plan: We will put her on as needed bronchodilators. (4) Hypertension Qualifiers: Hypertension type: essential hypertension Qualified Code(s): I10 - Essential (primary) hypertension Is this a current diagnosis for this admission?: Yes Plan: Continue home medications. (5) Type 2 diabetes mellitus Is this a current diagnosis for this admission?: Yes Plan: We will continue her home medication and also will put her on sliding scale. (6) Hyperlipidemia Qualifiers: Hyperlipidemia type: unspecified Qualified Code(s): E78.5 - Hyperlipidemia, unspecified Is this a current diagnosis for this admission?: Yes Plan: Continue her home statin (7) Chronic a-fib Is this a current diagnosis for this admission?: Yes Plan: Her rate is controlled. I will continue her home medications including Xarelto. (8) Morbid obesity with BMI of 45.0-49.9, adult Is this a current diagnosis for this admission?: Yes Plan: Lifestyle modification advised (9) History of ovarian cancer Is this a current diagnosis for this admission?: Yes Plan: In remission.
[2018-09-10] MEDS: RIVAROXABAN 15 MG TABLET PO SCH (16:20)
[2018-09-10] MEDS: ATORVASTATIN CALCIUM 20 MG TABLET PO SCH (21:38)
[2018-09-11] MEDS: ONDANSETRON HCL INJ/PF 4 MG/2 ML SDV IV PRN ×3 (00:39→21:46)
[2018-09-11] MEDS: AMOXICILLIN TRIHYDRATE 500 MG CAPSULE PO SCH ×2 (05:29→13:59)
[2018-09-11] MEDS: FUROSEMIDE INJ/PF 40 MG/4 ML SDV IV SCH ×2 (05:29→21:19)
[2018-09-11] MEDS: TIZANIDINE HCL 4 MG TABLET PO PRN ×2 (05:35→21:24)
[2018-09-11 06:00] LABS: ANION GAP 12 (5-19); BLOOD UREA NITROGEN 24 mg/dL (7-20); CALCIUM 9.7 mg/dL (8.4-10.2); CARBON DIOXIDE 35 mmol/L (22-30); CHLORIDE 92 mmol/L (98-107); GLUCOSE 143 mg/dL (75-110); POTASSIUM 3.9 mmol/L (3.6-5.0); SODIUM 138.6 mmol/L (137-145)
[2018-09-11] MEDS: FLUTICASONE NASAL SPRAY 50 MCG/SPRY 120 SPRAY/16 GM NASL SCH ×2 (09:33→21:24)
[2018-09-11] MEDS: METOPROLOL SUCCINATE 50 MG TAB.SR.24H PO SCH ×2 (09:33→21:19)
[2018-09-11] MEDS: FAMOTIDINE 20 MG TABLET PO SCH ×2 (09:33→21:19)
[2018-09-11] MEDS: LISINOPRIL 10 MG TABLET PO SCH (09:33)
[2018-09-11] MEDS: DOCUSATE SODIUM 100 MG CAPSULE PO SCH ×2 (09:34→17:48)
[2018-09-11] MEDS ORDERED: TIZANIDINE HCL 4 MG TABLET PO PRN (15:32)
[2018-09-11] MEDS: ACETAMINOPHEN 325 MG TABLET PO PRN (16:01)
[2018-09-11] MEDS: METFORMIN HCL 500 MG TABLET PO SCH (16:01)
--- NOTE | 2018-09-11 17:41 | PDOC PROGRESS REPORT ---
Subjective Progress Note for:: 09/11/18 Subjective:: I seen patient sitting up in bed. She is awake alert oriented. She reported some mild improvement in her breathing. She eats well and she tolerates well. Her creatinine is slightly increased from 0.792 1.22. Most probably due to volume contraction secondary aggressive diuresis. I cut down her Lasix dose and I discontinue metolazone. Reason For Visit: ACUTE HYPOXEMIC RESPIRATORY FAILURE,ACUTE ON Physical Exam Vital Signs: Temp Pulse Resp BP Pulse Ox 98.6 F 74 20 128/79 H 92 09/11/18 15:53 09/11/18 15:53 09/11/18 15:53 09/11/18 15:53 09/11/18 15:53 Intake & Output 09/10/18 09/11/18 09/12/18 06:59 06:59 06:59 Intake Total 795 2373 925 Output Total 4100 3575 700 Balance -3305 -1202 225 Weight 135.5 kg 37.1 kg 136.4 kg General appearance: PRESENT: mild distress, morbidly obese Head exam: PRESENT: atraumatic Eye exam: PRESENT: conjunctiva pink Mouth exam: PRESENT: moist Neck exam: ABSENT: carotid bruit, JVD, lymphadenopathy, thyromegaly Respiratory exam: PRESENT: decreased breath sounds Cardiovascular exam: PRESENT: RRR. ABSENT: diastolic murmur, rubs, systolic murmur Neurological exam: PRESENT: alert, awake Psychiatric exam: PRESENT: normal mood Results Laboratory Results: 09/10/18 05:15 09/11/18 05:00 09/11/18 05:00 Sodium 138.6 Potassium 3.9 Chloride 92 L Carbon Dioxide 35 H Anion Gap 12 BUN 24 H Creatinine 1.22 Est GFR ( Amer) 53 L Est GFR (Non-Af Amer) 44 L Glucose 143 H Calcium 9.7 09/09/18 09/09/18 09/09/18 11:45 11:45 11:45 Creatine Kinase 60 CK-MB (CK-2) 0.59 Troponin I < 0.012 NT-Pro-B Natriuret Pep 1240 H Impressions: Chest X-Ray 09/09/18 11:41 IMPRESSION: Marked cardiomegaly. Obstructive lung disease Assessment and Plan - Diagnosis (1) Acute kidney injury Is this a current diagnosis for this admission?: Yes Plan: Most probably due to volume contraction secondary to aggressive diuresis. I cut down her Lasix dose and discontinue metolazone. (2) Acute and chronic respiratory failure with hypoxia Is this a current diagnosis for this admission?: Yes Plan: Improving (3) Acute on chronic diastolic CHF (congestive heart failure), NYHA class 3 Is this a current diagnosis for this admission?: Yes Plan: Improving (4) COPD (chronic obstructive pulmonary disease) Is this a current diagnosis for this admission?: Yes Plan: We will put her on as needed bronchodilators. (5) Hypertension Qualifiers: Hypertension type: essential hypertension Qualified Code(s): I10 - Essential (primary) hypertension Is this a current diagnosis for this admission?: Yes Plan: Continue home medications. (6) Type 2 diabetes mellitus Is this a current diagnosis for this admission?: Yes Plan: We will continue her home medication and also will put her on sliding scale. (7) Hyperlipidemia Qualifiers: Hyperlipidemia type: unspecified Qualified Code(s): E78.5 - Hyperlipidemia, unspecified Is this a current diagnosis for this admission?: Yes Plan: Continue her home statin (8) Chronic a-fib Is this a current diagnosis for this admission?: Yes Plan: Her rate is controlled. I will continue her home medications including Xarelto. (9) Morbid obesity with BMI of 45.0-49.9, adult Is this a current diagnosis for this admission?: Yes Plan: Lifestyle modification advised (10) History of ovarian cancer Is this a current diagnosis for this admission?: Yes Plan: In remission.
[2018-09-11] MEDS: ATORVASTATIN CALCIUM 20 MG TABLET PO SCH (21:19)
[2018-09-11] MEDS: RIVAROXABAN 15 MG TABLET PO SCH (21:19)
[2018-09-11] MEDS ORDERED: RIVAROXABAN 10 MG TABLET PO SCH (22:00)
[2018-09-12] MEDS: ONDANSETRON HCL INJ/PF 4 MG/2 ML SDV IV PRN ×2 (08:46→16:04)
[2018-09-12] MEDS: METFORMIN HCL 500 MG TABLET PO SCH ×2 (08:47→15:50)
[2018-09-12] MEDS: DOCUSATE SODIUM 100 MG CAPSULE PO SCH ×2 (09:39→17:55)
[2018-09-12] MEDS: FAMOTIDINE 20 MG TABLET PO SCH ×2 (09:47→21:32)
[2018-09-12] MEDS: FUROSEMIDE INJ/PF 40 MG/4 ML SDV IV SCH (09:47)
[2018-09-12] MEDS: LISINOPRIL 10 MG TABLET PO SCH (09:47)
[2018-09-12] MEDS: METOPROLOL SUCCINATE 50 MG TAB.SR.24H PO SCH ×2 (09:47→21:32)
[2018-09-12] MEDS: AMOXICILLIN TRIHYDRATE 500 MG CAPSULE PO SCH ×2 (09:47→21:32)
[2018-09-12] MEDS: FLUTICASONE NASAL SPRAY 50 MCG/SPRY 120 SPRAY/16 GM NASL SCH ×2 (09:47→21:32)
--- NOTE | 2018-09-12 15:26 | PDOC PROGRESS REPORT ---
Subjective Progress Note for:: 09/12/18 Subjective:: I seen patient sitting up at the bedside and enjoying her breakfast. She states that she is a little bit nauseous and has an episode of vomiting this morning. Otherwise her shortness of breath is gradually improving. Patient states that she is living by herself she does not have any family member alive and she does not have any social support and she is weak and she asks for placement at assisted living. construction ironworker consulted and has been working on it. Reason For Visit: ACUTE HYPOXEMIC RESPIRATORY FAILURE,ACUTE ON Physical Exam Vital Signs: Temp Pulse Resp BP Pulse Ox 97.7 F 90 16 138/59 H 98 09/12/18 11:55 09/12/18 14:00 09/12/18 11:55 09/12/18 11:55 09/12/18 11:55 Intake & Output 09/11/18 09/12/18 09/13/18 06:59 06:59 06:59 Intake Total 2373 2077 190 Output Total 3575 1000 700 Balance -1202 1077 -510 Weight 137.1 kg 133.9 kg General appearance: PRESENT: no acute distress, morbidly obese Head exam: PRESENT: atraumatic Mouth exam: PRESENT: moist Neck exam: ABSENT: carotid bruit, JVD, lymphadenopathy, thyromegaly Respiratory exam: PRESENT: decreased breath sounds Cardiovascular exam: PRESENT: RRR. ABSENT: diastolic murmur, rubs, systolic murmur Neurological exam: PRESENT: alert, altered, oriented to time, oriented to situation Results Laboratory Results: 09/10/18 05:15 09/11/18 05:00 09/09/18 09/09/18 09/09/18 11:45 11:45 11:45 Creatine Kinase 60 CK-MB (CK-2) 0.59 Troponin I < 0.012 NT-Pro-B Natriuret Pep 1240 H Impressions: Chest X-Ray 09/09/18 11:41 IMPRESSION: Marked cardiomegaly. Obstructive lung disease Assessment and Plan - Diagnosis (1) Acute kidney injury Is this a current diagnosis for this admission?: Yes Plan: Most probably due to volume contraction secondary to aggressive diuresis. I cut down her Lasix dose and discontinue metolazone. (2) Acute and chronic respiratory failure with hypoxia Is this a current diagnosis for this admission?: Yes Plan: Improving (3) Acute on chronic diastolic CHF (congestive heart failure), NYHA class 3 Is this a current diagnosis for this admission?: Yes Plan: Improving (4) COPD (chronic obstructive pulmonary disease) Is this a current diagnosis for this admission?: Yes Plan: We will put her on as needed bronchodilators. (5) Hypertension Qualifiers: Hypertension type: essential hypertension Qualified Code(s): I10 - Essential (primary) hypertension Is this a current diagnosis for this admission?: Yes Plan: Continue home medications. (6) Type 2 diabetes mellitus Is this a current diagnosis for this admission?: Yes Plan: We will continue her home medication and also will put her on sliding scale. (7) Hyperlipidemia Qualifiers: Hyperlipidemia type: unspecified Qualified Code(s): E78.5 - Hyperlipidemia, unspecified Is this a current diagnosis for this admission?: Yes Plan: Continue her home statin (8) Chronic a-fib Is this a current diagnosis for this admission?: Yes Plan: Her rate is controlled. I will continue her home medications including Xarelto. (9) Morbid obesity with BMI of 45.0-49.9, adult Is this a current diagnosis for this admission?: Yes Plan: Lifestyle modification advised (10) History of ovarian cancer Is this a current diagnosis for this admission?: Yes Plan: In remission. (11) Family and social support, lives alone Is this a current diagnosis for this admission?: Yes Plan: Patient requests assisted living placement
[2018-09-12] MEDS: TIZANIDINE HCL 4 MG TABLET PO PRN (16:04)
[2018-09-12] MEDS: RIVAROXABAN 15 MG TABLET PO SCH (21:32)
[2018-09-12] MEDS: ATORVASTATIN CALCIUM 20 MG TABLET PO SCH (21:32)
[2018-09-13] MEDS ORDERED: TIZANIDINE HCL 4 MG TABLET ONE (00:17)
[2018-09-13] MEDS: TIZANIDINE HCL 4 MG TABLET PO PRN ×3 (00:19→17:49)
[2018-09-13] MEDS: ONDANSETRON HCL INJ/PF 4 MG/2 ML SDV IV PRN ×3 (00:19→17:49)
[2018-09-13 04:22] LABS: ANION GAP 9 (5-19); BLOOD UREA NITROGEN 45 mg/dL (7-20); CALCIUM 9.4 mg/dL (8.4-10.2); CARBON DIOXIDE 34 mmol/L (22-30); CHLORIDE 93 mmol/L (98-107); GLUCOSE 128 mg/dL (75-110); SODIUM 136.1 mmol/L (137-145)
[2018-09-13] MEDS: DOCUSATE SODIUM 100 MG CAPSULE PO SCH ×2 (09:39→17:49)
[2018-09-13] MEDS: FAMOTIDINE 20 MG TABLET PO SCH ×2 (09:40→21:35)
[2018-09-13] MEDS: LISINOPRIL 10 MG TABLET PO SCH (09:40)
[2018-09-13] MEDS: METOPROLOL SUCCINATE 50 MG TAB.SR.24H PO SCH ×2 (09:40→21:40)
[2018-09-13] MEDS: FLUTICASONE NASAL SPRAY 50 MCG/SPRY 120 SPRAY/16 GM NASL SCH ×2 (09:40→21:35)
[2018-09-13] MEDS: METFORMIN HCL 500 MG TABLET PO SCH ×2 (09:40→17:49)
[2018-09-13] MEDS: AMOXICILLIN TRIHYDRATE 500 MG CAPSULE PO SCH ×2 (09:40→21:35)
[2018-09-13] MEDS ORDERED: FUROSEMIDE INJ/PF 40 MG/4 ML SDV IV SCH (10:00)
[2018-09-13] MEDS ORDERED: NORMAL SALINE 500 ML IV ONE (10:00)
[2018-09-13] MEDS: FUROSEMIDE INJ/PF 20 MG/2 ML SDV IV SCH (10:35)
[2018-09-13] MEDS: NORMAL SALINE 1000 ML 1,000 ML IV PRN ×2 (10:35→17:49)
--- NOTE | 2018-09-13 14:34 | PDOC PROGRESS REPORT ---
Subjective Progress Note for:: 09/13/18 Subjective:: Patient seen while she is sitting on recliner. She is awake alert oriented she is not in pain or distress. She complains of nausea vomiting and an episode of watery diarrhea. She told me this happens once in a while when she is restarted on metformin. We requested a stool for C. difficile colitis. Her kidney function also declined that her creatinine increased from 1.22 to 1.89. I reduced her Lasix and I bolused it was 500 mL of normal saline and I would staci ntain her at 75 mL/h. Reason For Visit: ACUTE HYPOXEMIC RESPIRATORY FAILURE,ACUTE ON Physical Exam Vital Signs: Temp Pulse Resp BP Pulse Ox 98.1 F 77 17 127/99 H 97 09/13/18 11:11 09/13/18 11:11 09/13/18 11:11 09/13/18 11:11 09/13/18 11:11 Intake & Output 09/12/18 09/13/18 09/14/18 06:59 06:59 06:59 Intake Total 2077 550 722 Output Total 1000 1650 800 Balance 1077 -1100 -78 Weight 133.9 kg 134.1 kg General appearance: PRESENT: no acute distress Head exam: PRESENT: atraumatic Mouth exam: PRESENT: moist Neck exam: ABSENT: carotid bruit, JVD, lymphadenopathy, thyromegaly Respiratory exam: PRESENT: clear to auscultation kisha. ABSENT: rales, rhonchi, wheezes Cardiovascular exam: PRESENT: RRR. ABSENT: diastolic murmur, rubs, systolic murmur GI/Abdominal exam: PRESENT: normal bowel sounds, soft. ABSENT: distended, guarding, mass, organolmegaly, rebound, tenderness Neurological exam: PRESENT: alert, awake, oriented to person, oriented to place, oriented to time, oriented to situation Psychiatric exam: PRESENT: normal mood Results Laboratory Results: 09/10/18 05:15 09/13/18 03:35 09/13/18 03:35 Sodium 136.1 L Potassium 4.0 Chloride 93 L Carbon Dioxide 34 H Anion Gap 9 BUN 45 H Creatinine 1.89 H Est GFR ( Amer) 32 L Est GFR (Non-Af Amer) 26 L Glucose 128 H Calcium 9.4 09/09/18 09/09/18 09/09/18 11:45 11:45 11:45 Creatine Kinase 60 CK-MB (CK-2) 0.59 Troponin I < 0.012 NT-Pro-B Natriuret Pep 1240 H Impressions: Chest X-Ray 09/09/18 11:41 IMPRESSION: Marked cardiomegaly. Obstructive lung disease Assessment and Plan - Diagnosis (1) Acute kidney injury Is this a current diagnosis for this admission?: Yes Plan: Worsening. She is bolused with 500 mg normal saline and maintain at 75 mL/h. We will check her BMP in a.m. (2) Acute and chronic respiratory failure with hypoxia Is this a current diagnosis for this admission?: Yes Plan: Improving (3) Acute on chronic diastolic CHF (congestive heart failure), NYHA class 3 Is this a current diagnosis for this admission?: Yes Plan: Improving (4) COPD (chronic obstructive pulmonary disease) Is this a current diagnosis for this admission?: Yes Plan: We will put her on as needed bronchodilators. (5) Hypertension Qualifiers: Hypertension type: essential hypertension Qualified Code(s): I10 - Essential (primary) hypertension Is this a current diagnosis for this admission?: Yes Plan: Continue home medications. (6) Type 2 diabetes mellitus Is this a current diagnosis for this admission?: Yes Plan: We will continue her home medication and also will put her on sliding scale. (7) Hyperlipidemia Qualifiers: Hyperlipidemia type: unspecified Qualified Code(s): E78.5 - Hyperlipidemia, unspecified Is this a current diagnosis for this admission?: Yes Plan: Continue her home statin (8) Chronic a-fib Is this a current diagnosis for this admission?: Yes Plan: Her rate is controlled. I will continue her home medications including Xarelto. (9) Morbid obesity with BMI of 45.0-49.9, adult Is this a current diagnosis for this admission?: Yes Plan: Lifestyle modification advised (10) History of ovarian cancer Is this a current diagnosis for this admission?: Yes Plan: In remission. (11) Family and social support, lives alone Is this a current diagnosis for this admission?: Yes Plan: Patient requests assisted living placement
[2018-09-13] MEDS: RIVAROXABAN 15 MG TABLET PO SCH (21:35)
[2018-09-13] MEDS: ATORVASTATIN CALCIUM 20 MG TABLET PO SCH (21:35)
[2018-09-14] MEDS: ACETAMINOPHEN 325 MG TABLET PO PRN (01:40)
[2018-09-14] MEDS: TIZANIDINE HCL 4 MG TABLET PO PRN ×3 (01:41→21:20)
[2018-09-14] MEDS: ONDANSETRON HCL INJ/PF 4 MG/2 ML SDV IV PRN ×3 (01:41→21:28)
[2018-09-14] MEDS: NORMAL SALINE 1000 ML 1,000 ML IV PRN (06:31)
[2018-09-14] MEDS: METFORMIN HCL 500 MG TABLET PO SCH ×2 (09:16→17:05)
[2018-09-14] MEDS: FUROSEMIDE INJ/PF 20 MG/2 ML SDV IV SCH (09:16)
[2018-09-14] MEDS: METOPROLOL SUCCINATE 50 MG TAB.SR.24H PO SCH ×2 (09:16→21:20)
[2018-09-14] MEDS: FAMOTIDINE 20 MG TABLET PO SCH ×2 (09:16→21:20)
[2018-09-14] MEDS: LISINOPRIL 10 MG TABLET PO SCH (09:16)
[2018-09-14] MEDS: DOCUSATE SODIUM 100 MG CAPSULE PO SCH ×2 (09:17→17:04)
[2018-09-14] MEDS: FLUTICASONE NASAL SPRAY 50 MCG/SPRY 120 SPRAY/16 GM NASL SCH ×2 (09:17→21:20)
[2018-09-14] MEDS: AMOXICILLIN TRIHYDRATE 500 MG CAPSULE PO SCH ×2 (09:17→21:20)
[2018-09-14 09:35] LABS: ANION GAP 5 (5-19); BLOOD UREA NITROGEN 27 mg/dL (7-20); CALCIUM 9.7 mg/dL (8.4-10.2); CARBON DIOXIDE 35 mmol/L (22-30); CHLORIDE 99 mmol/L (98-107); GLUCOSE 135 mg/dL (75-110); POTASSIUM 4.4 mmol/L (3.6-5.0)
[2018-09-14] MEDS ORDERED: FUROSEMIDE INJ/PF 20 MG/2 ML SDV IV ONE (10:30)
--- NOTE | 2018-09-14 14:03 | PDOC PROGRESS REPORT ---
Subjective Progress Note for:: 09/14/18 Subjective:: Patient seen while she is resting in bed comfortably. She is awake alert oriented. Her nausea vomiting and diarrhea is subsiding. Her kidney function also normalized and now her creatinine is 0.89 with GFR of greater than 60. Reason For Visit: ACUTE HYPOXEMIC RESPIRATORY FAILURE,ACUTE ON Physical Exam Vital Signs: Temp Pulse Resp BP Pulse Ox 98.2 F 83 17 122/78 97 09/14/18 12:08 09/14/18 12:08 09/14/18 12:08 09/14/18 12:08 09/14/18 12:08 Intake & Output 09/13/18 09/14/18 09/15/18 06:59 06:59 06:59 Intake Total 550 2512 528 Output Total 1650 2200 1800 Balance -1100 312 -1272 Weight 134.1 kg 135.9 kg General appearance: PRESENT: no acute distress Eye exam: PRESENT: conjunctiva pink Mouth exam: PRESENT: moist Neck exam: ABSENT: carotid bruit, JVD, lymphadenopathy, thyromegaly Respiratory exam: PRESENT: clear to auscultation kisha. ABSENT: rales, rhonchi, wheezes Cardiovascular exam: PRESENT: RRR. ABSENT: diastolic murmur, rubs, systolic murmur Neurological exam: PRESENT: alert, awake, oriented to time, oriented to situation Results Laboratory Results: 09/10/18 05:15 09/14/18 08:55 09/14/18 08:55 Sodium 139.0 Potassium 4.4 Chloride 99 Carbon Dioxide 35 H Anion Gap 5 BUN 27 H Creatinine 0.89 Est GFR ( Amer) > 60 Est GFR (Non-Af Amer) > 60 Glucose 135 H Calcium 9.7 09/09/18 09/09/18 09/09/18 11:45 11:45 11:45 Creatine Kinase 60 CK-MB (CK-2) 0.59 Troponin I < 0.012 NT-Pro-B Natriuret Pep 1240 H Impressions: Chest X-Ray 09/09/18 11:41 IMPRESSION: Marked cardiomegaly. Obstructive lung disease Assessment and Plan - Diagnosis (1) Acute kidney injury Is this a current diagnosis for this admission?: Yes Plan: Resolved (2) Acute and chronic respiratory failure with hypoxia Is this a current diagnosis for this admission?: Yes Plan: Has been improving. (3) Acute on chronic diastolic CHF (congestive heart failure), NYHA class 3 Is this a current diagnosis for this admission?: Yes Plan: Improving (4) COPD (chronic obstructive pulmonary disease) Is this a current diagnosis for this admission?: Yes Plan: We will put her on as needed bronchodilators. (5) Hypertension Qualifiers: Hypertension type: essential hypertension Qualified Code(s): I10 - Essential (primary) hypertension Is this a current diagnosis for this admission?: Yes Plan: Continue home medications. (6) Type 2 diabetes mellitus Is this a current diagnosis for this admission?: Yes Plan: We will continue her home medication and also will put her on sliding scale. (7) Hyperlipidemia Qualifiers: Hyperlipidemia type: unspecified Qualified Code(s): E78.5 - Hyperlipidemia, unspecified Is this a current diagnosis for this admission?: Yes Plan: Continue her home statin (8) Chronic a-fib Is this a current diagnosis for this admission?: Yes Plan: Her rate is controlled. I will continue her home medications including Xarelto. (9) Morbid obesity with BMI of 45.0-49.9, adult Is this a current diagnosis for this admission?: Yes Plan: Lifestyle modification advised (10) History of ovarian cancer Is this a current diagnosis for this admission?: Yes Plan: In remission. (11) Family and social support, lives alone Is this a current diagnosis for this admission?: Yes Plan: Patient requests assisted living placement
[2018-09-14] MEDS ORDERED: DIPHENOXYLATE HCL/ATROP SULF 2.5-0.025 MG TABLET PO PRN ×2 (16:29→16:35)
[2018-09-14] MEDS ORDERED: DIPHENOXYLATE HCL/ATROP SULF 2.5-0.025 MG TABLET PO ONE ×2 (16:45)
[2018-09-14] MEDS: NYSTATIN TOPICAL POWDER 15 GM TP SCH (17:03)
[2018-09-14] MEDS ORDERED: NYSTATIN TOPICAL POWDER 15 GM TP SCH (18:00)
[2018-09-14] MEDS: ATORVASTATIN CALCIUM 20 MG TABLET PO SCH (21:20)
[2018-09-14] MEDS: RIVAROXABAN 15 MG TABLET PO SCH (21:20)
[2018-09-15] MEDS: METFORMIN HCL 500 MG TABLET PO SCH ×2 (07:23→16:23)
[2018-09-15] MEDS: ONDANSETRON HCL INJ/PF 4 MG/2 ML SDV IV PRN ×2 (07:23→16:28)
[2018-09-15] MEDS: TIZANIDINE HCL 4 MG TABLET PO PRN ×2 (07:23→16:28)
[2018-09-15] MEDS ORDERED: FUROSEMIDE INJ/PF 40 MG/4 ML SDV IV SCH (10:00)
[2018-09-15] MEDS: ACETAMINOPHEN 325 MG TABLET PO PRN ×2 (10:06→23:04)
[2018-09-15] MEDS: DOCUSATE SODIUM 100 MG CAPSULE PO SCH ×2 (10:07→18:35)
[2018-09-15] MEDS: AMOXICILLIN TRIHYDRATE 500 MG CAPSULE PO SCH ×3 (10:07→23:04)
[2018-09-15] MEDS: FAMOTIDINE 20 MG TABLET PO SCH ×2 (10:07→23:04)
[2018-09-15] MEDS: LISINOPRIL 10 MG TABLET PO SCH (10:07)
[2018-09-15] MEDS: FLUTICASONE NASAL SPRAY 50 MCG/SPRY 120 SPRAY/16 GM NASL SCH ×2 (10:07→23:01)
[2018-09-15] MEDS: METOPROLOL SUCCINATE 50 MG TAB.SR.24H PO SCH ×2 (10:07→23:06)
[2018-09-15] MEDS: NYSTATIN TOPICAL POWDER 15 GM TP SCH ×2 (10:14→18:50)
--- NOTE | 2018-09-15 14:13 | PDOC PROGRESS REPORT ---
Subjective Progress Note for:: 09/15/18 Subjective:: VESTA JIMENEZ is a very pleasant 68 year old female patient with past medical history of chronic atrial fibrillation on Xarelto for anticoagulation, hypertension, COPD, CHF, morbid obesity, type 2 diabetes mellitus and history of ovarian cancer presents with chief complaint of shortness of breath. She is being managed for acute on chronic heart failure exacerbation with Lasix and cardioprotective medications. This morning patient reports she has mild improvement in her breathing and her bilateral leg swelling is decreasing. Currently patient complains of sinus pressure and she reports that she has chronic sinusitis with postnasal drip. I empirically started her on Augmentin 500 mg 3 times a day. Since patient has been diuresed aggressively she develop volume contraction and acute kidney injury with creatinine of 1.89. I cut down her Lasix dose and I discontinue metolazone and also hydrate her cautiously with normal saline at a rate of 75 mils per hour. Her kidney function improved and her creatinine normalized. Since patient lives by herself and does not have any family or social support, she requested placement to assisted living. The social services aide has been working on it. Otherwise her shortness of breath subsided. Reason For Visit: ACUTE HYPOXEMIC RESPIRATORY FAILURE,ACUTE ON Physical Exam Vital Signs: Temp Pulse Resp BP Pulse Ox 97.8 F 75 18 123/65 98 09/15/18 10:50 09/15/18 10:50 09/15/18 10:50 09/15/18 10:50 09/15/18 10:50 Intake & Output 09/14/18 09/15/18 09/16/18 06:59 06:59 06:59 Intake Total 2512 1301 880 Output Total 2200 2600 Balance 312 -1299 880 Weight 135.9 kg 134.6 kg General appearance: PRESENT: no acute distress Head exam: PRESENT: atraumatic Mouth exam: PRESENT: moist Respiratory exam: PRESENT: decreased breath sounds Cardiovascular exam: PRESENT: RRR. ABSENT: diastolic murmur, rubs, systolic murmur Neurological exam: PRESENT: alert, awake, oriented to time, oriented to situation Results Laboratory Results: 09/10/18 05:15 09/14/18 08:55 09/09/18 09/09/18 09/09/18 11:45 11:45 11:45 Creatine Kinase 60 CK-MB (CK-2) 0.59 Troponin I < 0.012 NT-Pro-B Natriuret Pep 1240 H Impressions: Chest X-Ray 09/09/18 11:41 IMPRESSION: Marked cardiomegaly. Obstructive lung disease Assessment and Plan - Diagnosis (1) Acute kidney injury Is this a current diagnosis for this admission?: Yes Plan: Resolved (2) Acute and chronic respiratory failure with hypoxia Is this a current diagnosis for this admission?: Yes Plan: Has been improving. (3) Acute on chronic diastolic CHF (congestive heart failure), NYHA class 3 Is this a current diagnosis for this admission?: Yes Plan: Improving (4) COPD (chronic obstructive pulmonary disease) Is this a current diagnosis for this admission?: Yes Plan: We will put her on as needed bronchodilators. (5) Hypertension Qualifiers: Hypertension type: essential hypertension Qualified Code(s): I10 - Essential (primary) hypertension Is this a current diagnosis for this admission?: Yes Plan: Continue home medications. (6) Type 2 diabetes mellitus Is this a current diagnosis for this admission?: Yes Plan: We will continue her home medication and also will put her on sliding scale. (7) Hyperlipidemia Qualifiers: Hyperlipidemia type: unspecified Qualified Code(s): E78.5 - Hyperlipidemia, unspecified Is this a current diagnosis for this admission?: Yes Plan: Continue her home statin (8) Chronic a-fib Is this a current diagnosis for this admission?: Yes Plan: Her rate is controlled. I will continue her home medications including Xarelto. (9) Morbid obesity with BMI of 45.0-49.9, adult Is this a current diagnosis for this admission?: Yes Plan: Lifestyle modification advised (10) History of ovarian cancer Is this a current diagnosis for this admission?: Yes Plan: In remission. (11) Family and social support, lives alone Is this a current diagnosis for this admission?: Yes
[2018-09-15] MEDS: FUROSEMIDE 40 MG TABLET PO SCH ×2 (15:34→23:08)
[2018-09-15] MEDS: ATORVASTATIN CALCIUM 20 MG TABLET PO SCH (23:06)
[2018-09-15] MEDS: RIVAROXABAN 15 MG TABLET PO SCH (23:06)
[2018-09-16] MEDS: ONDANSETRON HCL INJ/PF 4 MG/2 ML SDV IV PRN ×3 (00:04→17:15)
[2018-09-16] MEDS: TIZANIDINE HCL 4 MG TABLET PO PRN ×3 (00:05→17:15)
[2018-09-16] MEDS: AMOXICILLIN TRIHYDRATE 500 MG CAPSULE PO SCH ×3 (05:59→23:25)
[2018-09-16] MEDS: METFORMIN HCL 500 MG TABLET PO SCH ×2 (07:59→15:16)
[2018-09-16] MEDS ORDERED: FUROSEMIDE 40 MG TABLET PO SCH (10:00)
[2018-09-16] MEDS: FLUTICASONE NASAL SPRAY 50 MCG/SPRY 120 SPRAY/16 GM NASL SCH ×2 (10:17→23:25)
[2018-09-16] MEDS: DOCUSATE SODIUM 100 MG CAPSULE PO SCH ×2 (10:17→17:16)
[2018-09-16] MEDS: FUROSEMIDE 40 MG TABLET PO SCH ×2 (10:18→23:24)
[2018-09-16] MEDS: METOPROLOL SUCCINATE 50 MG TAB.SR.24H PO SCH ×2 (10:18→23:24)
[2018-09-16] MEDS: ACETAMINOPHEN 325 MG TABLET PO PRN ×2 (10:18→15:16)
[2018-09-16] MEDS: NYSTATIN TOPICAL POWDER 15 GM TP SCH ×2 (10:19→17:16)
[2018-09-16] MEDS: LISINOPRIL 10 MG TABLET PO SCH (10:19)
[2018-09-16] MEDS: FAMOTIDINE 20 MG TABLET PO SCH ×2 (10:19→23:25)
--- NOTE | 2018-09-16 15:21 | PDOC PROGRESS REPORT ---
Subjective Progress Note for:: 09/16/18 Subjective:: VESTA JIMENEZ is a 68 year old female patient with past medical history of chronic atrial fibrillation on Xarelto, hypertension, COPD, CHF, morbid obesity, type 2 diabetes mellitus and history of ovarian cancer presents with chief complaint of shortness of breath. She is being managed for acute on chronic heart failure exacerbation with Lasix and cardioprotective medications. Since patient lives by herself and does not have any family or social support, she requested placement to assisted living. The soap worker has been working on it. 09/16/2018. No acute events overnight. Complaining of not being able to sleep due to her chronic lower back pain. She is p.o. tolerant, ambulatory, having normal bowel and bladder movements. Denies any shortness of breath, chills,chest pain nausea, vomiting, diarrhea or any urinary symptoms. Reason For Visit: ACUTE HYPOXEMIC RESPIRATORY FAILURE,ACUTE ON Physical Exam Vital Signs: Temp Pulse Resp BP Pulse Ox 97.6 F 78 18 100/53 L 100 09/16/18 11:36 09/16/18 14:00 09/16/18 11:36 09/16/18 11:36 09/16/18 11:36 Intake & Output 09/15/18 09/16/18 09/17/18 06:59 06:59 06:59 Intake Total 1301 1440 Output Total 2600 800 350 Balance -1299 640 -350 Weight 134.6 kg 135.3 kg General appearance: PRESENT: morbidly obese Eye exam: PRESENT: conjunctiva pink, EOMI, PERRLA. ABSENT: scleral icterus Neck exam: ABSENT: carotid bruit, JVD, lymphadenopathy, thyromegaly Respiratory exam: PRESENT: clear to auscultation kisha. ABSENT: rales, rhonchi, wheezes Cardiovascular exam: PRESENT: RRR. ABSENT: diastolic murmur, rubs, systolic murmur GI/Abdominal exam: PRESENT: normal bowel sounds, soft. ABSENT: distended, guarding, mass, organolmegaly, rebound, tenderness Musculoskeletal exam: PRESENT: normal inspection, tenderness - Bilateral lumbar paraspinal tenderness Neurological exam: PRESENT: alert, awake, oriented to person, oriented to place, oriented to time, oriented to situation, CN II-XII grossly intact. ABSENT: motor sensory deficit Results Laboratory Results: 09/10/18 05:15 09/14/18 08:55 09/09/18 09/09/18 09/09/18 11:45 11:45 11:45 Creatine Kinase 60 CK-MB (CK-2) 0.59 Troponin I < 0.012 NT-Pro-B Natriuret Pep 1240 H Impressions: Chest X-Ray 09/09/18 11:41 IMPRESSION: Marked cardiomegaly. Obstructive lung disease Assessment and Plan - Diagnosis (1) Acute on chronic diastolic CHF (congestive heart failure), NYHA class 3 Is this a current diagnosis for this admission?: Yes Plan: Continue statin, lisinopril, metoprolol, Lasix, continue cardiac diet continue volume restriction. 10/01/2017. 2D echo suboptimal due to body habitus. Normal left ventricular ejection fraction. BNP 1240 on admission. (2) COPD (chronic obstructive pulmonary disease) Is this a current diagnosis for this admission?: Yes Plan: Continue DuoNeb, supplemental oxygen, as needed BiPAP. (3) Acute kidney injury Is this a current diagnosis for this admission?: Yes Plan: Likely due to aggressive diuresis.. BMP tomorrow. Monitor volume status. Monitor electrolytes. (4) Chronic a-fib Is this a current diagnosis for this admission?: Yes Plan: Rate and rhythm controlled. Continue beta-blockers. Continue Xarelto. (5) Family and social support, lives alone Is this a current diagnosis for this admission?: Yes Plan: Patient has requested to be placed at the assisted living. Pending placement. (6) Hyperlipidemia Qualifiers: Hyperlipidemia type: unspecified Qualified Code(s): E78.5 - Hyperlipidemia, unspecified Is this a current diagnosis for this admission?: Yes Plan: Diet and lifestyle modification. Continue statins. (7) History of ovarian cancer Is this a current diagnosis for this admission?: Yes Plan: In remission. Outpatient oncology follow-up. (8) Hypertension Qualifiers: Hypertension type: essential hypertension Qualified Code(s): I10 - Essential (primary) hypertension Is this a current diagnosis for this admission?: Yes Plan: Normotensive. Continue current medications. Adjust dosage as needed. Outpatient PCP follow-up. (9) Morbid obesity with BMI of 45.0-49.9, adult Is this a current diagnosis for this admission?: Yes Plan: Lifestyle modification advised (10) Type 2 diabetes mellitus Is this a current diagnosis for this admission?: Yes Plan: Diabetic diet, sliding scale insulin, pre-meal insulin, long-acting insulin. Adjust dose as needed. Outpatient PCP follow-up.
[2018-09-16] MEDS: ASPIRIN 81 MG TABLET, CHEWABLE PO SCH (15:40)
[2018-09-16] MEDS: CYCLOBENZAPRINE HCL 10 MG TABLET PO SCH ×2 (15:40→23:25)
[2018-09-16] MEDS: ATORVASTATIN CALCIUM 20 MG TABLET PO SCH (23:25)
[2018-09-16] MEDS: RIVAROXABAN 15 MG TABLET PO SCH (23:25)
[2018-09-17] MEDS: ONDANSETRON HCL INJ/PF 4 MG/2 ML SDV IV PRN ×2 (01:15→10:23)
[2018-09-17] MEDS: TIZANIDINE HCL 4 MG TABLET PO PRN ×2 (01:18→10:23)
[2018-09-17] MEDS: AMOXICILLIN TRIHYDRATE 500 MG CAPSULE PO SCH ×2 (06:15→13:38)
[2018-09-17] MEDS: CYCLOBENZAPRINE HCL 10 MG TABLET PO SCH ×3 (06:15→22:09)
[2018-09-17] MEDS: FUROSEMIDE 40 MG TABLET PO SCH ×2 (10:21→22:08)
[2018-09-17] MEDS: ACETAMINOPHEN 325 MG TABLET PO PRN (10:21)
[2018-09-17] MEDS: METFORMIN HCL 500 MG TABLET PO SCH ×2 (10:22→17:40)
[2018-09-17] MEDS: FAMOTIDINE 20 MG TABLET PO SCH ×2 (10:22→22:09)
[2018-09-17] MEDS: ASPIRIN 81 MG TABLET, CHEWABLE PO SCH (10:22)
[2018-09-17] MEDS: LISINOPRIL 10 MG TABLET PO SCH (10:22)
[2018-09-17] MEDS: METOPROLOL SUCCINATE 50 MG TAB.SR.24H PO SCH ×2 (10:22→22:09)
[2018-09-17] MEDS: DOCUSATE SODIUM 100 MG CAPSULE PO SCH ×2 (10:22→17:41)
[2018-09-17] MEDS: FLUTICASONE NASAL SPRAY 50 MCG/SPRY 120 SPRAY/16 GM NASL SCH ×2 (10:23→22:09)
[2018-09-17] MEDS: NYSTATIN TOPICAL POWDER 15 GM TP SCH ×2 (10:24→17:41)
[2018-09-17] MEDS ORDERED: TUBERCULIN,PURIF.PROT.DERIV. 5 TU/0.1 ML TEST 1 ML VIAL ID ONE ×2 (12:30→14:00)
[2018-09-17] MEDS ORDERED: DEXTROSE 40% GEL 15 GM TUBE PO PRN ×2 (14:48)
[2018-09-17] MEDS ORDERED: GLUCAGON,HUMAN RECOMB 1 MG INJ IM PRN (14:48)
[2018-09-17] MEDS ORDERED: DEXTROSE 50%-WATER 25 GM/50 ML DISP.SYRIN IV PRN ×2 (14:48)
--- NOTE | 2018-09-17 14:49 | PDOC PROGRESS REPORT ---
Subjective Progress Note for:: 09/17/18 Subjective:: VESTA JIMENEZ is a 68 year old female patient with past medical history of chronic atrial fibrillation on Xarelto, hypertension, COPD, CHF, morbid obesity, type 2 diabetes mellitus and history of ovarian cancer presents with chief complaint of shortness of breath. She is being managed for acute on chronic heart failure exacerbation with Lasix and cardioprotective medications. Since patient lives by herself and does not have any family or social support, she requested placement to assisted living. The licensed clinical social worker has been working on it. 09/16/2018. No acute events overnight. Complaining of not being able to sleep due to her chronic lower back pain. She is p.o. tolerant, ambulatory, having normal bowel and bladder movements. Denies any shortness of breath, chills,chest pain nausea, vomiting, diarrhea or any urinary symptoms. 09/17/2018. No acute events overnight. Patient was able to get a good night sleep since being started on cyclobenzaprine. Neck pain and spasm has improved since yesterday. She is p.o. tolerant, ambulatory, having normal bowel and bladder. Denies any shortness of breath, chills, nausea, vomiting, diarrhea, constipation or any urinary symptoms. Waiting for placement. Reason For Visit: ACUTE HYPOXEMIC RESPIRATORY FAILURE,ACUTE ON Physical Exam Vital Signs: Temp Pulse Resp BP Pulse Ox 97.2 F 69 16 108/61 100 09/17/18 11:02 09/17/18 11:02 09/17/18 11:02 09/17/18 11:02 09/17/18 11:02 Intake & Output 09/16/18 09/17/18 09/18/18 06:59 06:59 06:59 Intake Total 1440 885 265 Output Total 800 1600 300 Balance 640 -715 -35 Weight 135.3 kg 136.4 kg General appearance: PRESENT: morbidly obese Head exam: PRESENT: atraumatic, normocephalic Respiratory exam: PRESENT: clear to auscultation kisha. ABSENT: rales, rhonchi, wheezes Cardiovascular exam: PRESENT: RRR. ABSENT: diastolic murmur, rubs, systolic murmur GI/Abdominal exam: PRESENT: normal bowel sounds, soft. ABSENT: distended, guarding, mass, organolmegaly, rebound, tenderness Extremities exam: PRESENT: full ROM. ABSENT: calf tenderness, clubbing, pedal edema Neurological exam: PRESENT: alert, awake, oriented to person, oriented to place, oriented to time, oriented to situation, CN II-XII grossly intact. ABSENT: motor sensory deficit Results Laboratory Results: 09/10/18 05:15 09/14/18 08:55 09/09/18 09/09/18 09/09/18 11:45 11:45 11:45 Creatine Kinase 60 CK-MB (CK-2) 0.59 Troponin I < 0.012 NT-Pro-B Natriuret Pep 1240 H Impressions: Chest X-Ray 09/09/18 11:41 IMPRESSION: Marked cardiomegaly. Obstructive lung disease Assessment and Plan - Diagnosis (1) Acute on chronic diastolic CHF (congestive heart failure), NYHA class 3 Is this a current diagnosis for this admission?: Yes Plan: Continue statin, lisinopril, metoprolol, Lasix, continue cardiac diet continue volume restriction. 10/01/2017. 2D echo suboptimal due to body habitus. Normal left ventricular ejection fraction. BNP 1240 on admission. (2) COPD (chronic obstructive pulmonary disease) Is this a current diagnosis for this admission?: Yes Plan: Continue DuoNeb, supplemental oxygen, as needed BiPAP. (3) Acute kidney injury Is this a current diagnosis for this admission?: Yes Plan: Likely due to aggressive diuresis. Resolved. Electrolytes within normal limits. BMP tomorrow. Monitor volume status. Monitor electrolytes. (4) Chronic a-fib Is this a current diagnosis for this admission?: Yes Plan: Rate and rhythm controlled. Continue beta-blockers. Continue Xarelto. (5) Family and social support, lives alone Is this a current diagnosis for this admission?: Yes Plan: Patient has requested to be placed at the assisted living. Pending placement. (6) Hyperlipidemia Qualifiers: Hyperlipidemia type: unspecified Qualified Code(s): E78.5 - Hyperlipidemia, unspecified Is this a current diagnosis for this admission?: Yes Plan: Diet and lifestyle modification. Continue statins. (7) History of ovarian cancer Is this a current diagnosis for this admission?: Yes Plan: In remission. Outpatient oncology follow-up. (8) Hypertension Qualifiers: Hypertension type: essential hypertension Qualified Code(s): I10 - Essential (primary) hypertension Is this a current diagnosis for this admission?: Yes Plan: Normotensive. Continue current medications. Adjust dosage as needed. Outpatient PCP follow-up. (9) Morbid obesity with BMI of 45.0-49.9, adult Is this a current diagnosis for this admission?: Yes Plan: Lifestyle modification advised (10) Type 2 diabetes mellitus Is this a current diagnosis for this admission?: Yes Plan: Diabetic diet, Accu-Chek, sliding scale insulin, metformin. Adjust dose as needed. Outpatient PCP follow-up.
[2018-09-17] MEDS: INSULIN LISPRO 100 UNIT/ML 3 ML VIAL SUBCUT SCH ×2 (18:59→22:00)
[2018-09-17] MEDS: RIVAROXABAN 15 MG TABLET PO SCH (22:09)
[2018-09-17] MEDS: ATORVASTATIN CALCIUM 20 MG TABLET PO SCH (22:09)
[2018-09-18] MEDS: CYCLOBENZAPRINE HCL 10 MG TABLET PO SCH ×3 (06:17→21:19)
[2018-09-18] MEDS: ONDANSETRON HCL INJ/PF 4 MG/2 ML SDV IV PRN ×3 (06:20→22:48)
[2018-09-18 06:41] LABS: ALANINE AMINOTRANSFERASE 24 U/L (9-52); ALBUMIN 4.2 g/dL (3.5-5.0); ALKALINE PHOSPHATASE 67 U/L (38-126); ANION GAP 11 (5-19); ASPARTATE AMINO TRANSFERASE 25 U/L (14-36); BILIRUBIN,DIRECT 0.3 mg/dL (0.0-0.4); BILIRUBIN,TOTAL 0.6 mg/dL (0.2-1.3); BLOOD UREA NITROGEN 29 mg/dL (7-20); CALCIUM 9.7 mg/dL (8.4-10.2); CARBON DIOXIDE 36 mmol/L (22-30); CHLORIDE 93 mmol/L (98-107); GLUCOSE 109 mg/dL (75-110); POTASSIUM 4.4 mmol/L (3.6-5.0); SODIUM 140.4 mmol/L (137-145); TOTAL PROTEIN 7.7 g/dL (6.3-8.2)
[2018-09-18] MEDS: INSULIN LISPRO 100 UNIT/ML 3 ML VIAL SUBCUT SCH ×2 (08:22→12:08)
[2018-09-18] MEDS: METFORMIN HCL 500 MG TABLET PO SCH ×2 (09:16→17:22)
[2018-09-18] MEDS: ASPIRIN 81 MG TABLET, CHEWABLE PO SCH (09:16)
[2018-09-18] MEDS: LISINOPRIL 10 MG TABLET PO SCH (09:17)
[2018-09-18] MEDS: METOPROLOL SUCCINATE 50 MG TAB.SR.24H PO SCH ×2 (09:17→21:19)
[2018-09-18] MEDS: FLUTICASONE NASAL SPRAY 50 MCG/SPRY 120 SPRAY/16 GM NASL SCH ×2 (09:17→21:19)
[2018-09-18] MEDS: NYSTATIN TOPICAL POWDER 15 GM TP SCH ×2 (09:17→17:22)
[2018-09-18] MEDS: FUROSEMIDE 40 MG TABLET PO SCH ×2 (09:17→21:19)
[2018-09-18] MEDS: DOCUSATE SODIUM 100 MG CAPSULE PO SCH ×2 (09:17→17:20)
[2018-09-18] MEDS: FAMOTIDINE 20 MG TABLET PO SCH ×2 (09:17→21:19)
--- NOTE | 2018-09-18 13:27 | PDOC PROGRESS REPORT ---
Subjective Progress Note for:: 09/18/18 Subjective:: VESTA JIMENEZ is a 68 year old female patient with past medical history of chronic atrial fibrillation on Xarelto, hypertension, COPD, CHF, morbid obesity, type 2 diabetes mellitus and history of ovarian cancer presents with chief complaint of shortness of breath. She is being managed for acute on chronic heart failure exacerbation with Lasix and cardioprotective medications. Since patient lives by herself and does not have any family or social support, she requested placement to assisted living. The social group worker has been working on it. 09/16/2018. No acute events overnight. Complaining of not being able to sleep due to her chronic lower back pain. She is p.o. tolerant, ambulatory, having normal bowel and bladder movements. Denies any shortness of breath, chills,chest pain nausea, vomiting, diarrhea or any urinary symptoms. 09/17/2018. No acute events overnight. Patient was able to get a good night sleep since being started on cyclobenzaprine. Neck pain and spasm has improved since yesterday. She is p.o. tolerant, ambulatory, having normal bowel and bladder. Denies any shortness of breath, chills, nausea, vomiting, diarrhea, constipation or any urinary symptoms. Waiting for placement. 09/18/2018. No acute events overnight. Patient was able to get a good night sleep since being started on cyclobenzaprine. Neck pain and spasm has improved since yesterday. She is p.o. tolerant, ambulatory, having normal bowel and blad opal. Denies any shortness of breath, chills, nausea, vomiting, diarrhea, constipation or any urinary symptoms. Waiting for placement. Reason For Visit: ACUTE HYPOXEMIC RESPIRATORY FAILURE,ACUTE ON Physical Exam Vital Signs: Temp Pulse Resp BP Pulse Ox 98.2 F 82 16 115/68 98 09/18/18 11:44 09/18/18 13:12 09/18/18 13:12 09/18/18 11:44 09/18/18 13:12 Intake & Output 09/17/18 09/18/18 09/19/18 06:59 06:59 06:59 Intake Total 885 765 Output Total 1600 2200 Balance -715 -1435 Weight 136.4 kg 133.6 kg General appearance: PRESENT: no acute distress, morbidly obese, well-developed, well-nourished Head exam: PRESENT: atraumatic, normocephalic Respiratory exam: PRESENT: clear to auscultation kisha. ABSENT: rales, rhonchi, wheezes Cardiovascular exam: PRESENT: RRR. ABSENT: diastolic murmur, rubs, systolic murmur Extremities exam: PRESENT: full ROM. ABSENT: calf tenderness, clubbing, pedal edema Neurological exam: PRESENT: alert, awake, oriented to person, oriented to place, oriented to time, oriented to situation, CN II-XII grossly intact. ABSENT: motor sensory deficit Results Laboratory Results: 09/10/18 05:15 09/18/18 05:26 09/18/18 05:26 Sodium 140.4 Potassium 4.4 Chloride 93 L Carbon Dioxide 36 H Anion Gap 11 BUN 29 H Creatinine 1.02 Est GFR ( Amer) > 60 Est GFR (Non-Af Amer) 54 L Glucose 109 Calcium 9.7 Magnesium 1.6 Total Bilirubin 0.6 AST 25 ALT 24 Alkaline Phosphatase 67 Total Protein 7.7 Albumin 4.2 09/09/18 09/09/18 09/09/18 11:45 11:45 11:45 Creatine Kinase 60 CK-MB (CK-2) 0.59 Troponin I < 0.012 NT-Pro-B Natriuret Pep 1240 H Impressions: Chest X-Ray 09/09/18 11:41 IMPRESSION: Marked cardiomegaly. Obstructive lung disease Assessment and Plan - Diagnosis (1) Acute on chronic diastolic CHF (congestive heart failure), NYHA class 3 Is this a current diagnosis for this admission?: Yes Plan: Euvolemic at this point. Continue statin, GRAHAM, beta blockers, diuretics, cardiac diet and volume restriction. 10/01/2017. 2D echo suboptimal due to body habitus. Normal left ventricular ejection fraction. BNP 1240 on admission. (2) COPD (chronic obstructive pulmonary disease) Is this a current diagnosis for this admission?: Yes Plan: Continue DuoNeb, supplemental oxygen, as needed BiPAP. (3) Acute kidney injury Is this a current diagnosis for this admission?: Yes Plan: Likely due to aggressive diuresis. Resolved. Electrolytes within normal limits. BMP tomorrow. Monitor volume status. Monitor electrolytes. (4) Chronic a-fib Is this a current diagnosis for this admission?: Yes Plan: Rate and rhythm controlled. Continue beta-blockers. Continue Xarelto. (5) Family and social support, lives alone Is this a current diagnosis for this admission?: Yes Plan: Patient has requested to be placed at the assisted living. Pending placement. (6) Hyperlipidemia Qualifiers: Hyperlipidemia type: unspecified Qualified Code(s): E78.5 - Hyperlipidemia, unspecified Is this a current diagnosis for this admission?: Yes Plan: Diet and lifestyle modification. Continue statins. (7) History of ovarian cancer Is this a current diagnosis for this admission?: Yes Plan: In remission. Outpatient oncology follow-up. (8) Hypertension Qualifiers: Hypertension type: essential hypertension Qualified Code(s): I10 - Essential (primary) hypertension Is this a current diagnosis for this admission?: Yes Plan: Normotensive, euvolemic. Continue current medications. Adjust dosage as n eeded. Outpatient PCP follow-up. (9) Morbid obesity with BMI of 45.0-49.9, adult Is this a current diagnosis for this admission?: Yes Plan: Lifestyle modification advised (10) Type 2 diabetes mellitus Is this a current diagnosis for this admission?: Yes Plan: Will control. A1c 5.9 on admission. Continue metformin. Diabetic diet. Outpatient PCP follow-up.
[2018-09-18] MEDS ORDERED: TIZANIDINE HCL 4 MG TABLET PO SCH (14:00)
[2018-09-18] MEDS: TIZANIDINE HCL 4 MG TABLET PO PRN ×2 (14:39→22:49)
[2018-09-18] MEDS: RIVAROXABAN 15 MG TABLET PO SCH (21:19)
[2018-09-18] MEDS: ATORVASTATIN CALCIUM 20 MG TABLET PO SCH (21:19)
[2018-09-19] MEDS: CYCLOBENZAPRINE HCL 10 MG TABLET PO SCH ×3 (05:17→22:22)
[2018-09-19] MEDS: TIZANIDINE HCL 4 MG TABLET PO PRN ×2 (06:53→18:35)
[2018-09-19] MEDS: ONDANSETRON HCL INJ/PF 4 MG/2 ML SDV IV PRN ×2 (06:53→18:35)
[2018-09-19] MEDS: FUROSEMIDE 40 MG TABLET PO SCH ×2 (10:45→22:25)
[2018-09-19] MEDS: FAMOTIDINE 20 MG TABLET PO SCH ×2 (10:46→22:22)
[2018-09-19] MEDS: LISINOPRIL 10 MG TABLET PO SCH (10:46)
[2018-09-19] MEDS: METFORMIN HCL 500 MG TABLET PO SCH ×2 (10:46→17:05)
[2018-09-19] MEDS: DOCUSATE SODIUM 100 MG CAPSULE PO SCH ×2 (10:46→17:05)
[2018-09-19] MEDS: ASPIRIN 81 MG TABLET, CHEWABLE PO SCH (10:47)
[2018-09-19] MEDS: FLUTICASONE NASAL SPRAY 50 MCG/SPRY 120 SPRAY/16 GM NASL SCH ×2 (10:47→22:23)
[2018-09-19] MEDS: NYSTATIN TOPICAL POWDER 15 GM TP SCH ×2 (10:47→17:06)
[2018-09-19] MEDS: METOPROLOL SUCCINATE 50 MG TAB.SR.24H PO SCH (10:47)
--- NOTE | 2018-09-19 14:19 | PDOC PROGRESS REPORT ---
Subjective Progress Note for:: 09/19/18 Subjective:: VESTA JIMENEZ is a 68 year old female patient with past medical history of chronic atrial fibrillation on Xarelto, hypertension, COPD, CHF, morbid obesity, type 2 diabetes mellitus and history of ovarian cancer presents with chief complaint of shortness of breath. She is being managed for acute on chronic heart failure exacerbation with Lasix and cardioprotective medications. Since patient lives by herself and does not have any family or social support, she requested placement to assisted living. The health and social care teacher has been working on it. 09/16/2018. No acute events overnight. Complaining of not being able to sleep due to her chronic lower back pain. She is p.o. tolerant, ambulatory, having normal bowel and bladder movements. Denies any shortness of breath, chills,chest pain nausea, vomiting, diarrhea or any urinary symptoms. 09/17/2018. No acute events overnight. Patient was able to get a good night sleep since being started on cyclobenzaprine. Neck pain and spasm has improved since yesterday. She is p.o. tolerant, ambulatory, having normal bowel and bladder. Denies any shortness of breath, chills, nausea, vomiting, diarrhea, constipation or any urinary symptoms. Waiting for placement. 09/18/2018. No acute events overnight. Patient was able to get a good night sleep since being started on cyclobenzaprine. Neck pain and spasm has improved since yesterday. She is p.o. tolerant, ambulatory, having normal bowel and blad opal. Denies any shortness of breath, chills, nausea, vomiting, diarrhea, constipation or any urinary symptoms. Waiting for placement. 09/19/2017. No acute events overnight. Was able to get good night sleep. Complaining of persistent chronic upper back pain. Improved with combination of cyclobenzaprine and tizanidine. P.o. tolerant ambulatory having normal bowel and bladder movements. [facility] at [facility]. Reason For Visit: ACUTE HYPOXEMIC RESPIRATORY FAILURE,ACUTE ON Physical Exam Vital Signs: Temp Pulse Resp BP Pulse Ox 97.4 F 70 17 120/72 100 09/19/18 12:30 09/19/18 12:30 09/19/18 12:30 09/19/18 12:30 09/19/18 12:30 Intake & Output 09/18/18 09/19/18 09/20/18 06:59 06:59 06:59 Intake Total 765 268 279 Output Total 2200 1600 400 Balance -1435 -1332 -121 Weight 133.6 kg 133.8 kg General appearance: PRESENT: no acute distress, morbidly obese, well-developed, well-nourished Head exam: PRESENT: atraumatic, normocephalic Respiratory exam: PRESENT: clear to auscultation kisha. ABSENT: rales, rhonchi, wheezes Cardiovascular exam: PRESENT: RRR. ABSENT: diastolic murmur, rubs, systolic murmur GI/Abdominal exam: PRESENT: normal bowel sounds, soft. ABSENT: distended, guarding, mass, organolmegaly, rebound, tenderness Neurological exam: PRESENT: alert, awake, oriented to person, oriented to place, oriented to time, oriented to situation, CN II-XII grossly intact. ABSENT: m otor sensory deficit Results Laboratory Results: 09/10/18 05:15 09/18/18 05:26 09/09/18 09/09/18 09/09/18 11:45 11:45 11:45 Creatine Kinase 60 CK-MB (CK-2) 0.59 Troponin I < 0.012 NT-Pro-B Natriuret Pep 1240 H Impressions: Chest X-Ray 09/09/18 11:41 IMPRESSION: Marked cardiomegaly. Obstructive lung disease Assessment and Plan - Diagnosis (1) Acute on chronic diastolic CHF (congestive heart failure), NYHA class 3 Is this a current diagnosis for this admission?: Yes Plan: Euvolemic at this point. Continue statin, GRAHAM, beta blockers, diuretics, cardiac diet and volume restriction. 10/01/2017. 2D echo suboptimal due to body habitus. Normal left ventricular ejection fraction. BNP 1240 on admission. (2) COPD (chronic obstructive pulmonary disease) Is this a current diagnosis for this admission?: Yes Plan: Not on acute exacerbation. Continue as needed DuoNeb, supplemental oxygen, and BiPAP. (3) Acute kidney injury Is this a current diagnosis for this admission?: Yes Plan: Likely due to aggressive diuresis. Resolved. Electrolytes within normal limits. BMP tomorrow. Monitor volume status. Monitor electrolytes. (4) Chronic a-fib Is this a current diagnosis for this admission?: Yes Plan: Rate and rhythm controlled. Continue beta-blockers. Continue Xarelto. (5) Family and social support, lives alone Is this a current diagnosis for this admission?: Yes Plan: Patient has requested to be placed at the assisted living. Pending placement. (6) Hyperlipidemia Qualifiers: Hyperlipidemia type: unspecified Qualified Code(s): E78.5 - Hyperlipidemia, unspecified Is this a current diagnosis for this admission?: Yes Plan: Diet and lifestyle modification. Continue statins. (7) History of ovarian cancer Is this a current diagnosis for this admission?: Yes Plan: In remission. Outpatient oncology follow-up. (8) Hypertension Qualifiers: Hypertension type: essential hypertension Qualified Code(s): I10 - Essential (primary) hypertension Is this a current diagnosis for this admission?: Yes Plan: Normotensive, euvolemic. Continue current medications. Adjust dosage as ne eded. Outpatient PCP follow-up. (9) Morbid obesity with BMI of 45.0-49.9, adult Is this a current diagnosis for this admission?: Yes Plan: Lifestyle modification advised (10) Type 2 diabetes mellitus Is this a current diagnosis for this admission?: Yes Plan: Well control. A1c 5.9 on admission. Continue metformin. Diabetic diet. Outpatient PCP follow-up.
[2018-09-19] MEDS: RIVAROXABAN 15 MG TABLET PO SCH (22:22)
[2018-09-19] MEDS: ATORVASTATIN CALCIUM 20 MG TABLET PO SCH (22:22)
[2018-09-20] MEDS: CYCLOBENZAPRINE HCL 10 MG TABLET PO SCH ×3 (05:33→23:02)
[2018-09-20] MEDS: TIZANIDINE HCL 4 MG TABLET PO PRN ×2 (05:36→23:00)
[2018-09-20] MEDS: ONDANSETRON HCL INJ/PF 4 MG/2 ML SDV IV PRN ×2 (05:36→23:02)
[2018-09-20] MEDS: METFORMIN HCL 500 MG TABLET PO SCH ×2 (08:09→17:50)
[2018-09-20] MEDS: DOCUSATE SODIUM 100 MG CAPSULE PO SCH ×2 (09:28→17:50)
[2018-09-20] MEDS: FLUTICASONE NASAL SPRAY 50 MCG/SPRY 120 SPRAY/16 GM NASL SCH ×2 (09:42→23:01)
[2018-09-20] MEDS: LISINOPRIL 10 MG TABLET PO SCH (09:42)
[2018-09-20] MEDS: ASPIRIN 81 MG TABLET, CHEWABLE PO SCH (09:42)
[2018-09-20] MEDS: FUROSEMIDE 40 MG TABLET PO SCH ×2 (09:42→23:00)
[2018-09-20] MEDS: FAMOTIDINE 20 MG TABLET PO SCH ×2 (09:42→23:01)
[2018-09-20] MEDS: METOPROLOL SUCCINATE 50 MG TAB.SR.24H PO SCH (09:42)
[2018-09-20] MEDS: NYSTATIN TOPICAL POWDER 15 GM TP SCH ×2 (09:43→17:51)
--- NOTE | 2018-09-20 13:37 | PDOC PROGRESS REPORT ---
Subjective Progress Note for:: 09/20/18 Subjective:: VESTA JIMENEZ is a 68 year old female patient with past medical history of chronic atrial fibrillation on Xarelto, hypertension, COPD, CHF, morbid obesity, type 2 diabetes mellitus and history of ovarian cancer presents with chief complaint of shortness of breath. She is being managed for acute on chronic heart failure exacerbation with Lasix and cardioprotective medications. Since patient lives by herself and does not have any family or social support, she requested placement to assisted living. The addiction social worker has been working on it. 09/16/2018. No acute events overnight. Complaining of not being able to sleep due to her chronic lower back pain. She is p.o. tolerant, ambulatory, having normal bowel and bladder movements. Denies any shortness of breath, chills,chest pain nausea, vomiting, diarrhea or any urinary symptoms. 09/17/2018. No acute events overnight. Patient was able to get a good night sleep since being started on cyclobenzaprine. Neck pain and spasm has improved since yesterday. She is p.o. tolerant, ambulatory, having normal bowel and bladder. Denies any shortness of breath, chills, nausea, vomiting, diarrhea, constipation or any urinary symptoms. Waiting for placement. 09/18/2018. No acute events overnight. Patient was able to get a good night sleep since being started on cyclobenzaprine. Neck pain and spasm has improved since yesterday. She is p.o. tolerant, ambulatory, having normal bowel and blad opal. Denies any shortness of breath, chills, nausea, vomiting, diarrhea, constipation or any urinary symptoms. Waiting for placement. 09/19/2017. No acute events overnight. Was able to get good night sleep. Complaining of persistent chronic upper back pain. Improved with combination of cyclobenzaprine and tizanidine. P.o. tolerant ambulatory having normal bowel and bladder movements. [facility]ing [facility] be placed at the [facility]. 09/20/2018. No acute events overnight. Patient ambulating without any assistance, p.o. tolerant having normal bowel and bladder movement. Is any fever, chills, nausea, vomiting, diarrhea, constipation or any urinary symptoms. Reason For Visit: ACUTE HYPOXEMIC RESPIRATORY FAILURE,ACUTE ON Physical Exam Vital Signs: Temp Pulse Resp BP Pulse Ox 97.9 F 81 18 104/65 99 09/20/18 08:15 09/20/18 08:15 09/20/18 08:15 09/20/18 08:15 09/20/18 08:15 Intake & Output 09/19/18 09/20/18 09/21/18 06:59 06:59 06:59 Intake Total 268 973 Output Total 1600 1100 Balance -1332 -127 Weight 133.8 kg 133.7 kg General appearance: PRESENT: no acute distress, morbidly obese, well-developed, well-nourished Neck exam: ABSENT: carotid bruit, JVD, lymphadenopathy, thyromegaly Respiratory exam: PRESENT: clear to auscultation kisha. ABSENT: rales, rhonchi, wheezes Cardiovascular exam: PRESENT: RRR. ABSENT: diastolic murmur, rubs, systolic mu rmur GI/Abdominal exam: PRESENT: normal bowel sounds, soft. ABSENT: distended, guarding, mass, organolmegaly, rebound, tenderness Extremities exam: PRESENT: full ROM. ABSENT: calf tenderness, clubbing, pedal edema Neurological exam: PRESENT: alert, awake, oriented to person, oriented to place, oriented to time, oriented to situation, CN II-XII grossly intact. ABSENT: motor sensory deficit Results Laboratory Results: 09/10/18 05:15 09/18/18 05:26 09/09/18 09/09/18 09/09/18 11:45 11:45 11:45 Creatine Kinase 60 CK-MB (CK-2) 0.59 Troponin I < 0.012 NT-Pro-B Natriuret Pep 1240 H Impressions: Chest X-Ray 09/09/18 11:41 IMPRESSION: Marked cardiomegaly. Obstructive lung disease Assessment and Plan - Diagnosis (1) Family and social support, lives alone Is this a current diagnosis for this admission?: Yes Plan: Patient has requested to be placed at the assisted living. Pending placement. (2) Acute on chronic diastolic CHF (congestive heart failure), NYHA class 3 Is this a current diagnosis for this admission?: Yes Plan: Euvolemic at this point. Continue statin, GRAHAM, beta blockers, diuretics, cardiac diet and volume restriction. 10/01/2017. 2D echo suboptimal due to body habitus. Normal left ventricular ejection fraction. BNP 1240 on admission. (3) COPD (chronic obstructive pulmonary disease) Is this a current diagnosis for this admission?: Yes Plan: Not on acute exacerbation. Continue as needed DuoNeb, supplemental oxygen, and BiPAP. (4) Acute kidney injury Is this a current diagnosis for this admission?: Yes Plan: Likely due to aggressive diuresis. Resolved. Electrolytes within normal limits. BMP tomorrow. Monitor volume status. Monitor electrolytes. (5) Chronic a-fib Is this a current diagnosis for this admission?: Yes Plan: Rate and rhythm controlled. Continue beta-blockers. Continue Xarelto. (6) Hyperlipidemia Qualifiers: Hyperlipidemia type: unspecified Qualified Code(s): E78.5 - Hyperlipidemia, unspecified Is this a current diagnosis for this admission?: Yes Plan: Diet and lifestyle modification. Continue statins. (7) History of ovarian cancer Is this a current diagnosis for this admission?: Yes Plan: In remission. Outpatient oncology follow-up. (8) Hypertension Qualifiers: Hypertension type: essential hypertension Qualified Code(s): I10 - Essential (primary) hypertension Is this a current diagnosis for this admission?: Yes Plan: Normotensive, euvolemic. Continue current medications. Adjust dosage as needed. Outpatient PCP follow-up. (9) Morbid obesity with BMI of 45.0-49.9, adult Is this a current diagnosis for this admission?: Yes Plan: Lifestyle modification advised (10) Type 2 diabetes mellitus Is this a current diagnosis for this admission?: Yes Plan: Well control. A1c 5.9 on admission. Continue metformin. Diabetic diet. Outpatient PCP follow-up.
[2018-09-20] MEDS: ATORVASTATIN CALCIUM 20 MG TABLET PO SCH (23:01)
[2018-09-20] MEDS: RIVAROXABAN 15 MG TABLET PO SCH (23:02)
[2018-09-21] MEDS: CYCLOBENZAPRINE HCL 10 MG TABLET PO SCH ×3 (06:12→22:13)
[2018-09-21] MEDS: DOCUSATE SODIUM 100 MG CAPSULE PO SCH ×2 (09:14→17:12)
[2018-09-21] MEDS: METOPROLOL SUCCINATE 50 MG TAB.SR.24H PO SCH (09:15)
[2018-09-21] MEDS: ACETAMINOPHEN 325 MG TABLET PO PRN ×2 (09:15→16:13)
[2018-09-21] MEDS: FAMOTIDINE 20 MG TABLET PO SCH ×2 (09:15→22:13)
[2018-09-21] MEDS: ASPIRIN 81 MG TABLET, CHEWABLE PO SCH (09:15)
[2018-09-21] MEDS: LISINOPRIL 10 MG TABLET PO SCH (09:15)
[2018-09-21] MEDS: FUROSEMIDE 40 MG TABLET PO SCH ×2 (09:16→22:13)
[2018-09-21] MEDS: METFORMIN HCL 500 MG TABLET PO SCH ×2 (09:16→16:13)
[2018-09-21] MEDS: NYSTATIN TOPICAL POWDER 15 GM TP SCH (09:16)
[2018-09-21] MEDS: FLUTICASONE NASAL SPRAY 50 MCG/SPRY 120 SPRAY/16 GM NASL SCH ×2 (09:16→22:20)
--- NOTE | 2018-09-21 10:17 | PDOC PROGRESS REPORT ---
Subjective Progress Note for:: 09/21/18 Subjective:: VESTA JIMENEZ is a 68 year old female patient with past medical history of chronic atrial fibrillation on Xarelto, hypertension, COPD, CHF, morbid obesity, type 2 diabetes mellitus and history of ovarian cancer presents with chief complaint of shortness of breath. She is being managed for acute on chronic heart failure exacerbation with Lasix and cardioprotective medications. Since patient lives by herself and does not have any family or social support, she requested placement to assisted living. The renal social worker has been working on it. 09/16/2018. No acute events overnight. Complaining of not being able to sleep due to her chronic lower back pain. She is p.o. tolerant, ambulatory, having normal bowel and bladder movements. Denies any shortness of breath, chills,chest pain nausea, vomiting, diarrhea or any urinary symptoms. 09/17/2018. No acute events overnight. Patient was able to get a good night sleep since being started on cyclobenzaprine. Neck pain and spasm has improved since yesterday. She is p.o. tolerant, ambulatory, having normal bowel and bladder. Denies any shortness of breath, chills, nausea, vomiting, diarrhea, constipation or any urinary symptoms. Waiting for placement. 09/18/2018. No acute events overnight. Patient was able to get a good night sleep since being started on cyclobenzaprine. Neck pain and spasm has improved since yesterday. She is p.o. tolerant, ambulatory, having normal bowel and blad opal. Denies any shortness of breath, chills, nausea, vomiting, diarrhea, constipation or any urinary symptoms. Waiting for placement. 09/19/2017. No acute events overnight. Was able to get good night sleep. Complaining of persistent chronic upper back pain. Improved with combination of cyclobenzaprine and tizanidine. P.o. tolerant ambulatory having normal bowel and bladder movements. Waiting to be placed at the al[facility]. 09/20/2018. No acute events overnight. Patient ambulating without any assistance, p.o. tolerant having normal bowel and bladder movement. Is any fever, chills, nausea, vomiting, diarrhea, constipation or any urinary symptoms. 09/21/2018. No acute events overnight. Patient ambulated last night and developed shortness of breath that she states is her baseline. Denies having any chest pain. Her back pain has been controlled with combination of Flexeril and tizanidine. Denies any fever, chills, nausea, vomiting, diarrhea, constipation or any urinary symptoms. Pending placement. Reason For Visit: ACUTE HYPOXEMIC RESPIRATORY FAILURE,ACUTE ON Physical Exam Vital Signs: Temp Pulse Resp BP Pulse Ox 97.5 F 85 19 114/66 99 09/21/18 08:11 09/21/18 08:11 09/21/18 08:11 09/21/18 08:11 09/21/18 08:11 Intake & Output 09/20/18 09/21/18 09/22/18 06:59 06:59 06:59 Intake Total 973 664 Output Total 1100 1400 Balance -127 -736 Weight 133.7 kg 133.9 kg Results Laboratory Results: 09/10/18 05:15 09/18/18 05:26 09/09/18 09/09/18 09/09/18 11:45 11:45 11:45 Creatine Kinase 60 CK-MB (CK-2) 0.59 Troponin I < 0.012 NT-Pro-B Natriuret Pep 1240 H Impressions: Chest X-Ray 09/09/18 11:41 IMPRESSION: Marked cardiomegaly. Obstructive lung disease Assessment and Plan - Diagnosis (1) Family and social support, lives alone Is this a current diagnosis for this admission?: Yes Plan: Patient has requested to be placed at the assisted living. Pending placement. (2) Acute on chronic diastolic CHF (congestive heart failure), NYHA class 3 Is this a current diagnosis for this admission?: Yes Plan: Euvolemic at this point. Continue statin, GRAHAM, beta blockers, diuretics, cardiac diet and volume restriction. 10/01/2017. 2D echo suboptimal due to body habitus. Normal left ventricular ejection fraction. BNP 1240 on admission. (3) COPD (chronic obstructive pulmonary disease) Is this a current diagnosis for this admission?: Yes Plan: Not on acute exacerbation. Continue as needed DuoNeb, supplemental oxygen, and BiPAP. (4) Acute kidney injury Is this a current diagnosis for this admission?: Yes Plan: Likely due to aggressive diuresis. Resolved. Electrolytes within normal limits. BMP tomorrow. Monitor volume status. Monitor electrolytes. (5) Chronic a-fib Is this a current diagnosis for this admission?: Yes Plan: Rate and rhythm controlled. Continue beta-blockers. Continue Xarelto. (6) Hyperlipidemia Qualifiers: Hyperlipidemia type: unspecified Qualified Code(s): E78.5 - Hyperlipidemia, unspecified Is this a current diagnosis for this admission?: Yes Plan: Diet and lifestyle modification. Continue statins. (7) History of ovarian cancer Is this a current diagnosis for this admission?: Yes Plan: In remission. Outpatient oncology follow-up. (8) Hypertension Qualifiers: Hypertension type: essential hypertension Qualified Code(s): I10 - Essential (primary) hypertension Is this a current diagnosis for this admission?: Yes Plan: Normotensive, euvolemic. Continue current medications. Adjust dosage as needed. Outpatient PCP follow-up. (9) Morbid obesity with BMI of 45.0-49.9, adult Is this a current diagnosis for this admission?: Yes Plan: Lifestyle modification advised (10) Type 2 diabetes mellitus Is this a current diagnosis for this admission?: Yes Plan: Well control. A1c 5.9 on admission. Continue metformin. Diabetic diet. Outpatient PCP follow-up.
[2018-09-21] MEDS: ONDANSETRON HCL INJ/PF 4 MG/2 ML SDV IV PRN ×2 (12:43→22:16)
[2018-09-21] MEDS: TIZANIDINE HCL 4 MG TABLET PO PRN ×2 (12:43→22:20)
[2018-09-21] MEDS: RIVAROXABAN 15 MG TABLET PO SCH (22:13)
[2018-09-21] MEDS: ATORVASTATIN CALCIUM 20 MG TABLET PO SCH (22:13)
[2018-09-21] MEDS ORDERED: FLUTICASONE NASAL SPRAY 50 MCG/SPRY 120 SPRAY/16 GM ONE (22:17)
[2018-09-21] MEDS ORDERED: TIZANIDINE HCL 4 MG TABLET ONE (22:17)
[2018-09-22] MEDS: CYCLOBENZAPRINE HCL 10 MG TABLET PO SCH ×3 (06:34→22:10)
[2018-09-22] MEDS: METFORMIN HCL 500 MG TABLET PO SCH ×2 (10:05→16:09)
[2018-09-22] MEDS: FLUTICASONE NASAL SPRAY 50 MCG/SPRY 120 SPRAY/16 GM NASL SCH ×2 (10:05→22:12)
[2018-09-22] MEDS: TIZANIDINE HCL 4 MG TABLET PO PRN ×2 (10:05→20:20)
[2018-09-22] MEDS: FUROSEMIDE 40 MG TABLET PO SCH ×2 (10:05→22:10)
[2018-09-22] MEDS: ASPIRIN 81 MG TABLET, CHEWABLE PO SCH (10:06)
[2018-09-22] MEDS: LISINOPRIL 10 MG TABLET PO SCH (10:06)
[2018-09-22] MEDS: DOCUSATE SODIUM 100 MG CAPSULE PO SCH ×2 (10:06→17:55)
[2018-09-22] MEDS: ONDANSETRON HCL INJ/PF 4 MG/2 ML SDV IV PRN ×2 (10:07→20:23)
[2018-09-22] MEDS: FAMOTIDINE 20 MG TABLET PO SCH ×2 (10:08→22:10)
[2018-09-22] MEDS: METOPROLOL SUCCINATE 50 MG TAB.SR.24H PO SCH (10:08)
--- NOTE | 2018-09-22 14:48 | PDOC PROGRESS REPORT ---
Subjective Progress Note for:: 09/22/18 Subjective:: VESTA JIMENEZ is a 68 year old female patient with past medical history of chronic atrial fibrillation on Xarelto, hypertension, COPD, CHF, morbid obesity, type 2 diabetes mellitus and history of ovarian cancer presents with chief complaint of shortness of breath. She is being managed for acute on chronic heart failure exacerbation with Lasix and cardioprotective medications. Since patient lives by herself and does not have any family or social support, she requested placement to assisted living. The social service assistant has been working on it. 09/16/2018. No acute events overnight. Complaining of not being able to sleep due to her chronic lower back pain. She is p.o. tolerant, ambulatory, having normal bowel and bladder movements. Denies any shortness of breath, chills,chest pain nausea, vomiting, diarrhea or any urinary symptoms. 09/17/2018. No acute events overnight. Patient was able to get a good night sleep since being started on cyclobenzaprine. Neck pain and spasm has improved since yesterday. She is p.o. tolerant, ambulatory, having normal bowel and bladder. Denies any shortness of breath, chills, nausea, vomiting, diarrhea, constipation or any urinary symptoms. Waiting for placement. 09/18/2018. No acute events overnight. Patient was able to get a good night sleep since being started on cyclobenzaprine. Neck pain and spasm has improved since yesterday. She is p.o. tolerant, ambulatory, having normal bowel and blad opal. Denies any shortness of breath, chills, nausea, vomiting, diarrhea, constipation or any urinary symptoms. Waiting for placement. 09/19/2017. No acute events overnight. Was able to get good night sleep. Complaining of persistent chronic upper back pain. Improved with combination of cyclobenzaprine and tizanidine. P.o. tolerant ambulatory having normal bowel and bladder movements. [facility]. 09/20/2018. No acute events overnight. Patient ambulating without any assistance, p.o. tolerant having normal bowel and bladder movement. Is any fever, chills, nausea, vomiting, diarrhea, constipation or any urinary symptoms. 09/21/2018. No acute events overnight. Patient ambulated last night and developed shortness of breath that she states is her baseline. Denies having any chest pain. Her back pain has been controlled with combination of Flexeril and tizanidine. Denies any fever, chills, nausea, vomiting, diarrhea, constipation or any urinary symptoms. Pending placement. 09/22/2017. No acute events overnight. Ambulatory, p.o. tolerant, having normal bowel bladder function. Denies any nausea vomiting diarrhea constipation or any other symptoms. Pending placement. Reason For Visit: ACUTE HYPOXEMIC RESPIRATORY FAILURE,ACUTE ON Physical Exam Vital Signs: Temp Pulse Resp BP Pulse Ox 97.8 F 80 18 110/71 100 09/22/18 12:42 09/22/18 14:00 09/22/18 12:42 09/22/18 12:42 09/22/18 12:42 Intake & Output 09/21/18 09/22/18 09/23/18 06:59 06:59 06:59 Intake Total 664 1700 354 Output Total 1400 1250 600 Balance -736 450 -246 Weight 133.9 kg 132.7 kg General appearance: PRESENT: no acute distress, morbidly obese, well-developed, well-nourished Head exam: PRESENT: atraumatic, normocephalic Respiratory exam: PRESENT: clear to auscultation kisha. ABSENT: rales, rhonchi, wheezes Cardiovascular exam: PRESENT: RRR. ABSENT: diastolic murmur, rubs, systolic murmur GI/Abdominal exam: PRESENT: normal bowel sounds, soft. ABSENT: distended, guarding, mass, organolmegaly, rebound, tenderness Extremities exam: PRESENT: full ROM. ABSENT: calf tenderness, clubbing, pedal edema Neurological exam: PRESENT: alert, awake, oriented to person, oriented to place, oriented to time, oriented to situation, CN II-XII grossly intact. ABSENT: hima r sensory deficit Results Laboratory Results: 09/10/18 05:15 09/18/18 05:26 09/09/18 09/09/18 09/09/18 11:45 11:45 11:45 Creatine Kinase 60 CK-MB (CK-2) 0.59 Troponin I < 0.012 NT-Pro-B Natriuret Pep 1240 H Impressions: Chest X-Ray 09/09/18 11:41 IMPRESSION: Marked cardiomegaly. Obstructive lung disease Assessment and Plan - Diagnosis (1) Family and social support, lives alone Is this a current diagnosis for this admission?: Yes Plan: Patient has requested to be placed at the assisted living. Pending placement. (2) Acute on chronic diastolic CHF (congestive heart failure), NYHA class 3 Is this a current diagnosis for this admission?: Yes Plan: Euvolemic at this point. Continue statin, GRAHAM, beta blockers, diuretics, cardiac diet and volume restriction. 10/01/2017. 2D echo suboptimal due to body habitus. Normal left ventricular ejection fraction. BNP 1240 on admission. (3) COPD (chronic obstructive pulmonary disease) Is this a current diagnosis for this admission?: Yes Plan: Not on acute exacerbation. Continue as needed DuoNeb, supplemental oxygen, and BiPAP. (4) Acute kidney injury Is this a current diagnosis for this admission?: Yes Plan: Likely due to aggressive diuresis. Resolved. Electrolytes within normal limits. BMP tomorrow. Monitor volume status. Monitor electrolytes. (5) Chronic a-fib Is this a current diagnosis for this admission?: Yes Plan: Rate and rhythm controlled. Continue beta-blockers. Continue Xarelto. (6) Hyperlipidemia Qualifiers: Hyperlipidemia type: unspecified Qualified Code(s): E78.5 - Hyperlipidemia, unspecified Is this a current diagnosis for this admission?: Yes Plan: Diet and lifestyle modification. Continue statins. (7) History of ovarian cancer Is this a current diagnosis for this admission?: Yes Plan: In remission. Outpatient oncology follow-up. (8) Hypertension Qualifiers: Hypertension type: essential hypertension Qualified Code(s): I10 - Essential (primary) hypertension Is this a current diagnosis for this admission?: Yes Plan: Normotensive, euvolemic. Had one episode of systolic blood pressure in the 90s. Asymptomatic. Decrease Toprol XL to 50 mg p.o. daily. Adjust dosage as needed. Outpatient PCP follow-up. (9) Morbid obesity with BMI of 45.0-49.9, adult Is this a current diagnosis for this admission?: Yes Plan: Lifestyle modification advised (10) Type 2 diabetes mellitus Is this a current diagnosis for this admission?: Yes Plan: Well control. A1c 5.9 on admission. Continue metformin. Diabetic diet. Outpatient PCP follow-up.
[2018-09-22] MEDS: RIVAROXABAN 15 MG TABLET PO SCH (22:10)
[2018-09-22] MEDS: ATORVASTATIN CALCIUM 20 MG TABLET PO SCH (22:10)
[2018-09-23] MEDS: CYCLOBENZAPRINE HCL 10 MG TABLET PO SCH ×3 (05:34→22:04)
[2018-09-23] MEDS: METFORMIN HCL 500 MG TABLET PO SCH ×2 (07:38→16:13)
[2018-09-23] MEDS: ONDANSETRON HCL INJ/PF 4 MG/2 ML SDV IV PRN ×2 (07:42→22:04)
[2018-09-23] MEDS: TIZANIDINE HCL 4 MG TABLET PO PRN ×2 (07:42→22:05)
[2018-09-23] MEDS: ACETAMINOPHEN 325 MG TABLET PO PRN (10:05)
[2018-09-23] MEDS: ASPIRIN 81 MG TABLET, CHEWABLE PO SCH (10:05)
[2018-09-23] MEDS: DOCUSATE SODIUM 100 MG CAPSULE PO SCH ×2 (10:05→17:40)
[2018-09-23] MEDS: FUROSEMIDE 40 MG TABLET PO SCH ×2 (10:05→22:04)
[2018-09-23] MEDS: LISINOPRIL 10 MG TABLET PO SCH (10:06)
[2018-09-23] MEDS: FAMOTIDINE 20 MG TABLET PO SCH ×2 (10:06→22:04)
[2018-09-23] MEDS: METOPROLOL SUCCINATE 50 MG TAB.SR.24H PO SCH (10:06)
[2018-09-23] MEDS: FLUTICASONE NASAL SPRAY 50 MCG/SPRY 120 SPRAY/16 GM NASL SCH ×2 (10:08→22:04)
--- NOTE | 2018-09-23 14:32 | PDOC TRANSFER SUMMARY ---
General Admission Date/PCP: 09/09/18 14:12 JAQUELINE MCCALL MD Resuscitation Status: Full Code - Transfer Diagnosis (1) Acute on chronic diastolic CHF (congestive heart failure), NYHA class 3 Is this a current diagnosis for this admission?: Yes (2) Family and social support, lives alone Is this a current diagnosis for this admission?: Yes (3) COPD (chronic obstructive pulmonary disease) Is this a current diagnosis for this admission?: Yes (4) Acute kidney injury Is this a current diagnosis for this admission?: Yes (5) Chronic a-fib Is this a current diagnosis for this admission?: Yes (6) Hyperlipidemia Is this a current diagnosis for this admission?: Yes (7) History of ovarian cancer Is this a current diagnosis for this admission?: Yes (8) Hypertension Is this a current diagnosis for this admission?: Yes (9) Morbid obesity with BMI of 45.0-49.9, adult Is this a current diagnosis for this admission?: Yes (10) Type 2 diabetes mellitus Is this a current diagnosis for this admission?: Yes - Transfer Medications Home Medications: Fluticasone Propionate [Flonase Nasal Thompson 50 Mcg/Thompson 16 gm] 2 spray NASL Q12HP PRN 09/09/18 Lisinopril [Prinivil 10 mg Tablet] 5 mg PO DAILY 09/09/18 Metformin HCl [Glucophage] 1,000 mg PO BID 09/09/18 Rivaroxaban [Xarelto] 20 mg PO QHS 09/09/18 Rosuvastatin Calcium [Crestor 10 mg Tablet] 10 mg PO QHS 09/09/18 Tizanidine HCl [Zanaflex 4 mg Tablet] 4 mg PO Q8HP PRN 09/09/18 Torsemide [Demadex 10 mg Tablet] 10 mg PO DAILY 09/09/18 Transfer Medications: Current Medications Acetaminophen (Tylenol 325 Mg Tablet) 650 mg PO Q6H PRN PRN Reason: FOR BREAKTHROUGH PAIN Stop: 10/09/18 15:29 Last Admin: 09/23/18 10:05 Dose: 650 mg Documented by: Albuterol/Ipratropium (Duoneb 3 Ml Ampul) 3 ml NEB RTQ6HP PRN PRN Reason: SHORTNESS OF BREATH Stop: 10/09/18 14:20 Last Admin: 09/17/18 08:25 Dose: 3 ml Documented by: Aspirin (Aspirin 81 Mg Chewable Tablet) 81 mg PO DAILY [facility] Stop: 10/16/18 16:29 Last Admin: 09/23/18 10:05 Dose: 81 mg Documented by: Atorvastatin Calcium (Lipitor 20 Mg Tablet) 20 mg PO QHS [facility] Stop: 10/09/18 21:59 Last Admin: 09/22/18 22:10 Dose: 20 mg Documented by: Cyclobenzaprine HCl (Flexeril 10 Mg Tablet) 5 mg PO Q8 [facility] Stop: 10/16/18 15:29 Last Admin: 09/23/18 05:34 Dose: 5 mg Documented by: Dextrose (Dextrose Inj 50% Syringe (25 Gm/50 Ml)) 12.5 gm IV PRN PRN; Protocol PRN Reason: FOR BG 50-69 IN ALERT PATIENT Stop: 10/17/18 14:47 Dextrose (Dextrose Inj 50% Syringe (25 Gm/50 Ml)) 25 gm IV PRN PRN; Protocol PRN Reason: PER PROTOCOL Stop: 10/17/18 14:47 Docusate Sodium (Colace 100 Mg Capsule) 100 mg PO BID [facility] Stop: 10/09/18 17:59 Last Admin: 09/23/18 10:05 Dose: 100 mg Documented by: Famotidine (Pepcid 20 Mg Tablet) 20 mg PO Q12 [facility] Stop: 10/09/18 21:59 Last Admin: 09/23/18 10:06 Dose: 20 mg Documented by: Fluticasone Propionate (Flonase Nasal Thompson 50 Mcg/Thompson 16 Gm) 2 spray NASL Q12 [facility] Stop: 10/10/18 09:59 Last Admin: 09/23/18 10:08 Dose: 2 spray Documented by: Furosemide (Lasix 40 Mg Tablet) 40 mg PO Q12 [facility] Stop: 10/15/18 14:29 Last Admin: 09/23/18 10:05 Dose: 40 mg Documented by: Glucose (Glutose 40% Gel 15 Gm Tube) 15 gm PO PRN PRN; Protocol PRN Reason: FOR BG 50-69 IN ALERT PATIENT Stop: 10/17/18 14:47 Glucose (Glutose 40% Gel 15 Gm Tube) 30 gm PO PRN PRN; Protocol PRN Reason: FOR BG < 50 IN ALERT PATIENT Stop: 10/17/18 14:47 Hydralazine HCl (Apresoline Inj/Pf 20 Mg/1 Ml Sdv) 10 mg IV Q6HP PRN PRN Reason: GIVE FOR SBP > 170 Stop: 10/10/18 08:44 Lisinopril (Prinivil 10 Mg Tablet) 5 mg PO DAILY [facility] Stop: 10/21/18 09:59 Last Admin: 09/23/18 10:06 Dose: 5 mg Documented by: Metformin HCl (Glucophage 500 Mg Tablet) 1,000 mg PO BIDACBS [facility] Stop: 10/11/18 15:59 Last Admin: 09/23/18 07:38 Dose: 1,000 mg Documented by: Metoprolol Succinate (Toprol Xl 50 Mg Tab.Sr) 50 mg PO DAILY [facility] Stop: 10/22/18 09:59 Last Admin: 09/23/18 10:06 Dose: 50 mg Documented by: Ondansetron HCl (Zofran Inj/Pf 4 Mg/2 Ml Sdv) 4 mg IV Q8HP PRN PRN Reason: FOR NAUSEA/VOMITING Stop: 10/09/18 14:14 Last Admin: 09/23/18 07:42 Dose: 4 mg Documented by: Rivaroxaban (Xarelto 15 Mg Tablet) 15 mg PO QHS [facility] Stop: 10/11/18 21:59 Last Admin: 09/22/18 22:10 Dose: 15 mg Documented by: Tizanidine HCl (Zanaflex 4 Mg Tablet) 4 mg PO Q8HP PRN PRN Reason: MUSCLE SPASMS Stop: 10/18/18 13:20 Last Admin: 09/23/18 07:42 Dose: 4 mg Documented by: - Allergies Allergies/Adverse Reactions: levofloxacin [From Levaquin] Allergy (Intermediate, Verified 09/09/18 11:58) Unknown reaction Sulfa (Sulfonamide Antibiotics) Allergy (Verified 09/09/18 11:58) - Diet/Activity Discharge Diet: Cardiac, Diabetic Hospital Course Hospital Course: VESTA JIMENEZ is a very pleasant 68 year old female patient with past medical history of chronic atrial fibrillation on Xarelto for anticoag ulation, hypertension, COPD, CHF, morbid obesity, type 2 diabetes mellitus and history of ovarian cancer presents with chief complaint of shortness of breath. Patient reported that she has been at her baseline state of health up until 1 week when she started to have shortness of breath precipitated by mild exertion. Yesterday her shortness of breath is increasingly worse extent she cannot walk few steps without sitting down to catch her breath. Patient cannot sleep flat so that her bed head should be elevated at about 75 degrees. Patient endorses paroxysmal nocturnal dyspnea. Patient reports unintentional 9 pound weight gain over 1 week. She denies any fevers, chills, palpitation, diaphoresis, chest pain, cough, nausea, vomiting or diarrhea. No urinary complaints. Her initial blood work unremarkable except she has BNP of 1200. Her chest x-ray reported as market cardiomegaly. Patient denies any dizziness, blurring of vision, headache or any seizure activity. She is being managed for acute on chronic heart failure exacerbation with Lasix and cardioprotective medications. Since patient lives by herself and does not have any family or social support, she requested placement to assisted living. The social sciences professor has been working on it. Assessment and Plan (1) Acute on chronic diastolic CHF (congestive heart failure) Euvolemic at this point. Continue statin, GRAHAM, beta blockers, diuretics, cardiac diet and volume restriction. 10/01/2017. 2D echo suboptimal due to body habitus. Normal left ventricular ejection fraction. BNP 1240 on admission. (2) Family and social support, lives alone Patient has requested to be placed at the assisted living. (3) COPD (chronic obstructive pulmonary disease) Not on acute exacerbation. Continue as needed DuoNeb, supplemental oxygen, and BiPAP while in patient. Discharged on Spiriva and Advair. Supplemental O2 2 L Nasal Canula, Keep SpO2 90-94% (4) Acute kidney injury Likely due to aggressive diuresis. Resolved. Electrolytes within normal limits. Monitor volume status. Monitor electrolytes. (5) Chronic a-fib Rate and rhythm controlled. Continue beta-blockers. Continue Xarelto. (6) Hyperlipidemia Diet and lifestyle modification. Continue statins. (7) History of ovarian cancer In remission. Outpatient oncology follow-up. (8) Hypertension Normotensive, euvolemic. Had one episode of systolic blood pressure in the 90s. Asymptomatic. Decrease Toprol XL to 50 mg p.o. daily. Adjust dosage as needed. Outpatient PCP follow-up. (9) Morbid obesity with BMI of 45.0-49.9, adult Lifestyle modification advised (10) Type 2 diabetes mellitus Well controlled. A1c 5.9 on admission. Continue metformin. Diabetic diet. Outpatient PCP follow-up. Physical Exam Vital Signs: Temp Pulse Resp BP Pulse Ox 97.3 F 73 20 120/63 100 09/23/18 07:37 09/23/18 07:37 09/23/18 07:37 09/23/18 07:37 09/23/18 07:37 Intake & Output 09/22/18 09/23/18 09/24/18 06:59 06:59 06:59 Intake Total 1700 1170 Output Total 1250 1000 Balance 450 170 Weight 132.7 kg 133.8 kg General appearance: PRESENT: morbidly obese Head exam: PRESENT: atraumatic, normocephalic Eye exam: PRESENT: conjunctiva pink, EOMI, PERRLA. ABSENT: scleral icterus Ear exam: PRESENT: normal external ear exam Mouth exam: PRESENT: moist, tongue midline Neck exam: ABSENT: carotid bruit, JVD, lymphadenopathy, thyromegaly Respiratory exam: PRESENT: clear to auscultation kisha. ABSENT: rales, rhonchi, wheezes Cardiovascular exam: PRESENT: RRR. ABSENT: diastolic murmur, rubs, systolic murmur Pulses: PRESENT: normal dorsalis pedis pul Vascular exam: PRESENT: normal capillary refill GI/Abdominal exam: PRESENT: normal bowel sounds, soft. ABSENT: distended, guarding, mass, organolmegaly, rebound, tenderness Rectal exam: PRESENT: deferred Extremities exam: PRESENT: full ROM, pedal edema - trace. ABSENT: calf tenderness, clubbing Neurological exam: PRESENT: alert, awake, oriented to person, oriented to place, oriented to time, oriented to situation, CN II-XII grossly intact. ABSENT: motor sensory deficit Psychiatric exam: PRESENT: appropriate affect, normal mood. ABSENT: homicidal ideation, suicidal ideation Skin exam: PRESENT: dry, intact, warm. ABSENT: cyanosis, rash Results Laboratory Results: 09/10/18 05:15 09/18/18 05:26 09/09/18 09/09/18 09/09/18 11:45 11:45 11:45 Creatine Kinase 60 CK-MB (CK-2) 0.59 Troponin I < 0.012 NT-Pro-B Natriuret Pep 1240 H Impressions: Chest X-Ray 09/09/18 11:41 IMPRESSION: Marked cardiomegaly. Obstructive lung disease
[2018-09-23] MEDS: RIVAROXABAN 15 MG TABLET PO SCH (22:04)
[2018-09-23] MEDS: ATORVASTATIN CALCIUM 20 MG TABLET PO SCH (22:04)
[2018-09-24 01:39] VITALS: BP 98/50
[2018-09-24] MEDS: CYCLOBENZAPRINE HCL 10 MG TABLET PO SCH (05:10)
== END 2018-09-24 08:00 | disposition short-term general hospital (02) | DRG 292 ==
LOC: ER 11:29 → EH 14:12 → 3S 18:55
PROVIDERS: ADMIT Internal Medicine; ATTEND Internal Medicine
PROC: 3E0F73Z Introduction of Anti-inflammatory into Respiratory Tract, Via Natural or Artificial Opening (ICD-10-PCS; principal; 2018-09-18)
DX: I11.0 Hypertensive heart disease with heart failure (principal); N17.9 Acute kidney failure, unspecified; Z68.42 Body mass index [BMI] 45.0-49.9, adult; I50.33 Acute on chronic diastolic (congestive) heart failure; J44.9 Chronic obstructive pulmonary disease, unspecified; Z60.2 Problems related to living alone; E78.5 Hyperlipidemia, unspecified; E66.01 Morbid (severe) obesity due to excess calories; E11.9 Type 2 diabetes mellitus without complications; I48.2 Chronic atrial fibrillation; Z85.43 Personal history of malignant neoplasm of ovary; Z79.899 Other long term (current) drug therapy; Z88.2 Allergy status to sulfonamides; Z88.3 Allergy status to other anti-infective agents; Z79.01 Long term (current) use of anticoagulants; Z90.49 Acquired absence of other specified parts of digestive tract; Z90.710 Acquired absence of both cervix and uterus; Z87.891 Personal history of nicotine dependence; Z83.6 Family history of other diseases of the respiratory system; Z82.49 Family history of ischemic heart disease and other diseases of the circulatory system
CPT/HCPCS: 36415; 71045; 80048; 80053; 81001; 82550; 82553; 82962; 83036; 83735; 83880; 84484; 85025; 85027; 87493; 93005; 93010; 99285; J0360; J1940; J2405; J3490; J7030; J7040; J7620